=== PATIENT | female | born 1930 | race Caucasian/White ===

== ENCOUNTER 2016-12-11 07:00 | Day surgery (SDC) | payer OTHER, BC ==
[~2016-12-11 07:00] MED LIST: SODIUM CHLORIDE 1,000 ML IV SCH
[2016-12-11] MEDS ORDERED: ACETAMINOPHEN 325 MG TABLET (FP) PO ONE (08:00)
[2016-12-11] MEDS ORDERED: DIPHENHYDRAMINE 25 MG in SODIUM CHLORIDE 50 ML IVPB ONE (08:00)
[2016-12-11] MEDS ORDERED: SODIUM CHLORIDE IVPB ONE (08:30)
[2016-12-11] MEDS ORDERED: RITUXIMAB IVPB ONE (08:30)
[2016-12-11 08:44] LABS: MCH 31.2 pg (25.7-33.7); MCHC 33.8 g/dl (32.0-36.0); MEAN CELL VOLUME 92.3 fl (80-96); MEAN PLT VOLUME 8.6 fl (7.5-11.1); PLATELET COUNT 244 K/MM3 (134-434); RDW 14.5 % (11.6-15.6); WHITE BLOOD COUNT 7.3 K/mm3 (4.0-10.0)
[2016-12-11 11:42] LABS: PLATELET ESTIMATE ADEQUATE (NORMAL)
[2016-12-11 11:57] VITALS: PULSE 78
[2016-12-11 11:58] VITALS: BP 125/74; TEMP 97.7
== END 2016-12-11 14:38 | disposition home or self-care (01) ==
LOC: JONCCHEMO 07:00 → J7W 09:28 → JONCCHEMO 14:38
PROVIDERS: ATTEND Internal Medicine Hematology & Oncology
PROC: 3E03305 Introduction of Other Antineoplastic into Peripheral Vein, Percutaneous Approach (ICD-10-PCS; principal; 2016-12-11)
PROC: 3E033GC Introduction of Other Therapeutic Substance into Peripheral Vein, Percutaneous Approach (ICD-10-PCS; 2016-12-11)
DX: Z51.11 Encounter for antineoplastic chemotherapy (principal); C85.99 Non-Hodgkin lymphoma, unspecified, extranodal and solid organ sites
CPT/HCPCS: 36415; 85025; 96375; 96413; 96415; J9310

== ENCOUNTER 2017-02-09 07:13 | Day surgery (SDC) | payer OTHER, BC ==
[2017-02-09] MEDS ORDERED: DIPHENHYDRAMINE 25 MG in SODIUM CHLORIDE 50 ML IVPB ONE (08:00)
[2017-02-09] MEDS ORDERED: ACETAMINOPHEN 325 MG TABLET (FP) PO ONE (08:00)
[2017-02-09] MEDS ORDERED: SODIUM CHLORIDE IVPB ONE (08:30)
[2017-02-09] MEDS ORDERED: RITUXIMAB IVPB ONE (08:30)
[2017-02-09 08:58] VITALS: TEMP 98
[2017-02-09 09:28] LABS: BASOPHIL 0.8 % (0-2.0); EOSINOPHIL 3.1 % (0-4.5); MCH 30.9 pg (25.7-33.7); MEAN PLT VOLUME 7.7 fl (7.5-11.1); NEUTROPHILS 73.1 % (42.8-82.8); PLATELET COUNT 232 K/MM3 (134-434); RDW 13.5 % (11.6-15.6); WHITE BLOOD COUNT 7.6 K/mm3 (4.0-10.0)
[2017-02-09] MEDS ORDERED: SODIUM CHLORIDE 250 ML IV SCH (10:45)
[2017-02-09 14:37] VITALS: PULSE 62
[2017-02-09 14:43] VITALS: BP 135/78
== END 2017-02-09 15:25 | disposition home or self-care (01) ==
LOC: JONCCHEMO 07:13 → J7W 10:17 → JONCCHEMO 15:25
PROVIDERS: ATTEND Internal Medicine Hematology & Oncology
DX: Z51.11 Encounter for antineoplastic chemotherapy (principal); C85.90 Non-Hodgkin lymphoma, unspecified, unspecified site; C50.919 Malignant neoplasm of unspecified site of unspecified female breast
CPT/HCPCS: 36415; 85025; 96360; 96361; 96367; 96413; 96415; J9310

== ENCOUNTER 2018-06-18 05:30 | Day surgery (SDC) | payer OTHER, BC ==
[2018-06-17 08:58] VITALS: BMI 26.1
[2018-06-18] MEDS ORDERED: LACTATED RINGERS SOLUTION 1,000 ML IV SCH (10:45)
[2018-06-18] MEDS ORDERED: LIDOCAINE HCL 1% PRESERVATIVE FREE - 30ML VIAL IJ ONE (11:00)
[2018-06-18 12:54] VITALS: TEMP 97.8
[2018-06-18 14:44] VITALS: BP 147/77; PULSE 88
--- NOTE | 2018-06-19 08:36 | OP ---
DATE OF OPERATION: 06/18/2018 SURGICAL ATTENDING: Zackery Moralez MD PREOPERATIVE DIAGNOSIS: Right neck lymphadenopathy. POSTOPERATIVE DIAGNOSIS: Right neck lymphadenopathy. ANESTHESIA: Local with sedation. PROCEDURE: Deep right cervical lymph node biopsy. DESCRIPTION OF PROCEDURE: The patient was taken into the operating room, placed in a supine position, given IV sedation and IV antibiotics, prepped and draped in usual sterile fashion. Local anesthesia was administered over the right lower neck. A 2-cm horizontal incision was made in the prior neck incision, carried down through subcutaneous tissues and platysma. Enlarged and pathologic-appearing lymph nodes were identified, dissected free from surrounding tissues, and removed. The hemostasis was achieved with electrocautery and Vicryl suture. The wound was then closed in 2 layers. Sterile dressings were placed. The patient was then awakened and taken to Recovery in stable condition. Dr. Moralez, the attending surgeon, was present throughout the entire procedure. ZACKERY MORALEZ M.D. [id number]
--- NOTE | 2018-06-24 11:21 | PATH ---
Surgical Pathology Report Patient Name: CATHERINE KOVACS [facility]. Rec. #: [id number] /Age/Gender: 1930 (Age: 87) / F Account: [id number] Location: [facility] SURGICAL Taken: 06/18/2018 Received: 06/18/2018 Reported: 06/24/2018 Physicians: Delano Cameron M.D. Talha Ramos M.D. Specimen(s) Received A: RIGHT CERVICAL LYMPH NODE BX (ALSO RECEIVED TISSUE IN RPMI) B: CERVICAL SCAR TISSUE Clinical History Right neck mass Final Diagnosis A. LYMPH NODE, CERVICAL, RIGHT, BIOPSY: SMALL LYMPHOCYTIC LYMPHOMA/CHRONIC LYMPHOCYTIC LEUKEMIA. SEE COMMENT. B. SKIN, CERVICAL, EXCISION: SKIN WITH DERMAL FIBROSIS CONSISTENT WITH SCAR. Comment: Part A, histologic sections show an enlarged lymph node. There is effacement of the normal architecture by a diffuse process. There are sheets of atypical lymphoid cells that are mostly small and monotonous-appearing. Occasional proliferation centers are present with intermediate-sized prolymphocytes. Immunohistochemical stains are performed with appropriate controls. The majority of the atypical lymphocytes are positive for dim CD20 and PAX5. They are additionally positive for CD5 and LEF-1. A subset shows dim CD23 staining. Lymphocytes are negative for Cyclin D1. A stain for CD3 highlights scattered small T-cells. A stain for Ki67 is variable, overall highlighting approximately 10-20% of lymphocytes, with higher numbers in proliferation centers. Concurrent lymphoproliferative flow panel performed and interpreted at [place], [place] ([id number]) is consistent with Small lymphocytic lymphoma/Chronic lymphocytic leukemia. This case was sent to Dr. Danny Barcenas from [place], [place] ([id number]) the diagnosis above reflects his opinion. Findings discussed with Dr. Cameron and Dr. Ramos. See [facility] reports for additional details ([id number] and [id number]). Electronically Signed Shantell Curry M.D. Gross Description A. Received fresh labeled "right cervical lymph node biopsy," are 2 melton lymph nodes averaging 1.0 cm in greatest dimension. A appliance service representative portion of each lymph node is placed in RPMI solution and sent for flow cytometry. The remainder of the specimen is entirely submitted in one cassette. B. Received in formalin labeled "cervical scar," is a 3.0 x 0.5 cm melton, elliptical, unoriented portion of skin excised to a depth of 0.2 cm. The epidermal surface displays a central, linear, well-healed scar. Clay Puddler sections are submitted in one cassette. 06/18/201806/18/2018
== END 2018-06-18 13:30 | disposition home or self-care (01) ==
LOC: JASU-SURG 05:30
PROVIDERS: ATTEND Surgery
PROC: 07B10ZX Excision of Right Neck Lymphatic, Open Approach, Diagnostic (ICD-10-PCS; principal; 2018-06-18 10:00)
DX: C91.Z0 Other lymphoid leukemia not having achieved remission (principal)
CPT/HCPCS: 88304-TC; 88305-TC; 94760

== ENCOUNTER 2018-07-06 07:31 | Day surgery (SDC) | payer OTHER, BC ==
[2018-07-06 09:59] LABS: BASO % 0.2 % (0-2.0); EOS % 5.1 % (0-4.5); HEMOGLOBIN 11.6 GM/dL (10.7-15.3); LYMPH % 10.8 % (8-40); MCH 29.7 pg (25.7-33.7); MCHC 34.1 g/dl (32.0-36.0); MEAN CELL VOLUME 87.1 fl (80-96); MEAN PLT VOLUME 6.7 fl (7.5-11.1); MONO % 11.6 % (3.8-10.2); NEUT % 72.3 % (42.8-82.8); PLATELET COUNT 246 K/MM3 (134-434); RDW 14.9 % (11.6-15.6); WHITE BLOOD COUNT 6.1 K/mm3 (4.0-10.0)
[2018-07-06] MEDS ORDERED: ACETAMINOPHEN 325 MG TABLET (FP) PO ONE (10:00)
[2018-07-06] MEDS ORDERED: DEXAMETHASONE INJECTION 10 MG, DIPHENHYDRAMINE 25 MG in SODIUM CHLORIDE 100 ML IVPB ONE (10:00)
[2018-07-06 10:14] LABS: ALBUMIN 3.6 g/dl (3.4-5.0); ALK PHOS 67 U/L (45-117); ANION GAP 12 MMOL/L (8-16); BILIRUBIN,TOTAL 0.9 mg/dL (0.2-1); BLOOD UREA NITROGEN 17 mg/dL (7-18); CHLORIDE 93 mmol/L (98-107); CO2 26 mmol/L (21-32); CREATININE 0.9 mg/dL (0.55-1.3); GLUCOSE,RANDOM 92 mg/dL (74-106); POTASSIUM 3.9 mmol/L (3.5-5.1); SGOT/AST 29 U/L (15-37); SGPT/ALT 28 U/L (13-61); SODIUM 131 mmol/L (136-145); TOT PROT 7.6 g/dl (6.4-8.2)
[2018-07-06 10:17] LABS: ALBUMIN 3.6 g/dl (3.4-5.0); BILIRUBIN,DIRECT 0.2 mg/dL (0.0-0.2); MAGNESIUM 1.7 mg/dL (1.8-2.4); TOT PROT 7.8 g/dl (6.4-8.2)
[2018-07-06] MEDS ORDERED: RITUXIMAB 500 MG, RITUXIMAB 85 MG in SODIUM CHLORIDE 526.5 ML IVPB ONE (10:30)
[2018-07-06] MEDS ORDERED: MAGNESIUM SULF 50% (8.12 MEQ/2 ML-1 GM VIAL) IVPB ONE (10:37)
[2018-07-06] MEDS ORDERED: ALPRAZolam 0.25 MG TABLET PO ONE (11:00)
[2018-07-06 11:16] LABS: LDH 268 U/L (84-246); URIC ACID 4.5 mg/dL (2.6-7.2)
[2018-07-06 15:40] VITALS: TEMP 97.9
[2018-07-06 15:48] VITALS: BP 147/87; PULSE 102
== END 2018-07-06 16:14 | disposition home or self-care (01) ==
LOC: JONCCHEMO 07:31 → J7W 10:20 → JONCCHEMO 16:14
PROVIDERS: ATTEND Internal Medicine Hematology & Oncology
DX: Z51.11 Encounter for antineoplastic chemotherapy (principal); C91.10 Chronic lymphocytic leukemia of B-cell type not having achieved remission; Z85.3 Personal history of malignant neoplasm of breast
CPT/HCPCS: 36415; 80053; 80076; 83615; 83735; 84550; 85025; 96366; 96367; 96375; 96413; 96415; 96417; J1100; J7030; J9310

== ENCOUNTER 2018-07-13 07:47 | Day surgery (SDC) | payer OTHER, BC ==
[2018-07-13] MEDS ORDERED: ACETAMINOPHEN 325 MG TABLET (FP) PO ONE (10:00)
[2018-07-13] MEDS ORDERED: DEXAMETHASONE INJECTION 10 MG, DIPHENHYDRAMINE 25 MG in SODIUM CHLORIDE 100 ML IVPB ONE (10:00)
[2018-07-13 10:03] LABS: BASO % 0.4 % (0-2.0); EOS % 6.4 % (0-4.5); HEMATOCRIT 38.6 % (32.4-45.2); HEMOGLOBIN 12.8 GM/dL (10.7-15.3); LYMPH % 9.5 % (8-40); MCHC 33.2 g/dl (32.0-36.0); MEAN CELL VOLUME 87.5 fl (80-96); MEAN PLT VOLUME 6.9 fl (7.5-11.1); MONO % 6.6 % (3.8-10.2); NEUT % 77.1 % (42.8-82.8); PLATELET COUNT 303 K/MM3 (134-434); RBC 4.41 M/mm3 (3.60-5.2); RDW 15.3 % (11.6-15.6); WHITE BLOOD COUNT 11.9 K/mm3 (4.0-10.0)
[2018-07-13 10:22] LABS: ALBUMIN 3.6 g/dl (3.4-5.0); BILIRUBIN,DIRECT 0.2 mg/dL (0.0-0.2); BILIRUBIN,TOTAL 0.6 mg/dL (0.2-1); MAGNESIUM 1.7 mg/dL (1.8-2.4); TOT PROT 7.9 g/dl (6.4-8.2)
[2018-07-13 10:24] LABS: ALBUMIN 3.6 g/dl (3.4-5.0); ALK PHOS 66 U/L (45-117); ANION GAP 11 MMOL/L (8-16); BILIRUBIN,TOTAL 0.6 mg/dL (0.2-1); BLOOD UREA NITROGEN 23 mg/dL (7-18); CALCIUM 10.4 mg/dL (8.5-10.1); CHLORIDE 92 mmol/L (98-107); CO2 28 mmol/L (21-32); GLUCOSE,RANDOM 90 mg/dL (74-106); POTASSIUM 3.6 mmol/L (3.5-5.1); SGOT/AST 22 U/L (15-37); SGPT/ALT 33 U/L (13-61); SODIUM 131 mmol/L (136-145); TOT PROT 7.9 g/dl (6.4-8.2)
[2018-07-13] MEDS ORDERED: RITUXIMAB 500 MG, RITUXIMAB 85 MG in SODIUM CHLORIDE 526.5 ML IVPB ONE (10:30)
[2018-07-13] MEDS ORDERED: MAGNESIUM SULF 50% (8.12 MEQ/2 ML-1 GM VIAL) IVPB ONE ×2 (10:50→11:45)
[2018-07-13 18:03] VITALS: TEMP 97.7
[2018-07-13 18:04] VITALS: BP 123/72; PULSE 82
== END 2018-07-13 14:45 | disposition home or self-care (01) ==
LOC: JONCCHEMO 07:47 → J7W 10:39 → JONCCHEMO 14:45
PROVIDERS: ATTEND Internal Medicine Hematology & Oncology
DX: Z51.11 Encounter for antineoplastic chemotherapy (principal); C91.10 Chronic lymphocytic leukemia of B-cell type not having achieved remission; Z85.3 Personal history of malignant neoplasm of breast
CPT/HCPCS: 36415; 80053; 80076; 82306; 83735; 83970; 84100; 85025; 96366; 96367; 96375; 96413; 96415; 96417; J1100; J7030; J9310

== ENCOUNTER 2018-07-20 07:47 | Day surgery (SDC) | payer OTHER, BC ==
[2018-07-20] MEDS ORDERED: DEXAMETHASONE INJECTION 10 MG, DIPHENHYDRAMINE 25 MG in SODIUM CHLORIDE 100 ML IVPB ONE (08:00)
[2018-07-20] MEDS ORDERED: ACETAMINOPHEN 325 MG TABLET (FP) PO ONE (08:00)
[2018-07-20] MEDS ORDERED: RITUXIMAB 500 MG, RITUXIMAB 85 MG in SODIUM CHLORIDE 526.5 ML IVPB ONE (08:30)
[2018-07-20 09:30] LABS: BASO % 0.4 % (0-2.0); EOS % 2.9 % (0-4.5); HEMATOCRIT 36.7 % (32.4-45.2); HEMOGLOBIN 12.6 GM/dL (10.7-15.3); LYMPH % 4.2 % (8-40); MCH 30.1 pg (25.7-33.7); MCHC 34.2 g/dl (32.0-36.0); MEAN CELL VOLUME 88.2 fl (80-96); MEAN PLT VOLUME 6.9 fl (7.5-11.1); MONO % 5.8 % (3.8-10.2); NEUT % 86.7 % (42.8-82.8); PLATELET COUNT 315 K/MM3 (134-434); RBC 4.16 M/mm3 (3.60-5.2); RDW 15.5 % (11.6-15.6); WHITE BLOOD COUNT 15.9 K/mm3 (4.0-10.0)
[2018-07-20 09:53] LABS: ALBUMIN 3.4 g/dl (3.4-5.0); BILIRUBIN,DIRECT 0.2 mg/dL (0.0-0.2); BILIRUBIN,TOTAL 0.7 mg/dL (0.2-1); MAGNESIUM 1.6 mg/dL (1.8-2.4); TOT PROT 7.4 g/dl (6.4-8.2)
[2018-07-20 09:55] LABS: ALBUMIN 3.5 g/dl (3.4-5.0); ALK PHOS 67 U/L (45-117); ANION GAP 8 MMOL/L (8-16); BILIRUBIN,TOTAL 0.8 mg/dL (0.2-1); BLOOD UREA NITROGEN 22 mg/dL (7-18); CALCIUM 10.1 mg/dL (8.5-10.1); CHLORIDE 96 mmol/L (98-107); CO2 30 mmol/L (21-32); CREATININE 0.9 mg/dL (0.55-1.3); GLUCOSE,RANDOM 70 mg/dL (74-106); POTASSIUM 4.3 mmol/L (3.5-5.1); SGOT/AST 22 U/L (15-37); SGPT/ALT 38 U/L (13-61); SODIUM 134 mmol/L (136-145); TOT PROT 7.6 g/dl (6.4-8.2)
[2018-07-20] MEDS ORDERED: amLODIPine BESYLATE 5 MG TABLET (FP) PO ONE (10:45)
[2018-07-20] MEDS ORDERED: MAGNESIUM SULF 50% (8.12 MEQ/2 ML-1 GM VIAL) ONE (11:05)
[2018-07-20] MEDS ORDERED: MAGNESIUM SULF 50% (8.12 MEQ/2 ML-1 GM VIAL) IVPB ONE (11:30)
[2018-07-20] MEDS ORDERED: amLODIPine BESYLATE 2.5 MG TABLET (FP) PO ONE (12:45)
[2018-07-20 17:28] VITALS: PULSE 89
[2018-07-20 17:31] VITALS: BP 132/84; TEMP 97.9
== END 2018-07-20 15:50 | disposition home or self-care (01) ==
LOC: JONCCHEMO 07:47 → J7W 09:55 → JONCCHEMO 15:50
PROVIDERS: ATTEND Internal Medicine Hematology & Oncology
DX: Z51.11 Encounter for antineoplastic chemotherapy (principal); C91.10 Chronic lymphocytic leukemia of B-cell type not having achieved remission; Z85.3 Personal history of malignant neoplasm of breast
CPT/HCPCS: 36415; 80053; 80076; 83735; 84550; 85025; 96367; 96375; 96413; 96415; 96417; J1100; J9310

== ENCOUNTER 2018-07-27 07:23 | Day surgery (SDC) | payer OTHER, BC ==
[2018-07-27 09:47] LABS: BASO % 0.7 % (0-2.0); HEMATOCRIT 40.6 % (32.4-45.2); HEMOGLOBIN 13.8 GM/dL (10.7-15.3); LYMPH % 6.7 % (8-40); MCH 29.8 pg (25.7-33.7); MEAN CELL VOLUME 87.7 fl (80-96); MEAN PLT VOLUME 6.8 fl (7.5-11.1); MONO % 10.5 % (3.8-10.2); NEUT % 75.1 % (42.8-82.8); PLATELET COUNT 284 K/MM3 (134-434); RBC 4.63 M/mm3 (3.60-5.2); RDW 15.2 % (11.6-15.6); WHITE BLOOD COUNT 9.4 K/mm3 (4.0-10.0)
[2018-07-27] MEDS ORDERED: DEXAMETHASONE INJECTION 10 MG, DIPHENHYDRAMINE 25 MG in SODIUM CHLORIDE 100 ML IVPB ONE (10:00)
[2018-07-27] MEDS ORDERED: ACETAMINOPHEN 325 MG TABLET (FP) PO ONE (10:00)
[2018-07-27] MEDS ORDERED: RITUXIMAB 500 MG, RITUXIMAB 85 MG in SODIUM CHLORIDE 526.5 ML IVPB ONE (10:30)
[2018-07-27 10:41] LABS: ALBUMIN 3.7 g/dl (3.4-5.0); BILIRUBIN,DIRECT 0.3 mg/dL (0.0-0.2); BILIRUBIN,TOTAL 1.1 mg/dL (0.2-1); MAGNESIUM 1.7 mg/dL (1.8-2.4); TOT PROT 7.7 g/dl (6.4-8.2)
[2018-07-27 10:42] LABS: ALBUMIN 3.5 g/dl (3.4-5.0); ALK PHOS 74 U/L (45-117); ANION GAP 8 MMOL/L (8-16); BILIRUBIN,TOTAL 1.1 mg/dL (0.2-1); BLOOD UREA NITROGEN 17 mg/dL (7-18); CALCIUM 9.2 mg/dL (8.5-10.1); CHLORIDE 88 mmol/L (98-107); CO2 32 mmol/L (21-32); CREATININE 0.9 mg/dL (0.55-1.3); GLUCOSE,RANDOM 95 mg/dL (74-106); POTASSIUM 3.9 mmol/L (3.5-5.1); SGOT/AST 22 U/L (15-37); SGPT/ALT 29 U/L (13-61); SODIUM 128 mmol/L (136-145); TOT PROT 7.5 g/dl (6.4-8.2)
[2018-07-27] MEDS ORDERED: MAGNESIUM OXIDE 400 MG TABLET (FP) PO ONE (10:50)
[2018-07-27 15:24] VITALS: TEMP 97.7
[2018-07-27 15:26] VITALS: BP 128/70; PULSE 89
== END 2018-07-27 14:45 | disposition home or self-care (01) ==
LOC: JONCCHEMO 07:23 → J7W 10:31 → JONCCHEMO 14:45
PROVIDERS: ATTEND Internal Medicine Hematology & Oncology
DX: Z51.11 Encounter for antineoplastic chemotherapy (principal); C91.10 Chronic lymphocytic leukemia of B-cell type not having achieved remission; Z85.3 Personal history of malignant neoplasm of breast
CPT/HCPCS: 36415; 80053; 80076; 83735; 85025; 96367; 96375; 96413; 96415; J1100; J9310

== ENCOUNTER 2018-10-06 15:27 | Emergency (ER) | payer OTHER, BC ==
[2018-10-06 15:48] VITALS: BP 169/95; PULSE 95; TEMP 97.8; BMI 23.8
--- NOTE | 2018-10-06 15:50 | PDOC ---
Rapid Medical Evaluation Chief Complaint: Shortness of Breath Time Seen by Provider: 10/06/18 15:49 Medical Evaluation: Allergies Allergy/AdvReac Type Severity Reaction Status Date / Time Penicillins Allergy Mild Rash Verified 10/06/18 15:48 azithromycin AdvReac Intermediate diarrhea Verified 10/06/18 15:48 [From Zithromax Z-Aung] metronidazole [From Flagyl] AdvReac Intermediate Rash Verified 10/06/18 15:48 Metronidazole HCl AdvReac Intermediate Verified 10/06/18 15:48 [From Flagyl] Vital Signs Temp Pulse Resp BP Pulse Ox 97.8 F 95 H 22 H 169/95 100 10/06/18 15:45 10/06/18 15:45 10/06/18 15:45 10/06/18 15:45 10/06/18 15:45 10/06/18 15:49 I have performed a brief in-person evaluation of this patient. The patient presents with a chief complaint of: SOB x3 days Pertinent physical exam findings: Lungs CTAB. Abd diffusely tender. I have ordered the following: labs The patient will proceed to the ED for further evaluation. Discharge Disposition - Diagnosis SOB (shortness of breath) - Referrals Referrals: Shivam Colorado MD [Primary Care Provider] - - Patient Instructions - Post Discharge Activity
--- NOTE | 2018-10-06 16:17 | PDOC ---
History of Present Illness - General Chief Complaint: Shortness of Breath Stated Complaint: Shortness of Breath/ABD PAIN Time Seen by Provider: 10/06/18 15:49 - History of Present Illness Initial Comments: 10/06/18 17:14 The patient is an 87 year old female with a history of HTN, HLD, Breast CA, Lymphoma, Colonic Resection who presents for evaluation of abdominal pain. The patient is accompanied by family who assist in providing the history. They note that the patient's Oncologist Dr. Ramos recently started on a new chemotherapy agent 3 weeks ago and since that time has been having worsening epigastric abdominal cramping. She notes that the pain has been intermittent, but getting progressively more persistent and more severe prompting her presentation to the ED for further evaluation. She notes that she has only been able to tolerate PO liquids and reports some nausea today. She notes associated diarrhea and shortness of breath when the pain occurs. She otherwise denies fevers, chills, chest pain, vomiting, or changes with urination. Past History - Past Medical History Allergies/Adverse Reactions: Allergies Allergy/AdvReac Type Severity Reaction Status Date / Time Penicillins Allergy Mild Rash Verified 10/06/18 15:48 azithromycin AdvReac Intermediate diarrhea Verified 10/06/18 15:48 [From Zithromax Z-Aung] metronidazole [From Flagyl] AdvReac Intermediate Rash Verified 10/06/18 15:48 Metronidazole HCl AdvReac Intermediate Verified 10/06/18 15:48 [From Flagyl] Home Medications: Ambulatory Orders Alprazolam [Xanax] 0.25 mg PO PRN 10/06/18 Ibrutinib [Imbruvica] 420 mg PO HS 10/06/18 Levothyroxine [Synthroid -] 25 mcg PO DAILY 10/06/18 Anemia: Yes Asthma: No Cancer: Yes (BREAST CA 11/2006, LYMPHOMA 1980 AND 1988) Cardiac Disorders: No CVA: No COPD: No CHF: No Dementia: No Diabetes: No GI Disorders: No Disorders: No HTN: Yes Hypercholesterolemia: Yes Liver Disease: No Seizures: No Thyroid Disease: Yes - Surgical History Abdominal Surgery: Yes (PERFORATED COLON S/P COLONOSCOPY) Appendectomy: No Cardiac Surgery: No Cholecystectomy: No GI Surgery: Yes (colonoscopy) Lung Surgery: No Neurologic Surgery: No Orthopedic Surgery: No - Immunization History Immunization Up to Date: No - Suicide/Smoking/Psychosocial Hx Smoking Status: No Smoking History: Never smoked Have you smoked in the past 12 months: No Number of Cigarettes Smoked Daily: 0 Information on smoking cessation initiated: No Hx Alcohol Use: No Drug/Substance Use Hx: No Substance Use Type: None Hx Substance Use Treatment: No Review of Systems - Review of Systems Comments:: 10/06/18 17:20 Constitutional: No fevers, chills, fatigue, malaise HEENT: No Rhinorrhea, nasal congestion, visual changes Cardiovascular: No chest pain, syncope, palpitations, lightheadedness Respiratory:SOB. No Cough, Hemoptysis, Gastrointestinal: Abdominal pain, nausea, diarrhea. No Vomiting, Constipation, Melena Genitourinary: No Dysuria, Frequency, Urgency, Hesitancy, Hematuria, Flank pain Musculoskeletal: No Myalgia, arthralgia Skin: No rashes, itching, bruising, pallor Neurologic: No Headache, Dizziness, Numbness, Weakness, or Tingling Psychiatric: No Hallucinations. No SI or HI *Physical Exam - Vital Signs Last Vital Signs Temp Pulse Resp BP Pulse Ox 97.8 F 95 H 22 H 169/95 100 10/06/18 15:45 10/06/18 15:45 10/06/18 15:45 10/06/18 15:45 10/06/18 15:45 - Physical Exam Comments: 10/06/18 17:21 General Appearance: Nourished. No Apparent Distress HEENT: No Pharyngeal Erythema, Tonsillar Exudate, Tonsillar Erythema Neck: No Cervical Lymphadenopathy Respiratory/Chest: Lungs Clear, Normal Breath Sounds. No Crackles, Rales, Rhonchi, Wheezing Cardiovascular: Regular Rhythm, Regular Rate. No Murmur, Gallops, Rubs Gastrointestinal/Abdominal: Hyperactive bowel sounds, Soft. Mild epigastric discomfort with palpation. No Guarding, Rebound, Musculoskeletal: No CVA Tenderness Extremity: Normal Capillary Refill Integumentary: Normal Color, Dry, Warm Neurologic: Fully Oriented, Alert, Normal Mood/Affect, Normal Response, Moderate Sedation - Procedure Monitoring Vital Signs: Procedure Monitoring Vital Signs Temperature 97.8 F 10/06/18 15:45 Pulse Rate 95 H 10/06/18 15:45 Respiratory Rate 22 H 10/06/18 15:45 Blood Pressure 169/95 10/06/18 15:45 O2 Sat by Pulse Oximetry (%) 100 01/02/19 15:45 ED Treatment Course - LABORATORY CBC & Chemistry Diagram: 10/06/18 16:09 10/06/18 16:09 Medical Decision Making - Medical Decision Making 10/06/18 17:22 The patient is an 87 year old female with a history of HTN, HLD, Breast CA, Lymphoma, Colonic Resection who presents for evaluation of abdominal pain. Differential includes but is not limited to: Obstruction, ACS, Gastritis, Medication Side-effects, Infectious, Metabolic Derangement. Given the patient' s history and physical exam, we will obtain a cbc, cmp, bnp, troponin, lipase, lactate, ua, chest plain film, ekg, CT abdomen/pelvis to evaluate further. We will treat with iv fluids and continue to monitor and reassess while here in the ED. 10/06/18 19:58 CBC, cmp, bnp, troponin, lipase are unremarkable. Chest plain film is unremarkable. The patient was signed out to the night team pending CT abdomen/ pelvis. *DC/Admit/Observation/Transfer Diagnosis at time of Disposition: SOB (shortness of breath) - Discharge Dispostion Disposition: AGAINST MEDICAL ADVICE Condition at time of disposition: Stable - Referrals Referrals: Shivam Colorado MD [Primary Care Provider] - - Patient Instructions Printed Discharge Instructions: DI for Abdominal Pain-Adult Additional Instructions: Please return to the emergency department with any new or worsening symptoms or concerns. Please follow up with your primary care physician within 72 hours. - Post Discharge Activity
[2018-10-06 16:20] LABS: BASO % 1.5 % (0-2.0); EOS % 0.9 % (0-4.5); HEMATOCRIT 33.6 % (32.4-45.2); HEMOGLOBIN 11.8 GM/dL (10.7-15.3); LYMPH % 16.2 % (8-40); MCH 31.7 pg (25.7-33.7); MCHC 35.1 g/dl (32.0-36.0); MEAN CELL VOLUME 90.3 fl (80-96); MEAN PLT VOLUME 9.4 fl (7.5-11.1); MONO % 12.7 % (3.8-10.2); NEUT % 68.7 % (42.8-82.8); PLATELET COUNT 212 K/MM3 (134-434); RBC 3.72 M/mm3 (3.60-5.2); RDW 14.2 % (11.6-15.6); WHITE BLOOD COUNT 6.8 K/mm3 (4.0-10.0)
--- NOTE | 2018-10-06 16:36 | PDOC ---
Attending Attestation - HPI HPI: 10/06/18 16:41 The patient is a 87 year old female, with a significant past medical history of anemia, htn, hld, breast CA, and lymphoma (Dr. Ramos), who presents to the emergency department with abdominal pain after starting new chemo drug about 2- 3 weeks ago. She reports epigastric cramping which has been progressively increasing in severity since onset. She denies radiation of pain. She reports associated nausea and diarrhea, but denies vomiting. The patient denies chest pain, shortness of breath, headache and dizziness. The patient denies fever, chills, vomit,and constipation. The patient denies dysuria , frequency, urgency and hematuria. Allergies: penicillins, azithromycin, metronidazole, PCP - Dr. Colorado Hem/Onc: Dr. Ramos - Physicial Exam PE: 10/06/18 17:31 GENERAL: The patient is in no acute distress. HEAD: Normal with no signs of trauma. EYES: PERRLA, EOMI, sclera anicteric, conjunctiva clear. ENT: Ears normal, nares patent, oropharynx clear without exudates. Moist mucous membranes. NECK: Normal range of motion, supple without lymphadenopathy, JVD, or masses. LUNGS: Breath sounds equal, clear to auscultation bilaterally. No wheezes, and no crackles. HEART:Regular rate and rhythm, normal S1 and S2 without murmur, rub or gallop. ABDOMEN: (+) right lower discomfort on palpation. Soft, normoactive bowel sounds. No guarding, no rebound. No masses palpable. EXTREMITIES: (+) bilateral pitting edema of ankles. Normal range of motion. No clubbing or cyanosis. No erythema, or tenderness. NEUROLOGICAL: Cranial nerves II through XII grossly intact. Normal speech. No focal neurological deficits. MUSCULOSKELETAL: Back non-tender to palpation, no CVA tenderness SKIN: Warm, Dry, normal turgor, no rashes or lesions noted. - Medical Decision Making 10/06/18 16:41 Documentation prepared by Moon Jackson, acting as emergency medical technician/driver for Arabella Blanc MD <Moon Jackson - Last Filed: 10/06/18 17:30> - Resident Resident Name: Santiago Anton - ED Attending Attestation I have performed the following: I have examined & evaluated the patient, The case was reviewed & discussed with the resident, I agree w/resident's findings & plan, Exceptions are as noted - Medical Decision Making Pt presents with abdominal pain and decreased po intake pt recently started on biologic Risks - colitis, sbo, intra abdominal infection 10/06/18 17:56 Laboratory Tests 10/06/18 10/06/18 10/06/18 16:09 16:09 16:09 WBC 6.8 Hgb 11.8 Hct 33.6 Plt Count 212 D INR 0.98 Sodium 132 L Potassium 3.9 Chloride 98 Carbon Dioxide 28 BUN 14 Creatinine 1.0 Random Glucose 84 Lactic Acid AST 66 H ALT 117 H Creatine Kinase 126 Troponin I 0.03 Lipase 10/06/18 10/06/18 16:54 16:54 WBC Hgb Hct Plt Count INR Sodium Potassium Chloride Carbon Dioxide BUN Creatinine Random Glucose Lactic Acid 0.9 AST ALT Creatine Kinase Troponin I Lipase 140 Pt signed out to Dr. martell pending CT results <Arabella Blanc - Last Filed: 10/08/18 07:59>
[2018-10-06] MEDS ORDERED: SODIUM CHLORIDE 1,000 ML IV STA (16:40)
[2018-10-06 16:48] LABS: INR 0.98 (0.83-1.09); PROTHROMBIN TIME (PATIENT) 11.6 SEC (9.7-13.0)
[2018-10-06 16:58] LABS: URINE APPEARANCE CLEAR; URINE BILIRUBIN NEGATIVE (<2.0 mg/dL); URINE COLOR LTYELLOW; URINE GLUCOSE (UA) NEGATIVE (NEGATIVE); URINE KETONE NEGATIVE (NEGATIVE); URINE LEUK ESTERASE 3+ (NEGATIVE); URINE NITRITE NEGATIVE (NEGATIVE); URINE PROTEIN 2+ (NEGATIVE); URINE UROBILINOGEN NEGATIVE mg/dL (0.2-1.0)
[2018-10-06 17:02] LABS: ALBUMIN 3.3 g/dl (3.4-5.0); ALK PHOS 67 U/L (45-117); ANION GAP 6 MMOL/L (8-16); BILIRUBIN,TOTAL 0.8 mg/dL (0.2-1); BLOOD UREA NITROGEN 14 mg/dL (7-18); CHLORIDE 98 mmol/L (98-107); CO2 28 mmol/L (21-32); GLUCOSE,RANDOM 84 mg/dL (74-106); POTASSIUM 3.9 mmol/L (3.5-5.1); SGOT/AST 66 U/L (15-37); SGPT/ALT 117 U/L (13-61); SODIUM 132 mmol/L (136-145); TOT PROT 6.7 g/dl (6.4-8.2)
[2018-10-06 17:11] LABS: EPI CELLS RARE /HPF (FEW)
--- NOTE | 2018-10-06 19:29 | PDOC ---
*Physical Exam - Vital Signs Last Vital Signs Temp Pulse Resp BP Pulse Ox 97.8 F 95 H 22 H 169/95 98 10/06/18 15:45 10/06/18 15:45 10/06/18 15:45 10/06/18 15:45 10/06/18 16:20 - Physical Exam Comments: 10/06/18 19:25 GENERAL: Awake, alert, and fully oriented, in no acute distress HEAD: No signs of trauma, normocephalic, atraumatic EYES: PERRLA, EOMI, sclera anicteric, conjunctiva clear ENT: Hearing grossly normal, nares patent, oropharynx clear without exudates. Moist mucosa NECK: Normal ROM, supple, no lymphadenopathy, JVD, or masses LUNGS: No distress, speaks full sentences, clear to auscultation bilaterally HEART: Regular rate and rhythm, normal S1 and S2, no murmurs, rubs or gallops, peripheral pulses normal and equal bilaterally. ABDOMEN: + Epigastric ttp. Soft, NDS, normoactive bowel sounds. No guarding, no rebound. No masses EXTREMITIES : Normal inspection, Normal range of motion, no edema. No clubbing or cyanosis. SKIN: Warm, Dry, normal turgor, no rashes or lesions noted ED Treatment Course - LABORATORY CBC & Chemistry Diagram: 10/06/18 16:09 10/06/18 16:09 - ADDITIONAL ORDERS Additional order review: Laboratory Results 10/06/18 10/06/18 10/06/18 16:54 16:54 16:40 PT with INR INR Sodium Potassium Chloride Carbon Dioxide Anion Gap BUN Creatinine Creat Clearance w eGFR Random Glucose Lactic Acid 0.9 Calcium Magnesium Total Bilirubin AST ALT Alkaline Phosphatase Creatine Kinase Troponin I Total Protein Albumin Lipase 140 Urine Color Ltyellow Urine Appearance Clear Urine pH 6.0 Ur Specific Erie 1.008 L Urine Protein 2+ H Urine Glucose (UA) Negative Urine Ketones Negative Urine Blood 1+ H Urine Nitrite Negative Urine Bilirubin Negative Urine Urobilinogen Negative Ur Leukocyte Esterase 3+ H Urine WBC (Auto) 17 Urine RBC (Auto) 1 Ur Epithelial Cells Rare 10/06/18 10/06/18 16:09 16:09 PT with INR 11.60 INR 0.98 Sodium 132 L Potassium 3.9 Chloride 98 Carbon Dioxide 28 Anion Gap 6 L BUN 14 Creatinine 1.0 Creat Clearance w eGFR 52.45 Random Glucose 84 Lactic Acid Calcium 9.0 Magnesium 2.0 Total Bilirubin 0.8 AST 66 H ALT 117 H Alkaline Phosphatase 67 Creatine Kinase 126 Troponin I 0.03 Total Protein 6.7 Albumin 3.3 L Lipase Urine Color Urine Appearance Urine pH Ur Specific Erie Urine Protein Urine Glucose (UA) Urine Ketones Urine Blood Urine Nitrite Urine Bilirubin Urine Urobilinogen Ur Leukocyte Esterase Urine WBC (Auto) Urine RBC (Auto) Ur Epithelial Cells 10/06/18 16:09 RBC 3.72 MCV 90.3 MCHC 35.1 RDW 14.2 D MPV 9.4 D Neutrophils % 68.7 Lymphocytes % 16.2 Monocytes % 12.7 H Eosinophils % 0.9 D Basophils % 1.5 - Medications Given in the ED: ED Medications Discontinued Medications Generic Name Dose Route Start Last Admin Trade Name Freq PRN Reason Stop Dose Admin Sodium Chloride 1,000 mls @ 1,000 mls/hr 10/06/18 16:40 10/06/18 16:49 Normal Saline - IV 10/06/18 17:39 1,000 mls/hr ASDIR STA Administration Medical Decision Making - Medical Decision Making 10/06/18 19:25 87 yo F with h/o HTN, HLD, Breast Ca. Lymphoma, Colonic Resection, who p/w abdominal pain. VSS, AF. Received signout from Dr. Anton. Patient pending CT AP. CBC,CMP Unremarkable. Has received NS. Abdominal pain resolved. Pending CT AP. ED Course: Abdominal pain improved. Patient refuses to eat or drink in ED for PO challenge. Daughter at bedside states she is health care proxy and states that she is taking patient home. 10/06/18 19:28 Patient refuses to stay in ED for official CT/AP radiologist read. Patient signs out of ED AMA , after discussing and understanding risks of sudden , missed diagnosis, or need for additional testing, intervention, or admission to hospital. Daughter Kasandra Newberry provided phone number [phone]. Patient seen ambulating hallways. IV was removed. Does not endorses pain, or symptoms at this time. *DC/Admit/Observation/Transfer Diagnosis at time of Disposition: SOB (shortness of breath) - Discharge Dispostion Disposition: AGAINST MEDICAL ADVICE Condition at time of disposition: Stable - Referrals Referrals: Shivam Colorado MD [Primary Care Provider] - - Patient Instructions Printed Discharge Instructions: DI for Abdominal Pain-Adult Additional Instructions: Please return to the emergency department with any new or worsening symptoms or concerns. Please follow up with your primary care physician within 72 hours. - Post Discharge Activity - Attestations Physician Attestion: 10/06/18 19:28 I attest to the information provided in this note.
--- NOTE | 2018-10-07 16:19 | EKG ---
Test Reason : Blood Pressure : / mmHG Vent. Rate : 093 BPM Atrial Rate : 093 BPM P-R Int : 138 ms QRS Dur : 118 ms QT Int : 376 ms P-R-T Axes : 056 -56 054 degrees QTc Int : 467 ms NORMAL SINUS RHYTHM POSSIBLE LEFT ATRIAL ENLARGEMENT LEFT ANTERIOR FASCICULAR BLOCK LEFT VENTRICULAR HYPERTROPHY WITH QRS WIDENING NONSPECIFIC T WAVE ABNORMALITY ABNORMAL ECG WHEN COMPARED WITH ECG OF 06-AUG-2017 11:13, NONSPECIFIC T WAVE ABNORMALITY HAS REPLACED INVERTED T WAVES IN INFERIOR LEADS Confirmed by RAMÓN LAMBERT MD ([id number]) on 10/07/2018 4:19:37 PM Referred By: Confirmed By:RAMÓN LAMBERT MD
== END 2018-10-06 20:31 | disposition left against medical advice (07) ==
LOC: JER 15:27
PROC: 3E0337Z Introduction of Electrolytic and Water Balance Substance into Peripheral Vein, Percutaneous Approach (ICD-10-PCS; principal; 2018-10-06)
DX: R06.02 Shortness of breath (principal); I10 Essential (primary) hypertension; E78.5 Hyperlipidemia, unspecified; Z85.3 Personal history of malignant neoplasm of breast; C85.90 Non-Hodgkin lymphoma, unspecified, unspecified site
CPT/HCPCS: 36415; 74177-TC; 80053; 81003; 81015; 82550; 83605; 83690; 83735; 84484; 85025; 85610; 93005; 93010; 99284-25; J7030

== ENCOUNTER 2018-10-28 17:48 | Emergency (ER) | payer OTHER, BC ==
--- NOTE | 2018-10-28 18:11 | PDOC ---
Rapid Medical Evaluation Time Seen by Provider: 10/28/18 18:09 Medical Evaluation: Allergies Allergy/AdvReac Type Severity Reaction Status Date / Time Penicillins Allergy Mild Rash Verified 10/06/18 15:48 azithromycin AdvReac Intermediate diarrhea Verified 10/06/18 15:48 [From Zithromax Z-Aung] metronidazole [From Flagyl] AdvReac Intermediate Rash Verified 10/06/18 15:48 Metronidazole HCl AdvReac Intermediate Verified 10/06/18 15:48 [From Flagyl] 10/28/18 18:09 I performed a brief in-person evaluation of this patient. Chief complaint: Multiple anxiety attacks while on mirtazapine and alprazolam, sent by Dr. Colorado Pertinent physical exam findings: Alert, no distress. RRR, S1/S2. Lungs clear. I have ordered the following: EKG The patient will proceed to ED for further evaluation. Discharge Disposition - Diagnosis Anxiety - Referrals - Patient Instructions - Post Discharge Activity
[2018-10-28 18:14] VITALS: BP 118/67; PULSE 77; TEMP 97.8; BMI 22.4
--- NOTE | 2018-10-28 20:46 | PDOC ---
Attending Attestation - HPI HPI: The patient is an 87 year old female, with a significant PMH of HTN, HLD, hypercholesterolemia, thyroid disease, breast cancer, lymphoma anemia, who presents to the emergency department today s/p anxiety attack earlier today. As per patients daughter, the patient has had abnormal behavior and outbursts lately, which have been getting progressively more frequent. Patients daughter notes that earlier today she began pulling her hair, throwing all of her clothes out from the drawers, and screaming. Patient describes her anxiety symptoms as the heebie jeebies, nervous all over, stomach palpitations, and increased pacing. Patient reports that she recently started on mirtazapine, which has helped her symptoms at night. She does report associated diarrhea, which happens once a day and is half watery and half loose in nature. Patient also notes an increase in her sleeping schedule, where she feels the need to go to bed earlier at night (around 9pm). Patient reports having right shoulder pain (without a fall) and a non-productive cough (which is present at baseline) . Patients daughter does note there has been a change in her PO cancer medications recently, but her anxiety attacks have been unaffected with or without medications. She denies having a PET scan recently, and has never seen a psychiatrist. The patient denies chest pain, shortness of breath, headache and dizziness. Denies fever, chills, nausea, vomit, and constipation. Denies dysuria, frequency, urgency and hematuria. Allergies: Penicillins, azithromycin, metronidazole Past surgical history: Perforated colon s/p colonoscopy Social history: No reported PCP: Dr. Colorado Oncologist: Dr. Ramos Psychologist: Dr. Walter 10/28/18 22:42 - Physicial Exam PE: GENERAL: +Anxious appearing. Awake, alert, and fully oriented. HEAD: No signs of trauma EYES: PERRLA, EOMI, sclera anicteric, conjunctiva clear ENT: Auricles normal inspection, hearing grossly normal, nares patent, oropharynx clear without exudates. Moist mucosa NECK: Normal ROM, supple, no lymphadenopathy, JVD, or masses LUNGS: +Conversational dyspnea. Breath sounds equal, clear to auscultation bilaterally. No wheezes, and no crackles HEART: Regular rate and rhythm, normal S1 and S2, no murmurs, rubs or gallops ABDOMEN: Soft, nontender, normoactive bowel sounds. No guarding, no rebound. No masses EXTREMITIES: Normal range of motion, no edema. No clubbing or cyanosis. No cords, erythema, or tenderness NEUROLOGICAL: Cranial nerves II through XII grossly intact. Normal speech, normal gait SKIN: Warm, Dry, normal turgor, no rashes or lesions noted. 10/28/18 21:34 - Medical Decision Making Documentation prepared by GUY Fernando, acting as medical examiner for Payton Abbott DO. 10/28/18 21:35 <Rosaura Flor - Last Filed: 10/28/18 22:42> - Resident Resident Name: Mary Lamb - ED Attending Attestation I have performed the following: I have examined & evaluated the patient, The case was reviewed & discussed with the resident, I agree w/resident's findings & plan, Exceptions are as noted - Medical Decision Making 10/28/18 20:46 I, Dr. Payton Abbott DO, attest that this document has been prepared under my direction and personally reviewed by me in its entirety. I further attest, that it accurately reflects all work, treatment, procedures and medical decision -making performed by me. 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 Bose for outpt psych referral will give contact info stable for dc to home <Payton Abbott - Last Filed: 10/28/18 23:39> Heart Score/ECG Review - ECG Intrepretation Comment:: 10/28/18 23:39 sinus at 72, incomplete RBBB, q waves septally, lvh, abnl ekg <Payton Abbott - Last Filed: 10/28/18 23:39>
--- NOTE | 2018-10-28 21:32 | PDOC ---
History of Present Illness - General Chief Complaint: Psychiatric Stated Complaint: ANXIETY ATTACK Time Seen by Provider: 10/28/18 18:09 - History of Present Illness Initial Comments: Henny Arguello is an 87yo woman with a PMH of lymphoma, HTN, HLD, L breast CA , s/p colon resection who was brought to the ED by her daughter because of uncharacteristic "anxiety attacks" that have been occuring 4-5 times daily for the past month. Per her daughter, Ms Arguello never had any anxiety or panic until one month ago. She had been worked up for new onset abdominal pain and temporarily taken off of her chemotherapy without improvement. She also had "every test you can imagine" to check her for abnormalities. She states that after the workup was all negative it was determined that Ms Arguello had anxiety. She was then started on mirtazepine for anxiety/depression. She had previously been on xanax 0.25mg TID PRN but was told to stop taking it when starting the mirtazepine; her daugther reports that she still takes it occasionally. The daughter reports that Ms Arguello becomes very upset, with yelling/screaming and pulling at her hair, whenever anyone tries to leave the house. She additionally reports that her mother cannot sit still and continues pacing around, even at dinner. Ms Arguello states that she has low abdominal pain, worst during her "attacks." She feels very anxious and restless; she states that she has the "heebie jeebies." Otherwise she feels normal. She denies any fevers, chest pain, shortness of breath, nausea/vomiting, or other symptoms. Past History - Past Medical History Allergies/Adverse Reactions: Allergies Allergy/AdvReac Type Severity Reaction Status Date / Time Penicillins Allergy Mild Rash Verified 10/28/18 18:09 azithromycin AdvReac Intermediate diarrhea Verified 10/28/18 18:09 [From Zithromax Z-Aung] metronidazole [From Flagyl] AdvReac Intermediate Rash Verified 10/28/18 18:09 Metronidazole HCl AdvReac Intermediate Verified 10/28/18 18:09 [From Flagyl] Home Medications: Ambulatory Orders Alprazolam [Xanax] 0.25 mg PO PRN 10/06/18 Ibrutinib [Imbruvica] 420 mg PO HS 10/06/18 Levothyroxine [Synthroid -] 25 mcg PO DAILY 10/06/18 Anemia: Yes Asthma: No Cancer: Yes (BREAST CA 11/2006, LYMPHOMA 1980 AND 1988) Cardiac Disorders: No CVA: No COPD: No CHF: No Dementia: No Diabetes: No GI Disorders: No Disorders: No HTN: Yes Hypercholesterolemia: Yes Liver Disease: No Psychiatric Problems: Yes (anxiety) Seizures: No Thyroid Disease: Yes - Surgical History Abdominal Surgery: Yes (PERFORATED COLON S/P COLONOSCOPY) Appendectomy: No Cardiac Surgery: No Cholecystectomy: No GI Surgery: Yes (colonoscopy) Lung Surgery: No Neurologic Surgery: No Orthopedic Surgery: No - Immunization History Immunization Up to Date: No - Suicide/Smoking/Psychosocial Hx Smoking Status: No Smoking History: Unknown if ever smoked Have you smoked in the past 12 months: No Number of Cigarettes Smoked Daily: 0 Hx Alcohol Use: No Drug/Substance Use Hx: No Substance Use Type: None Hx Substance Use Treatment: No Review of Systems - Review of Systems Comments:: General: No fevers, no chills, no weight or appetite change, no malaise HEENT: No changes in vision, no changes in hearing, no congestion, no sore throat CV: No chest pain, no palpitations, no LE edema Pulm: No SOB, no cough, no wheezing GI: No nausea or vomiting, no change in bowel habits, no melena : No frequency, no urgency, no dysuria Musc: No back pain, no joint swelling, no recent injury Skin: No rash, no lesions, no erythema Endo: No excessive thirst, no heat/cold intolerance Heme: No unusual bruising or bleeding, no swollen glands Neuro: No syncope, no numbness/tingling, no focal weakness Vasc: No claudication Psych: See HPI *Physical Exam - Vital Signs Last Vital Signs Temp Pulse Resp BP Pulse Ox 97.8 F 77 26 H 118/67 97 10/28/18 18:10 10/28/18 18:10 10/28/18 18:10 10/28/18 18:10 10/28/18 18:10 - Physical Exam Comments: General: No acute distress HEENT: PERRL, EOMI, MMM, voice normal, normal neck ROM, no LAD Cards: RRR, no murmur appreciated Pulm: Comfortable on room air, clear to auscultation bilaterally Abd: Soft, nontender, nondistended Ext: Atraumatic. Trace LE edema. ROM intact. Strength 5/5 and equal bilaterally Vasc: Extremities WWP Skin: Normal color, no rashes or lesions Neuro: A&Ox3, CN grossly intact, normal speech, motor/sensory grossly intact and symmetric Psych: Anxious, nervous Moderate Sedation - Procedure Monitoring Vital Signs: Procedure Monitoring Vital Signs Temperature 97.8 F 10/28/18 18:10 Pulse Rate 77 10/28/18 18:10 Respiratory Rate 26 H 10/28/18 18:10 Blood Pressure 118/67 10/28/18 18:10 O2 Sat by Pulse Oximetry (%) 97 10/28/18 18:10 ED Treatment Course - LABORATORY CBC & Chemistry Diagram: 10/28/18 21:23 10/28/18 21:23 Medical Decision Making - Medical Decision Making 10/28/18 21:45 Henny Arguello is an 87yo woman with a PMH of lymphoma, HTN, HLD, L breast CA , s/p colon resection who was brought to the ED by her daughter because of uncharacteristic "anxiety attacks" that have been occuring 4-5 times daily for the past month. - Per daughter, has not had any new medications recently. Was taken off her chemo temporarily to make sure it was not causing her abdominal pain, but this was restarted after 2 weeks. - Given acute onset of attacks, need to rule out medical causes of AMS including infection, electrolyte abnormalities, acute kidney or liver failure, thyroid abnormalities, UTI. - CBC, CMP, mag, phos, tsh, UA, UCx ordered - Non-contrast CT head to rule out new mass lesion. Most recently CT in August w/o abnormalities 10/28/18 22:29 - CBC and chemistry reviewed, no concerning abnormalities. Mild hyponatremia at baseline. Slight increase in BUN from baseline to 21 from 14 but per pt started lasix recently. - CT head completed, reviewed. No abnormalities noted. Radiology read pending. - Call placed, message left, with Dr Bose. 10/28/18 23:14 - TSH elevated to 5.84. Added free T4 to evaluate. Per lab, free T4 is a send out test. - UA sent, cell counts pending but 3+ leuk esterase. 10/28/18 23:34 - Borderline UA with 3 WBC and rare bacteria. Urine culture was sent. Given lower abdominal pain, will treat. - Discussed follow up with Ms Arguello and her daughter. Both understand and agree with the plan. Discussed with Dr Abbott. Mary Lamb PGY1 *DC/Admit/Observation/Transfer Diagnosis at time of Disposition: Stress reaction - Discharge Dispostion Condition at time of disposition: Stable Decision to Admit order: No - Referrals Referrals: Shivam Colorado MD [Primary Care Provider] - Arianna Bose MD [Staff Physician] - - Patient Instructions Printed Discharge Instructions: DI for Anxiety -- Adult Additional Instructions: Discharge Instructions: - You were seen in the emergency department for stress or anxiety at home recently that has been causing a change in your mood and behavior. - You had blood tests completed to check your blood counts, electrlytes, kidney function, liver function, and thyroid. Your thyroid hormone level was noted to be high, so a second thyroid test was sent. This will not be back for a day or two, but you will be called if it is abnormal. - You had a urine test showing that you probably have a urinary tract infection. This could be causing some of your lower abdominal pain. Yout have been prescribed an antibiotic to take at home. - Continue to take all of your medicine as previously prescribed. - Make an appointment to follow up with your regular doctor within the next 2-3 days (early next week if possible) - You have been referred to a psychiatrist, Dr Bose. Make an appointment for within the next 1-2 weeks if you have continued anxiety or mood changes. - Seek immediate medical care if you have any medical emergency including worsening anxiety, sudden changes of behavior, or symptoms such as chest pain, shortness of breath, or neurological changes (one-sided weakness, speech changes ). - Post Discharge Activity
[2018-10-28 21:46] LABS: BASO % 0.5 % (0-2.0); EOS % 1.9 % (0-4.5); HEMATOCRIT 36.3 % (32.4-45.2); HEMOGLOBIN 12.7 GM/dL (10.7-15.3); LYMPH % 31.3 % (8-40); MCH 31.3 pg (25.7-33.7); MEAN CELL VOLUME 89.3 fl (80-96); MEAN PLT VOLUME 9.5 fl (7.5-11.1); MONO % 15.8 % (3.8-10.2); NEUT % 50.5 % (42.8-82.8); PLATELET COUNT 124 K/MM3 (134-434); RBC 4.07 M/mm3 (3.60-5.2); WHITE BLOOD COUNT 4.8 K/mm3 (4.0-10.0)
[2018-10-28 22:08] LABS: ALBUMIN 3.4 g/dl (3.4-5.0); ALK PHOS 70 U/L (45-117); ANION GAP 8 MMOL/L (8-16); BILIRUBIN,TOTAL 0.5 mg/dL (0.2-1); BLOOD UREA NITROGEN 21 mg/dL (7-18); CALCIUM 8.5 mg/dL (8.5-10.1); CHLORIDE 96 mmol/L (98-107); CO2 28 mmol/L (21-32); CREATININE 0.9 mg/dL (0.55-1.3); GLUCOSE,RANDOM 78 mg/dL (74-106); POTASSIUM 3.7 mmol/L (3.5-5.1); SGOT/AST 23 U/L (15-37); SGPT/ALT 27 U/L (13-61); SODIUM 133 mmol/L (136-145)
[2018-10-28] MEDS ORDERED: SODIUM CHLORIDE 0.9% 1000 ML INFUS.BAG IV ONE (22:18)
[2018-10-28 22:26] LABS: MAGNESIUM 1.7 mg/dL (1.8-2.4)
[2018-10-28 23:02] LABS: URINE APPEARANCE CLEAR; URINE BILIRUBIN NEGATIVE (<2.0 mg/dL); URINE COLOR LTYELLOW; URINE GLUCOSE (UA) NEGATIVE (NEGATIVE); URINE KETONE NEGATIVE (NEGATIVE); URINE LEUK ESTERASE 3+ (NEGATIVE); URINE NITRITE NEGATIVE (NEGATIVE); URINE PROTEIN NEGATIVE (NEGATIVE); URINE UROBILINOGEN NEGATIVE mg/dL (0.2-1.0)
[2018-10-28 23:16] LABS: EPI CELLS RARE /HPF (FEW); URINE BACTERIA RARE /hpf (NONE SEEN); URINE HYALINE CAST 3 /lpf; URINE MUCUS RARE
[2018-10-28] MEDS ORDERED: NITROFURANTOIN MACROCRYSTAL 50 MG CAPSULE (FP) PO SCH (23:30)
[2018-10-28] MEDS ORDERED: NITROFURANTOIN MACROCRYSTAL 50 MG CAPSULE (FP) ONE (23:51)
--- NOTE | 2018-10-29 11:56 | EKG ---
Test Reason : Blood Pressure : / mmHG Vent. Rate : 072 BPM Atrial Rate : 072 BPM P-R Int : 142 ms QRS Dur : 114 ms QT Int : 416 ms P-R-T Axes : 063 -63 030 degrees QTc Int : 455 ms NORMAL SINUS RHYTHM INCOMPLETE RIGHT BUNDLE BRANCH BLOCK LEFT ANTERIOR FASCICULAR BLOCK VOLTAGE CRITERIA FOR LEFT VENTRICULAR HYPERTROPHY CANNOT RULE OUT SEPTAL INFARCT , AGE UNDETERMINED ABNORMAL ECG WHEN COMPARED WITH ECG OF 06-OCT-2018 15:59, NO SIGNIFICANT CHANGE WAS FOUND Confirmed by THIERRY SAMANIEGO, KAUSHIK ([id number]) on 10/29/2018 11:55:46 AM Referred By: Confirmed By:KAUSHIK GUADARRAMA MD
== END 2018-10-28 23:59 | disposition home or self-care (01) ==
LOC: JER 17:48
DX: N39.0 Urinary tract infection, site not specified (principal); F43.8 Other reactions to severe stress; F41.9 Anxiety disorder, unspecified; I10 Essential (primary) hypertension; E78.5 Hyperlipidemia, unspecified; E78.00 Pure hypercholesterolemia, unspecified; D64.9 Anemia, unspecified; Z85.72 Personal history of non-Hodgkin lymphomas; Z85.3 Personal history of malignant neoplasm of breast
CPT/HCPCS: 36415; 70450-TC; 80053; 81003; 81015; 82550; 83735; 84436; 84443; 84484; 85025; 93005; 93010; 99282-25; J7030

== ENCOUNTER 2019-09-27 07:00 | Inpatient (IN) | payer OTHER, BC ==
[2019-09-27] MEDS ORDERED: SODIUM CHLORIDE 0.9%/KCL 20 MEQ/1,000 ML INFUS.BAG IV SCH (09:30)
[2019-09-27] MEDS ORDERED: SODIUM CHLORIDE 0.9% 500 ML IV SCH (09:30)
[2019-09-27] MEDS ORDERED: DEXAMETHASONE SOD PHOSPHATE 4 MG/1 ML VIAL IVPB ONE (09:30)
[2019-09-27 10:26] LABS: BASO % 1.1 % (0-2.0); EOS % 14.5 % (0-4.5); HEMATOCRIT 33.4 % (32.4-45.2); HEMOGLOBIN 10.8 GM/dL (10.7-15.3); LYMPH % 14.5 % (8-40); MCHC 32.5 g/dl (32.0-36.0); MEAN CELL VOLUME 89.1 fl (80-96); MEAN PLT VOLUME 10.2 fl (7.5-11.1); MONO % 19.1 % (3.8-10.2); NEUT % 50.8 % (42.8-82.8); PLATELET COUNT 184 K/MM3 (134-434); RBC 3.74 M/mm3 (3.60-5.2); RDW 14.7 % (11.6-15.6); WHITE BLOOD COUNT 14.9 K/mm3 (4.0-10.0)
[2019-09-27 11:02] LABS: BILIRUBIN,TOTAL 0.6 mg/dL (0.2-1); BLOOD UREA NITROGEN 36.4 mg/dL (7-18); CALCIUM 13.8 mg/dL (8.5-10.1); CREATININE 1.7 mg/dL (0.55-1.3); POTASSIUM 4.1 mmol/L (3.5-5.1); TOT PROT 7.3 g/dl (6.4-8.2)
[2019-09-27] MEDS: ALLOPURINOL 300 MG TABLET (FP) PO SCH (11:35)
[2019-09-27 12:28] LABS: ANISOCYTOSIS 0; MACROCYTOSIS 0; PLATELET ESTIMATE NORMAL
--- NOTE | 2019-09-27 14:40 | HP ---
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) Heme/Onc: Yes: Cancer (breast cancer and Non-Hodgkins lymphyoma) Endocrine: Yes: Other (thyroid nodule) - Past Surgical History Past Surgical History: Yes: Colonoscopy, Colostomy, Mastectomy, Upper Endoscopy - Smoking History Smoking history: Unknown if ever smoked Have you smoked in the past 12 months: No Aproximately how many cigarettes per day: 0 - Alcohol/Substance Use Hx Alcohol Use: No History of Substance Use: reports: None - Social History ADL: Independent History of Recent Travel: No Home Medications - Allergies Allergies/Adverse Reactions: Allergies Allergy/AdvReac Type Severity Reaction Status Date / Time Penicillins Allergy Mild Rash Verified 10/28/18 18:09 azithromycin AdvReac Intermediate diarrhea Verified 10/28/18 18:09 [From Zithromax Z-Aung] metronidazole [From Flagyl] AdvReac Intermediate Rash Verified 10/28/18 18:09 Metronidazole HCl AdvReac Intermediate Verified 10/28/18 18:09 [From Flagyl] - Home Medications Home Medications: Ambulatory Orders Alprazolam [Xanax] 0.25 mg PO PRN 10/06/18 Ibrutinib [Imbruvica] 420 mg PO HS 10/06/18 Levothyroxine [Synthroid -] 25 mcg PO DAILY 10/06/18 Nitrofurantoin Monohyd/M-Cryst [Macrobid -] 100 mg PO BID #20 capsule 10/28/18 Physical Examination Labs: CBC, BMP 09/27/19 09:34 09/27/19 09:34 Assessment/Plan Patient seen and examined Patient to be admitted for hypercalcemia. 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 Breast ca - s/- lumpectomy/RT and hormonal therapy S/p colon resection for tear post polypectomy ROS myalgias, arthralgias, decreased hearing, cough, non productive, confusion, diarrhea Allergies - Penicillin, zithromax, flagyl BP-96/57 P--114 RR-20 T-97.7 HEENT: STEPHEN, EOM Intact Oropharynx: No thrush, No mucositis Neck: Supple Nodes: extensive left cervical lymphadenopathy Breasts: Without masses, S/P left lumpectomy with RT Cor: RSR, No murmurs, No gallops Lungs: scattered rales bases Abd: Soft, Normal bowel sounds, No organomegaly Ext:No significant edema Skin: No rashes, Integument intact CBC, BMP 09/27/19 09:34 09/27/19 09:34 Current Medications Generic Name Dose Route Start Last Admin Trade Name Freq PRN Reason Stop Dose Admin Allopurinol 300 mg 09/27/19 10:00 09/27/19 11:35 Zyloprim - PO 300 mg DAILY ELIZABETH Administration Calcitonin 400 unit 09/27/19 22:00 Miacalcin Injection - IM BID ELIZABETH Folic Acid 1 mg 09/27/19 14:45 Folic Acid - PO DAILY ELIZABETH Potassium Chloride/Sodium Chloride 20 meq in 1,000 mls @ 350 mls/hr 09/27/19 09:30 09/27/19 10:44 Ns+20 Meq Kcl - IV 350 mls/hr ASDIR ELIZABETH Administration Levothyroxine Sodium 25 mcg 09/28/19 07:00 Synthroid - PO DAILY@0700 [facility] Metoprolol Tartrate 25 mg 09/28/19 10:00 Lopressor - PO DAILY [facility] Mirtazapine 15 mg 09/27/19 22:00 Remeron - PO HS ELIZABETH Pantoprazole Sodium 40 mg 09/27/19 14:45 Protonix - PO DAILY [facility] Prednisone 60 mg 09/28/19 10:00 Deltasone - PO DAILY [facility] Impression Follicular lymphoma- may need repeat biopsy in view of development of hypercalcemia on ibrutinib Breast ca - elevated Ca-27.29 Plan: Bone scan Hydrate Iv's Prednisone Calcitonin x 48 hours Should resume ibrutinib
--- NOTE | 2019-09-27 17:47 | EKG ---
Test Reason : Blood Pressure : / mmHG Vent. Rate : 088 BPM Atrial Rate : 088 BPM P-R Int : 122 ms QRS Dur : 120 ms QT Int : 362 ms P-R-T Axes : 039 -56 013 degrees QTc Int : 438 ms NORMAL SINUS RHYTHM RIGHT BUNDLE BRANCH BLOCK LEFT ANTERIOR FASCICULAR BLOCK BIFASCICULAR BLOCK ABNORMAL ECG WHEN COMPARED WITH ECG OF 28-OCT-2018 18:18, MINIMAL CRITERIA FOR SEPTAL INFARCT ARE NO LONGER PRESENT Confirmed by MD Ryan, Santiago ([id number]) on 09/27/2019 5:47:00 PM Referred By: Samuel ALARCON Confirmed By:Santiago Davis MD
[2019-09-27] MEDS: FOLIC ACID 1 MG TABLET (FP) PO SCH (18:34)
[2019-09-27] MEDS: PANTOPRAZOLE 40 MG TABLET (FP) PO SCH (18:35)
[2019-09-27] MEDS: SODIUM CHLORIDE 0.45%/POT 20 MEQ/1,000 ML INFUS.BAG IV SCH (18:35)
[2019-09-27] MEDS ORDERED: FUROSEMIDE 40 MG/4 ML INJECTABLE VIAL IVPUSH ONE (20:00)
[2019-09-27] MEDS: MIRTAZAPINE 15 MG TABLET (FP) PO SCH (21:08)
[2019-09-27] MEDS: CALCITONIN - SALMON SYNTHETIC 400 UNIT/2 ML VIAL IM SCH (21:08)
[2019-09-28] MEDS: LEVOTHYROXINE NA 25 MCG TABLET (FP) PO SCH (06:17)
[2019-09-28] MEDS: SODIUM CHLORIDE 0.45%/POT 20 MEQ/1,000 ML INFUS.BAG IV SCH (06:18)
[2019-09-28 07:02] LABS: BASO % 1.2 % (0-2.0); EOS % 15.7 % (0-4.5); HEMATOCRIT 29.5 % (32.4-45.2); HEMOGLOBIN 9.7 GM/dL (10.7-15.3); LYMPH % 11.2 % (8-40); MCH 29.1 pg (25.7-33.7); MEAN PLT VOLUME 9.4 fl (7.5-11.1); MONO % 14.8 % (3.8-10.2); NEUT % 57.1 % (42.8-82.8); PLATELET COUNT 167 K/MM3 (134-434); RBC 3.35 M/mm3 (3.60-5.2); WHITE BLOOD COUNT 13.8 K/mm3 (4.0-10.0)
[2019-09-28 07:43] LABS: ALBUMIN 2.5 g/dl (3.4-5.0); BILIRUBIN,TOTAL 0.5 mg/dL (0.2-1); BLOOD UREA NITROGEN 34.6 mg/dL (7-18); CALCIUM 11.5 mg/dL (8.5-10.1); CREATININE 1.6 mg/dL (0.55-1.3); MAGNESIUM 1.6 mg/dL (1.8-2.4); TOT PROT 6.2 g/dl (6.4-8.2)
[2019-09-28] MEDS ORDERED: SODIUM CHLORIDE 1,000 ML IV SCH (09:15)
[2019-09-28] MEDS: METOPROLOL TARTRATE 25 MG TABLET (FP) PO SCH (09:26)
[2019-09-28] MEDS: FOLIC ACID 1 MG TABLET (FP) PO SCH (09:26)
[2019-09-28] MEDS: PANTOPRAZOLE 40 MG TABLET (FP) PO SCH (09:26)
[2019-09-28] MEDS: ALLOPURINOL 300 MG TABLET (FP) PO SCH (09:26)
[2019-09-28] MEDS: predniSONE 20 MG TABLET (UD) PO SCH (09:26)
[2019-09-28] MEDS ORDERED: IMBRUVICA 140 MG PO SCH (10:00)
[2019-09-28 10:20] LABS: ANISOCYTOSIS 0; MACROCYTOSIS 0; PLATELET ESTIMATE NORMAL
[2019-09-28] MEDS: CALCITONIN - SALMON SYNTHETIC 400 UNIT/2 ML VIAL IM SCH ×2 (14:06→22:16)
--- NOTE | 2019-09-28 14:14 | PN ---
Progress Note (short form) - Note Progress Note: Patient seen and examined No specific complaints Last Vital Signs Temp Pulse Resp BP Pulse Ox 98.7 F 77 18 132/69 09/28/19 14:09 09/28/19 14:09 09/28/19 14:09 09/28/19 14:09 Cor: RSR, No murmurs, No gallops Lungs: Clear to P&A Abd: Soft, Normal bowel sounds, No organomegaly Ext:No significant edema Labs/Meds reviewed A/P Follicular lymphoma- may need repeat biopsy in view of development of hypercalcemia on ibrutinib Breast ca - mildly elevated Ca-27.29 Plan: Bone scan Hydrate Iv's Prednisone Calcitonin x 48 hours Should resume ibrutinib
[2019-09-28] MEDS: SODIUM CHLORIDE 1,000 ML IV SCH (16:00)
[2019-09-28] MEDS: MIRTAZAPINE 15 MG TABLET (FP) PO SCH (22:15)
[2019-09-29] MEDS: SODIUM CHLORIDE 1,000 ML IV SCH ×3 (05:34→21:48)
[2019-09-29] MEDS: LEVOTHYROXINE NA 25 MCG TABLET (FP) PO SCH (05:59)
[2019-09-29] MEDS: METOPROLOL TARTRATE 25 MG TABLET (FP) PO SCH (10:29)
[2019-09-29] MEDS: NON-FORMULARY MED PO SCH (10:29)
[2019-09-29] MEDS: ALLOPURINOL 300 MG TABLET (FP) PO SCH (10:29)
[2019-09-29] MEDS: predniSONE 20 MG TABLET (UD) PO SCH (10:29)
[2019-09-29] MEDS: FOLIC ACID 1 MG TABLET (FP) PO SCH (10:29)
[2019-09-29] MEDS: PANTOPRAZOLE 40 MG TABLET (FP) PO SCH (10:29)
[2019-09-29 11:32] VITALS: BMI 23.8
[2019-09-29 17:10] LABS: BASO % 1.2 % (0-2.0); EOS % 1.4 % (0-4.5); HEMATOCRIT 31.9 % (32.4-45.2); HEMOGLOBIN 10.3 GM/dL (10.7-15.3); LYMPH % 22.5 % (8-40); MCH 28.5 pg (25.7-33.7); MCHC 32.2 g/dl (32.0-36.0); MEAN CELL VOLUME 88.5 fl (80-96); MEAN PLT VOLUME 9.3 fl (7.5-11.1); MONO % 2.4 % (3.8-10.2); NEUT % 72.5 % (42.8-82.8); PLATELET COUNT 229 K/MM3 (134-434); RDW 15.1 % (11.6-15.6); WHITE BLOOD COUNT 15.6 K/mm3 (4.0-10.0)
[2019-09-29 17:39] LABS: ALBUMIN 2.6 g/dl (3.4-5.0); BILIRUBIN,TOTAL 0.5 mg/dL (0.2-1); BLOOD UREA NITROGEN 28.6 mg/dL (7-18); CALCIUM 10.4 mg/dL (8.5-10.1); CREATININE 1.3 mg/dL (0.55-1.3); POTASSIUM 4.1 mmol/L (3.5-5.1); TOT PROT 6.4 g/dl (6.4-8.2)
[2019-09-29] MEDS: CALCITONIN - SALMON SYNTHETIC 400 UNIT/2 ML VIAL IM SCH (18:08)
[2019-09-29 18:52] LABS: ANISOCYTOSIS 0; MACROCYTOSIS 0; PLATELET ESTIMATE NORMAL
--- NOTE | 2019-09-29 20:53 | PN ---
Progress Note (short form) - Note Progress Note: Patient seen and examined No specific complaints Left foot erythema Last Vital Signs Temp Pulse Resp BP Pulse Ox 97.7 F 82 18 145/85 99 09/29/19 10:00 09/29/19 10:00 09/29/19 10:00 09/29/19 10:00 09/29/19 09:00 Cor: RSR, No murmurs, No gallops Lungs: Clear to P&A Abd: Soft, Normal bowel sounds, No organomegaly Ext: Left foot erythema Labs/Meds reviewed A/P Follicular lymphoma- may need repeat biopsy in view of development of hypercalcemia on ibrutinib Breast ca - mildly elevated Ca-27.29 Suspect transformationof follicular lymphoma given hypercalcemia Check LDH//uric acid Dose zometa 3mg today for hypercalcemia Will need outpatient PET-CT and biopsy based on PET-CT Will decide on chemotherapy regimen based on biopsy results check skull CT given bone scan findings Left foot erythema--? microvascular changes. nontender Will request ID/? vascular cosnult discussed with patient/family
[2019-09-29] MEDS ORDERED: ZOLEDRONIC ACID 3 MG in SODIUM CHLORIDE 100 ML IVPB ONE (21:30)
[2019-09-29] MEDS ORDERED: PT OWN MED DRAWER 7, Y5N ONE (21:46)
[2019-09-29] MEDS: MIRTAZAPINE 15 MG TABLET (FP) PO SCH (21:48)
[2019-09-30] MEDS: SODIUM CHLORIDE 1,000 ML IV SCH ×2 (05:57→21:20)
[2019-09-30] MEDS: LEVOTHYROXINE NA 25 MCG TABLET (FP) PO SCH (06:00)
[2019-09-30 08:06] LABS: BASO % 2.2 % (0-2.0); EOS % 0.9 % (0-4.5); HEMATOCRIT 28.7 % (32.4-45.2); HEMOGLOBIN 9.4 GM/dL (10.7-15.3); LYMPH % 14.7 % (8-40); MCH 28.8 pg (25.7-33.7); MCHC 32.6 g/dl (32.0-36.0); MEAN CELL VOLUME 88.2 fl (80-96); MEAN PLT VOLUME 9.2 fl (7.5-11.1); MONO % 15.5 % (3.8-10.2); NEUT % 66.7 % (42.8-82.8); PLATELET COUNT 205 K/MM3 (134-434); RBC 3.25 M/mm3 (3.60-5.2); RDW 14.6 % (11.6-15.6); WHITE BLOOD COUNT 13.6 K/mm3 (4.0-10.0)
[2019-09-30 08:37] LABS: ALBUMIN 2.2 g/dl (3.4-5.0); BILIRUBIN,TOTAL 0.4 mg/dL (0.2-1); BLOOD UREA NITROGEN 29.9 mg/dL (7-18); CALCIUM 10.5 mg/dL (8.5-10.1); CREATININE 1.2 mg/dL (0.55-1.3); POTASSIUM 4.1 mmol/L (3.5-5.1); TOT PROT 5.7 g/dl (6.4-8.2)
[2019-09-30 10:27] LABS: ANISOCYTOSIS 0; MACROCYTOSIS 0; PLATELET ESTIMATE NORMAL
[2019-09-30] MEDS: METOPROLOL TARTRATE 25 MG TABLET (FP) PO SCH (10:58)
[2019-09-30] MEDS: predniSONE 20 MG TABLET (UD) PO SCH (10:58)
[2019-09-30] MEDS: FOLIC ACID 1 MG TABLET (FP) PO SCH (10:58)
[2019-09-30] MEDS: ALLOPURINOL 300 MG TABLET (FP) PO SCH (10:58)
[2019-09-30] MEDS: PANTOPRAZOLE 40 MG TABLET (FP) PO SCH (10:58)
[2019-09-30] MEDS: NON-FORMULARY MED PO SCH (11:16)
--- NOTE | 2019-09-30 12:58 | PN ---
Progress Note (short form) - Note Progress Note: ID CONSULT DICTATED ? BILATERAL FOOT CELLULITIS HYPERCALCEMIA LYMPHOMA PCN ALLERGY EMPIRIC TRIAL CEFAZOLIN DISCUSSED WITH ONCOLOGY
[2019-09-30] MEDS ORDERED: DEXTROSE 5%-WATER - 50 ML IVPB ONE (15:37)
[2019-09-30] MEDS ORDERED: ceFAZolin SODIUM 1 GM VIAL ONE (15:37)
[2019-09-30] MEDS: CEFAZOLIN 1 GM in DEXTROSE 5%-WATER - 50 ML IVPB SCH ×2 (15:40→17:22)
--- NOTE | 2019-09-30 18:56 | CONS ---
INFECTIOUS DISEASE CONSULTATION DATE OF CONSULTATION: DATE OF DICTATION: 09/30/2019 HISTORY: The patient is an 88-year-old female with a history of lymphoma on therapy who was evaluated for possible bilateral foot cellulitis. She was admitted to the hospital on September 27, 2019, after she was noted by her family members to be confused. On blood work, she was found to have hypercalcemia and azotemia. She was admitted to the hospital and treated with IV fluid hydration. Her course has now been complicated by development of bilateral foot erythema. She had developed hyperemia of the toes of both feet. She denies any foot pain. No reports of traumatic injury. No associated fever or chills. She does not have a history of soft tissue infection in the past. No history of MRSA. PAST MEDICAL HISTORY: Positive for lymphoma on immunotherapy, hypertension, hyperlipidemia, diverticulosis, IBS, breast cancer status post lumpectomy and radiation therapy. ALLERGIES: PENICILLIN, ZITHROMAX, and FLAGYL. Patient reports developing a rash many years ago to PENICILLIN. MEDICATIONS: Include Xanax, Imbruvica, Synthroid, nitrofurantoin. SOCIAL HISTORY: She lives at home with her family members. No recent hospitalizations; however, she has been receiving chemotherapy. No tobacco use. SYSTEMS REVIEW: Neurologic: No loss of consciousness, seizure activity, focal weakness. Cardiac: Negative chest pain or palpitations. Respiratory: Negative cough or sputum production. Gastrointestinal: Negative vomiting or diarrhea. Genitourinary: Negative for urinary tract infection. LABORATORY DATA: White count 13.6, hematocrit 28.7, platelet count 205, creatinine 1.2, total bilirubin 0.4, alkaline phosphatase 359, AST 46. PHYSICAL EXAMINATION: General: On examination, she is out of bed to chair. She appears well. She is not acutely toxic appearing. Vital Signs: Temperature 98.2, blood pressure 150/81, pulse 87 regular, respirations 18 per minute. HEENT: Sclerae anicteric. Heart: Sounds S1, S2. Lungs: Clear. Abdomen: Soft. No tenderness elicited. Extremities: Examination of lower extremities, there is hyperemia present of the toes for the feet bilaterally that extends to the base of the toes. There is no appreciable warmth. She has palpable pulses. No tenderness elicited. IMPRESSION: 1. Possible cellulitis of the feet bilaterally. 2. Status post hypercalcemia. 3. Lymphoma. 4. PENICILLIN allergy. PLAN: Case discussed with Oncology. We will give an empiric trial of cefazolin 1 g IV piggyback every 8 hours. Elevation. We will assess clinical response. Thank you for the kind referral. NANCY MATHEW M.D. ELYSIA/[id number]
[2019-09-30] MEDS: MIRTAZAPINE 15 MG TABLET (FP) PO SCH (21:20)
[2019-10-01] MEDS ORDERED: DEXTROSE 5%-WATER - 50 ML IVPB ONE ×3 (00:32→16:57)
[2019-10-01] MEDS ORDERED: ceFAZolin SODIUM 1 GM VIAL ONE ×3 (00:32→16:57)
[2019-10-01] MEDS: CEFAZOLIN 1 GM in DEXTROSE 5%-WATER - 50 ML IVPB SCH ×3 (01:08→17:05)
[2019-10-01] MEDS: LEVOTHYROXINE NA 25 MCG TABLET (FP) PO SCH (06:26)
[2019-10-01] MEDS ORDERED: PT OWN MED DRAWER 7, Y5N ONE (08:36)
[2019-10-01] MEDS: predniSONE 20 MG TABLET (UD) PO SCH (09:21)
[2019-10-01] MEDS: ALLOPURINOL 300 MG TABLET (FP) PO SCH (09:21)
[2019-10-01] MEDS: PANTOPRAZOLE 40 MG TABLET (FP) PO SCH (09:21)
[2019-10-01] MEDS: FOLIC ACID 1 MG TABLET (FP) PO SCH (09:21)
[2019-10-01] MEDS: METOPROLOL TARTRATE 25 MG TABLET (FP) PO SCH (09:22)
[2019-10-01] MEDS: NON-FORMULARY MED PO SCH (09:22)
--- NOTE | 2019-10-01 10:14 | PN ---
Progress Note (short form) - Note Progress Note: Patient seen and examined No specific complaints Left foot erythema---more in sitting position/reduced on elevationof her leg AFVSS Cor: RSR, No murmurs, No gallops Lungs: Clear to P&A Abd: Soft, Normal bowel sounds, No organomegaly Ext: Left foot erythema Labs/Meds reviewed A/P Follicular lymphoma- may need repeat biopsy in view of development of hypercalcemia on ibrutinib Breast ca - mildly elevated Ca-27.29 Suspect transformationof follicular lymphoma given hypercalcemia Check LDH//uric acid Dosed zometa 3mg 09/29 hypercalcemia Will need outpatient PET-CT and biopsy based on PET-CT Will decide on chemotherapy regimen based on biopsy results skull CT negative Left foot erythema--? microvascular changes. nontender more a dependent finding, resolves on leg elevation trial of keflex discussed with patient/family d/c planning for 10/03/19
--- NOTE | 2019-10-01 11:51 | PN ---
Progress Note (short form) - Note Progress Note: Seen in follow up. No events overnight. Out of bed, eating lunch. No complaints Inpatient meds reviewed: Current Medications Generic Name Dose Route Start Last Admin Trade Name Heber PRN Reason Stop Dose Admin Allopurinol 300 mg 09/27/19 10:00 10/01/19 09:21 Zyloprim - PO 300 mg DAILY ELIZABETH Administration Folic Acid 1 mg 09/27/19 14:45 10/01/19 09:21 Folic Acid - PO 1 mg DAILY ELIZABETH Administration Sodium Chloride 1,000 mls @ 42 mls/hr 09/29/19 20:47 09/30/19 21:20 Normal Saline - IV 42 mls/hr ASDIR ELIZABETH Administration Cefazolin Sodium 1 gm/ 50 mls @ 100 mls/hr 09/30/19 13:00 10/01/19 09:22 Dextrose IVPB 100 mls/hr Q8H-IV ELIZABETH Administration Levothyroxine Sodium 25 mcg 09/28/19 07:00 10/01/19 06:26 Synthroid - PO 25 mcg DAILY@0700 ELIZABETH Administration Metoprolol Tartrate 25 mg 09/28/19 10:00 10/01/19 09:22 Lopressor - PO 25 mg DAILY ELIZABETH Administration Mirtazapine 15 mg 09/27/19 22:00 09/30/19 21:20 Remeron - PO 15 mg HS ELIZABETH Administration Non-Formulary Medication 2 each 09/28/19 15:54 10/01/19 09:22 Non-Formulary Med PO 2 each DAILY ELIZABETH Administration Pantoprazole Sodium 40 mg 09/27/19 14:45 10/01/19 09:21 Protonix - PO 40 mg DAILY ELIZABETH Administration Prednisone 40 mg 09/30/19 10:00 10/01/19 09:21 Deltasone - PO 40 mg DAILY ELIZABETH Administration On Examination: Last Vital Signs Temp Pulse Resp BP Pulse Ox 97.8 F 84 20 157/96 97 10/01/19 10:00 10/01/19 10:00 10/01/19 10:00 10/01/19 10:00 10/01/19 09:00 General: In no acute distress, sitting at bedside. Extremities: No pallor or icterus. No pedal edema. Chest: breathing comfortably Abdomen: non-distended Neuro: Alert, oriented, non-focal. Labs: CBC, BMP 12/27/19 07:05 09/30/19 07:05 Assessment. Follicular lymphoma, clinically stable on ibrutinib, admitted for management of refractory hypercalcemia. Improved following steroids, calcitonin, and bisphosphonate. Check chemistry today. Suspicion of transformation accounting for hypercalcemia. Noted to have had elevated PTH in the past - repeat. Lower extremity erythema - empiric Abics - but with low index of suspicion for cellulitis. CT/PET pending - as outpatient.
[2019-10-01 13:58] LABS: BLOOD UREA NITROGEN 32.5 mg/dL (7-18); CALCIUM 10.2 mg/dL (8.5-10.1); CREATININE 1.3 mg/dL (0.55-1.3); POTASSIUM 4.2 mmol/L (3.5-5.1)
[2019-10-01] MEDS: SODIUM CHLORIDE 1,000 ML IV SCH ×2 (14:23→21:04)
[2019-10-01 19:06] LABS: HEP B CORE AB, TOT Negative (Negative)
[2019-10-01] MEDS: MIRTAZAPINE 15 MG TABLET (FP) PO SCH (21:04)
[2019-10-02] MEDS ORDERED: ceFAZolin SODIUM 1 GM VIAL ONE ×3 (01:01→16:10)
[2019-10-02] MEDS ORDERED: DEXTROSE 5%-WATER - 50 ML IVPB ONE ×3 (01:01→16:11)
[2019-10-02] MEDS: CEFAZOLIN 1 GM in DEXTROSE 5%-WATER - 50 ML IVPB SCH ×3 (01:19→17:15)
[2019-10-02] MEDS: LEVOTHYROXINE NA 25 MCG TABLET (FP) PO SCH (06:49)
[2019-10-02 07:14] LABS: ALBUMIN 2.2 g/dl (3.4-5.0); BILIRUBIN,TOTAL 0.3 mg/dL (0.2-1); CALCIUM 9.9 mg/dL (8.5-10.1); CREATININE 1.3 mg/dL (0.55-1.3); MAGNESIUM 1.6 mg/dL (1.8-2.4); POTASSIUM 4.4 mmol/L (3.5-5.1); TOT PROT 5.5 g/dl (6.4-8.2)
[2019-10-02] MEDS ORDERED: PT OWN MED DRAWER 7, Y5N ONE (08:45)
[2019-10-02] MEDS: NON-FORMULARY MED PO SCH (09:19)
[2019-10-02] MEDS: PANTOPRAZOLE 40 MG TABLET (FP) PO SCH (09:19)
[2019-10-02] MEDS: METOPROLOL TARTRATE 25 MG TABLET (FP) PO SCH (09:19)
[2019-10-02] MEDS: FOLIC ACID 1 MG TABLET (FP) PO SCH (09:19)
[2019-10-02] MEDS: predniSONE 20 MG TABLET (UD) PO SCH (09:19)
[2019-10-02] MEDS: ALLOPURINOL 300 MG TABLET (FP) PO SCH (09:19)
[2019-10-02 09:28] LABS: BASO % 0.7 % (0-2.0); EOS % 1.4 % (0-4.5); HEMATOCRIT 30.7 % (32.4-45.2); HEMOGLOBIN 9.8 GM/dL (10.7-15.3); LYMPH % 21.6 % (8-40); MCH 28.4 pg (25.7-33.7); MEAN CELL VOLUME 88.8 fl (80-96); MEAN PLT VOLUME 9.2 fl (7.5-11.1); MONO % 11.9 % (3.8-10.2); NEUT % 64.4 % (42.8-82.8); PLATELET COUNT 240 K/MM3 (134-434); RBC 3.45 M/mm3 (3.60-5.2); RDW 14.9 % (11.6-15.6); WHITE BLOOD COUNT 16.6 K/mm3 (4.0-10.0)
[2019-10-02 10:11] LABS: SMUDGE CELLS FEW
[2019-10-02 10:12] LABS: PLATELET ESTIMATE ADEQUATE
[2019-10-02] MEDS: MAGNESIUM OXIDE 400 MG TABLET (FP) PO SCH (14:03)
--- NOTE | 2019-10-02 16:20 | PN ---
Progress Note (short form) - Note Progress Note: Seen in follow up. No events overnight. Out of bed, eating lunch. No complaints Inpatient meds reviewed: Current Medications Generic Name Dose Route Start Last Admin Trade Name Heber PRN Reason Stop Dose Admin Allopurinol 300 mg 09/27/19 10:00 10/02/19 09:19 Zyloprim - PO 300 mg DAILY ELIZABETH Administration Folic Acid 1 mg 09/27/19 14:45 10/02/19 09:19 Folic Acid - PO 1 mg DAILY ELIZABETH Administration Sodium Chloride 1,000 mls @ 42 mls/hr 09/29/19 20:47 10/01/19 21:04 Normal Saline - IV Not Given ASDIR ELIZABETH Cefazolin Sodium 1 gm/ 50 mls @ 100 mls/hr 09/30/19 13:00 10/02/19 09:20 Dextrose IVPB 100 mls/hr Q8H-IV ELIZABETH Administration Levothyroxine Sodium 25 mcg 09/28/19 07:00 10/02/19 06:49 Synthroid - PO 25 mcg DAILY@0700 ELIZABETH Administration Magnesium Oxide 400 mg 10/02/19 13:30 10/02/19 14:03 Mag-Ox - PO 400 mg DAILY ELIZABETH Administration Metoprolol Tartrate 25 mg 09/28/19 10:00 10/02/19 09:19 Lopressor - PO 25 mg DAILY ELIZABETH Administration Mirtazapine 15 mg 09/27/19 22:00 10/01/19 21:04 Remeron - PO 15 mg HS ELIZABETH Administration Non-Formulary Medication 2 each 09/28/19 15:54 10/02/19 09:19 Non-Formulary Med PO 2 each DAILY ELIZABETH Administration Pantoprazole Sodium 40 mg 09/27/19 14:45 10/02/19 09:19 Protonix - PO 40 mg DAILY ELIZABETH Administration Prednisone 40 mg 09/30/19 10:00 10/02/19 09:19 Deltasone - PO 40 mg DAILY ELIZABETH Administration On Examination: Last Vital Signs Temp Pulse Resp BP Pulse Ox 98.2 F 72 20 132/69 97 10/02/19 14:14 10/02/19 14:14 10/02/19 14:14 10/02/19 14:14 10/02/19 09:00 General: In no acute distress, sitting at bedside. Extremities: No pallor or icterus. No pedal edema. Chest: breathing comfortably Abdomen: non-distended Neuro: Alert, oriented, non-focal. Labs: CBC, BMP 10/02/19 06:25 10/02/19 06:25 Assessment. Follicular lymphoma, clinically stable on ibrutinib, admitted for management of refractory hypercalcemia. Improved following steroids, calcitonin, and bisphosphonate. Calcium normal this morning. Suspicion of transformation accounting for hypercalcemia. Noted to have had elevated PTH in the past - repeat PTH pending. Lower extremity erythema - empiric Abics - but with low index of suspicion for cellulitis. CT/PET pending - as outpatient.
[2019-10-02] MEDS: MIRTAZAPINE 15 MG TABLET (FP) PO SCH (21:10)
[2019-10-02] MEDS: SODIUM CHLORIDE 1,000 ML IV SCH (21:14)
[2019-10-03] MEDS ORDERED: DEXTROSE 5%-WATER - 50 ML IVPB ONE ×2 (01:03→09:01)
[2019-10-03] MEDS ORDERED: ceFAZolin SODIUM 1 GM VIAL ONE ×2 (01:03→09:01)
[2019-10-03] MEDS: CEFAZOLIN 1 GM in DEXTROSE 5%-WATER - 50 ML IVPB SCH ×3 (01:22→17:21)
[2019-10-03] MEDS: LEVOTHYROXINE NA 25 MCG TABLET (FP) PO SCH (06:08)
[2019-10-03] MEDS: ALLOPURINOL 300 MG TABLET (FP) PO SCH (09:40)
[2019-10-03] MEDS: PANTOPRAZOLE 40 MG TABLET (FP) PO SCH (09:40)
[2019-10-03] MEDS: MAGNESIUM OXIDE 400 MG TABLET (FP) PO SCH (09:40)
[2019-10-03] MEDS: METOPROLOL TARTRATE 25 MG TABLET (FP) PO SCH (09:40)
[2019-10-03] MEDS: FOLIC ACID 1 MG TABLET (FP) PO SCH (09:40)
[2019-10-03] MEDS: predniSONE 20 MG TABLET (UD) PO SCH (09:40)
[2019-10-03] MEDS: NON-FORMULARY MED PO SCH (09:41)
[2019-10-03 10:47] VITALS: TEMP 98.7
[2019-10-03 14:39] VITALS: BP 136/69; PULSE 73
[2019-10-03] MEDS ORDERED: predniSONE 10 MG TABLET (UD) PO SCH (15:32)
[2019-10-03 16:43] LABS: BASO % 0.3 % (0-2.0); EOS % 0.8 % (0-4.5); HEMATOCRIT 35.2 % (32.4-45.2); HEMOGLOBIN 11.1 GM/dL (10.7-15.3); LYMPH % 23.7 % (8-40); MCH 28.3 pg (25.7-33.7); MCHC 31.5 g/dl (32.0-36.0); MEAN CELL VOLUME 89.8 fl (80-96); MEAN PLT VOLUME 9.1 fl (7.5-11.1); MONO % 2.6 % (3.8-10.2); NEUT % 72.6 % (42.8-82.8); PLATELET COUNT 315 K/MM3 (134-434); RBC 3.92 M/mm3 (3.60-5.2); RDW 14.8 % (11.6-15.6); WHITE BLOOD COUNT 20.9 K/mm3 (4.0-10.0)
[2019-10-03 16:57] LABS: INR 0.92 (0.83-1.09); PROTHROMBIN TIME (PATIENT) 10.9 SEC (9.7-13.0)
[2019-10-03 17:00] LABS: ACTIVATED PTT 26.6 SECONDS (25.2-36.5)
[2019-10-03 17:37] LABS: ALBUMIN 2.6 g/dl (3.4-5.0); BILIRUBIN,TOTAL 0.3 mg/dL (0.2-1); BLOOD UREA NITROGEN 33.9 mg/dL (7-18); CALCIUM 9.9 mg/dL (8.5-10.1); CREATININE 1.4 mg/dL (0.55-1.3); POTASSIUM 4.2 mmol/L (3.5-5.1); TOT PROT 6.3 g/dl (6.4-8.2)
--- NOTE | 2019-10-03 18:02 | PN ---
Progress Note (short form) - Note Progress Note: Patient seen and examined No specific complaints Left foot erythema---more in sitting position/reduced on elevationof her leg Last Vital Signs Temp Pulse Resp BP Pulse Ox 98.7 F 73 18 136/69 98 10/03/19 14:38 10/03/19 14:38 10/03/19 14:38 10/03/19 14:38 10/03/19 09:00 Cor: RSR, No murmurs, No gallops Lungs: Clear to P&A Abd: Soft, Normal bowel sounds, No organomegaly Ext: Left foot erythema Labs/Meds reviewed A/P Follicular lymphoma- may need repeat biopsy in view of development of hypercalcemia on ibrutinib Breast ca - mildly elevated Ca-27.29 Suspect transformationof follicular lymphoma given hypercalcemia PTH elevated aswell , mildly Dosed zometa 3mg 09/29 hypercalcemia Will need outpatient PET-CT and biopsy based on PET-CT Will decide on chemotherapy regimen based on biopsy results skull CT negative Left foot erythema--? microvascular changes. nontender more a dependent finding, resolves on leg elevation trial of keflex prednisone taper--30mg/d x 3days, 20mg/d x 3days, 10mg/d allopurinol RTC on 10/07 for repeat CMP discussed plan with daughter
[2019-10-03 18:45] LABS: PLATELET ESTIMATE ADEQUATE
--- NOTE | 2019-10-03 23:56 | PN ---
Progress Note, Physician History of Present Illness: OOB IN CHAIR NO C/O FOOT PAIN NO F/C TOLERATED CEPHALOSPORIN - Objective Vital Signs: Vital Signs Temperature 98.7 F 10/03/19 14:38 Pulse Rate 73 10/03/19 14:38 Respiratory Rate 18 10/03/19 14:38 Blood Pressure 136/69 10/03/19 14:38 O2 Sat by Pulse Oximetry (%) 98 10/03/19 09:00 Constitutional: Yes: No Distress Cardiovascular: Yes: Regular Rate and Rhythm, S1, S2 Respiratory: Yes: Regular, CTA Bilaterally Gastrointestinal: Yes: Normal Bowel Sounds, Soft Extremities: Yes: Other (MINIMAL RESIDUAL ERYTHEMA, TOES BILATERALLY) Labs: CBC, BMP 10/03/19 16:05 10/03/19 16:05 INR, PTT INR 0.92 (0.83-1.09) 10/03/19 16:05 Assessment/Plan ? CELLULITIS, FEET BILATERALLY HYPERCALCEMIA LYMPHOMA PCN ALLERGY SUBSTITUTE PO KEFLEX OUTPATIENT FOLLOW UP
== END 2019-10-03 18:23 | disposition home or self-care (01) | DRG 841 ==
LOC: JONCNONCHE 07:00 → J7W 07:01
PROVIDERS: ADMIT Internal Medicine Hematology & Oncology; ATTEND Internal Medicine Hematology & Oncology
DX: C82.90 Follicular lymphoma, unspecified, unspecified site (principal); L03.116 Cellulitis of left lower limb; L03.115 Cellulitis of right lower limb; N17.9 Acute kidney failure, unspecified; E83.52 Hypercalcemia; Z88.0 Allergy status to penicillin; Z85.3 Personal history of malignant neoplasm of breast
CPT/HCPCS: 36415; 70450-TC; 71046-TC-FY; 76705-TC; 78306-TC; 80048; 80053; 82306; 82310; 83735; 83970; 84100; 85025; 85610; 85730; 86704; 86706; 86707; 86708; 86709; 87340; 93005; 93010; 97116-GP; 97161-GP; A9503; J1100; J3480; J3489; J7030

== ENCOUNTER 2019-10-13 08:04 | Day surgery (SDC) | payer OTHER, BC ==
[2019-10-12 11:19] VITALS: BMI 24.6
[2019-10-13 12:01] VITALS: TEMP 98.6
[2019-10-13 12:48] VITALS: BP 113/62; PULSE 86
--- NOTE | 2019-10-21 16:35 | PATH ---
Surgical Pathology Report Patient Name: CATHERINE KOVACS [facility]. Rec. #: [id number] /Age/Gender: 1930 (Age: 88) / F Account: [id number] Location: RADIOLOGY INTER Taken: 10/13/2019 Received: 10/13/2019 Reported: 10/21/2019 Physicians: Kathy Mars M.D. 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 SEE COMMENT. Comment: H&E stained needle core biopsy section shows large areas of necrosis and diffuse infiltration by large lymphoid cells with irregular nuclear contours, vesicular nuclear chromatin and multiple prominent nucleoli. Immunoperoxidase studies show the large cells to express CD45, CD20, PAX-5, CD5, BCL-2, MUM-1 and MYC. Ki-67 immunostain shows a high proliferation index of ~90%. The neoplastic cells are negative for expression of MCK, CD10, BCL-1, BCL-6, CD43 and JEFFERY. T-cells are few, and are morphologically unremarkable. Flow cytometry shows monoclonal kappa CD5 positive B-cell population.Findings represent involvement by a High grade B-cell lymphoma expressing BCL-2, and MYC. Pending FISH study on the biopsy specimen for BCL1, BCL-2, BCL-6, and MYC will be helpful for further characterization (diffuse large B-cell lymphoma vs. a high grade B-cell lymphoma with MYC and BCL-2 and/or BCL6 rearrangements) and exclusion of mantle cell lymphoma; a summary report will follow. Correlation with relevant clinical and laboratory findings is recommended. This case was sent to Dr. Amalia Faulkner from [facility], [place], [place] the diagnosis above reflects her opinion. Findings discussed with Dr. Mars, 10/21/19. Immunohistochemical stains CD20 Neoplastic Cells Positive PAX-5 Neoplastic Cells CD3 T-cells CD5(4C7) Neoplastic Cells CD10 Neoplastic Cells Negative CYCLIN D1 Neoplastic Cells BCL-2 IHC Neoplastic Cells Positive BCL-6 Neoplastic Cells Negative Ki67 90% Cell Proliferation Marker (MIB-1) MUM1 Neoplastic Cells Positive CD43 T-cells Positive JEFFERY JERED Negative Nelda- Barbour Virus Early RNA (by JERED) FLOW CYTOMETRY ANALYSIS performed and reported by [facility] [place], [place], [place] ([id number]) shows the following: INTERPRETATION: LYMPH NODE: - CD5(+) B-CELL LYMPHOMA. Phenotype: 1. A monoclonal kappa cd5(+) B-cell population is present. CD20 is dimly expressed. CD23 is negative 2. T-cells (19% of total) show no ghotra T-cell antigenic deletion. CD4:CD8 T-cell ratio is 4.8:1 See [facility] reports for additional details. Electronically Signed Shantell Curry M.D. Addendum Reported: 10/31/2019 Addendum Diagnosis FISH ANALYSIS performed and interpreted at [place], [place] ([id number]) shows the following: INTERPRETATION: 1. Positive for a rearrangement involving MYC (77.0% of cells). MYC rearrangements are characteristic of Burkitt lymphoma, however, they can also be seen infrequently in other B-cell lymphomas. Correlation with clinicopathological findings and other laboratory tests is indicated. The following hybridization pattern was observed: 1x5'MYC, 1x3'MYC, and 0xMYC fusion signals versus the expected abnormal pattern 1x5'MYC, 1x3'MYC, and 1xMYC fusion signal. 2. Negative for a t(11;14)/CCND1-IGH rearrangement. Three copies of IGH were observed in 45.0% of cells. The extra copy of the IGH signal might represent trisomy 14 or a split IGH signal due to a rearrangement with another gene other than the CCND1 gene. 3. Negative for a rearrangement involving BCL6. 4. Negative for a rearrangement involving BCL2. 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 Shantell Curry M.D. Gross Description Received in formalin labeled "lymph node tissue," are 5 melton, cylindrical portions of soft tissue ranging from 0.8-1.4 cm in length and averaging 0.1 cm in diameter. The specimens are submitted in toto in one cassette. There is additional tissue received in RPMI solution which is sent for flow cytometry. 10/13/2019 saudi10/13/2019
== END 2019-10-13 11:45 | disposition home or self-care (01) ==
LOC: JRADIR 08:04
PROVIDERS: ATTEND Internal Medicine Hematology & Oncology
PROC: BH4CZZZ Ultrasonography of Head and Neck (ICD-10-PCS; principal; 2019-10-13)
PROC: 07D23ZX Extraction of Left Neck Lymphatic, Percutaneous Approach, Diagnostic (ICD-10-PCS; 2019-10-13)
DX: C83.31 Diffuse large B-cell lymphoma, lymph nodes of head, face, and neck (principal)
CPT/HCPCS: 38505; 76942-TC; 88305-TC; 88341-TC; 88342-TC

== ENCOUNTER 2019-11-01 10:28 | Inpatient (IN) | payer OTHER, BC ==
[2019-11-01] MEDS ORDERED: SODIUM CHLORIDE 0.9% 500 ML INFUS.BAG IV ONE (11:39)
[2019-11-01 12:09] LABS: HEMATOCRIT 29.2 % (32.4-45.2); HEMOGLOBIN 9.4 GM/dL (10.7-15.3); MCH 29.7 pg (25.7-33.7); MCHC 32.3 g/dl (32.0-36.0); MEAN PLT VOLUME 8.1 fl (7.5-11.1); PLATELET COUNT 227 K/MM3 (134-434); RBC 3.17 M/mm3 (3.60-5.2); RDW 20.4 % (11.6-15.6); WHITE BLOOD COUNT 15.9 K/mm3 (4.0-10.0)
--- NOTE | 2019-11-01 12:11 | PDOC ---
History of Present Illness - General Chief Complaint: Weakness Stated Complaint: SENT BY PCP/WEAKNESSS Time Seen by Provider: 11/01/19 11:14 History Source: Patient, Family, Old Records Exam Limitations: No Limitations - History of Present Illness Initial Comments: 11/01/19 12:10 Henny Arguello is an 88F with PMH diffuse large B cell lymphoma, HTN, HLD, L breast CA sent by Dr. Ramos her oncologist for admission for port placement and IV chemo. Per patient and family at bedside, patient has been on PO chemotherapy that recently ended a few weeks ago for her lymphoma. Had a biopsy on 10/13/19 confirming type. In that time, tumor size as worsened significantly in the neck and abdomen and she has failed outpatient treatment. Patient reports that Dr. Ramos sent her for admission for access and initiation of IV chemotherapy. Patient reports she has no fevers, chills, nausea, vomiting, diarrhea, abdominal pain. At baseline, denies chest pain, difficulty breathing, poor PO intake, SALGADO. However, says she gets anxious whenever she thinks about her cancer and begins to hyperventilate. Past History - Past Medical History Allergies/Adverse Reactions: Allergies Allergy/AdvReac Type Severity Reaction Status Date / Time Penicillins Allergy Mild Rash Verified 11/01/19 11:03 azithromycin AdvReac Intermediate diarrhea Verified 11/01/19 11:03 [From Zithromax Z-Aung] metronidazole [From Flagyl] AdvReac Intermediate Rash Verified 11/01/19 11:03 Metronidazole HCl AdvReac Intermediate Verified 11/01/19 11:03 [From Flagyl] Home Medications: Ambulatory Orders Alprazolam [Xanax] 0.25 mg PO PRN 10/06/18 Levothyroxine [Synthroid -] 25 mcg PO DAILY 10/06/18 Mirtazapine 15 mg PO HS 09/28/19 Candesartan Cilexetil [Atacand (Nf) -] 8 mg PO DAILY 10/13/19 Furosemide [Lasix] 20 mg PO DAILY 10/13/19 Metoprolol Succinate [Toprol Xl -] 25 mg PO DAILY 10/13/19 Allopurinol 300 mg PO DAILY 11/01/19 Pantoprazole Sodium [Protonix] 40 mg PO DAILY 11/01/19 Prednisone 10 mg PO DAILY 11/01/19 Anemia: Yes Asthma: No Cancer: Yes (BREAST CA 11/2006, LYMPHOMA 1980 AND 1988) Cardiac Disorders: No CVA: No COPD: No CHF: No Dementia: No Diabetes: No GI Disorders: No Disorders: No HTN: Yes Hypercholesterolemia: Yes Liver Disease: No Psychiatric Problems: Yes (anxiety) Seizures: No Thyroid Disease: Yes (THYROIDECTOMY) - Surgical History Abdominal Surgery: Yes (PERFORATED COLON S/P COLONOSCOPY) Appendectomy: No Cardiac Surgery: No Cholecystectomy: No GI Surgery: Yes (colonoscopy) Lung Surgery: No Neurologic Surgery: No Orthopedic Surgery: No - Immunization History Immunization Up to Date: No - Psycho Social/Smoking Cessation Hx Smoking Status: No Smoking History: Never smoked Have you smoked in the past 12 months: No Number of Cigarettes Smoked Daily: 0 Information on smoking cessation initiated: No Hx Alcohol Use: No Drug/Substance Use Hx: No Substance Use Type: None Hx Substance Use Treatment: No Review of Systems - Review of Systems Able to Perform ROS?: Yes Constitutional: No: Chills, Fever HEENTM: No: Symptoms Reported Respiratory: No: Cough, Shortness of Breath Cardiac (ROS): No: Chest Pain, Irregular Heart Rate, Lightheadedness, Palpitations, Syncope ABD/GI: No: Constipated, Diarrhea, Nausea, Poor Appetite, Poor Fluid Intake, Vomiting : No: Symptoms Reported Musculoskeletal: No: Symptoms Reported Integumentary: Yes: Lumps Neurological: No: Symptoms reported Psychiatric: Yes: Anxiety Endocrine: No: Symptoms Reported Hematologic/Lymphatic: Yes: Lymph Node Abnormalities All Other Systems: Reviewed and Negative *Physical Exam - Vital Signs Last Vital Signs Temp Pulse Resp BP Pulse Ox 98.4 F 122 H 16 102/63 100 11/01/19 10:40 11/01/19 10:40 11/01/19 10:40 11/01/19 10:40 11/01/19 10:40 - Physical Exam General Appearance: Yes: Nourished, Appropriately Dressed. No: Apparent Distress HEENT: positive: EOMI, HILARIO, Normal Voice, Symmetrical, Pharynx Normal. negative: Scleral Icterus (R), Scleral Icterus (L), Pharyngeal Erythema, Tonsillar Exudate, Tonsillar Erythema Neck: positive: Trachea midline, Supple, Lymphadenopathy (R), Lymphadenopathy (L) (multiple 3 in diameter lymph nodes in L anterior and posterior neck, non- tender, no overlying erythema). negative: Tender Respiratory/Chest: positive: Lungs Clear, Normal Breath Sounds. negative: Chest Tender, Respiratory Distress, Accessory Muscle Use, Crackles, Rales, Rhonchi, Stridor, Wheezing Cardiovascular: positive: Regular Rhythm, Regular Rate. negative: Edema, Murmur Gastrointestinal/Abdominal: positive: Normal Bowel Sounds, Soft, Other (suprapubic lymphadenopathy). negative: Tender, Organomegaly, Guarding, Rebound, Hepatomegaly, Spleenomegaly Musculoskeletal: positive: Normal Inspection. negative: CVA Tenderness, Vertebral Tenderness Extremity: positive: Normal Capillary Refill, Normal Inspection, Normal Range of Motion, Pelvis Stable. negative: Tender, Pedal Edema, Swelling Integumentary: positive: Normal Color, Dry, Warm Neurologic: positive: Fully Oriented, Alert, Normal Mood/Affect, Normal Response, Motor Strength 5/5. negative: Sensory Deficit, Confused ED Treatment Course - LABORATORY CBC & Chemistry Diagram: 11/02/19 08:56 11/02/19 08:56 - RADIOLOGY Radiology Studies Ordered: Category Date Time Status CHEST X-RAY PORTABLE* [RAD] Stat Radiology 11/01/19 11:39 Taken Medical Decision Making - Medical Decision Making 11/01/19 12:[address] Ramos for admission for port placement and IV chemotherapy for DLBC lymphoma that has acutely failed outpatient management. Patient is asymptomatic at this time, but does say she gets anxious when thinking about her disease. HR noted to be in 120s, drops to 90s when distracted and holding patient's hand, same is true with tachypnea to 30s when calmer, VS abnormalities consistent with stress or anxiety as driving force. - CMP/CBC for lytes/infection, has history of hypercalcemia - Coags/TS for pre-op eval - ECG/CXR/CP for heart eval - 1L NS for rehydration - UA/UC for UTI eval Plan to admit once labs return. ECG shows sinus tachycardia with LAFB and incomplete RBBB, HR 120, QRS 1-8, QTc 440. CXR shows elevated R hemidiaphragm, large heart, unfolded aorta, tracheal deviation to the right, R base atelectasis. 11/01/19 13:00 Labs notable for: - WBC 15.9 - Hbg 9.4 - Cr 1.8 - Ca 11.4, 12.4 corrected - Alb 2.4 - Phos 2.4, malnutrition - Mag 1.6, malnutrition - AP 464 - UA 2+ LE, concerning for UTI although no bacteria, ordered one dose Macrobid given immunosuppression 11/03/19 07:12 Case discussed with admitting team priscila Talley for admission to [facility] under Dr. Sun. Discharge - Discharge Information Problems reviewed: Yes Clinical Impression/Diagnosis: DLBCL (diffuse large B cell lymphoma) Qualifiers: Lymphoma site: neck Qualified Code(s): C83.31 - Diffuse large B-cell lymphoma, lymph nodes of head, face, and neck - Follow up/Referral - Patient Discharge Instructions - Post Discharge Activity
[2019-11-01 12:23] LABS: INR 0.94 (0.83-1.09); PROTHROMBIN TIME (PATIENT) 11.1 SEC (9.7-13.0)
[2019-11-01 12:25] LABS: ACTIVATED PTT 25.6 SECONDS (25.2-36.5)
--- NOTE | 2019-11-01 12:26 | PDOC ---
Attending Attestation - Resident Resident Name: Thor Seaman - ED Attending Attestation I have performed the following: I have examined & evaluated the patient, The case was reviewed & discussed with the resident, I agree w/resident's findings & plan - HPI HPI: 11/01/19 12:13 88-year-old female with longstanding history of diffuse large B-cell lymphoma maintained on oral chemotherapy now with increasing neck and supraclavicular lymphadenopathy status post biopsy on 10/13 sent for admission for initiation of IV chemotherapy and necessary access. Patient reports increasing fatigue, ongoing night sweats, but denies any fevers or focal complaints. No stridor or difficulty swallowing with the increasing lymphadenopathy. - Physicial Exam PE: 11/01/19 12:15 Afebrile, triage tachycardia noted, patient does become intermittently very anxious while discussing her diagnosis, heart rate ranges from 90-1 15 while at the bedside. Well-appearing seated comfortably in stretcher, pleasant elderly woman smiling and speaking full sentences with clear voice Obvious left cervical/supraclavicular lymphadenopathy Heart is regular slight tachycardia, lungs are clear Abdomen is soft/nondistended, incisional scar No edema - Medical Decision Making 11/01/19 12:16 88-year-old female with progressive lymphoma, here for initiation of IV chemotherapy. No airway compromise at this time, trachea midline. No evidence of vascular compression/extremity edema to suggest obstructive DVT (and therefore suspicion for PE given the intermittent tachycardia). If persistent tachycardia, consider DVT/PE, otherwise appears more related to anxiety at the moment as is not associated with any cp/palp/sob. Labs Chest x-ray, EKG Admission for oncology management Heart Score/ECG Review #1 ECG reviewed & interpreted by me at: 10:59 General ECG Interpretation: Sinus Rhythm (tachycardia at 120, bifascicular block (RBBB + LAFB)), No acute ischemic changes Compared to previous ECG there are: No significant change (c/w 09/27/19, tachycardia is new but block is unchanged)
[2019-11-01 12:36] LABS: ALBUMIN 2.6 g/dl (3.4-5.0); BILIRUBIN,TOTAL 1.3 mg/dL (0.2-1); BLOOD UREA NITROGEN 42.8 mg/dL (7-18); CALCIUM 11.3 mg/dL (8.5-10.1); CREATININE 1.8 mg/dL (0.55-1.3); MAGNESIUM 1.6 mg/dL (1.8-2.4); PHOSPHOROUS 2.3 mg/dL (2.5-4.9); POTASSIUM 4.2 mmol/L (3.5-5.1); TOT PROT 6.5 g/dl (6.4-8.2)
[2019-11-01 12:37] LABS: EPI CELLS 4.9 /HPF (0-5/HPF); HYALINE CASTS 16 /lpf (0-8); URINE APPEARANCE CLEAR; URINE BACTERIA 12.5 /hpf (NEGATIVE); URINE BILIRUBIN NEGATIVE (NEGATIVE); URINE COLOR YELLOW; URINE GLUCOSE (UA) NEGATIVE (NEGATIVE); URINE KETONE NEGATIVE (NEGATIVE); URINE LEUK ESTERASE 2+ (NEGATIVE); URINE NITRITE NEGATIVE (NEGATIVE); URINE PROTEIN TRACE (NEGATIVE); URINE RBC 3 /hpf (0-4); URINE UROBILINOGEN 0.2 mg/dL (0.2-1.0); URINE WBC 12 /hpf (0-5)
--- NOTE | 2019-11-01 13:56 | CONSULT ---
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 Ramos's office for port placement and initiation of IV chemotherapy. Pt was previously received biopsy on 10/13/2019 which recently showed her transformation from follicular lymphoma to diffuse large B-cell. Pt was previously on Ibrutinib treatment for follicular lymphoma with her last dose 1 month prior. Pt had worsening cervical mass size and ongoing B-type symptoms despite treatment and was noted to have hypercalcemia suggesting her transformation which prompted biopsy. Pt today is slightly anxious, however she reports ongoing night sweats, weakness and other B-type symptoms. Pt reports she gets slightly nervous when anticipating her Ca prognosis and treatment. Pt has maintain roughly 120lbs throughout and remains with good appetite Denies fever/chills, cough, SOB, CP/discomfort, n/v/d/c, abdominal pain, numbness/tingling. PMHx: as above PSHx: Colonoscopy Colon resection with reanastomosis L Lumpectomy SoHx: Tobacco - None Alcohol - None Drugs - None Independent in ADLs REVIEW OF SYSTEMS: As per HPI PHYSICAL EXAMINATION Vital Signs - 24 hr 11/01/19 10:40 Temperature 98.4 F Pulse Rate 122 H Respiratory 16 Rate Blood Pressure 102/63 O2 Sat by Pulse 100 Oximetry (%) GENERAL: NAD, Awake, alert, and fully oriented, laying in bed HEENT: NC/AT, GWEN, EOMI, sclera anicteric, no conjunctival pallor, slightly dry MM NECK: Soft, 2 enlarged nontender firm L cervical chain (approximately 2-3 cm and approx 6cm in length), no other LNs appreciated on cervical chain. BREAST: Previous lumpectomy scar noted L side, no palpable nodules appreciated CHEST: No axillary LN's appreciated LUNGS: CTA bilaterally. No wheezes, and no crackles. No accessory muscle use. HEART: RRR, normal S1 and S2 without murmur ABDOMEN: Soft, surgical scar noted, distended with normoactive distant BS, dullness with percussion noted laterally, nontender, could not appreciate spleen due to distention. EXTREMITIES: 2+ DP pulses, warm, well-perfused. No calf tenderness. trace peripheral edema at the ankles NEUROLOGICAL: Cranial nerves II-XII intact. Normal speech. Normal gait. PSYCHIATRIC: Cooperative. Good eye contact. Appropriate mood and affect. SKIN: Warm, dry, no rashes noted. Laboratory Results - last 24 hr 11/01/19 11/01/19 11/01/19 11:21 11:21 11:21 WBC 15.9 H RBC 3.17 L Hgb 9.4 L Hct 29.2 L D MCV 92.0 MCH 29.7 MCHC 32.3 RDW 20.4 H Plt Count 227 D MPV 8.1 Absolute Neuts (auto) 8.5 H Neutrophils % 53.4 D Lymphocytes % 5.0 L D Monocytes % 34.6 H D Eosinophils % 5.8 H Basophils % 1.2 Nucleated RBC % 0 PT with INR INR PTT (Actin FS) Sodium 139 Potassium 4.2 Chloride 107 Carbon Dioxide 25 Anion Gap 7 L BUN 42.8 H Creatinine 1.8 H Est GFR (CKD-EPI)AfAm 28.62 Est GFR (CKD-EPI)NonAf 24.69 Random Glucose 106 Calcium 11.3 H Phosphorus 2.3 L Magnesium 1.6 L Total Bilirubin 1.3 H AST 47 H ALT 67 H Alkaline Phosphatase 464 H Creatine Kinase 63 Troponin I 0.02 Total Protein 6.5 Albumin 2.6 L Urine Color Urine Appearance Urine pH Ur Specific Britton Urine Protein Urine Glucose (UA) Urine Ketones Urine Blood Urine Nitrite Urine Bilirubin Urine Urobilinogen Ur Leukocyte Esterase Urine WBC (Auto) Urine RBC (Auto) Urine Casts (Auto) U Epithel Cells (Auto) Urine Bacteria (Auto) Blood Type Antibody Screen 11/01/19 11/01/19 11/01/19 11:21 11:21 11:54 WBC RBC Hgb Hct MCV MCH MCHC RDW Plt Count MPV Absolute Neuts (auto) Neutrophils % Lymphocytes % Monocytes % Eosinophils % Basophils % Nucleated RBC % PT with INR 11.10 INR 0.94 PTT (Actin FS) 25.6 Sodium Potassium Chloride Carbon Dioxide Anion Gap BUN Creatinine Est GFR (CKD-EPI)AfAm Est GFR (CKD-EPI)NonAf Random Glucose Calcium Phosphorus Magnesium Total Bilirubin AST ALT Alkaline Phosphatase Creatine Kinase Troponin I Total Protein Albumin Urine Color Yellow Urine Appearance Clear Urine pH 5.0 Ur Specific Britton 1.012 Urine Protein Trace Urine Glucose (UA) Negative Urine Ketones Negative Urine Blood Negative Urine Nitrite Negative Urine Bilirubin Negative Urine Urobilinogen 0.2 Ur Leukocyte Esterase 2+ H Urine WBC (Auto) 12 Urine RBC (Auto) 3 Urine Casts (Auto) 16 U Epithel Cells (Auto) 4.9 Urine Bacteria (Auto) 12.5 Blood Type O POSITIVE Antibody Screen Negative Active Medications Generic Name Dose Route Start Last Admin Trade Name Freq PRN Reason Stop Dose Admin Nitrofurantoin Macrocrystals 100 mg 11/01/19 13:30 Macrodantin - PO ONCE ELIZABETH ASSESSMENT/PLAN: Diffuse large B-cell lymphoma HyperCalcemia Normocytic anemia History of Breast Ca Acute kidney insufficiency --Will need chemo-port placement this admission to initialize IV chemotherapy --Discussed with IR and likely will have port placed tomorrow (NPO at midnight; hold DVT PPX) -- benefit from R-CHOP therapy (will need to discuss with Dr. Ramos) --FISH/Flow reviewed from previous visit --? staging imaging for abdominal involvement and ? LDH for prognostic guidance --Continue allopurinol to prevent lysis syndrome (renally dose) --Given malignancy will need to initiate DVT PPX; SCDs for now and can put on chemical after IR procedure --Treat HyperCa with fluids; hold Zometa for now --Replete lytes per primary team Case to be discussed with Dr. Richard Melissa, DO - PGY-3 Visit type - Emergency Visit Emergency Visit: Yes ED Registration Date: 11/01/19 Care time: The patient presented to the Emergency Department on the above date and was hospitalized for further evaluation of their emergent condition. - New Patient This patient is new to me today: No - Critical Care Critical Care patient: No ATTENDING PHYSICIAN STATEMENT I saw and evaluated the patient. I reviewed the resident's note and discussed the case with the resident. I agree with the resident's findings and plan as documented. SUBJECTIVE: OBJECTIVE: ASSESSMENT AND PLAN:
[2019-11-01] MEDS ORDERED: NITROFURANTOIN MACROCRYSTAL 50 MG CAPSULE (FP) ONE (14:28)
[2019-11-01] MEDS: NITROFURANTOIN MACROCRYSTAL 50 MG CAPSULE (FP) PO SCH (14:32)
[2019-11-01] MEDS ORDERED: SODIUM CHLORIDE 500 ML IV STA (15:44)
[2019-11-01] MEDS ORDERED: NAPH,MB-DB/K PH,MBDB POWDER PACKET PO ONE (15:50)
[2019-11-01] MEDS ORDERED: MAGNESIUM OXIDE 400 MG TABLET (FP) PO ONE (15:51)
--- NOTE | 2019-11-01 15:55 | PN ---
Teaching Attending Note Name of Resident: Oleg Melissa ATTENDING PHYSICIAN STATEMENT I saw and evaluated the patient. I reviewed the resident's note and discussed the case with the resident. I agree with the resident's findings and plan as documented. SUBJECTIVE: Patient seen and examined Admitted with hypercalcemia. Recent lethargy , sleeping most of day with night sweats- drenching and progressive lymphadenopathy. Greater than 25 year history of low grade follicular lymphoma with treatment including RT to local sites and Rituxin in past. ( Loading dose xweekly x4 and then q2 months x 4. Broke thru with progressive lymphadenopathy and on ibrutinib . ( Could not tolerate full dosing of 420 mg/d-- was on 120 mg/day) Developed painful cervical and SC lymphadenopthy with PET and CT showing RPN lympadenopathy and underwent needle biopsy - positive for high grade diffuse large B cell lymphoma. Outpatient treatment planned, but presented with hypercalcemia, lethargy and advised ER. PMH - breast ca treated with lumpectomy and RT followed by hormonal therapy colon resection -post colonoscopy and perforation hypothyroidism HBP Allergies Penicillin Zithromax Metronidazole Outpatient meds Allopurinol-300 mg/d Alprazolam [Xanax] 0.25 mg PO PRN 10/06/18 Ibrutinib [Imbruvica] 420 mg PO HS 10/06/18 Levothyroxine [Synthroid -] 25 mcg PO DAILY 10/06/18 Mirtazapine 15 mg PO HS 09/28/19 Candesartan Cilexetil [Atacand (Nf) -] 8 mg PO DAILY 10/13/19 Furosemide [Lasix] 20 mg PO DAILY 10/13/19 Metoprolol Succinate [Toprol Xl -] 25 mg PO DAILY 10/13/19 ROS- lethargy, anorexia, drenching night sweats Last Vital Signs Temp Pulse Resp BP Pulse Ox 98.4 F 96 H 20 129/72 98 11/01/19 10:40 11/01/19 14:59 11/01/19 14:59 11/01/19 14:59 11/01/19 14:59 HEENT: STEPHEN, EOM Intact Oropharynx: No thrush, No mucositis Neck: Supple Nodes: adenopathy- anterior and posterior cervical nodes; SCnodes -all on left Breasts: Without masses, s/p left lumpectomy and RT with surgical scar Cor: RSR, No murmurs, No gallops Lungs: Clear to P&A Abd: Soft, Normal bowel sounds, No organomegaly, distended Ext:No significant edema Skin: No rashes, Integument intact CBC, BMP 11/01/19 11:21 11/01/19 11:21 Current Medications Generic Name Dose Route Start Last Admin Trade Name Freq PRN Reason Stop Dose Admin Allopurinol 300 mg 11/02/19 10:00 Zyloprim - PO DAILY ELIZABETH Alprazolam 0.25 mg 11/01/19 16:00 Xanax - PO PRN ELIZABETH Furosemide 20 mg 11/02/19 10:00 Lasix - PO DAILY ELIZABETH Sodium Chloride 500 mls @ 500 mls/hr 11/01/19 15:44 Normal Saline - IV 11/01/19 16:43 ASDIR STA Levothyroxine Sodium 25 mcg 11/02/19 10:00 Synthroid - PO DAILY ELIZABETH Metoprolol Succinate 25 mg 11/02/19 10:00 Toprol Xl - PO DAILY ELIZABETH Mirtazapine 15 mg 11/01/19 22:00 Remeron - PO HS ELIZABETH Nitrofurantoin Macrocrystals 100 mg 11/01/19 13:30 11/01/19 14:32 Macrodantin - PO 100 mg ONCE ELIZABETH Administration Non-Formulary Medication 8 mg 11/02/19 10:00 Candesartan Cilexetil PO DAILY ELIZABETH Pantoprazole Sodium 40 mg 11/02/19 10:00 Protonix - PO DAILY ELIZABETH Prednisone 10 mg 11/02/19 10:00 Deltasone - PO DAILY [facility] ASSESSMENT AND PLAN: Impression: Transformed lymphoma at least III B Hypercalcemia HBP Hypothyroidism H/O breast ca s/p Lumpectomy, RT/hormones H/O colonic perforation with repair Plan Continue hydration-- monitor Ca++ ECHO with ejection fx prior to possible adriamycin Cardiology consult Port cath --I.R. Chemotherapy--mini R-CHOP -Daily Lytes, Ca++ , LDH,uric acid Discontinue Prednisone
[2019-11-01] MEDS ORDERED: ALPRAZolam 0.25 MG TABLET PO SCH (16:00)
[2019-11-01 16:06] LABS: URIC ACID 4.1 mg/dL (2.6-7.2)
--- NOTE | 2019-11-01 16:10 | HP ---
CHIEF COMPLAINT: "Tiredness" PCP: Dr. [place] HISTORY OF PRESENT ILLNESS: Pt. is an 88 y.o. F w/ PMHx. of HTN, HLD, Low-grade Diffuse Large B-Cell Lymphoma(Tx. with Rituxin and local radiation therapy for over 25+ years, now advanced to high-grade Large B-Cell Lymphoma on biopsy earlier this month), Breast CA(s/p L. lumpectomy, radiation and hormonal therapy ), and Hx. of IBD presents from Dr. Ramos's office for increasing fatigue and hypercalcemia. Pt. states that this has been worsening over the last few weeks with worsening night sweats and anxiety. Pt. states she has a good appetite, has had weight gain and endorses adequate sleep. Pt. denies any fevers, diarrhea , hematuria, melena, hematochezia, difficulty breathing or swallowing. Pt.s states that the nodules on her neck have recently enlarged in the last few weeks to months. Pt. endorses anxiety about her overall diagnosis and states that she would like to see some more of her grandchildren get . Pt. states she gets short of breath only when she gets anxious. On review of medications daughter states that Pt. stopped taking calcium, B12 and Vit D supplements months ago, had her Lasix decreased to 20mg Daily, stopped taking potassium supplements all recomended by her PCP and tailercpa Dr. Lundberg. Pt. was recently admitted for hypercalcemia and was worked up for High-grade transformation of Large B-Cell Lymphoma, which was confirmed by pathology report. Pt. had PET/Ct Scan done outpatient which showed retroperitoneal lymphadenopathy in addition to cervical and supraclavicular lympadenopathy. Pt. was started on Allopurinol 1 month ago. ER course was notable for: (1) CBC, CMP, Trop, EKG, UA (2) 1L NS, Macrobid (3) Recent Travel: No PAST MEDICAL HISTORY: As above PAST SURGICAL HISTORY: L. lumpectomy, Colostomy (s/p tear during polypectomy), colostomy revision Social History: Smoking: Denies Alcohol: Denies Drugs: Denies Living: Pt. lives with family and is independent, ambulates without assistance Allergies Penicillins Allergy (Mild, Verified 11/01/19 11:03) Rash azithromycin [From Zithromax Z-Aung] Adverse Reaction (Intermediate, Verified 11:03) diarrhea RASH ALSO metronidazole [From Flagyl] Adverse Reaction (Intermediate, Verified 11/01/19 11 :03) Rash diarrhea Metronidazole HCl [From Flagyl] Adverse Reaction (Intermediate, Verified 11:03) diarrhea HOME MEDICATIONS: Home Medications Medication Instructions Recorded Alprazolam [Xanax] 0.25 mg PO PRN 10/06/18 Levothyroxine [Synthroid -] 25 mcg PO DAILY 10/06/18 Mirtazapine 15 mg PO HS 09/28/19 Candesartan Cilexetil [Atacand 8 mg PO DAILY 10/13/19 (Nf) -] Furosemide [Lasix] 20 mg PO DAILY 10/13/19 Metoprolol Succinate [Toprol Xl -] 25 mg PO DAILY 10/13/19 Allopurinol 300 mg PO DAILY 11/01/19 Pantoprazole Sodium [Protonix] 40 mg PO DAILY 11/01/19 Prednisone 10 mg PO DAILY 11/01/19 REVIEW OF SYSTEMS As above PHYSICAL EXAMINATION Vital Signs - 24 hr 11/01/19 11/01/19 11/01/19 10:40 10:59 14:59 Temperature 98.4 F Pulse Rate 122 H Pulse Rate [ 96 H Left Radial] Respiratory 16 20 Rate Blood Pressure 102/63 Blood Pressure 129/72 [Left Arm] O2 Sat by Pulse 100 98 98 Oximetry (%) GENERAL: Awake, alert, and fully oriented, in no acute distress. HEAD: Normal with no signs of trauma. EYES: Pupils equal, round and reactive to light, extraocular movements intact, sclera anicteric, conjunctiva clear. EARS, NOSE, THROAT: Ears normal, nares patent, oropharynx clear with white lingual exudates. Moist mucous membranes. NECK: Normal range of motion, supple with many enlarged cervical and supraclavicular lymph nodes: left>R. No stridor. LUNGS: Breath sounds equal, Bibasilar crackles. No accessory muscle use. HEART: Tachycardic, regular rate and rhythm, normal S1 and S2 without murmur ABDOMEN: Soft, nontender, distended, normoactive bowel sounds, no guarding, no rebound, dull to percussion UPPER EXTREMITIES: 2+ radial pulses, warm, well-perfused. No cyanosis. No clubbing. LOWER EXTREMITIES: 2+ dorsal pedal pulses, warm, well-perfused. No calf tenderness. 1+ edema. NEUROLOGICAL: Moves all extremities, Gait not assessed PSYCHIATRIC: Cooperative. Good eye contact. Appropriate mood and affect. Anxious SKIN: Warm, diaphoretic Laboratory Results - last 24 hr 11/01/19 11/01/19 11/01/19 11:21 11:21 11:21 WBC 15.9 H RBC 3.17 L Hgb 9.4 L Hct 29.2 L D MCV 92.0 MCH 29.7 MCHC 32.3 RDW 20.4 H Plt Count 227 D MPV 8.1 Absolute Neuts (auto) 8.5 H Neutrophils % 53.4 D Lymphocytes % 5.0 L D Monocytes % 34.6 H D Eosinophils % 5.8 H Basophils % 1.2 Nucleated RBC % 0 Differential Comment Other Cell Type PT with INR INR PTT (Actin FS) Sodium 139 Potassium 4.2 Chloride 107 Carbon Dioxide 25 Anion Gap 7 L BUN 42.8 H Creatinine 1.8 H Est GFR (CKD-EPI)AfAm 28.62 Est GFR (CKD-EPI)NonAf 24.69 Random Glucose 106 Calcium 11.3 H Phosphorus 2.3 L Magnesium 1.6 L Total Bilirubin 1.3 H AST 47 H ALT 67 H Alkaline Phosphatase 464 H Creatine Kinase 63 Troponin I 0.02 Total Protein 6.5 Albumin 2.6 L Urine Color Urine Appearance Urine pH Ur Specific [place] Urine Protein Urine Glucose (UA) Urine Ketones Urine Blood Urine Nitrite Urine Bilirubin Urine Urobilinogen Ur Leukocyte Esterase Urine WBC (Auto) Urine RBC (Auto) Urine Casts (Auto) U Epithel Cells (Auto) Urine Bacteria (Auto) Blood Type Antibody Screen 11/01/19 11/01/19 11/01/19 11:21 11:21 11:54 WBC RBC Hgb Hct MCV MCH MCHC RDW Plt Count MPV Absolute Neuts (auto) Neutrophils % Lymphocytes % Monocytes % Eosinophils % Basophils % Nucleated RBC % Differential Comment Other Cell Type PT with INR 11.10 INR 0.94 PTT (Actin FS) 25.6 Sodium Potassium Chloride Carbon Dioxide Anion Gap BUN Creatinine Est GFR (CKD-EPI)AfAm Est GFR (CKD-EPI)NonAf Random Glucose Calcium Phosphorus Magnesium Total Bilirubin AST ALT Alkaline Phosphatase Creatine Kinase Troponin I Total Protein Albumin Urine Color Yellow Urine Appearance Clear Urine pH 5.0 Ur Specific [place] 1.012 Urine Protein Trace Urine Glucose (UA) Negative Urine Ketones Negative Urine Blood Negative Urine Nitrite Negative Urine Bilirubin Negative Urine Urobilinogen 0.2 Ur Leukocyte Esterase 2+ H Urine WBC (Auto) 12 Urine RBC (Auto) 3 Urine Casts (Auto) 16 U Epithel Cells (Auto) 4.9 Urine Bacteria (Auto) 12.5 Blood Type O POSITIVE Antibody Screen Negative ASSESSMENT/PLAN: Pt. is an 88 y.o. F w/ PMHx. of HTN, HLD, Low-grade Diffuse Large B-Cell Lymphoma(Tx. with Rituxin and local radiation therapy for over 25+ years, now advanced to high-grade Large B-Cell Lymphoma on biopsy earlier this month), Breast CA(s/p L. mastectomy, radiation and hormonal therapy), and Hx. of IBD presents from Dr. Ramos's office for increasing fatigue and hypercalcemia. #High Grade Diffuse Large B-Cell Lymphoma w/ hypercalcemia Hypercalcemia likely a result of transformation of lymphoma c/w Allopurinol and Lasix Cautious hydration Pt. for port placement w/ Dr. Muller in AM f/u Echo to evaluate cardiac function prior to starting R-miniCHOP regimen ( Rituximab, doxorubicin, cyclophosphamide, vincristine and prednisone) as Pt. was not able to tolerate full dose regimen of Ibrutinib Consult to Dr. Ramos appreciated Consult to Dr. Lundberg appreciated for Cardiac clearance prior to initiating regimen c/w Protonix for GI protection c/w xanax PRN for anxiety c/w Mirtazipine for sleep and increasing appetite ECO Karnofsky Score: 80 points f/u PET/CT scan report fax. #[place] on CKD(Stage 4) Cr. 1.8, will trend, unclear if this is the Pt.'s new baseline c/w Lasix f/u renal US #Normocytic Anemia possible 2/2 to chronic disease vs. bone marrow hypoplasia Pt. 1 months ago had HgB of 11 on discharge, but was 9.4 during that admission. Will send Iron studies and reticulocyte count to evaluate and exclude TINY Low suspicion for blood loss through rectum, will defer FOBT at this time. Potentially a component is from decreased renal function as Pt has Stage 4 CKD. If workup is negative or reticulocyte count is low, may need to check EPO level. #HTN c/w Candersartan and Metoprolol #Hypothyroidism c/w Synthroid #FEN 500cc Bolus, then encourage PO intake until midnight monitor electrolytes, replete magnesium and phosphorus, hypophatemia NPO after midnight #DVT Ppx. SCDs as Pt. going for procedure in AM Visit type - Emergency Visit Emergency Visit: Yes ED Registration Date: 11/01/19 Care time: The patient presented to the Emergency Department on the above date and was hospitalized for further evaluation of their emergent condition. - New Patient This patient is new to me today: Yes Date on this admission: 11/01/19 - Critical Care Critical Care patient: No ATTENDING PHYSICIAN STATEMENT I saw and evaluated the patient. I reviewed the resident's note and discussed the case with the resident. I agree with the resident's findings and plan as documented. SUBJECTIVE: OBJECTIVE: ASSESSMENT AND PLAN:
[2019-11-01] MEDS ORDERED: MAGNESIUM OXIDE 400 MG TABLET (FP) ONE (16:11)
[2019-11-01 16:40] LABS: PLATELET ESTIMATE NORMAL
--- NOTE | 2019-11-01 17:34 | PN ---
Teaching Attending Note Name of Resident: Aniceto Lowe ATTENDING PHYSICIAN STATEMENT I saw and evaluated the patient. I reviewed the resident's note and discussed the case with the resident. I agree with the resident's findings and plan as documented. 88 F h/o HTN, HLD, Low-grade Diffuse Large B-Cell Lymphoma (Tx. with Rituxin and local radiation therapy for over 25+ years, now advanced to high-grade Large B-Cell Lymphoma on biopsy earlier this month), Breast CA(s/p L. lumpectomy , radiation and hormonal therapy), and Hx. of IBD presents from Dr. Ramos's office for increasing fatigue and hypercalcemia. Patient followed up with Dr. Ramos for complaints of L supraclavicular/painful swelling, was found to have high grade B cell lymphoma on repeat biopsy, due to worsening lethargy and mild hypercalcemia pt. sent to ED for admission to initiate chemo therapy. Currently patient denies SOB/CP, denies current N/V/D/abdominal pain. Family at bedside, noticed worsening in L supraclavicular swelling accompanied by nightsweats, and anxiety. Denies weight or appetite changes. Denies bleeding from any source. Was previously taking calcium supplements but stopped weeks ago. PE GA comfortable, AAox3, speaks in full sentences, NAD HEENT bulky lymphadenopathy L supraclavicular region, no stridor, neck supple, dry MM, NC/AT Chest bibasilar crackles, severe kyphosis of spine CVS S1, S2+, RRR, JASON+ Abd soft, NT, BS+, no guarding Ext 1+ LE edema b/l, no calf tenderness, moves all 4 ext. Vital Signs - 24 hr 11/01/19 11/01/19 11/01/19 10:40 10:59 14:59 Temperature 98.4 F Pulse Rate 122 H Pulse Rate [ 96 H Left Radial] Respiratory 16 20 Rate Blood Pressure 102/63 Blood Pressure 129/72 [Left Arm] O2 Sat by Pulse 100 98 98 Oximetry (%) Laboratory Results - last 24 hr 11/01/19 11/01/19 11/01/19 11:21 11:21 11:21 WBC 15.9 H RBC 3.17 L Hgb 9.4 L Hct 29.2 L D MCV 92.0 MCH 29.7 MCHC 32.3 RDW 20.4 H Plt Count 227 D MPV 8.1 Absolute Neuts (auto) 8.5 H Total Counted Neutrophils % Property [employer] Equipment Clerk Neutrophils % (Manual) 66.0 Band Neutrophils % 4.0 Lymphocytes % Property [employer] Equipment Clerk Lymphocytes % (Manual) Monocytes % Property [employer] Equipment Clerk Monocytes % (Manual) 3 L Eosinophils % Property [employer] Clerk Eosinophils % (Manual) 3.0 Basophils % Property And Equipment Clerk Basophils % (Manual) 1.0 D Myelocytes % (Man) Promyelocytes % (Man) Blast Cells % (Manual) 18 H D Nucleated RBC % 0 Metamyelocytes Differential Comment Hypersegmented Neuts Plasma Cells Smudge Cells Other Cell Type Hypochromia Toxic Granulation Dohle Bodies Amy Rods Platelet Estimate Normal Platelet Comment Polychromasia Poikilocytosis Basophilic Stippling Anisocytosis Microcytosis Macrocytosis Spherocytes Siderocytes Sickle Cells Target Cells Tear Drop Cells Ovalocytes Stomatocytes Helmet Cells [place] Bodies [place] Rings [place] Cells Acanthocytes (Spur) Rouleaux Fragmented RBCs Schistocytes PT with INR INR PTT (Actin FS) Sodium 139 Potassium 4.2 Chloride 107 Carbon Dioxide 25 Anion Gap 7 L BUN 42.8 H Creatinine 1.8 H Est GFR (CKD-EPI)AfAm 28.62 Est GFR (CKD-EPI)NonAf 24.69 Random Glucose 106 Uric Acid 4.1 Calcium 11.3 H Phosphorus 2.3 L Magnesium 1.6 L Total Bilirubin 1.3 H AST 47 H ALT 67 H Alkaline Phosphatase 464 H Creatine Kinase 63 Troponin I 0.02 Total Protein 6.5 Albumin 2.6 L Urine Color Urine Appearance Urine pH Ur Specific [place] Urine Protein Urine Glucose (UA) Urine Ketones Urine Blood Urine Nitrite Urine Bilirubin Urine Urobilinogen Ur Leukocyte Esterase Urine WBC (Auto) Urine RBC (Auto) Urine Casts (Auto) U Epithel Cells (Auto) Urine Bacteria (Auto) Blood Type Antibody Screen 11/01/19 11/01/19 11/01/19 11:21 11:21 11:21 WBC RBC Hgb Hct MCV MCH MCHC RDW Plt Count MPV Absolute Neuts (auto) Total Counted Cancelled Neutrophils % Neutrophils % (Manual) Cancelled Band Neutrophils % Cancelled Lymphocytes % Lymphocytes % (Manual) Cancelled Monocytes % Monocytes % (Manual) Cancelled Eosinophils % Eosinophils % (Manual) Cancelled Basophils % Basophils % (Manual) Cancelled Myelocytes % (Man) Cancelled Promyelocytes % (Man) Cancelled Blast Cells % (Manual) Cancelled Nucleated RBC % Cancelled Metamyelocytes Cancelled Differential Comment Cancelled Hypersegmented Neuts Cancelled Plasma Cells Cancelled Smudge Cells Cancelled Other Cell Type Cancelled Hypochromia Cancelled Toxic Granulation Cancelled Dohle Bodies Cancelled Amy Rods Cancelled Platelet Estimate Cancelled Platelet Comment Cancelled Polychromasia Cancelled Poikilocytosis Cancelled Basophilic Stippling Cancelled Anisocytosis Cancelled Microcytosis Cancelled Macrocytosis Cancelled Spherocytes Cancelled Siderocytes Cancelled Sickle Cells Cancelled Target Cells Cancelled Tear Drop Cells Cancelled Ovalocytes Cancelled Stomatocytes Cancelled Helmet Cells Cancelled [place] Bodies Cancelled [place] Rings Cancelled [place] Cells Cancelled Acanthocytes (Spur) Cancelled Rouleaux Cancelled Fragmented RBCs Cancelled Schistocytes Cancelled PT with INR 11.10 INR 0.94 PTT (Actin FS) 25.6 Sodium Potassium Chloride Carbon Dioxide Anion Gap BUN Creatinine Est GFR (CKD-EPI)AfAm Est GFR (CKD-EPI)NonAf Random Glucose Uric Acid Calcium Phosphorus Magnesium Total Bilirubin AST ALT Alkaline Phosphatase Creatine Kinase Troponin I Total Protein Albumin Urine Color Urine Appearance Urine pH Ur Specific [place] Urine Protein Urine Glucose (UA) Urine Ketones Urine Blood Urine Nitrite Urine Bilirubin Urine Urobilinogen Ur Leukocyte Esterase Urine WBC (Auto) Urine RBC (Auto) Urine Casts (Auto) U Epithel Cells (Auto) Urine Bacteria (Auto) Blood Type O POSITIVE Antibody Screen Negative 11/01/19 11:54 WBC RBC Hgb Hct MCV MCH MCHC RDW Plt Count MPV Absolute Neuts (auto) Total Counted Neutrophils % Neutrophils % (Manual) Band Neutrophils % Lymphocytes % Lymphocytes % (Manual) Monocytes % Monocytes % (Manual) Eosinophils % Eosinophils % (Manual) Basophils % Basophils % (Manual) Myelocytes % (Man) Promyelocytes % (Man) Blast Cells % (Manual) Nucleated RBC % Metamyelocytes Differential Comment Hypersegmented Neuts Plasma Cells Smudge Cells Other Cell Type Hypochromia Toxic Granulation Dohle Bodies Amy Rods Platelet Estimate Platelet Comment Polychromasia Poikilocytosis Basophilic Stippling Anisocytosis Microcytosis Macrocytosis Spherocytes Siderocytes Sickle Cells Target Cells Tear Drop Cells Ovalocytes Stomatocytes Helmet Cells [place] Bodies [place] Rings [place] Cells Acanthocytes (Spur) Rouleaux Fragmented RBCs Schistocytes PT with INR INR PTT (Actin FS) Sodium Potassium Chloride Carbon Dioxide Anion Gap BUN Creatinine Est GFR (CKD-EPI)AfAm Est GFR (CKD-EPI)NonAf Random Glucose Uric Acid Calcium Phosphorus Magnesium Total Bilirubin AST ALT Alkaline Phosphatase Creatine Kinase Troponin I Total Protein Albumin Urine Color Yellow Urine Appearance Clear Urine pH 5.0 Ur Specific [place] 1.012 Urine Protein Trace Urine Glucose (UA) Negative Urine Ketones Negative Urine Blood Negative Urine Nitrite Negative Urine Bilirubin Negative Urine Urobilinogen 0.2 Ur Leukocyte Esterase 2+ H Urine WBC (Auto) 12 Urine RBC (Auto) 3 Urine Casts (Auto) 16 U Epithel Cells (Auto) 4.9 Urine Bacteria (Auto) 12.5 Blood Type Antibody Screen Home Medications Medication Instructions Recorded Alprazolam [Xanax] 0.25 mg PO PRN 10/06/18 Levothyroxine [Synthroid -] 25 mcg PO DAILY 10/06/18 Mirtazapine 15 mg PO HS 09/28/19 Candesartan Cilexetil [Atacand 8 mg PO DAILY 10/13/19 (Nf) -] Furosemide [Lasix] 20 mg PO DAILY 10/13/19 Metoprolol Succinate [Toprol Xl -] 25 mg PO DAILY 10/13/19 Allopurinol 300 mg PO DAILY 11/01/19 Pantoprazole Sodium [Protonix] 40 mg PO DAILY 11/01/19 Prednisone 10 mg PO DAILY 11/01/19 Current Medications Generic Name Dose Route Start Last Admin Trade Name Freq PRN Reason Stop Dose Admin Allopurinol 300 mg 11/02/19 10:00 Zyloprim - PO DAILY [facility] Alprazolam 0.25 mg 11/01/19 16:00 Xanax - PO PRN ELIZABETH Furosemide 20 mg 11/02/19 10:00 Lasix - PO DAILY [facility] Levothyroxine Sodium 25 mcg 11/02/19 07:00 Synthroid - PO DAILY@0700 ELIZABETH Metoprolol Succinate 25 mg 11/02/19 10:00 Toprol Xl - PO DAILY ELIZABETH Mirtazapine 15 mg 11/01/19 22:00 Remeron - PO HS [facility] Nitrofurantoin Macrocrystals 100 mg 11/01/19 13:30 11/01/19 14:32 Macrodantin - PO 100 mg ONCE ELIZABETH Administration Pantoprazole Sodium 40 mg 11/02/19 10:00 Protonix - PO DAILY ELIZABETH Valsartan 80 mg 11/02/19 10:00 Diovan - PO DAILY ELIZABETH A/p: 88 F 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 High grade diffuse large B cell lymphoma will plan for chemo-port and chemotherapy, obtain chem/coags/Echo for preparation to receive adriamycin Consult Cardiology for clearance No signs of acute decompensation, currently tolerating PO, no compromise of breathing from her lymphadenopathy Restart Allopurinol Heme-Onc consult: Dr Ramos Hypercalcemia corrected Ca level 12.4, obtain PTH levels (phosphate ?suppressed), repeat phosphate in AM IV hydration w/ NS, resume Lasix in AM as this will also have calciuric effect If calcium levels continue to rise or if patient develops MS changes, give Calcitonin IM or SQ and bisphosphonates as needed Enforce calcium restricted diet (<400mg/day), give bowel regimen Obtain EKG HTN restart home BP meds as tolerated HLD restart Statin Anxiety disorder slightly anxious, provide reassurance try to avoid benzos as this may increase delirium/AMS risk Restart Remeron 15mg QHS Hypothyroidism obtain TSH according to levels restart Synthroid PRN hyperactive thyroid (from over treatment) will increase osteoclastic activity GERD cont. PPI DVT ppx: Heparin SC FEN: IVF/chem daily/Na restricted diet Admit to med-surg
[2019-11-01] MEDS: MIRTAZAPINE 15 MG TABLET (FP) PO SCH (21:21)
[2019-11-01] MEDS ORDERED: BISMUTH SUBSALICYLATE 524 MG/30 ML UD PO ONE ×2 (21:33→22:00)
[2019-11-02] MEDS: LEVOTHYROXINE NA 25 MCG TABLET (FP) PO SCH (06:03)
[2019-11-02] MEDS ORDERED: MAGNESIUM SULF 50% (8.12 MEQ/2 ML-1 GM VIAL) IVPB ONE (08:20)
[2019-11-02] MEDS ORDERED: POTASSIUM PHOSPHATE 15 MM in SODIUM CHLORIDE 250 ML IVPB ONE (09:00)
[2019-11-02] MEDS: metoPROLOL SUCCINATE 25 MG TAB.SR.24H (FP) PO SCH (09:41)
[2019-11-02] MEDS: PANTOPRAZOLE 40 MG TABLET PO SCH (09:41)
[2019-11-02] MEDS: FERROUS SO4 325 MG TABLET (FP) PO SCH (09:41)
[2019-11-02] MEDS: ALLOPURINOL 300 MG TABLET (FP) PO SCH (09:41)
[2019-11-02] MEDS: VALSARTAN 80 MG TABLET (UD) PO SCH (09:41)
[2019-11-02] MEDS: POLYETHYLENE GLYCOL 3350 119 GM BTL PO SCH (09:42)
[2019-11-02] MEDS: ASCORBIC ACID 250 MG TABLET (FP) PO SCH (09:42)
[2019-11-02] MEDS ORDERED: FUROSEMIDE 20 MG TABLET (FP) PO SCH (10:00)
[2019-11-02] MEDS ORDERED: VALSARTAN 80 MG TABLET (UD) PO SCH (10:00)
[2019-11-02] MEDS ORDERED: metoPROLOL SUCCINATE 25 MG TAB.SR.24H (FP) PO SCH (10:00)
[2019-11-02] MEDS ORDERED: predniSONE 10 MG TABLET (UD) PO SCH (10:00)
[2019-11-02 10:02] LABS: BASO % 0.7 % (0-2.0); EOS % 7.6 % (0-4.5); HEMATOCRIT 29.1 % (32.4-45.2); HEMOGLOBIN 9.4 GM/dL (10.7-15.3); LYMPH % 3.7 % (8-40); MCH 29.9 pg (25.7-33.7); MCHC 32.2 g/dl (32.0-36.0); MEAN CELL VOLUME 92.8 fl (80-96); MEAN PLT VOLUME 8.1 fl (7.5-11.1); MONO % 37.5 % (3.8-10.2); NEUT % 50.5 % (42.8-82.8); PLATELET COUNT 213 K/MM3 (134-434); RBC 3.13 M/mm3 (3.60-5.2); RDW 20.1 % (11.6-15.6); WHITE BLOOD COUNT 15.3 K/mm3 (4.0-10.0)
[2019-11-02 10:41] LABS: N-TERMINAL BNP 1695.8 pg/ml (5-450)
[2019-11-02 10:52] LABS: ALBUMIN 2.6 g/dl (3.4-5.0); BILIRUBIN,TOTAL 1.3 mg/dL (0.2-1); BLOOD UREA NITROGEN 35.7 mg/dL (7-18); CALCIUM 10.4 mg/dL (8.5-10.1); CREATININE 1.5 mg/dL (0.55-1.3); MAGNESIUM 1.9 mg/dL (1.8-2.4); PHOSPHOROUS 2.2 mg/dL (2.5-4.9); POTASSIUM 3.9 mmol/L (3.5-5.1); TOT PROT 6.2 g/dl (6.4-8.2)
--- NOTE | 2019-11-02 11:00 | EKG ---
Test Reason : Blood Pressure : / mmHG Vent. Rate : 116 BPM Atrial Rate : 116 BPM P-R Int : 128 ms QRS Dur : 116 ms QT Int : 342 ms P-R-T Axes : 038 -55 021 degrees QTc Int : 475 ms SINUS TACHYCARDIA WITH OCCASIONAL PREMATURE VENTRICULAR COMPLEXES INCOMPLETE RIGHT BUNDLE BRANCH BLOCK LEFT ANTERIOR FASCICULAR BLOCK ABNORMAL ECG WHEN COMPARED WITH ECG OF 01-NOV-2019 10:55, PREMATURE VENTRICULAR COMPLEXES ARE NOW PRESENT MINIMAL CRITERIA FOR SEPTAL INFARCT ARE NO LONGER PRESENT Confirmed by Yeyo Millan MD ([id number]) on 11/02/2019 11:00:05 AM Referred By: SHEIK ALEJO DR Confirmed By:Yeyo Millan MD
[2019-11-02] MEDS: SODIUM CHLORIDE 1,000 ML IV SCH (11:02)
--- NOTE | 2019-11-02 11:23 | EKG ---
Test Reason : Blood Pressure : / mmHG Vent. Rate : 120 BPM Atrial Rate : 120 BPM P-R Int : 134 ms QRS Dur : 108 ms QT Int : 312 ms P-R-T Axes : 042 -57 020 degrees QTc Int : 440 ms POOR DATA QUALITY, INTERPRETATION MAY BE ADVERSELY AFFECTED SINUS TACHYCARDIA POSSIBLE LEFT ATRIAL ENLARGEMENT INCOMPLETE RIGHT BUNDLE BRANCH BLOCK LEFT ANTERIOR FASCICULAR BLOCK LEFT VENTRICULAR HYPERTROPHY CANNOT RULE OUT SEPTAL INFARCT , AGE UNDETERMINED ABNORMAL ECG WHEN COMPARED WITH ECG OF 27-SEP-2019 15:39, MINIMAL CRITERIA FOR SEPTAL INFARCT ARE NOW PRESENT Confirmed by Yeyo Millan MD ([id number]) on 11/02/2019 11:22:38 AM Referred By: Confirmed By:Yeyo Millan MD
[2019-11-02] MEDS ORDERED: FUROSEMIDE 40 MG/4 ML INJECTABLE VIAL IVPUSH ONE (11:46)
[2019-11-02 11:51] LABS: ANISOCYTOSIS 1+; MACROCYTOSIS 0; OVALOCYTE 1+; PLATELET ESTIMATE NORMAL
[2019-11-02 11:55] LABS: INR 0.89 (0.83-1.09); PROTHROMBIN TIME (PATIENT) 10.5 SEC (9.7-13.0)
--- NOTE | 2019-11-02 12:04 | PN ---
Progress Note (short form) - Note Progress Note: HPI: No events overnight. Pt slightly frustrated about delay in port placement. Family members at bedside. No new complaints today Vital Signs Temperature 97.3 F L 11/02/19 14:50 Pulse Rate 96 H 11/02/19 14:50 Respiratory Rate 11/02/19 14:50 Blood Pressure 126/71 11/02/19 14:50 O2 Sat by Pulse Oximetry (%) 93 L 11/02/19 09:00 PE: GENERAL: NAD, Awake, alert, and fully oriented, laying in bed HEENT: NC/AT, GWEN, sclera anicteric, no conjunctival pallor, slightly dry MM NECK: Soft, 2 enlarged nontender firm L cervical chain (approximately 2-3 cm and approx 6cm in length) LUNGS: CTA bilaterally. No wheezes, and no crackles. No accessory muscle use. HEART: RRR, normal S1 and S2 without murmur ABDOMEN: Soft, surgical scar noted, distended with normoactive distant BS, dullness with percussion noted laterally, nontender EXTREMITIES: 2+ DP pulses, warm, well-perfused. No calf tenderness. trace peripheral edema at the ankles PSYCHIATRIC: Cooperative. Good eye contact. Appropriate mood and affect. SKIN: Warm, dry, no rashes noted. CBC, BMP 11/02/19 08:56 11/02/19 08:56 Active Medications Allopurinol (Zyloprim -) 300 mg PO DAILY [facility] Last Admin: 11/02/19 09:41 Dose: 300 mg Alprazolam (Xanax -) 0.25 mg PO PRN ELIZABETH Alprazolam (Xanax -) 0.25 mg PO BID PRN PRN Reason: ANXIETY Last Admin: 11/02/19 14:48 Dose: 0.25 mg Ascorbic Acid (Vitamin C -) 250 mg PO DAILY [facility] Last Admin: 11/02/19 09:42 Dose: 250 mg Ferrous Sulfate (Feosol -) 325 mg PO DAILY [facility] Last Admin: 11/02/19 09:41 Dose: 325 mg IV Flush (Alexx-Cath Flush) 10 ml IVPUSH PRN PRN PRN Reason: Protocol Sodium Chloride (Normal Saline -) 1,000 mls @ 42 mls/hr IV ASDIR [facility] Last Admin: 11/02/19 11:02 Dose: 42 mls/hr Levothyroxine Sodium (Synthroid -) 25 mcg PO DAILY@0700 [facility] Last Admin: 11/02/19 06:03 Dose: 25 mcg Metoprolol Succinate (Toprol Xl -) 25 mg PO DAILY [facility] Last Admin: 11/02/19 09:41 Dose: 25 mg Mirtazapine (Remeron -) 15 mg PO HS [facility] Last Admin: 11/01/19 21:21 Dose: 15 mg Nitrofurantoin Macrocrystals (Macrodantin -) 100 mg PO ONCE [facility] Last Admin: 11/01/19 14:32 Dose: 100 mg Pantoprazole Sodium (Protonix -) 40 mg PO DAILY [facility] Last Admin: 11/02/19 09:41 Dose: 40 mg Polyethylene Glycol (Miralax (For Daily Use) -) 17 gm PO DAILY [facility] Last Admin: 11/02/19 09:42 Dose: Not Given Valsartan (Diovan -) 80 mg PO DAILY [facility] Last Admin: 11/02/19 09:41 Dose: 80 mg Echocardiogram: 11x8 cm fluid colectiot ?cyst behind the atria. Consider CT Chest to further evaluate. Clinical correlation is recommended. The left atrium is moderately dilated. The right atrium is moderately dilated. There is moderate concentric left ventricular hypertrophy. The left ventricular ejection fraction is normal. The left ventricular wall motion is normal. Moderate aortic regurgitation. Right ventricular systolic pressure is normal. There is mild tricuspid regurgitation. The aortic valve is trileaflet. There is mild aortic valve thickening. There is mild aortic sclerosis.; The study was technically difficult with many images being suboptimal in quality. There is trace to mild mitral regurgitation. Ejection Fraction = 55%. 11x8 cm fluid colectiot ?cyst behind the atria. Consider CT Chest to further evaluate. Clinical correlation is recommended Assessment/Plan: Diffuse large B-cell lymphoma HyperCalcemia Normocytic anemia History of Breast Ca Acute kidney insufficiency --Chemoport to be placed tomorrow with IR due to emergent cases occurring --Feed patient now and NPO after midnight once more --Will likely initiate R-CHOP with reduced dosing after (Rituxin after port placement with CHOP therapy thereafter) --Monitor Uric acid, K+, and labs during due to high tumour burden --Hydrate via IV prior to treatment --Echocardiogram reviewed: ? collection near atria, LVEF 55% as baseline --Will need to follow with Adriamycin as potential for worsening cardiomyopathy --Potential CT for evaluatin of collection --FISH/Flow reviewed from previous visit --? staging imaging for abdominal involvement and ? LDH for prognostic guidance --Continue allopurinol to prevent lysis syndrome (renally dose) --Given malignancy will need to initiate DVT PPX; SCDs for now and can put on chemical after IR procedure --Treat HyperCa with fluids; hold Zometa for now --Replete lytes per primary team Case discussed with Dr. Richard Melissa, DO - PGY-3
--- NOTE | 2019-11-02 12:52 | PN ---
Physical Exam: SUBJECTIVE: Patient seen and examined at bedside. Tachycardic overnight and 3 soft BM's no fever, chills. Pt admits to worsening night sweats in previous weeks. OBJECTIVE: Vital Signs Period Temp Pulse Resp BP Sys/Castelan Pulse Ox Last 24 Hr 97.6 F-98.7 F 96-116 18-22 112-147/72-87 98-98 GENERAL: The patient is awake, alert, and fully oriented, in no acute distress. ENT: Ears normal, nares patent, oropharynx clear without exudates, moist mucous membranes. Lt neck and supraclcavicular mass, nonerythematous, nontender. NECK: mass invading left part of neck LUNGS: Breath sounds minimal crackles at bases HEART: tachycardic in regular rhythm, S1, S2 without murmur, rub or gallop. ABDOMEN: Soft, nontender, nondistended, minimal tympani to percussion EXTREMITIES: 2+ pulses, warm, well-perfused, trace edema. NEUROLOGICAL: Cranial nerves II through XII grossly intact. Normal speech, gait not observed. Laboratory Results - last 24 hr 11/01/19 11/01/19 11/01/19 11:21 11:21 11:21 WBC RBC Hgb Hct MCV MCH MCHC RDW Plt Count MPV Absolute Neuts (auto) Total Counted Neutrophils % [employer] Neutrophils % (Manual) 66.0 Band Neutrophils % 4.0 Lymphocytes % [employer] Lymphocytes % (Manual) Monocytes % [employer] Monocytes % (Manual) 3 L Eosinophils % [employer] Eosinophils % (Manual) 3.0 Basophils % [employer] Basophils % (Manual) 1.0 D Myelocytes % (Man) Promyelocytes % (Man) Blast Cells % (Manual) 18 H D Nucleated RBC % Metamyelocytes Differential Comment Hypersegmented Neuts Plasma Cells Smudge Cells Other Cell Type Hypochromia Toxic Granulation Dohle Bodies Amy Rods Platelet Estimate Normal Platelet Comment Polychromasia Poikilocytosis Basophilic Stippling Anisocytosis Microcytosis Macrocytosis Spherocytes Siderocytes Sickle Cells Target Cells Tear Drop Cells Ovalocytes Stomatocytes Helmet Cells [place] Bodies [place] Rings Riri Cells Acanthocytes (Spur) Rouleaux Fragmented RBCs Schistocytes Retic Count PT with INR INR Sodium Potassium Chloride Carbon Dioxide Anion Gap BUN Creatinine Est GFR (CKD-EPI)AfAm Est GFR (CKD-EPI)NonAf Random Glucose Uric Acid 4.1 Calcium Phosphorus Magnesium Iron TIBC Iron Saturation Unsaturated IBC Ferritin Total Bilirubin AST ALT Alkaline Phosphatase LD Total Creatine Kinase 63 Troponin I 0.02 B-Natriuretic Peptide Total Protein Albumin Vitamin D Level TSH Ur Random Creatinine Ur Random Sodium Blood Type O POSITIVE Antibody Screen Negative 11/01/19 11/01/19 11/01/19 11:21 17:30 17:30 WBC RBC Hgb Hct MCV MCH MCHC RDW Plt Count MPV Absolute Neuts (auto) Total Counted Cancelled Neutrophils % Neutrophils % (Manual) Cancelled Band Neutrophils % Cancelled Lymphocytes % Lymphocytes % (Manual) Cancelled Monocytes % Monocytes % (Manual) Cancelled Eosinophils % Eosinophils % (Manual) Cancelled Basophils % Basophils % (Manual) Cancelled Myelocytes % (Man) Cancelled Promyelocytes % (Man) Cancelled Blast Cells % (Manual) Cancelled Nucleated RBC % Cancelled Metamyelocytes Cancelled Differential Comment Cancelled Hypersegmented Neuts Cancelled Plasma Cells Cancelled Smudge Cells Cancelled Other Cell Type Cancelled Hypochromia Cancelled Toxic Granulation Cancelled Dohle Bodies Cancelled Amy Rods Cancelled Platelet Estimate Cancelled Platelet Comment Cancelled Polychromasia Cancelled Poikilocytosis Cancelled Basophilic Stippling Cancelled Anisocytosis Cancelled Microcytosis Cancelled Macrocytosis Cancelled Spherocytes Cancelled Siderocytes Cancelled Sickle Cells Cancelled Target Cells Cancelled Tear Drop Cells Cancelled Ovalocytes Cancelled Stomatocytes Cancelled Helmet Cells Cancelled [place] Bodies Cancelled [place] Rings Cancelled Riri Cells Cancelled Acanthocytes (Spur) Cancelled Rouleaux Cancelled Fragmented RBCs Cancelled Schistocytes Cancelled Retic Count 2.36 H PT with INR INR Sodium Potassium Chloride Carbon Dioxide Anion Gap BUN Creatinine Est GFR (CKD-EPI)AfAm Est GFR (CKD-EPI)NonAf Random Glucose Uric Acid Calcium Phosphorus Magnesium Iron 14 L TIBC 119 L Iron Saturation 11 L Unsaturated IBC 105 L Ferritin 72.7 Total Bilirubin AST ALT Alkaline Phosphatase LD Total 238 Creatine Kinase Troponin I 0.04 B-Natriuretic Peptide Total Protein Albumin Vitamin D Level TSH Ur Random Creatinine Ur Random Sodium Blood Type Antibody Screen 11/02/19 11/02/19 11/02/19 08:45 08:45 08:56 WBC 15.3 H RBC 3.13 L Hgb 9.4 L Hct 29.1 L MCV 92.8 MCH 29.9 MCHC 32.2 RDW 20.1 H Plt Count 213 MPV 8.1 Absolute Neuts (auto) 7.7 Total Counted Neutrophils % 50.5 D Neutrophils % (Manual) 53.6 Band Neutrophils % 8.2 Lymphocytes % 3.7 L D Lymphocytes % (Manual) 6.2 L D Monocytes % 37.5 H D Monocytes % (Manual) 3 L Eosinophils % 7.6 H D Eosinophils % (Manual) 11.3 H D Basophils % 0.7 Basophils % (Manual) 0.0 Myelocytes % (Man) 2 Promyelocytes % (Man) 0 Blast Cells % (Manual) 16 H Nucleated RBC % 0 Metamyelocytes 0 Differential Comment Hypersegmented Neuts Plasma Cells Smudge Cells Other Cell Type Hypochromia 0 Toxic Granulation Dohle Bodies Amy Rods Platelet Estimate Normal Platelet Comment Present Polychromasia 0 Poikilocytosis 1+ Basophilic Stippling Anisocytosis 1+ Microcytosis 1+ Macrocytosis 0 Spherocytes 1+ Siderocytes Sickle Cells Target Cells Tear Drop Cells Ovalocytes 1+ Stomatocytes Helmet Cells [place] Bodies [place] Rings [place] Cells Acanthocytes (Spur) 1+ Rouleaux Fragmented RBCs Schistocytes Retic Count PT with INR INR Sodium Potassium Chloride Carbon Dioxide Anion Gap BUN Creatinine Est GFR (CKD-EPI)AfAm Est GFR (CKD-EPI)NonAf Random Glucose Uric Acid Calcium Phosphorus Magnesium Iron TIBC Iron Saturation Unsaturated IBC Ferritin Total Bilirubin AST ALT Alkaline Phosphatase LD Total Creatine Kinase Troponin I B-Natriuretic Peptide Total Protein Albumin Vitamin D Level TSH Ur Random Creatinine 108.0 Ur Random Sodium 50 Blood Type Antibody Screen 11/02/19 11/02/19 11/02/19 08:56 08:56 08:56 WBC RBC Hgb Hct MCV MCH MCHC RDW Plt Count MPV Absolute Neuts (auto) Total Counted Neutrophils % Neutrophils % (Manual) Band Neutrophils % Lymphocytes % Lymphocytes % (Manual) Monocytes % Monocytes % (Manual) Eosinophils % Eosinophils % (Manual) Basophils % Basophils % (Manual) Myelocytes % (Man) Promyelocytes % (Man) Blast Cells % (Manual) Nucleated RBC % Metamyelocytes Differential Comment Hypersegmented Neuts Plasma Cells Smudge Cells Other Cell Type Hypochromia Toxic Granulation Dohle Bodies Amy Rods Platelet Estimate Platelet Comment Polychromasia Poikilocytosis Basophilic Stippling Anisocytosis Microcytosis Macrocytosis Spherocytes Siderocytes Sickle Cells Target Cells Tear Drop Cells Ovalocytes Stomatocytes Helmet Cells [place] Bodies [place] Rings [place] Cells Acanthocytes (Spur) Rouleaux Fragmented RBCs Schistocytes Retic Count PT with INR 10.50 INR 0.89 Sodium 141 Potassium 3.9 Chloride 110 H Carbon Dioxide 25 Anion Gap 5 L BUN 35.7 H Creatinine 1.5 H Est GFR (CKD-EPI)AfAm 35.68 Est GFR (CKD-EPI)NonAf 30.78 Random Glucose 68 L Uric Acid Calcium 10.4 H Phosphorus 2.2 L Magnesium 1.9 Iron TIBC Iron Saturation Unsaturated IBC Ferritin Total Bilirubin 1.3 H AST 47 H ALT 58 Alkaline Phosphatase 446 H LD Total Creatine Kinase Troponin I B-Natriuretic Peptide 1695.8 H Total Protein 6.2 L Albumin 2.6 L Vitamin D Level TSH 5.69 H Ur Random Creatinine Ur Random Sodium Blood Type Antibody Screen 11/02/19 08:56 WBC RBC Hgb Hct MCV MCH MCHC RDW Plt Count MPV Absolute Neuts (auto) Total Counted Neutrophils % Neutrophils % (Manual) Band Neutrophils % Lymphocytes % Lymphocytes % (Manual) Monocytes % Monocytes % (Manual) Eosinophils % Eosinophils % (Manual) Basophils % Basophils % (Manual) Myelocytes % (Man) Promyelocytes % (Man) Blast Cells % (Manual) Nucleated RBC % Metamyelocytes Differential Comment Hypersegmented Neuts Plasma Cells Smudge Cells Other Cell Type Hypochromia Toxic Granulation Dohle Bodies Amy Rods Platelet Estimate Platelet Comment Polychromasia Poikilocytosis Basophilic Stippling Anisocytosis Microcytosis Macrocytosis Spherocytes Siderocytes Sickle Cells Target Cells Tear Drop Cells Ovalocytes Stomatocytes Helmet Cells [place] Bodies [place] Rings [place] Cells Acanthocytes (Spur) Rouleaux Fragmented RBCs Schistocytes Retic Count PT with INR INR Sodium Potassium Chloride Carbon Dioxide Anion Gap BUN Creatinine Est GFR (CKD-EPI)AfAm Est GFR (CKD-EPI)NonAf Random Glucose Uric Acid Calcium Phosphorus Magnesium Iron TIBC Iron Saturation Unsaturated IBC Ferritin Total Bilirubin AST ALT Alkaline Phosphatase LD Total Creatine Kinase Troponin I B-Natriuretic Peptide Total Protein Albumin Vitamin D Level 21.3 L TSH Ur Random Creatinine Ur Random Sodium Blood Type Antibody Screen Active Medications Generic Name Dose Route Start Last Admin Trade Name Freq PRN Reason Stop Dose Admin Allopurinol 300 mg 11/02/19 10:00 11/02/19 09:41 Zyloprim - PO 300 mg DAILY ELIZABETH Administration Alprazolam 0.25 mg 11/01/19 16:00 Xanax - PO PRN ELIZABETH Ascorbic Acid 250 mg 11/02/19 10:00 11/02/19 09:42 Vitamin C - PO 250 mg DAILY ELIZABETH Administration Ferrous Sulfate 325 mg 11/02/19 10:00 11/02/19 09:41 Feosol - PO 325 mg DAILY ELIZABETH Administration Potassium Phosphate 15 mm/ 255 mls @ 62.5 mls/hr 11/02/19 09:00 11/02/19 11: 01 Sodium Chloride IVPB 11/02/19 13:04 62.5 mls/hr ONCE ONE Administration Sodium Chloride 1,000 mls @ 42 mls/hr 11/02/19 10:00 11/02/19 11:02 Normal Saline - IV 42 mls/hr ASDIR ELIAZBETH Administration Levothyroxine Sodium 25 mcg 11/02/19 07:00 11/02/19 06:03 Synthroid - PO 25 mcg DAILY@0700 ELIZABETH Administration Metoprolol Succinate 25 mg 11/02/19 10:00 11/02/19 09:41 Toprol Xl - PO 25 mg DAILY ELIZABETH Administration Mirtazapine 15 mg 11/01/19 22:00 11/01/19 21:21 Remeron - PO 15 mg HS ELIZABETH Administration Nitrofurantoin Macrocrystals 100 mg 11/01/19 13:30 11/01/19 14:32 Macrodantin - PO 100 mg ONCE ELIZABETH Administration Pantoprazole Sodium 40 mg 11/02/19 10:00 11/02/19 09:41 Protonix - PO 40 mg DAILY ELIZABETH Administration Polyethylene Glycol 17 gm 11/02/19 10:00 11/02/19 09:42 Miralax (For Daily Use) - PO Not Given DAILY [facility] Valsartan 80 mg 11/02/19 10:00 11/02/19 09:41 Diovan - PO 80 mg DAILY ELIZABETH Administration ASSESSMENT/PLAN: This is an 88 F 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 #High grade diffuse large B cell lymphoma IR placed chemo-port and first regimen of chemotherapy to be done tomorrow. -obtained chem/coags/Echo for preparation to receive adriamycin Restart Allopurinol for prevention of TLS, will confirm if needs to be renally dosed given her Cr. Heme-Onc consult: Dr Ramos will appreciate final recs on length of chemo regiemn while she is in hospital. #Elevated BNP - Dr. [facility]iology states pt has global CHF in previous echo will rpt echo for clearance. Per cardio, elevated JVD, tachypnea, and tachycardia while on NS 42 cc so recommended 20 IVP lasix. - currently tolerating PO, no compromise of breathing from her lymphadenopathy - BNP- 1695 in presence of impaired clearance from [place] on CKD vs fluid overload. - will continue to monitor daily weights, I &O's while maintainenance fluids going for the renal issues and daily eval for need for Lasix to prevent flash edema #[place] on ? CKD - pt likely pre-renal 2/2 poor po intake, pt endorses she hasnt had much of an appetite lately. - on NS 42cc/hr gentle hydration - Cr improved to 1.5 from 1.8. - per chart review this is around her baseline but it fluctuates. - FeNa <1% - Renal consulted in setting of hypercalcemia as well as renal dosing of allopurinol potentially. #Hypercalcemia - corrected Ca level 11.52 improved from yesterday after NS 42 cc/hr initiated - obtain PTH levels (phosphate 2.2 repleted today with 15mm KPO4, repeat phosphate in AM - resume Lasix prn as this will also have calciuric effect as well as preventing her fluid overload. - If calcium levels continue to rise or if patient develops MS changes, give Calcitonin IM or SQ and bisphosphonates as needed - Enforce calcium restricted diet (<400mg/day), will hold bowel regimen if continues to have soft stools. #HTN restart home BP meds as tolerated #HLD restart Statin #Anxiety disorder slightly anxious, provide reassurance try to avoid benzos as this may increase delirium/AMS risk Restart Remeron 15mg QHS #Hypothyroidism obtain TSH according to levels restart Synthroid PRN hyperactive thyroid (from over treatment) will increase osteoclastic activity #GERD cont. PPI DVT ppx: Heparin SC continued after port FEN: IVF/chem daily/Na restricted diet Visit type - Emergency Visit Emergency Visit: Yes ED Registration Date: 11/01/19 Care time: The patient presented to the Emergency Department on the above date and was hospitalized for further evaluation of their emergent condition. - New Patient This patient is new to me today: Yes Date on this admission: 11/02/19 - Critical Care Critical Care patient: No - Discharge Referral Referred to [facility] No ATTENDING PHYSICIAN STATEMENT I saw and evaluated the patient. I reviewed the resident's note and discussed the case with the resident. I agree with the resident's findings and plan as documented. SUBJECTIVE: OBJECTIVE: ASSESSMENT AND PLAN:
[2019-11-02] MEDS: NITROFURANTOIN MACROCRYSTAL 50 MG CAPSULE (FP) PO SCH ×2 (14:04→18:46)
--- NOTE | 2019-11-02 14:09 | PN ---
Teaching Attending Note Name of Resident: Helio Luciano ATTENDING PHYSICIAN STATEMENT I saw and evaluated the patient. I reviewed the resident's note and discussed the case with the resident. I agree with the resident's findings and plan as documented. SUBJECTIVE: Anxious, wants to know what the plan is. Denies any ongoing abdominal pain. No nausea/vomiting. Reports 3 loose stool overnight. No fever/ chills. OBJECTIVE: Afebrile, Hemodynamically Stable. Last Vital Signs Temp Pulse Resp BP Pulse Ox 98.0 F 116 H 18 143/87 98 11/02/19 10:00 11/02/19 10:00 11/02/19 10:00 11/02/19 10:11/01/19 21:00 HEENT - Atraumatic. L supraclavicular/neck mass. No stridor. Heart - S1, S2, SM Lungs - clear to auscultation Abdomen - Soft, non-tender. Bowel Sounds normal. Extremities - no edema, no calf tenderness. Laboratory Results - last 24 hr 11/01/19 11/01/19 11/01/19 11:21 11:21 11:21 WBC RBC Hgb Hct MCV MCH MCHC RDW Plt Count MPV Absolute Neuts (auto) Total Counted Cancelled Neutrophils % Packaging Coordinator Neutrophils % (Manual) 66.0 Cancelled Band Neutrophils % 4.0 Cancelled Lymphocytes % Packaging Coordinator Lymphocytes % (Manual) Cancelled Monocytes % Packaging Coordinator Monocytes % (Manual) 3 L Cancelled Eosinophils % Packaging Coordinator Eosinophils % (Manual) 3.0 Cancelled Basophils % Packaging Coordinator Basophils % (Manual) 1.0 D Cancelled Myelocytes % (Man) Cancelled Promyelocytes % (Man) Cancelled Blast Cells % (Manual) 18 H D Cancelled Nucleated RBC % Cancelled Metamyelocytes Cancelled Differential Comment Cancelled Hypersegmented Neuts Cancelled Plasma Cells Cancelled Smudge Cells Cancelled Other Cell Type Cancelled Hypochromia Cancelled Toxic Granulation Cancelled Dohle Bodies Cancelled Amy Rods Cancelled Platelet Estimate Normal Cancelled Platelet Comment Cancelled Polychromasia Cancelled Poikilocytosis Cancelled Basophilic Stippling Cancelled Anisocytosis Cancelled Microcytosis Cancelled Macrocytosis Cancelled Spherocytes Cancelled Siderocytes Cancelled Sickle Cells Cancelled Target Cells Cancelled Tear Drop Cells Cancelled Ovalocytes Cancelled Stomatocytes Cancelled Helmet Cells Cancelled Stout-Olton Bodies Cancelled [place] Rings Cancelled [place] Cells Cancelled Acanthocytes (Spur) Cancelled Rouleaux Cancelled Fragmented RBCs Cancelled Schistocytes Cancelled Retic Count PT with INR INR Sodium Potassium Chloride Carbon Dioxide Anion Gap BUN Creatinine Est GFR (CKD-EPI)AfAm Est GFR (CKD-EPI)NonAf Random Glucose Uric Acid 4.1 Calcium Phosphorus Magnesium Iron TIBC Iron Saturation Unsaturated IBC Ferritin Total Bilirubin AST ALT Alkaline Phosphatase LD Total Creatine Kinase 63 Troponin I 0.02 B-Natriuretic Peptide Total Protein Albumin Vitamin D Level TSH Ur Random Creatinine Ur Random Sodium 11/01/19 11/01/19 11/02/19 17:30 17:30 08:45 WBC RBC Hgb Hct MCV MCH MCHC RDW Plt Count MPV Absolute Neuts (auto) Total Counted Neutrophils % Neutrophils % (Manual) Band Neutrophils % Lymphocytes % Lymphocytes % (Manual) Monocytes % Monocytes % (Manual) Eosinophils % Eosinophils % (Manual) Basophils % Basophils % (Manual) Myelocytes % (Man) Promyelocytes % (Man) Blast Cells % (Manual) Nucleated RBC % Metamyelocytes Differential Comment Hypersegmented Neuts Plasma Cells Smudge Cells Other Cell Type Hypochromia Toxic Granulation Dohle Bodies Amy Rods Platelet Estimate Platelet Comment Polychromasia Poikilocytosis Basophilic Stippling Anisocytosis Microcytosis Macrocytosis Spherocytes Siderocytes Sickle Cells Target Cells Tear Drop Cells Ovalocytes Stomatocytes Helmet Cells Stout-Olton Bodies [place] Rings Riri Cells Acanthocytes (Spur) Rouleaux Fragmented RBCs Schistocytes Retic Count 2.36 H PT with INR INR Sodium Potassium Chloride Carbon Dioxide Anion Gap BUN Creatinine Est GFR (CKD-EPI)AfAm Est GFR (CKD-EPI)NonAf Random Glucose Uric Acid Calcium Phosphorus Magnesium Iron 14 L TIBC 119 L Iron Saturation 11 L Unsaturated IBC 105 L Ferritin 72.7 Total Bilirubin AST ALT Alkaline Phosphatase LD Total 238 Creatine Kinase Troponin I 0.04 B-Natriuretic Peptide Total Protein Albumin Vitamin D Level TSH Ur Random Creatinine Ur Random Sodium 50 11/02/19 11/02/19 11/02/19 08:45 08:56 08:56 WBC 15.3 H RBC 3.13 L Hgb 9.4 L Hct 29.1 L MCV 92.8 MCH 29.9 MCHC 32.2 RDW 20.1 H Plt Count 213 MPV 8.1 Absolute Neuts (auto) 7.7 Total Counted Neutrophils % 50.5 D Neutrophils % (Manual) 53.6 Band Neutrophils % 8.2 Lymphocytes % 3.7 L D Lymphocytes % (Manual) 6.2 L D Monocytes % 37.5 H D Monocytes % (Manual) 3 L Eosinophils % 7.6 H D Eosinophils % (Manual) 11.3 H D Basophils % 0.7 Basophils % (Manual) 0.0 Myelocytes % (Man) 2 Promyelocytes % (Man) 0 Blast Cells % (Manual) 16 H Nucleated RBC % 0 Metamyelocytes 0 Differential Comment Hypersegmented Neuts Plasma Cells Smudge Cells Other Cell Type Hypochromia 0 Toxic Granulation Dohle Bodies Amy Rods Platelet Estimate Normal Platelet Comment Present Polychromasia 0 Poikilocytosis 1+ Basophilic Stippling Anisocytosis 1+ Microcytosis 1+ Macrocytosis 0 Spherocytes 1+ Siderocytes Sickle Cells Target Cells Tear Drop Cells Ovalocytes 1+ Stomatocytes Helmet Cells Stout-Olton Bodies [place] Rings Riri Cells Acanthocytes (Spur) 1+ Rouleaux Fragmented RBCs Schistocytes Retic Count PT with INR 10.50 INR 0.89 Sodium Potassium Chloride Carbon Dioxide Anion Gap BUN Creatinine Est GFR (CKD-EPI)AfAm Est GFR (CKD-EPI)NonAf Random Glucose Uric Acid Calcium Phosphorus Magnesium Iron TIBC Iron Saturation Unsaturated IBC Ferritin Total Bilirubin AST ALT Alkaline Phosphatase LD Total Creatine Kinase Troponin I B-Natriuretic Peptide Total Protein Albumin Vitamin D Level TSH Ur Random Creatinine 108.0 Ur Random Sodium 11/02/19 11/02/19 11/02/19 08:56 08:56 08:56 WBC RBC Hgb Hct MCV MCH MCHC RDW Plt Count MPV Absolute Neuts (auto) Total Counted Neutrophils % Neutrophils % (Manual) Band Neutrophils % Lymphocytes % Lymphocytes % (Manual) Monocytes % Monocytes % (Manual) Eosinophils % Eosinophils % (Manual) Basophils % Basophils % (Manual) Myelocytes % (Man) Promyelocytes % (Man) Blast Cells % (Manual) Nucleated RBC % Metamyelocytes Differential Comment Hypersegmented Neuts Plasma Cells Smudge Cells Other Cell Type Hypochromia Toxic Granulation Dohle Bodies Amy Rods Platelet Estimate Platelet Comment Polychromasia Poikilocytosis Basophilic Stippling Anisocytosis Microcytosis Macrocytosis Spherocytes Siderocytes Sickle Cells Target Cells Tear Drop Cells Ovalocytes Stomatocytes Helmet Cells Stout-Olton Bodies [place] Rings Riri Cells Acanthocytes (Spur) Rouleaux Fragmented RBCs Schistocytes Retic Count PT with INR INR Sodium 141 Potassium 3.9 Chloride 110 H Carbon Dioxide 25 Anion Gap 5 L BUN 35.7 H Creatinine 1.5 H Est GFR (CKD-EPI)AfAm 35.68 Est GFR (CKD-EPI)NonAf 30.78 Random Glucose 68 L Uric Acid Calcium 10.4 H Phosphorus 2.2 L Magnesium 1.9 Iron TIBC Iron Saturation Unsaturated IBC Ferritin Total Bilirubin 1.3 H AST 47 H ALT 58 Alkaline Phosphatase 446 H LD Total Creatine Kinase Troponin I B-Natriuretic Peptide 1695.8 H Total Protein 6.2 L Albumin 2.6 L Vitamin D Level 21.3 L TSH 5.69 H Ur Random Creatinine Ur Random Sodium Current Medications Generic Name Dose Route Start Last Admin Trade Name Freq PRN Reason Stop Dose Admin Allopurinol 300 mg 11/02/19 10:00 11/02/19 09:41 Zyloprim - PO 300 mg DAILY ELIZABETH Administration Alprazolam 0.25 mg 11/01/19 16:00 Xanax - PO PRN ELIZABETH Ascorbic Acid 250 mg 11/02/19 10:00 11/02/19 09:42 Vitamin C - PO 250 mg DAILY ELIZABETH Administration Ferrous Sulfate 325 mg 11/02/19 10:00 11/02/19 09:41 Feosol - PO 325 mg DAILY ELIZABETH Administration Sodium Chloride 1,000 mls @ 42 mls/hr 11/02/19 10:00 11/02/19 11:02 Normal Saline - IV 42 mls/hr ASDIR ELIZABETH Administration Levothyroxine Sodium 25 mcg 11/02/19 07:00 11/02/19 06:03 Synthroid - PO 25 mcg DAILY@0700 ELIZABETH Administration Metoprolol Succinate 25 mg 11/02/19 10:00 11/02/19 09:41 Toprol Xl - PO 25 mg DAILY ELIZABETH Administration Mirtazapine 15 mg 11/01/19 22:00 11/01/19 21:21 Remeron - PO 15 mg HS ELIZABETH Administration Nitrofurantoin Macrocrystals 100 mg 11/01/19 13:30 11/01/19 14:32 Macrodantin - PO 100 mg ONCE ELIZABETH Administration Pantoprazole Sodium 40 mg 11/02/19 10:00 11/02/19 09:41 Protonix - PO 40 mg DAILY ELIZABETH Administration Polyethylene Glycol 17 gm 11/02/19 10:00 11/02/19 09:42 Miralax (For Daily Use) - PO Not Given DAILY ELIZABETH Valsartan 80 mg 11/02/19 10:00 11/02/19 09:41 Diovan - PO 80 mg DAILY ELIZABETH Administration Home Medications Medication Instructions Recorded Alprazolam [Xanax] 0.25 mg PO PRN 10/06/18 Levothyroxine [Synthroid -] 25 mcg PO DAILY 10/06/18 Mirtazapine 15 mg PO HS 09/28/19 Candesartan Cilexetil [Atacand 8 mg PO DAILY 10/13/19 (Nf) -] Furosemide [Lasix] 20 mg PO DAILY 10/13/19 Metoprolol Succinate [Toprol Xl -] 25 mg PO DAILY 10/13/19 Allopurinol 300 mg PO DAILY 11/01/19 Pantoprazole Sodium [Protonix] 40 mg PO DAILY 11/01/19 Prednisone 10 mg PO DAILY 11/01/19 ASSESSMENT AND PLAN: 88 year old female with history of HTN, HLD, 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 1. 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 Echo and Cardio clearance requested by Oncology for initiation of mini R-CHOP Given propensity for tumor load to cause elevated uric acid, resume don Allopurinol. discontinue Prednisone, further management as per Hem/Onc 2. Hypercalcemia Resumed IV hydration. Lasix also given with IV fluids on request of Cardiology ? for Calcium excretion effect. If any worsening, will consider bisphosphonates. Nephrology eval for persistent Hypercalcemia. 3. HTN - continue Metoprolol, Valsartan (substituted for Candesartan) 4. HLD - on Statin 5. Anxiety - Continue Mirtazapine and Xanax PRN. 6. Hypothyroidism - TSH 5.69. Continue Levothyroxine. 7. GERD - continue PPI. 8. Hypophosphatemia/Hypomagnesemia - repleted. DVT Px - PPI
[2019-11-02] MEDS ORDERED: PORTA CATH FLUSH 10 ML IVPUSH PRN (14:29)
[2019-11-02] MEDS ORDERED: ACETAMINOPHEN 1000 MG/100 ML VIAL (NON FORMULARY) IVPB ONE (14:37)
[2019-11-02] MEDS: ALPRAZolam 0.25 MG TABLET PO PRN ×2 (14:48→21:26)
--- NOTE | 2019-11-02 16:17 | ECHO ---
Name: CATHERINE KOVACS Exam:Adult Echocardiogram Study Date: 11/02/2019 03:18 PM Age: 88 yrs Reason For Study: eval cardiac fxn prpior to chemo Height: 58 in Weight: 120 lb BSA: 1.5 m2 MMode/2D Measurements & Calculations IVSd: 1.8 cm Ao root diam: 3.1 cm LVIDd: 3.6 cm LA dimension: 4.7 cm LVIDs: 2.5 cm ACS: 1.9 cm LVPWd: 1.6 cm EDV(Teich): 53.7 ml LVOT diam: 1.8 cm ESV(Teich): 23.4 ml LVLd ap4: 6.8 cm SV(MOD-sp4): 47.9 ml EDV(MOD-sp4): 76.1 ml LVLs ap4: 5.9 cm ESV(MOD-sp4): 28.2 ml LAV (MOD-bp): 38.0 ml TAPSE: 3.5 cm RV S Freddie: 26.4 cm/sec Doppler Measurements & Calculations MV E max freddei: 52.4 cm/sec Ao V2 max: 115.4 cm/sec MV A max freddie: 120.3 cm/sec Ao max P.3 mmHg MV E/A: 0.44 Ao V2 mean: 73.5 cm/sec MV dec time: 0.20 sec Ao mean P.6 mmHg Ao V2 VTI: 15.8 cm ISABELLE(I,D): 2.0 cm2 ISABELLE(V,D): 1.9 cm2 LV V1 max P.7 mmHg SV(LVOT): 30.8 ml LV V1 mean P.4 mmHg LV V1 max: 82.5 cm/sec LV V1 mean: 53.6 cm/sec LV V1 VTI: 11.5 cm TR max freddie: 229.4 cm/sec PA V2 max: 82.8 cm/sec TR max P.1 mmHg PA max P.7 mmHg PA acc time: 0.10 sec PI end-d freddie: 119.4 cm/sec Med Peak E' Freddie: 5.0 cm/sec Med E/e': 10.5 Lat Peak E' Freddie: 4.5 cm/sec Lat E/e': 11.7 PA pr(Accel): 33.1 mmHg Procedure A two-dimensional transthoracic echocardiogram with color flow and Doppler was performed. The study w as technically difficult with many images being suboptimal in quality. Left Ventricle There is moderate concentric left ventricular hypertrophy. The left ventricular ejection fraction is normal. Ejection Fraction = 55%. The left ventricular wall motion is normal. Right Ventricle The right ventricle is not well visualized. Atria The left atrium is moderately dilated. The right atrium is moderately dilated. Mitral Valve There is mild mitral valve thickening. There is no mitral valve stenosis. There is trace to mild mitr al regurgitation. Tricuspid Valve There is mild tricuspid valve thickening. There is no tricuspid stenosis. There is mild tricuspid regurgitation. Right ventricular systolic pressure is normal. Aortic Valve The aortic valve is trileaflet. There is mild aortic valve thickening. There is mild aortic sclerosis .;. No hemodynamically significant valvular aortic stenosis. Moderate aortic regurgitation. Pulmonic Valve The pulmonic valve is not well visualized. There is no pulmonic valvular stenosis. Mild pulmonic valv ular regurgitation. Great Vessels The aortic root is normal size. Pericardium/Pleura There is no pericardial effusion. Interpretation Summary 11x8 cm fluid colectiot ?cyst behind the atria. Consider CT Chest to further evaluate. Clinical correlation is recommended. The left atrium is modera tely dilated. The right atrium is moderately dilated. There is moderate concentric left ventricular hypertrophy. The left ventricular ejection fraction is normal. The left ventricular wall motion is normal. Moderate aortic regurgitation. Right ventricular systolic pressure is normal. There is mild tricuspid regurgitation. The aortic valve is trileaflet. There is mild aortic valve thickening. There is mild aortic sclerosis.; The study was technically difficult with many images being suboptimal in quality. There is trace to mild mitral regurgitation. Ejection Fraction = 55%. 11x8 cm fluid colectiot ?cyst behind the atria. Consider CT Chest to further evaluate. Clinical correlation is recommended. MD Mitchell Segovia 11/02/2019 04:17 PM
--- NOTE | 2019-11-02 16:18 | CONS ---
CARDIOLOGY CONSULTATION DATE OF CONSULTATION: DATE OF DICTATION: 11/02/2019 Consultation requested by hospitalist. CHIEF COMPLAINT: 1. Lethargy. 2. Increased somnolence. 3. Hypercalcemia. HISTORY OF PRESENT ILLNESS: Patient is an 88-year-old female with history of hypertension, hypertensive cardiovascular disease, left ventricular systolic and diastolic dysfunction, history of congestive heart failure, aortic valvular disease with severe aortic regurgitation, history of both mitral and tricuspid regurgitation. She also has history of severe anxiety disorder and depression. Patient has been admitted for correction of hypercalcemia and is now being considered for parenteral chemotherapy. There is no history of chest pain or discomfort either at rest or with exertion. History of mild exertional dyspnea. No history of paroxysmal nocturnal dyspnea or orthopnea. She denies having any recent pedal edema. She periodically has palpitations, which she attributes to her episodes of anxiety. There is no history of lightheadedness, dizziness, presyncope or syncope. No history of cough or expectoration. PAST HISTORY: As mentioned in the history of present illness. History of DVT. 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 History of AV malformations colon. Congestive heart failure. SURGICAL HISTORY: Status post thyroidectomy in 195. Status post lymph node biopsies. Status post left breast lumpectomy. Status post partial colectomy. SOCIAL HISTORY: . She is retired. Has 4 daughters who apparently are healthy. She never smoked. Has a social glass of wine and drinks decaffeinated coffee. FAMILY HISTORY: Father at the age of 61 of a myocardial infarction. Mother at age 92; apparently, was known to have heart disease. She had 2 brothers and 1 sister. One brother at the age of 81 related to cancer site uncertain. Sister at age 83 of cancer, which involved the liver and bones. The other brother apparently is healthy. ALLERGIES: 1. PENICILLIN. 2. Also, documented to be allergic to ERYTHROMYCIN, METRONIDAZOLE. CURRENT MEDICATIONS: 1. Valsartan 80 mg p.o. daily. 2. Mirtazapine 15 mg p.o. daily. 3. Allopurinol 300 mg p.o. daily. 4. Xanax 0.25 mg p.o. p.r.n. 5. Metoprolol succinate 25 mg p.o. daily. 6. MiraLAX 17 g p.o. daily. 7. Sodium chloride IV. 8. Ferrous sulfate 325 mg p.o. daily. 9. Protonix 40 mg p.o. daily. 10. Potassium phosphate in sodium chloride IV. 11. Levothyroxine 25 mcg p.o. daily. 12. Nitrofurantoin 100 mg p.o. daily. 13. Ascorbic acid 250 mg p.o. daily. 14. On admission, she had received prednisone 10 mg and MagOx 800 mg. REVIEW OF SYSTEMS: HEENT: History of night sweats. No history of headaches, diplopia or blurred vision. No history of epistaxis, hoarseness. No history of tinnitus. History of bilateral deafness requiring hearing aids. History of intermittent dryness of the throat. Respiratory System: No history of cough, expectoration or hemoptysis. Cardiovascular System: See history of present illness. Gastrointestinal System: Denies having any nausea, vomiting, melena or hematemesis. No history of early satiety. Appetite apparently is fair. No history of abdominal pain or discomfort. No history of change in bowel habits. Genitourinary System: Denies having dysuria. History of occasional frequency. No history of hematuria. Musculoskeletal System: Denies having myalgias or arthralgias. Endocrine: See history of present illness. No history of intolerance to cold or warm weather. Neurological System: No history of lightheadedness, dizziness, presyncope or syncope. No history of seizures or focal weakness. Hematological/Lymphatics: See history of present illness. EXAMINATION: General: An 88-year-old, female who was feeling nervous. There was slight pallor. No cyanosis, clubbing or jaundice. Vital Signs: Blood pressure 147/78 mmHg. Pulse was 128 beats per minute and regular. Temperature was 97.6 degrees Fahrenheit. Respirations were 22 per minute. Weight was 56.926 kg. Oxygen saturation on room air was 98%. Neck: Supple. Jugular venous distention of 2 cm at 30 degrees with a positive hepatojugular reflux. Carotids were 2+, upstrokes were normal. No bruits were heard. There was large, submandibular left lymphadenopathy, but nontender and nonmobile. There was a well-healed anterior surgical scar. No thyromegaly was appreciated. Trachea was midline. Heart: PMI was in the 5th intercostal space. No heaves or thrills. S1 was normal. S2 was split. Grade 2/6 systolic murmur was heard at the 2nd right and left intercostal space with [id number] peaking. There was a grade 1/6 decrescendo apical systolic murmur. There is a ? faint diastolic murmur heard in held expiration along the left sternal border. No gallops were heard. Lungs: Fine, scattered crepitations at the right base. Chest: Normal A/P diameter. Expansion was symmetrical. Abdomen: Soft, protuberant, and nontender. No hepatosplenomegaly was appreciated. There were no palpable masses felt. Bowel sounds are present. No bruits were heard. Extremities: No calf tenderness. There was 1+ pretibial edema. Pulses were equal, except dorsalis pedis pulses were weak and posterior tibial pulses could not be palpated. ECG, November 02, 2019: Sinus tachycardia at 116 beats per minute with intra-atrial conduction abnormality, occasional unifocal and single ventricular premature beats, LVH by voltage criteria (aVL), left anterior hemiblock, and complete right bundle branch block, nonspecific S-T abnormalities. LABORATORY DATA: November 02, 2019, CBC: WBC count 15,300. Hemoglobin 9.4 g/dL. Hematocrit 29.1%. Normal cell indices. Platelet count was 213,000. Differential: Neutrophils 15.5%. Lymphocytes 3.7%. Monocytes 37.5% (elevated). Eosinophils 7.6% (elevated). Basophils 0.7%. BMP, November 02, 2019: Sodium 141, potassium 3.9, chloride 110, CO2 of 25 mmol/L. BUN 35.7, creatinine 1.5 mg/dL. Estimated GFR 30.78. Uric acid on November 01, 2019, was 4.1. Calcium 10.4 mg/dL (elevated), phosphorus was 2.2. mg/dL, magnesium was 1.9 mg/dL. Serum iron was low at 14, TIBC low at 119, iron saturation was low at 11, unsaturated IBC low at 105, ferritin was 72.7. Total bilirubin was 1.3, AST was elevated at 47, ALT was 58, alkaline phosphatase was 446 (elevated) units per liter. BNP was elevated at 1695.8. TSH was elevated at 5.69. Total protein 6.2, albumin 6.2 (low). X-ray chest, on November 01, 2019, impression: A/P view of the chest is being submitted. Since the prior study of September 27, there is weak inspiration with elevated right hemidiaphragm, large heart, and unfolded aorta. There is tracheal deviation to the right from prominent knob. Atelectasis of the left base has cleared. There is some new atelectasis at the right base. Bone and soft tissues are intact. Correlation recommended. Renal ultrasound impression: No hydronephrosis is seen. There is no definite sonographic abnormality on the current examination. A possible 0.8, solid, right renal intra-cortical nodule, described on sonogram performed on February 03, 2018, cannot be definitely appreciated on the current exam. Correlation with 6-month followup sonogram or CT suggested to exclude subtle development pathology. IMPRESSION: 1. Hypertension, hypertensive cardiovascular disease; currently normotensive. 2. Congestive heart failure by clinical examination and elevated brain natriuretic peptide. 3. Aortic valvular disease with history of severe aortic regurgitation. 4. Mitral regurgitation. 5. History of tricuspid regurgitation. 6. Lymphoma. 7. Anemia. 8. Iron deficiency. 9. Sinus tachycardia is multifactorial. 10. 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 11. Chronic kidney disease. 12. Hypothyroidism. 13. History of depression and anxiety disorder. 14. Hypercalcemia. RECOMMENDATIONS: 1. Consider resumption of Lasix, in view of clinical presentation. 2. Close followup of renal function. 3. If sinus tachycardia persists, dose of metoprolol may need to be increased. 4. Echocardiogram. 5. Patient according to the family is a DNR and appropriate documentation needs consideration. 6. Further suggestions as necessary. PROGNOSIS: Critical. Thank you for your referral. TIME SPENT: One hour and 20 minutes discussing patient's condition with her 2 daughters, evaluating her medical records, and making appropriate recommendations. MELO DERAS M.D. [id number]
--- NOTE | 2019-11-02 19:21 | PN ---
Teaching Attending Note Name of Resident: Oleg Melissa ATTENDING PHYSICIAN STATEMENT I saw and evaluated the patient. I reviewed the resident's note and discussed the case with the resident. I agree with the resident's findings and plan as documented. SUBJECTIVE: Patient seen and examined Port delay - for AM Rituxin for 11/04 Chemotherapy 11/05 Cardiac evaluation to review ECHO Last Vital Signs Temp Pulse Resp BP Pulse Ox 97.8 F 105 H 18 106/52 L 93 L 11/02/19 18:26 11/02/19 18:26 11/02/19 18:26 11/02/19 18:26 11/02/19 09:00 HEENT: STEPHEN, EOM Intact Oropharynx: No thrush, No mucositis Nodes: adenopathy cervical SC, nodes Breasts: Without masses, surgical scar Cor: RSR, No murmurs, No gallops Lungs: Clear to P&A Abd: Soft, Normal bowel sounds, No organomegaly Ext:No significant edema Skin: No rashes, Integument intact CBC, BMP 11/02/19 08:56 11/02/19 08:56 Current Medications Generic Name Dose Route Start Last Admin Trade Name Freq PRN Reason Stop Dose Admin Allopurinol 300 mg 11/02/19 10:00 11/02/19 09:41 Zyloprim - PO 300 mg DAILY [facility] Administration Alprazolam 0.25 mg 11/01/19 16:00 Xanax - PO PRN [facility] Alprazolam 0.25 mg 11/02/19 14:36 11/02/19 14:48 Xanax - PO 0.25 mg BID PRN Administration ANXIETY Ascorbic Acid 250 mg 11/02/19 10:00 11/02/19 09:42 Vitamin C - PO 250 mg DAILY [facility] Administration Ferrous Sulfate 325 mg 11/02/19 10:00 11/02/19 09:41 Feosol - PO 325 mg DAILY [facility] Administration Fluconazole 100 mg 11/03/19 10:00 Diflucan - PO DAILY [facility] IV Flush 10 ml 11/02/19 14:29 Alexx-Cath Flush IVPUSH PRN PRN Protocol Sodium Chloride 1,000 mls @ 42 mls/hr 11/02/19 10:00 11/02/19 11:02 Normal Saline - IV 42 mls/hr ASDIR [facility] Administration Levothyroxine Sodium 25 mcg 11/02/19 07:00 11/02/19 06:03 Synthroid - PO 25 mcg DAILY@0700 [facility] Administration Metoprolol Succinate 25 mg 11/02/19 10:00 11/02/19 09:41 Toprol Xl - PO 25 mg DAILY [facility] Administration Mirtazapine 15 mg 11/01/19 22:00 11/01/19 21:21 Remeron - PO 15 mg HS [facility] Administration Nitrofurantoin Macrocrystals 100 mg 11/01/19 13:30 11/02/19 18:46 Macrodantin - PO 100 mg ONCE [facility] Administration Pantoprazole Sodium 40 mg 11/02/19 10:00 11/02/19 09:41 Protonix - PO 40 mg DAILY [facility] Administration Polyethylene Glycol 17 gm 11/02/19 10:00 11/02/19 09:42 Miralax (For Daily Use) - PO Not Given DAILY [facility] Valacyclovir HCl 500 mg 11/03/19 10:00 Valtrex - PO DAILY [facility] Valsartan 80 mg 11/02/19 10:00 11/02/19 09:41 Diovan - PO 80 mg DAILY [facility] Administration Impression: Transformed lymphoma For port For Chemotherapy Ca++ improving MG== improved Phos- to replete Will need CT of chest Will need cardiac f/u. OBJECTIVE: ASSESSMENT AND PLAN:
[2019-11-02] MEDS ORDERED: NAPH,MB-DB/K PH,MBDB POWDER PACKET PO ONE (19:22)
[2019-11-02] MEDS: MIRTAZAPINE 15 MG TABLET (FP) PO SCH (21:14)
[2019-11-03] MEDS ORDERED: ACETAMINOPHEN 325 MG TABLET (FP) PO ONE ×2 (01:05→14:00)
[2019-11-03] MEDS: LEVOTHYROXINE NA 25 MCG TABLET (FP) PO SCH (06:06)
[2019-11-03 07:44] LABS: HEMATOCRIT 26.4 % (32.4-45.2); HEMOGLOBIN 8.5 GM/dL (10.7-15.3); MCH 29.6 pg (25.7-33.7); MCHC 32.2 g/dl (32.0-36.0); MEAN CELL VOLUME 91.9 fl (80-96); PLATELET COUNT 192 K/MM3 (134-434); RBC 2.87 M/mm3 (3.60-5.2); RDW 20.1 % (11.6-15.6); WHITE BLOOD COUNT 13.6 K/mm3 (4.0-10.0)
[2019-11-03 08:07] LABS: ALBUMIN 2.4 g/dl (3.4-5.0); BILIRUBIN,TOTAL 1.9 mg/dL (0.2-1); BLOOD UREA NITROGEN 37.2 mg/dL (7-18); CALCIUM 9.1 mg/dL (8.5-10.1); CREATININE 1.7 mg/dL (0.55-1.3); MAGNESIUM 2.3 mg/dL (1.8-2.4); PHOSPHOROUS 3.4 mg/dL (2.5-4.9); TOT PROT 5.6 g/dl (6.4-8.2); URIC ACID 3.7 mg/dL (2.6-7.2)
--- NOTE | 2019-11-03 08:48 | PN ---
Progress Note (short form) - Note Progress Note: 88 year-old female known case of lymphoma since the age of 57 yearswas admitted with lethargy weakness and was found to have hypercalcemia which is being corrected. he is also being considered for parenteral chemotherapy. Known case of hypertension, hypertensive cardiovascular disease, history of left ventricular systolic and diastolic dysfunction, history of congestive heart failure. Aortic valvular disease with aortic regurgitation probably severe. History of iatrogenic hypothyroidism.History of anemia and severe anxiety disorder and possibly depression. No history of dyspnea, no history of palpitations, lightheadedness, dizziness. No paroxysmal nocturnal dyspnea or orthopnea reported no history of chest pain or discomfort. Active Medications Allopurinol (Zyloprim -) 300 mg PO DAILY [facility] Last Admin: 11/02/19 09:41 Dose: 300 mg Alprazolam (Xanax -) 0.25 mg PO PRN [facility] Alprazolam (Xanax -) 0.25 mg PO BID PRN PRN Reason: ANXIETY Last Admin: 11/02/19 21:26 Dose: 0.25 mg Ascorbic Acid (Vitamin C -) 250 mg PO DAILY [facility] Last Admin: 11/02/19 09:42 Dose: 250 mg Ferrous Sulfate (Feosol -) 325 mg PO DAILY [facility] Last Admin: 11/02/19 09:41 Dose: 325 mg Fluconazole (Diflucan -) 100 mg PO DAILY [facility] IV Flush (Alexx-Cath Flush) 10 ml IVPUSH PRN PRN PRN Reason: Protocol Sodium Chloride (Normal Saline -) 1,000 mls @ 42 mls/hr IV ASDIR [facility] Last Admin: 11/02/19 11:02 Dose: 42 mls/hr Levothyroxine Sodium (Synthroid -) 25 mcg PO DAILY@0700 [facility] Last Admin: 11/03/19 06:06 Dose: 25 mcg Metoprolol Succinate (Toprol Xl -) 25 mg PO DAILY [facility] Last Admin: 11/02/19 09:41 Dose: 25 mg Mirtazapine (Remeron -) 15 mg PO HS [facility] Last Admin: 11/02/19 21:14 Dose: 15 mg Nitrofurantoin Macrocrystals (Macrodantin -) 100 mg PO ONCE [facility] Last Admin: 11/02/19 18:46 Dose: 100 mg Pantoprazole Sodium (Protonix -) 40 mg PO DAILY [facility] Last Admin: 11/02/19 09:41 Dose: 40 mg Polyethylene Glycol (Miralax (For Daily Use) -) 17 gm PO DAILY [facility] Last Admin: 11/02/19 09:42 Dose: Not Given Valacyclovir HCl (Valtrex -) 500 mg PO DAILY [facility] Valsartan (Diovan -) 80 mg PO DAILY [facility] Last Admin: 11/02/19 09:41 Dose: 80 mg Last Vital Signs Temp Pulse Resp BP Pulse Ox 98.1 F 107 H 22 H 139/81 94 L 11/03/19 08:27 11/03/19 08:27 11/03/19 08:27 11/03/19 08:27 11/02/19 21:00 Neck: Supple, no JVD, carotids were 2+, upstrokes were normal, no bruits were appreciated. Large left submandibular lymphadenopathy. Well-healed anterior surgical scar. Heart: PMI was in the fifth intercostal space, no heaves or thrills, S1 and S2 were normal. Grade 2/6 ejection systolic murmur was heard at the second right intercostal space, a grade 1/6 apical systolic murmur.? Early diastolic murmur along the lower left sternal border in held expiration. No gallops were heard. Lungs: Clear on auscultation. Abdomen: Soft, protuberant and nontender. No hepatosplenomegaly was appreciated no palpable masses were felt. Extremities: No calf tenderness or dependent edema. CBC, BMP 11/03/19 06:54 11/03/19 06:00 Impression: 1. Aortic valvular disease with aortic regurgitation. 2. History of left ventricular systolic and diastolic dysfunction. 3. Hypertension, hypertensive cardiovascular disease. 4. Lymphoma. 5. Hypercalcemia. 6. Chronic kidney disease. 7. Anemia. 8. Sinus tachycardia appears to be multifocal in etiology. 9. History of anxiety disorder/depression. Recommendations: 1. Continue current therapy. 2. May need to increase the dose of metoprolol in view of persistent sinus tachycardia. 3. From a cardiological point review there appears to be no absolute contraindication regarding initiation of chemotherapy. 4. There was a mention in the echo report of 11x8 cm fluid collection ? Cyst behind the atria which will require further evaluation. Chun Lundberg MD
[2019-11-03] MEDS ORDERED: PT OWN MED DRAWER 7, Y5N ONE ×2 (09:29→19:38)
[2019-11-03] MEDS ORDERED: valACYclovir HCL 500 MG TABLET (FP) PO SCH (10:00)
[2019-11-03] MEDS ORDERED: FLUCONAZOLE 100 MG TABLET (UD) PO SCH (10:00)
[2019-11-03] MEDS ORDERED: MIDAZOLAM HCL 2 MG/2 ML SINGLE DOSE VIAL ONE (11:39)
--- NOTE | 2019-11-03 13:05 | PN ---
<Helio Luciano - Last Filed: 11/03/19 13:13> Physical Exam: SUBJECTIVE: Patient seen and examined at bedside. Eager to have the port placed and begin chemo. Otherwise afebrile overnight and anxiety has been controlled. Will undergo port placement this AM. OBJECTIVE: Vital Signs Period Temp Pulse Resp BP Sys/Castelan Pulse Ox Last 24 Hr 97.3 F-98.6 F 89-107 17-25 93-148/52-85 94-100 GENERAL: The patient is awake, alert, and fully oriented, in no acute distress. NECK: Mass on left neck/supraclavicular same size as yesterday. No dysphagia from it. LUNGS: Breath sounds equal, clear to auscultation bilaterally, no wheezes, no crackles, no accessory muscle use. HEART: Regular rate and rhythm, S1, S2 without murmur, rub or gallop. ABDOMEN: Soft, nontender, nondistended, normoactive bowel sounds. EXTREMITIES: 2+ pulses, warm, well-perfused, trace edema. NEUROLOGICAL: Cranial nerves II through XII grossly intact. Normal speech, gait not observed. PSYCH: depressed mood Laboratory Results - last 24 hr 11/03/19 11/03/19 06:00 06:54 WBC 13.6 H RBC 2.87 L Hgb 8.5 L Hct 26.4 L MCV 91.9 MCH 29.6 MCHC 32.2 RDW 20.1 H Plt Count 192 MPV 8.0 Sodium 143 Potassium 4.0 Chloride 114 H Carbon Dioxide 21 Anion Gap 7 L BUN 37.2 H Creatinine 1.7 H Est GFR (CKD-EPI)AfAm 30.67 Est GFR (CKD-EPI)NonAf 26.46 Random Glucose 64 L Uric Acid 3.7 Calcium 9.1 Phosphorus 3.4 Magnesium 2.3 Total Bilirubin 1.9 H AST 42 H ALT 49 Alkaline Phosphatase 404 H Total Protein 5.6 L Albumin 2.4 L Active Medications Generic Name Dose Route Start Last Admin Trade Name Freq PRN Reason Stop Dose Admin Allopurinol 300 mg 11/02/19 10:00 11/02/19 09:41 Zyloprim - PO 300 mg DAILY [facility] Administration Alprazolam 0.25 mg 11/01/19 16:00 Xanax - PO PRN [facility]ETH Alprazolam 0.25 mg 11/02/19 14:36 11/02/19 21:26 Xanax - PO 0.25 mg BID PRN Administration ANXIETY Ascorbic Acid 250 mg 11/02/19 10:00 11/02/19 09:42 Vitamin C - PO 250 mg DAILY [facility] Administration Ferrous Sulfate 325 mg 11/02/19 10:00 11/02/19 09:41 Feosol - PO 325 mg DAILY [facility] Administration Fluconazole 100 mg 11/03/19 10:00 Diflucan - PO DAILY [facility] IV Flush 10 ml 11/02/19 14:29 Alexx-Cath Flush IVPUSH PRN PRN Protocol Sodium Chloride 1,000 mls @ 42 mls/hr 11/02/19 10:00 11/02/19 11:02 Normal Saline - IV 42 mls/hr ASDIR [facility] Administration Levothyroxine Sodium 25 mcg 11/02/19 07:00 11/03/19 06:06 Synthroid - PO 25 mcg DAILY@0700 [facility] Administration Metoprolol Succinate 25 mg 11/02/19 10:00 11/02/19 09:41 Toprol Xl - PO 25 mg DAILY [facility] Administration Mirtazapine 15 mg 11/01/19 22:00 11/02/19 21:14 Remeron - PO 15 mg HS [facility] Administration Nitrofurantoin Macrocrystals 100 mg 11/01/19 13:30 11/02/19 18:46 Macrodantin - PO 100 mg ONCE [facility] Administration Pantoprazole Sodium 40 mg 11/02/19 10:00 11/02/19 09:41 Protonix - PO 40 mg DAILY [facility] Administration Polyethylene Glycol 17 gm 11/02/19 10:00 11/02/19 09:42 Miralax (For Daily Use) - PO Not Given DAILY [facility] Valacyclovir HCl 500 mg 11/03/19 10:00 Valtrex - PO DAILY [facility] Valsartan 80 mg 11/02/19 10:00 11/02/19 09:41 Diovan - PO 80 mg DAILY [facility] Administration ASSESSMENT/PLAN: This is an 88 F 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 #High grade diffuse large B cell lymphoma IR placed chemo-port and first regimen of chemotherapy done this AM. -obtained chem/coags/Echo for preparation to receive adriamycin Restart Allopurinol for prevention of TLS, will confirm if needs to be renally dosed given her Cr. Heme-Onc consult: will undergo R-CHOP once port is placed - chest CT w/o contrast ordered for cyst vs fluid collection behind atrium on echo. - echo showing EF 55%, 11X8cm fluid vs cyst collection behind atria and LA mod dilation, concentric LVH, mild AV thickening. - appreciate cardio recs prior to chemo initiation #Elevated BNP - Dr. [facility] states pt has global CHF in previous echo will rpt echo for clearance. Per cardio, elevated JVD, tachypnea, and tachycardia on NS 42cc/ hr - currently tolerating PO, no compromise of breathing from her lymphadenopathy - BNP- 1695 in presence of impaired clearance from [place] on CKD vs fluid overload. - will continue to monitor daily weights, I &O's while maintainenance fluids going for the renal issues and daily eval for need for Lasix to prevent flash edema #[place] on ? CKD - pt likely pre-renal 2/2 poor po intake, pt endorses she hasnt had much of an appetite lately. - on NS 42cc/hr gentle hydration - Cr improved to 1.5 from 1.8. - per chart review this is around her baseline but it fluctuates. - FeNa <1% - Renal consulted in setting of hypercalcemia as well as renal dosing of allopurinol potentially. #Hypercalcemia - corrected today to normal, MG, PO4 normalized as well. - Enforce calcium restricted diet (<400mg/day), will hold bowel regimen if continues to have soft stools. #HTN restart home BP meds as tolerated #HLD restart Statin #Anxiety disorder slightly anxious, provide reassurance restarted 0.25 xanax prn Restart Remeron 15mg QHS #Hypothyroidism restarted Synthroid TSH >5 #GERD cont. PPI DVT ppx: Heparin SC continued after port FEN: IVF/chem daily/Na restricted diet Visit type - Emergency Visit Emergency Visit: Yes ED Registration Date: 11/01/19 Care time: The patient presented to the Emergency Department on the above date and was hospitalized for further evaluation of their emergent condition. - New Patient This patient is new to me today: No - Critical Care Critical Care patient: No - Discharge Referral Referred to [facility] No ATTENDING PHYSICIAN STATEMENT I saw and evaluated the patient. I reviewed the resident's note and discussed the case with the resident. I agree with the resident's findings and plan as documented. SUBJECTIVE: OBJECTIVE: ASSESSMENT AND PLAN: <Tigre Ronquillo - Last Filed: 11/03/19 16:27> Physical Exam: SUBJECTIVE: Patient seen and examined OBJECTIVE: Vital Signs Period Temp Pulse Resp BP Sys/Castelan Pulse Ox Last 24 Hr 97.3 F-98.6 F 89-107 17-25 93-148/52-85 94-100 GENERAL: The patient is awake, alert, and fully oriented, in no acute distress. HEAD: Normal with no signs of trauma. EYES: PERRL, extraocular movements intact, sclera anicteric, conjunctiva clear. No ptosis. ENT: Ears normal, nares patent, oropharynx clear without exudates, moist mucous membranes. NECK: Trachea midline, full range of motion, supple. LUNGS: Breath sounds equal, clear to auscultation bilaterally, no wheezes, no crackles, no accessory muscle use. HEART: Regular rate and rhythm, S1, S2 without murmur, rub or gallop. ABDOMEN: Soft, nontender, nondistended, normoactive bowel sounds, no guarding, no rebound, no hepatosplenomegaly, no masses. EXTREMITIES: 2+ pulses, warm, well-perfused, no edema. NEUROLOGICAL: Cranial nerves II through XII grossly intact. Normal speech, gait not observed. PSYCH: Normal mood, normal affect. SKIN: Warm, dry, normal turgor, no rashes or lesions noted Laboratory Results - last 24 hr 11/03/19 11/03/19 06:00 06:54 WBC 13.6 H RBC 2.87 L Hgb 8.5 L Hct 26.4 L MCV 91.9 MCH 29.6 MCHC 32.2 RDW 20.1 H Plt Count 192 MPV 8.0 Sodium 143 Potassium 4.0 Chloride 114 H Carbon Dioxide 21 Anion Gap 7 L BUN 37.2 H Creatinine 1.7 H Est GFR (CKD-EPI)AfAm 30.67 Est GFR (CKD-EPI)NonAf 26.46 Random Glucose 64 L Uric Acid 3.7 Calcium 9.1 Phosphorus 3.4 Magnesium 2.3 Total Bilirubin 1.9 H AST 42 H ALT 49 Alkaline Phosphatase 404 H Total Protein 5.6 L Albumin 2.4 L Active Medications Generic Name Dose Route Start Last Admin Trade Name Freq PRN Reason Stop Dose Admin Allopurinol 300 mg 11/02/19 10:00 11/03/19 13:42 Zyloprim - PO 300 mg DAILY [facility] Administration Alprazolam 0.25 mg 11/01/19 16:00 Xanax - PO PRN [facility] Alprazolam 0.25 mg 11/02/19 14:36 11/02/19 21:26 Xanax - PO 0.25 mg BID PRN Administration ANXIETY Ascorbic Acid 250 mg 11/02/19 10:00 11/03/19 13:44 Vitamin C - PO 250 mg DAILY [facility] Administration Ferrous Sulfate 325 mg 11/02/19 10:00 11/03/19 13:43 Feosol - PO 325 mg DAILY [facility] Administration Fluconazole 100 mg 11/03/19 10:00 11/03/19 13:43 Diflucan - PO 100 mg DAILY [facility] Administration Furosemide 20 mg 11/03/19 16:30 Lasix - PO DAILY [facility] IV Flush 10 ml 11/02/19 14:29 Alexx-Cath Flush IVPUSH PRN PRN Protocol Potassium Chloride/Sodium Chloride 20 meq in 1,000 mls @ 150 mls/hr 11/03/19 13:45 11/03/19 13:50 1/2ns+20meq Kcl IV 11/03/19 20:24 150 mls/hr ONCE ONE Administration Rituximab 560 mg/ Sodium 560 mls @ 60 mls/hr 11/03/19 14:30 11/03/19 15:01 Chloride IVPB 11/03/19 23:49 60 mls/hr ONCE ONE Administration Levothyroxine Sodium 25 mcg 11/02/19 07:00 11/03/19 06:06 Synthroid - PO 25 mcg DAILY@0700 [facility] Administration Metoprolol Succinate 25 mg 11/02/19 10:00 11/03/19 13:42 Toprol Xl - PO 25 mg DAILY [facility] Administration Mirtazapine 15 mg 11/01/19 22:00 11/02/19 21:14 Remeron - PO 15 mg HS [facility] Administration Nitrofurantoin Macrocrystals 100 mg 11/01/19 13:30 11/03/19 13:44 Macrodantin - PO 100 mg ONCE [facility] Administration Pantoprazole Sodium 40 mg 11/02/19 10:00 11/03/19 13:43 Protonix - PO 40 mg DAILY [facility] Administration Polyethylene Glycol 17 gm 11/02/19 10:11/03/19 14:14 Miralax (For Daily Use) - PO Not Given DAILY [facility] Valacyclovir HCl 500 mg 11/03/19 10:00 11/03/19 13:42 Valtrex - PO 500 mg DAILY [facility] Administration Valsartan 80 mg 11/02/19 10:00 11/03/19 13:43 Diovan - PO 80 mg DAILY [facility] Administration ASSESSMENT/PLAN: ATTENDING PHYSICIAN STATEMENT I saw and evaluated the patient. I reviewed the resident's note and discussed the case with the resident. I agree with the resident's findings and plan as documented. SUBJECTIVE: OBJECTIVE: ASSESSMENT AND PLAN:
[2019-11-03] MEDS: metoPROLOL SUCCINATE 25 MG TAB.SR.24H (FP) PO SCH (13:42)
[2019-11-03] MEDS: ALLOPURINOL 300 MG TABLET (FP) PO SCH (13:42)
[2019-11-03] MEDS: PANTOPRAZOLE 40 MG TABLET PO SCH (13:43)
[2019-11-03] MEDS: FERROUS SO4 325 MG TABLET (FP) PO SCH (13:43)
[2019-11-03] MEDS: VALSARTAN 80 MG TABLET (UD) PO SCH (13:43)
[2019-11-03] MEDS: NITROFURANTOIN MACROCRYSTAL 50 MG CAPSULE (FP) PO SCH (13:44)
[2019-11-03] MEDS: ASCORBIC ACID 250 MG TABLET (FP) PO SCH (13:44)
[2019-11-03] MEDS ORDERED: SODIUM CHLORIDE 0.45%/POT 20 MEQ/1,000 ML INFUS.BAG IV ONE ×2 (13:45→19:14)
[2019-11-03] MEDS: SODIUM CHLORIDE 1,000 ML IV SCH (13:50)
[2019-11-03] MEDS ORDERED: SODIUM CHLORIDE 100 ML IVPB ONE (13:58)
[2019-11-03] MEDS ORDERED: ONDANSETRON 4 MG/2 ML VIAL ONE (13:58)
[2019-11-03] MEDS ORDERED: DEXAMETHASONE SOD PHOSPHATE 10 MG/1 ML VIAL ONE (13:58)
[2019-11-03] MEDS ORDERED: diphenhydrAMINE HCL 25 MG CAPSULE (FP) PO ONE (14:00)
[2019-11-03] MEDS ORDERED: DEXAMETHASONE INJECTION 10 MG, ONDANSETRON INJECTION 12 MG in SODIUM CHLORIDE 100 ML IVPB ONE (14:00)
[2019-11-03] MEDS: POLYETHYLENE GLYCOL 3350 119 GM BTL PO SCH (14:14)
[2019-11-03] MEDS ORDERED: RITUXIMAB IVPB ONE (14:30)
[2019-11-03] MEDS ORDERED: SODIUM CHLORIDE IVPB ONE (14:30)
--- NOTE | 2019-11-03 16:02 | PN ---
Teaching Attending Note Name of Resident: Helio Luciano ATTENDING PHYSICIAN STATEMENT I saw and evaluated the patient. I reviewed the resident's note and discussed the case with the resident. I agree with the resident's findings and plan as documented. SUBJECTIVE: Slightly Anxious, going down for portacath placement. Denies any ongoing abdominal pain. No nausea/vomiting. No further loose stool. No fever/ chills. OBJECTIVE: Afebrile, Hemodynamically Stable. Last Vital Signs Temp Pulse Resp BP Pulse Ox 98 F 103 H 20 143/78 99 11/03/19 13:33 11/03/19 13:33 11/03/19 13:33 11/03/19 13:11/03/19 12:35 HEENT - Atraumatic. Large L supraclavicular/neck mass. No stridor. Heart - S1, S2, SM Lungs - clear to auscultation Abdomen - Soft, non-tender. Bowel Sounds normal. Extremities - no edema, no calf tenderness. Laboratory Results - last 24 hr 11/03/19 11/03/19 06:00 06:54 WBC 13.6 H RBC 2.87 L Hgb 8.5 L Hct 26.4 L MCV 91.9 MCH 29.6 MCHC 32.2 RDW 20.1 H Plt Count 192 MPV 8.0 Sodium 143 Potassium 4.0 Chloride 114 H Carbon Dioxide 21 Anion Gap 7 L BUN 37.2 H Creatinine 1.7 H Est GFR (CKD-EPI)AfAm 30.67 Est GFR (CKD-EPI)NonAf 26.46 Random Glucose 64 L Uric Acid 3.7 Calcium 9.1 Phosphorus 3.4 Magnesium 2.3 Total Bilirubin 1.9 H AST 42 H ALT 49 Alkaline Phosphatase 404 H Total Protein 5.6 L Albumin 2.4 L Current Medications Generic Name Dose Route Start Last Admin Trade Name Freq PRN Reason Stop Dose Admin Allopurinol 300 mg 11/02/19 10:00 11/03/19 13:42 Zyloprim - PO 300 mg DAILY [facility] Administration Alprazolam 0.25 mg 11/01/19 16:00 Xanax - PO PRN [facility] Alprazolam 0.25 mg 11/02/19 14:36 11/02/19 21:26 Xanax - PO 0.25 mg BID PRN Administration ANXIETY Ascorbic Acid 250 mg 11/02/19 10:00 11/03/19 13:44 Vitamin C - PO 250 mg DAILY [facility] Administration Ferrous Sulfate 325 mg 11/02/19 10:00 11/03/19 13:43 Feosol - PO 325 mg DAILY [facility] Administration Fluconazole 100 mg 11/03/19 10:00 11/03/19 13:43 Diflucan - PO 100 mg DAILY [facility] Administration IV Flush 10 ml 11/02/19 14:29 Alexx-Cath Flush IVPUSH PRN PRN Protocol Sodium Chloride 1,000 mls @ 42 mls/hr 11/02/19 10:00 11/03/19 13:50 Normal Saline - IV Not Given ASDIR [facility] Potassium Chloride/Sodium Chloride 20 meq in 1,000 mls @ 150 mls/hr 11/03/19 13:45 11/03/19 13:50 1/2ns+20meq Kcl IV 11/03/19 20:24 150 mls/hr ONCE ONE Administration Rituximab 560 mg/ Sodium 560 mls @ 60 mls/hr 11/03/19 14:30 11/03/19 15:01 Chloride IVPB 11/03/19 23:49 60 mls/hr ONCE ONE Administration Levothyroxine Sodium 25 mcg 11/02/19 07:00 11/03/19 06:06 Synthroid - PO 25 mcg DAILY@0700 [facility] Administration Metoprolol Succinate 25 mg 11/02/19 10:00 11/03/19 13:42 Toprol Xl - PO 25 mg DAILY [facility] Administration Mirtazapine 15 mg 11/01/19 22:00 11/02/19 21:14 Remeron - PO 15 mg HS [facility] Administration Nitrofurantoin Macrocrystals 100 mg 11/01/19 13:30 11/03/19 13:44 Macrodantin - PO 100 mg ONCE [facility] Administration Pantoprazole Sodium 40 mg 11/02/19 10:00 11/03/19 13:43 Protonix - PO 40 mg DAILY [facility] Administration Polyethylene Glycol 17 gm 11/02/19 10:00 11/03/19 14:14 Miralax (For Daily Use) - PO Not Given DAILY [facility] Valacyclovir HCl 500 mg 11/03/19 10:00 11/03/19 13:42 Valtrex - PO 500 mg DAILY [facility] Administration Valsartan 80 mg 11/02/19 10:00 11/03/19 13:43 Diovan - PO 80 mg DAILY [facility] Administration Home Medications Medication Instructions Recorded Alprazolam [Xanax] 0.25 mg PO PRN 10/06/18 Levothyroxine [Synthroid -] 25 mcg PO DAILY 10/06/18 Mirtazapine 15 mg PO HS 09/28/19 Candesartan Cilexetil [Atacand 8 mg PO DAILY 10/13/19 (Nf) -] Furosemide [Lasix] 20 mg PO DAILY 10/13/19 Metoprolol Succinate [Toprol Xl -] 25 mg PO DAILY 10/13/19 Allopurinol 300 mg PO DAILY 11/01/19 Pantoprazole Sodium [Protonix] 40 mg PO DAILY 11/01/19 Prednisone 10 mg PO DAILY 11/01/19 ASSESSMENT AND PLAN: 88 year old female with history of HTN, HLD, 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 1. High grade diffuse large B cell lymphoma IR for Portacath placement 11/03 to initiate Rituximab as per Oncology. Echo - normal EF, LVH, mod AR, 11 x 8cm fluid collection behind atria. Cardio clearance requested by Oncology for initiation of mini R-CHOP Given propensity for tumor load to cause elevated uric acid, resumed on Allopurinol. Discontinued prednisone, further management as per Hem/Onc Need for port as per Oncology. 2. Hypercalcemia - resolved with IV hydration. If any worsening of Ca level, will consider bisphosphonates. Nephrology eval for persistent Hypercalcemia. Will resume Lasix as patient has bilateral effusions on CT Chest. 3. HTN - continue Metoprolol, Valsartan (substituted for Candesartan) 4. HLD - on Statin 5. Anxiety - Continue Mirtazapine and Xanax PRN. 6. Hypothyroidism - TSH 5.69. Continue Levothyroxine. 7. GERD - continue PPI. 8. Hypophosphatemia/Hypomagnesemia - resolved s/p repletion. 9. Normocytic Anemia - likely multifactorial - sec to chronic disease/malignancy /Iron deficiency. Slow decline in H/H, possibly sec to hydration. Iron supplementation ongoing. B12/Folate levels requested. Further management as per Hematology. 10. CKD 3 - Sable. 11. 11 x 8 cm fluid filled collection posterior to atria on Echo - found to be Mediastinal mass consistent with lymphadenopathy on CT Chest. Further management as per Oncology. 12. Bibasal effusions sec to IV fluid administration for hypercalcemia - no respiratory distress/copromise. Will resume home Lasix 20mg daily and monitor fluid status closely, especially given initiation of Rituximab today. DVT Px - PPI Code Status - DNR/DNI
[2019-11-03] MEDS ORDERED: FUROSEMIDE 20 MG TABLET (FP) PO SCH (16:30)
[2019-11-03] MEDS ORDERED: ALBUTEROL SO4 0.083% IH SOL 2.5 MG/3 ML VIAL.NEB. NEB PRN ×2 (16:40→21:07)
[2019-11-03] MEDS ORDERED: FUROSEMIDE 40 MG/4 ML INJECTABLE VIAL IVPUSH ONE (16:59)
[2019-11-03] MEDS ORDERED: FAMOTIDINE 20 MG/50 ML IVPB 20 MG/50 ML MG IVPB ONE (17:14)
--- NOTE | 2019-11-03 17:19 | PN ---
Progress Note (short form) - Note Progress Note: During Rituxin infusion pt had reaction with chills, wheezing, hypoxia to high 80's low 90's. Rituxin was stopped given Decadron total 20, Albuterol nebulizations, Benadryl 25 once. Stat CXR was ordered and reconciled with increased interstitial markings and prominent pulmonary vessels. Lasix 20mg IVP x1 was given. Pt was placed on Ventimask 40% with SpO2 measuring 98%. Brief PE: Gen: Mild-mod distress, awake, alert, dyspneic Neck: Trachea midline, no stridor Lung: Diffuse wheezing throughout, VM 40% 98% SpO2 Card: Tachycardic and regular @ 120bpm, unable to appreciate murmurs ABD: Soft, Nt/Nd, Ext: Warm no edema Upon reassessment pt's chills improving with wheezing improving. Pt's BP and HR resolving to normal and saturation maintaining at 98%. Famotidine order also placed at this time. Informed primary team of ongoing events and trying to coordinate transfer to higher monitoring inhouse.
[2019-11-03] MEDS: methylPREDNISolone NA SUCC 40 MG/1 ML VIAL IVPUSH SCH ×2 (17:29→21:28)
[2019-11-03] MEDS ORDERED: FERROUS SO4 325 MG TABLET (FP) PO SCH (17:30)
--- NOTE | 2019-11-03 19:10 | CONSULT ---
Consult Consult Specialty:: Nephrology Reason for Consultation:: CKD - History of Present Illness Chief Complaint: fatigue History of Present Illness: Pt is an 88 year old female with pmhx of htn, hld, diffuse b cell lymphoma, and breast cancer who was sent in for fatigue. She was found to have elevated parole agent and I was called to evaluate her. She does have history of CKD. She denies nsaid use. She just had allergic reaction to the infusion. She is in the ICU. Her family are at bedside and assisted with history. She denies dysuria or hematuria. She was also found to be hypernatremic. 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) Endocrine: Yes: Other (thyroid nodule) - Past Surgical History Past Surgical History: Yes: Colonoscopy, Colostomy, Mastectomy, Upper Endoscopy - Alcohol/Substance Use Hx Alcohol Use: No History of Substance Use: reports: None - Smoking History Smoking history: Never smoked Have you smoked in the past 12 months: No Aproximately how many cigarettes per day: 0 - Social History ADL: Independent History of Recent Travel: No Home Medications - Allergies Allergies/Adverse Reactions: Allergies Allergy/AdvReac Type Severity Reaction Status Date / Time Penicillins Allergy Mild Rash Verified 11/01/19 11:03 azithromycin AdvReac Intermediate diarrhea Verified 11/01/19 11:03 [From Zithromax Z-Aung] metronidazole [From Flagyl] AdvReac Intermediate Rash Verified 11/01/19 11:03 Metronidazole HCl AdvReac Intermediate Verified 11/01/19 11:03 [From Flagyl] - Home Medications Home Medications: Ambulatory Orders Alprazolam [Xanax] 0.25 mg PO PRN 10/06/18 Levothyroxine [Synthroid -] 25 mcg PO DAILY 10/06/18 Mirtazapine 15 mg PO HS 09/28/19 Candesartan Cilexetil [Atacand (Nf) -] 8 mg PO DAILY 10/13/19 Furosemide [Lasix] 20 mg PO DAILY 10/13/19 Metoprolol Succinate [Toprol Xl -] 25 mg PO DAILY 10/13/19 Allopurinol 300 mg PO DAILY 11/01/19 Pantoprazole Sodium [Protonix] 40 mg PO DAILY 11/01/19 Prednisone 10 mg PO DAILY 11/01/19 Family Medical History Family History: Denies Review of Systems - Review of Systems Constitutional: reports: Malaise Eyes: reports: Floaters Cardiovascular: reports: No Symptoms Respiratory: reports: Cough, SOB Gastrointestinal: reports: No Symptoms Genitourinary: reports: No Symptoms Musculoskeletal: reports: No Symptoms Neurological: reports: No Symptoms Physical Exam Vital Signs: Vital Signs Temperature 96.7 F L 11/03/19 18:19 Pulse Rate 120 H 11/03/19 18:50 Respiratory Rate 22 H 11/03/19 18:50 Blood Pressure 137/73 11/03/19 18:50 O2 Sat by Pulse Oximetry (%) 100 11/03/19 18:21 Constitutional: Yes: Calm Eyes: Yes: Conjunctiva Clear HENT: Yes: Atraumatic Cardiovascular: Yes: S1, S2 Respiratory: Yes: On Nasal O2, Wheezes Gastrointestinal: Yes: Soft Renal/: Yes: WNL Musculoskeletal: Yes: WNL Edema: No Neurological: Yes: Oriented Psychiatric: Yes: Oriented Labs: CBC, BMP 11/03/19 06:54 11/03/19 06:00 Laboratory Tests 10/02/19 10/03/19 10/07/19 06:25 16:05 12:56 WBC Hgb Creatinine 1.3 1.4 H 1.4 H Urine Protein Urine Blood 11/01/19 11/01/19 11/01/19 11:21 11:21 11:54 WBC Hgb 9.4 L Creatinine 1.8 H Urine Protein Trace Urine Blood Negative 11/02/19 11/02/19 11/03/19 08:56 08:56 06:00 WBC Hgb 9.4 L Creatinine 1.5 H 1.7 H Urine Protein Urine Blood 11/03/19 06:54 WBC 13.6 H Hgb 8.5 L Creatinine Urine Protein Urine Blood Imaging - Results Cat Scan: Report Reviewed Problem List - Problems (1) CKD (chronic kidney disease) Code(s): N18.9 - CHRONIC KIDNEY DISEASE, UNSPECIFIED (2) DLBCL (diffuse large B cell lymphoma) Code(s): C83.30 - DIFFUSE LARGE B-CELL LYMPHOMA, UNSPECIFIED SITE Qualifiers: Lymphoma site: neck Qualified Code(s): C83.31 - Diffuse large B-cell lymphoma, lymph nodes of head, face, and neck Assessment/Plan Current Medications Generic Name Dose Route Start Last Admin Trade Name Freq PRN Reason Stop Dose Admin Albuterol Sulfate 1 amp 11/03/19 16:40 11/03/19 17:13 Ventolin 0.083% Nebulizer Soln - NEB 1 amp Q4H PRN Administration SHORT OF BREATH/WHEEZING Allopurinol 300 mg 11/02/19 10:00 11/03/19 13:42 Zyloprim - PO 300 mg DAILY [facility] Administration Alprazolam 0.25 mg 11/01/19 16:00 Xanax - PO PRN [facility] Ascorbic Acid 250 mg 11/02/19 10:00 11/03/19 13:44 Vitamin C - PO 250 mg DAILY [facility] Administration Chlorhexidine Gluconate 1 applic 11/03/19 22:00 Hibiclens For Decolonization - TP HS [facility] Ferrous Sulfate 325 mg 11/03/19 17:30 Feosol - PO BIDWM [facility] Fluconazole 100 mg 11/03/19 10:00 11/03/19 13:43 Diflucan - PO 100 mg DAILY [facility] Administration Furosemide 20 mg 11/03/19 16:30 11/03/19 17:14 Lasix - PO Not Given DAILY [facility] IV Flush 10 ml 11/02/19 14:29 Alexx-Cath Flush IVPUSH PRN PRN Protocol Potassium Chloride/Sodium Chloride 20 meq in 1,000 mls @ 150 mls/hr 11/03/19 13:45 11/03/19 13:50 1/2ns+20meq Kcl IV 11/03/19 20:24 150 mls/hr ONCE ONE Administration Rituximab 560 mg/ Sodium 560 mls @ 60 mls/hr 11/03/19 14:30 11/03/19 15:01 Chloride IVPB 11/03/19 23:49 60 mls/hr ONCE ONE Administration Levothyroxine Sodium 25 mcg 11/02/19 07:00 11/03/19 06:06 Synthroid - PO 25 mcg DAILY@0700 [facility] Administration Methylprednisolone Sodium Succinate 40 mg 11/03/19 17:30 11/03/19 17:29 Solu-Medrol - IVPUSH 40 mg Q6H-IV [facility] Administration Metoprolol Succinate 25 mg 11/02/19 10:00 11/03/19 13:42 Toprol Xl - PO 25 mg DAILY [facility] Administration Mirtazapine 15 mg 11/01/19 22:00 11/02/19 21:14 Remeron - PO 15 mg HS [facility] Administration Mupirocin 1 applic 11/03/19 22:00 Bactroban Ointment (For Decolonization) - NS 11/08/19 21:59 BID [facility] Nitrofurantoin Macrocrystals 100 mg 11/01/19 13:30 11/03/19 13:44 Macrodantin - PO 100 mg ONCE [facility] Administration Pantoprazole Sodium 40 mg 11/02/19 10:00 11/03/19 13:43 Protonix - PO 40 mg DAILY [facility] Administration Polyethylene Glycol 17 gm 11/02/19 10:00 11/03/19 14:14 Miralax (For Daily Use) - PO Not Given DAILY [facility] Valacyclovir HCl 500 mg 11/03/19 10:00 11/03/19 13:42 Valtrex - PO 500 mg DAILY [facility] Administration Valsartan 80 mg 11/02/19 10:00 11/03/19 13:43 Diovan - PO 80 mg DAILY [facility] Administration Laboratory Tests 11/02/19 11/03/19 08:56 06:00 Calcium 10.4 H 9.1 Impression 1. CKD 2. [place] 3. hypercalcemia 4. allergic reaction 5. b cell lymphoma 6. htn 7. hld 8. pleural effusions Plan - repeat bmp in am - decrease rate of fluids, avoid overload - pt being treated for allergic reaction - check renal ultrasound once stable - discussed with family - avoid nsaids - check ua and lytes Dr Broussard
--- NOTE | 2019-11-03 20:44 | CONSULT ---
Consultation: REQUESTING PROVIDER: CONSULT REQUEST: We have been asked to medically evaluate this patient for an acute chemotherapy reaction. HISTORY OF PRESENT ILLNESS: 88 y.o. F PMH HTN, HLD, Low-grade Diffuse Large B-Cell Lymphoma (Tx. with Rituxin and local radiation therapy for over 25+ years, now advanced to high- grade Large B-Cell Lymphoma on biopsy earlier this month), Breast CA (s/p L. lumpectomy, radiation and hormonal therapy), IBD presented 11/[address] Ramos' s office for increasing fatigue and hypercalcemia, now consulted for ICU due to acute chemotherapy reaction. The patient had R chemoport placed by IR to initiate mini-RCHOP chemotherapy today. While receiving 1st dose rituximab, patient began to desaturate to the 80s w/ wheezing. CXR showed incr interstitial markings-- given lasix & decadron, placed on ventimask w/ mild improvement of SaO2. REVIEW OF SYSTEMS: CONSTITUTIONAL: diaphoresis Absent: fever, chills, generalized weakness, malaise, loss of appetite, weight change HEENT: Absent: rhinorrhea, nasal congestion, throat pain, throat swelling, difficulty swallowing, mouth swelling, ear pain, eye pain, visual changes CARDIOVASCULAR: Absent: chest pain, syncope, palpitations, irregular heart rate, lightheadedness , peripheral edema RESPIRATORY: wheezing Absent: cough, shortness of breath, dyspnea with exertion, orthopnea, stridor, hemoptysis GASTROINTESTINAL: Absent: abdominal pain, abdominal distension, nausea, vomiting, diarrhea, constipation, melena, hematochezia GENITOURINARY: Absent: dysuria, frequency, urgency, hesitancy, hematuria, flank pain, genital pain MUSCULOSKELETAL: Absent: myalgia, arthralgia, joint swelling, back pain, neck pain SKIN: Absent: rash, itching, pallor HEMATOLOGIC/IMMUNOLOGIC: Absent: easy bleeding, easy bruising, lymphadenopathy, frequent infections ENDOCRINE: Absent: unexplained weight gain, unexplained weight loss, heat intolerance, cold intolerance NEUROLOGIC: Absent: headache, focal weakness or paresthesias, dizziness, unsteady gait, seizure, mental status changes, bladder or bowel incontinence PSYCHIATRIC: Absent: anxiety, depression, suicidal or homicidal ideation, hallucinations. PHYSICAL EXAMINATION Last Vital Signs Temp Pulse Resp BP Pulse Ox 96.7 F L 105 H 22 H 122/62 100 11/03/19 18:19 11/03/19 21:13 11/03/19 21:13 11/03/19 21:13 11/03/19 21:00 GENERAL: Awake, AOx2 oriented to self and location not time HEENT: R chemoport in place C/D/I no signs of infection. NCAT MMM no oral lesions, sclera clear. LUNGS: Mild inspiratory crackles no further wheezing. No incr work of breathing HEART: Regular rate and rhythm, normal S1 and S2 without murmur, rub or gallop. ABDOMEN: Soft, nontender, not distended, normoactive bowel sounds EXTREMITIES: 2+ pulses, warm, well-perfused. No calf tenderness. No peripheral edema. SKIN: no rashes or lesions noted Laboratory Results - last 24 hr 11/03/19 11/03/19 06:00 06:54 WBC 13.6 H RBC 2.87 L Hgb 8.5 L Hct 26.4 L MCV 91.9 MCH 29.6 MCHC 32.2 RDW 20.1 H Plt Count 192 MPV 8.0 Sodium 143 Potassium 4.0 Chloride 114 H Carbon Dioxide 21 Anion Gap 7 L BUN 37.2 H Creatinine 1.7 H Est GFR (CKD-EPI)AfAm 30.67 Est GFR (CKD-EPI)NonAf 26.46 Random Glucose 64 L Uric Acid 3.7 Calcium 9.1 Phosphorus 3.4 Magnesium 2.3 Total Bilirubin 1.9 H AST 42 H ALT 49 Alkaline Phosphatase 404 H Total Protein 5.6 L Albumin 2.4 L Active Medications Generic Name Dose Route Start Last Admin Trade Name Freq PRN Reason Stop Dose Admin Albuterol Sulfate 1 amp 11/03/19 16:40 11/03/19 17:13 Ventolin 0.083% Nebulizer Soln - NEB 1 amp Q4H PRN Administration SHORT OF BREATH/WHEEZING Allopurinol 300 mg 11/02/19 10:00 11/03/19 13:42 Zyloprim - PO 300 mg DAILY [facility] Administration Alprazolam 0.25 mg 11/01/19 16:00 Xanax - PO PRN [facility] Ascorbic Acid 250 mg 11/02/19 10:00 11/03/19 13:44 Vitamin C - PO 250 mg DAILY [facility] Administration Chlorhexidine Gluconate 1 applic 11/03/19 22:00 Hibiclens For Decolonization - TP HS [facility] Ferrous Sulfate 325 mg 11/03/19 17:30 Feosol - PO BIDWM [facility] Fluconazole 100 mg 11/03/19 10:00 11/03/19 13:43 Diflucan - PO 100 mg DAILY [facility] Administration Furosemide 20 mg 11/03/19 16:30 11/03/19 17:14 Lasix - PO Not Given DAILY [facility] IV Flush 10 ml 11/02/19 14:29 Alexx-Cath Flush IVPUSH PRN PRN Protocol Rituximab 560 mg/ Sodium 560 mls @ 60 mls/hr 11/03/19 14:30 11/03/19 15:01 Chloride IVPB 11/03/19 23:49 60 mls/hr ONCE ONE Administration Potassium Chloride/Sodium Chloride 20 meq in 1,000 mls @ 50 mls/hr 11/03/19 19 :14 1/2ns+20meq Kcl IV 11/04/19 15:13 ASDIR ONE Levothyroxine Sodium 25 mcg 11/02/19 07:00 11/03/19 06:06 Synthroid - PO 25 mcg DAILY@0700 [facility] Administration Methylprednisolone Sodium Succinate 40 mg 11/03/19 17:30 11/03/19 17:29 Solu-Medrol - IVPUSH 40 mg Q6H-IV [facility] Administration Metoprolol Succinate 25 mg 11/02/19 10:00 11/03/19 13:42 Toprol Xl - PO 25 mg DAILY [facility] Administration Mirtazapine 15 mg 11/01/19 22:00 11/02/19 21:14 Remeron - PO 15 mg HS [facility] Administration Mupirocin 1 applic 11/03/19 22:00 Bactroban Ointment (For Decolonization) - NS 11/08/19 21:59 BID [facility] Nitrofurantoin Macrocrystals 100 mg 11/01/19 13:30 11/03/19 13:44 Macrodantin - PO 100 mg ONCE [facility] Administration Pantoprazole Sodium 40 mg 11/02/19 10:00 11/03/19 13:43 Protonix - PO 40 mg DAILY [facility] Administration Polyethylene Glycol 17 gm 11/02/19 10:00 11/03/19 14:14 Miralax (For Daily Use) - PO Not Given DAILY [facility] Valacyclovir HCl 500 mg 11/03/19 10:00 11/03/19 13:42 Valtrex - PO 500 mg DAILY [facility] Administration Valsartan 80 mg 11/02/19 10:00 11/03/19 13:43 Diovan - PO 80 mg DAILY [facility] Administration ASSESSMENT/PLAN: 88 y.o. F PMH HTN, HLD, Low-grade Diffuse Large B-Cell Lymphoma--->Large B-Cell Lymphoma, Breast CA (s/p L. lumpectomy, radiation and hormonal therapy), IBD presenting to ICU for acute chemotherapy reaction. 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 EF 55%. Mention of 1x8cm fluid collection near L atrium?-- will require further eval w/ CT -continue to monitor heart fxn on chemotherapy regimen -Dr. Lundberg follows patient, no absolute contraindication regarding initiation of chemotherapy. #Pulm -CT Chest: moderate R pl effusion, lower lobe atelectasis. small L pl effusion & basilar atelectasis. Mediastinal mass post to R atrum likely lymphadenopathy. additional upper abdominal adenopathy & hepatosplenomegaly-- consistent w/ lymphoma. -CXR: R base atelectasis -Saturating well, on venti mask. continue to monitor -continue steroids, duonebs -maintain Sa O2 >90% #Heme/ onc -R chemoport placed by IR -for mini- RCHOP chemotherapy -started rituximib today w/ acute reaction -- desats to 80s, wheezing--given 30 decadron, 20 lasix, placed on ventimask & brought to ICU for further monitoring -heme/onc on board will f/u for remainder of chemo treatment Dispo: We will continue to follow the patient. Thank you for this consultative opportunity. Visit type - Emergency Visit Emergency Visit: No - New Patient This patient is new to me today: Yes Date on this admission: 11/03/19 - Critical Care Critical Care patient: Yes Total Critical Care Time (in minutes): 45 Critical Care Statement: The care of this patient involved high complexity decision making to prevent further life threatening deterioration of the patient 's condition and/or to evaluate & treat vital organ system(s) failure or risk of failure. ATTENDING PHYSICIAN STATEMENT I saw and evaluated the patient. I reviewed the resident's note and discussed the case with the resident. I agree with the resident's findings and plan as documented. SUBJECTIVE: OBJECTIVE: ASSESSMENT AND PLAN:
[2019-11-03] MEDS ORDERED: NITROFURANTOIN MACROCRYSTAL 50 MG CAPSULE (FP) PO SCH (21:07)
[2019-11-03] MEDS ORDERED: PORTA CATH FLUSH 10 ML IVPUSH PRN (21:07)
[2019-11-03] MEDS: MUPIROCIN 2% TOPICAL OINTMENT FOR DECOLONIZATION NS SCH (21:37)
[2019-11-03] MEDS ORDERED: CHLORHEXIDINE GLUCONATE 4% CLEANSER FOR DECOLONIZATION TP SCH (22:00)
[2019-11-04] MEDS: methylPREDNISolone NA SUCC 40 MG/1 ML VIAL IVPUSH SCH ×4 (02:27→21:57)
[2019-11-04 07:00] LABS: HEMATOCRIT 27.9 % (32.4-45.2); MCHC 32.2 g/dl (32.0-36.0); MEAN CELL VOLUME 93.1 fl (80-96); MEAN PLT VOLUME 7.9 fl (7.5-11.1); PLATELET COUNT 181 K/MM3 (134-434); WHITE BLOOD COUNT 12.9 K/mm3 (4.0-10.0)
[2019-11-04] MEDS ORDERED: LEVOTHYROXINE NA 25 MCG TABLET (FP) PO SCH (07:00)
--- NOTE | 2019-11-04 07:08 | PN ---
Progress Note (short form) - Note Progress Note: Patient seen and examined HAd sweats, chills, rigors, shortness of breath during rituxan infusion Received 25mg benadryl, 20mg dexamethasone BP 180s/110s, HR-138, O2 sat 89% on r/a-- improved to 94% on 3l fidel Heart- S1, S2, taachycrdic Chest--b/l wheezes P/a --soft ext. 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 fluid overload Received dexamethasone 20mg/ benadryl 25 mg, nebulizer treatment 20mg lasix willl transfer to icu for monitoring will give round the clock nebs/ steroids
[2019-11-04 07:38] LABS: ALBUMIN 2.3 g/dl (3.4-5.0); BILIRUBIN,TOTAL 1.1 mg/dL (0.2-1); BLOOD UREA NITROGEN 37.8 mg/dL (7-18); CALCIUM 9.2 mg/dL (8.5-10.1); CREATININE 1.9 mg/dL (0.55-1.3); MAGNESIUM 2.3 mg/dL (1.8-2.4); PHOSPHOROUS 5.1 mg/dL (2.5-4.9); POTASSIUM 4.7 mmol/L (3.5-5.1); TOT PROT 5.9 g/dl (6.4-8.2); URIC ACID 3.8 mg/dL (2.6-7.2)
[2019-11-04] MEDS ORDERED: FERROUS SO4 325 MG TABLET (FP) PO SCH (08:00)
[2019-11-04] MEDS ORDERED: PT OWN MED DRAWER 7, Y5N ONE (08:48)
--- NOTE | 2019-11-04 09:51 | PN ---
Progress Note (short form) - Note Progress Note: Patient seen and examined Awake , alert, on nasal oxygen S/P Rituxin reaction with chills, rigors, desaturation, hypertension, tachycardia-now improved Last Vital Signs Temp Pulse Resp BP Pulse Ox 97.2 F L 75 27 H 144/76 100 11/04/19 02:03 11/04/19 08:00 11/04/19 09:00 11/04/19 08:00 11/04/19 09:00 HEENT: STEPHEN, EOM Intact Oropharynx: No thrush, No mucositis,coated Nodes: adenopathy, left neck and SC area Breasts: Without masses,s/p surgery Cor: RSR, No murmurs, No gallops Lungs: decreased breath sounds R>L Abd: Soft, Normal bowel sounds, No organomegaly, distended Ext:No significant edema Skin: No rashes, Integument intact CBC, BMP 11/04/19 05:15 11/04/19 05:15 Current Medications Generic Name Dose Route Start Last Admin Trade Name Freq PRN Reason Stop Dose Admin Albuterol Sulfate 1 amp 11/03/19 21:07 Ventolin 0.083% Nebulizer Soln - NEB Q4H PRN SHORT OF BREATH/WHEEZING Allopurinol 300 mg 11/04/19 10:00 Zyloprim - PO DAILY [facility] Ascorbic Acid 250 mg 11/04/19 10:00 Vitamin C - PO DAILY [facility] Chlorhexidine Gluconate 1 applic 11/03/19 22:00 11/03/19 21:38 Hibiclens For Decolonization - TP 1 applic HS [facility] Administration Ferrous Sulfate 325 mg 11/04/19 08:00 Feosol - PO BIDWM [facility] Fluconazole 100 mg 11/04/19 10:00 Diflucan - PO DAILY [facility] Furosemide 20 mg 11/04/19 10:00 Lasix - PO DAILY [facility] IV Flush 10 ml 11/03/19 21:07 Alexx-Cath Flush IVPUSH PRN PRN Protocol Potassium Chloride/Sodium Chloride 20 meq in 1,000 mls @ 50 mls/hr 11/03/19 19 :14 11/04/19 02:28 1/2ns+20meq Kcl IV 11/04/19 15:13 50 mls/hr ASDIR ONE Administration Levothyroxine Sodium 25 mcg 11/04/19 07:00 11/04/19 07:18 Synthroid - PO 25 mcg DAILY@0700 [facility] Administration Methylprednisolone Sodium Succinate 40 mg 11/04/19 03:00 11/04/19 02:27 Solu-Medrol - IVPUSH 40 mg Q6H-IV [facility] Administration Metoprolol Succinate 25 mg 11/04/19 10:00 Toprol Xl - PO DAILY [facility] Mupirocin 1 applic 11/03/19 22:00 11/03/19 21:37 Bactroban Ointment (For Decolonization) - NS 11/08/19 21:59 1 applic BID [facility] Administration Nitrofurantoin Macrocrystals 100 mg 11/03/19 21:07 Macrodantin - PO ONCE [facility] Pantoprazole Sodium 40 mg 11/04/19 10:00 Protonix - PO DAILY [facility] Polyethylene Glycol 17 gm 11/04/19 10:00 Miralax (For Daily Use) - PO DAILY [facility] Valacyclovir HCl 500 mg 11/04/19 10:00 Valtrex - PO DAILY [facility] Valsartan 80 mg 11/04/19 10:00 Diovan - PO DAILY [facility] Impression Transformed lymphoma Rituxin reaction ??Tumor lysis- elevation of creatinine, phosphorus Hypercalcemia- improved Anemia Pleural effusion R>L Plan: Monitor chemistries watch for TLS -creatinine, uric acid, LDH, phophorus Hold chemotherapy today ? resume 11/05 pending clinical status.
[2019-11-04] MEDS ORDERED: ALLOPURINOL 300 MG TABLET (FP) PO SCH (10:00)
[2019-11-04] MEDS ORDERED: FLUCONAZOLE 100 MG TABLET (UD) PO SCH (10:00)
[2019-11-04] MEDS ORDERED: PANTOPRAZOLE 40 MG TABLET PO SCH (10:00)
[2019-11-04] MEDS ORDERED: ASCORBIC ACID 250 MG TABLET (FP) PO SCH (10:00)
[2019-11-04] MEDS ORDERED: POLYETHYLENE GLYCOL 3350 119 GM BTL PO SCH (10:00)
[2019-11-04] MEDS ORDERED: metoPROLOL SUCCINATE 25 MG TAB.SR.24H (FP) PO SCH (10:00)
[2019-11-04] MEDS ORDERED: FUROSEMIDE 20 MG TABLET (FP) PO SCH (10:00)
[2019-11-04] MEDS ORDERED: valACYclovir HCL 500 MG TABLET (FP) PO SCH (10:00)
[2019-11-04] MEDS ORDERED: VALSARTAN 80 MG TABLET (UD) PO SCH (10:00)
[2019-11-04] MEDS: MUPIROCIN 2% TOPICAL OINTMENT FOR DECOLONIZATION NS SCH (10:42)
--- NOTE | 2019-11-04 10:42 | PN ---
Teaching Attending Note Name of Resident: Narayan Pitt ATTENDING PHYSICIAN STATEMENT I saw and evaluated the patient. I reviewed the resident's note and discussed the case with the resident. I agree with the resident's findings and plan as documented. SUBJECTIVE: Patient seen and examined in the ICU. Awake and alert. Denies CP or SOB. Non-specific itching, although no rash. Intake & Output 11/01/19 11/02/19 11/03/19 11/04/19 23:59 23:59 23:59 23:59 Intake Total 472 253 0830 350 Balance 397 568 6311 350 Weight 126 lb 9.6 oz 125 lb 8 oz 122 lb 12.8 oz Last Vital Signs Temp Pulse Resp BP Pulse Ox 97.2 F L 75 27 H 144/76 100 11/04/19 02:03 11/04/19 08:00 11/04/19 09:00 11/04/19 08:00 11/04/19 09:00 Active Medications Albuterol Sulfate (Ventolin 0.083% Nebulizer Soln -) 1 amp NEB Q4H PRN PRN Reason: SHORT OF BREATH/WHEEZING Allopurinol (Zyloprim -) 300 mg PO DAILY [facility] Last Admin: 11/04/19 10:30 Dose: 300 mg Ascorbic Acid (Vitamin C -) 250 mg PO DAILY [facility] Chlorhexidine Gluconate (Hibiclens For Decolonization -) 1 applic TP HS [facility] Last Admin: 11/03/19 21:38 Dose: 1 applic Ferrous Sulfate (Feosol -) 325 mg PO BIDWM [facility] Fluconazole (Diflucan -) 100 mg PO DAILY [facility] Last Admin: 11/04/19 10:30 Dose: 100 mg Furosemide (Lasix -) 20 mg PO DAILY [facility] IV Flush (Alexx-Cath Flush) 10 ml IVPUSH PRN PRN PRN Reason: Protocol Potassium Chloride/Sodium Chloride (1/2ns+20meq Kcl) 20 meq in 1,000 mls @ 50 mls/hr IV ASDIR ONE Stop: 11/04/19 15:13 Last Admin: 11/04/19 02:28 Dose: 50 mls/hr Levothyroxine Sodium (Synthroid -) 25 mcg PO DAILY@0700 [facility] Last Admin: 11/04/19 07:18 Dose: 25 mcg Methylprednisolone Sodium Succinate (Solu-Medrol -) 40 mg IVPUSH Q6H-IV [facility] Last Admin: 11/04/19 09:20 Dose: 40 mg Metoprolol Succinate (Toprol Xl -) 25 mg PO DAILY [facility] Last Admin: 11/04/19 10:30 Dose: 25 mg Mupirocin (Bactroban Ointment (For Decolonization) -) 1 applic NS BID [facility] Stop: 11/08/19 21:59 Last Admin: 11/03/19 21:37 Dose: 1 applic Nitrofurantoin Macrocrystals (Macrodantin -) 100 mg PO ONCE [facility] Pantoprazole Sodium (Protonix -) 40 mg PO DAILY [facility] Last Admin: 11/04/19 10:30 Dose: 40 mg Polyethylene Glycol (Miralax (For Daily Use) -) 17 gm PO DAILY [facility] Valacyclovir HCl (Valtrex -) 500 mg PO DAILY [facility] Last Admin: 11/04/19 10:30 Dose: 500 mg Valsartan (Diovan -) 80 mg PO DAILY [facility] Last Admin: 11/04/19 10:30 Dose: 80 mg GENERAL: Awake, AOx2, NAD on NC O2 HEENT: R chemoport in place C/D/I no signs of infection. Sclera clear. LUNGS: Few scattered rhonchi HEART: Regular rate and rhythm, normal S1 and S2 without murmur, rub or gallop. ABDOMEN: Soft, nontender, not distended, normoactive bowel sounds EXTREMITIES: 2+ pulses, warm, well-perfused. No calf tenderness. No peripheral edema. SKIN: no rashes or lesions noted Laboratory Results - last 24 hr 11/03/19 11/04/19 11/04/19 06:00 05:15 05:15 WBC 12.9 H RBC 3.00 L Hgb 9.0 L Hct 27.9 L MCV 93.1 MCH 30.0 MCHC 32.2 RDW 21.0 H Plt Count 181 MPV 7.9 Sodium 143 144 Potassium 4.0 4.7 Chloride 114 H 115 H Carbon Dioxide 21 23 Anion Gap 7 L 6 L BUN 37.2 H 37.8 H Creatinine 1.7 H 1.9 H Est GFR (CKD-EPI)AfAm 30.67 26.81 Est GFR (CKD-EPI)NonAf 26.46 23.13 Random Glucose 64 L 158 H Uric Acid 3.7 3.8 Calcium 9.1 9.2 Phosphorus 3.4 5.1 H Magnesium 2.3 2.3 Total Bilirubin 1.9 H 1.1 H AST 42 H 58 H ALT 49 44 Alkaline Phosphatase 404 H 403 H B-Natriuretic Peptide Total Protein 5.6 L 5.9 L Albumin 2.4 L 2.3 L Vitamin B12 1611 H Serum Folate 19 H 11/04/19 05:15 WBC RBC Hgb Hct MCV MCH MCHC RDW Plt Count MPV Sodium Potassium Chloride Carbon Dioxide Anion Gap BUN Creatinine Est GFR (CKD-EPI)AfAm Est GFR (CKD-EPI)NonAf Random Glucose Uric Acid Calcium Phosphorus Magnesium Total Bilirubin AST ALT Alkaline Phosphatase B-Natriuretic Peptide 7436.0 H Total Protein Albumin Vitamin B12 Serum Folate ASSESSMENT/PLAN: S/P Rituxan reaction R/O Tumor Lysis HTN HLD Diffuse Large B-Cell Lymphoma Breast CA (s/p L. lumpectomy, radiation and hormonal therapy) IBD Medrol Supplemental O2 as needed VTE prophylaxis Follow labs to R/O tumor lysis DC IVF PO as tolerated Oncology floor Dr Jacome
--- NOTE | 2019-11-04 11:40 | PN ---
Physical Exam: SUBJECTIVE: Patient seen and examined in the morning. No acute events overnight after patient was transferred to the ICU. Patient had transfusion reaction to infusion of rituximab, transfusion was stopped. Today patient denies chest pain , shortness of breath, abdominal pain, nausea, vomiting, diarrhea. Patient has no chills or subjective fever. OBJECTIVE: Vital Signs Period Temp Pulse Resp BP Sys/Castelan Pulse Ox Last 24 Hr 96.7 F-98 F 75-148 19-135 118-205/59-155 98-100 GENERAL: The patient is awake, alert, and fully oriented, in no acute distress. Waxing and waning mental status through repeat interactions. HEAD: Normal with no signs of trauma. EYES: PERRL, extraocular movements intact, sclera anicteric, conjunctiva clear. No ptosis. ENT: Ears normal, nares patent, oropharynx clear without exudates, moist mucous membranes. Nasal cannula in place 3LPM. NECK: Mobile mass on the left side of neck. LUNGS: Breath sounds equal, clear to auscultation bilaterally, no wheezes, no crackles, no accessory muscle use. HEART: Regular rate and rhythm, S1, S2 without murmur, rub or gallop. ABDOMEN: Soft, nontender, nondistended, normoactive bowel sounds EXTREMITIES: 2+ pulses, warm, well-perfused, no edema. NEUROLOGICAL: Cranial nerves II through XII grossly intact. Normal speech. PSYCH: Normal mood, normal affect. SKIN: Warm, dry, normal turgor, no rashes or lesions noted. No hives, erythema present. Laboratory Results - last 24 hr 11/03/19 11/04/19 11/04/19 06:00 05:15 05:15 WBC 12.9 H RBC 3.00 L Hgb 9.0 L Hct 27.9 L MCV 93.1 MCH 30.0 MCHC 32.2 RDW 21.0 H Plt Count 181 MPV 7.9 Sodium 143 144 Potassium 4.0 4.7 Chloride 114 H 115 H Carbon Dioxide 21 23 Anion Gap 7 L 6 L BUN 37.2 H 37.8 H Creatinine 1.7 H 1.9 H Est GFR (CKD-EPI)AfAm 30.67 26.81 Est GFR (CKD-EPI)NonAf 26.46 23.13 Random Glucose 64 L 158 H Uric Acid 3.7 3.8 Calcium 9.1 9.2 Phosphorus 3.4 5.1 H Magnesium 2.3 2.3 Total Bilirubin 1.9 H 1.1 H AST 42 H 58 H ALT 49 44 Alkaline Phosphatase 404 H 403 H B-Natriuretic Peptide Total Protein 5.6 L 5.9 L Albumin 2.4 L 2.3 L Vitamin B12 1611 H Serum Folate 19 H 11/04/19 05:15 WBC RBC Hgb Hct MCV MCH MCHC RDW Plt Count MPV Sodium Potassium Chloride Carbon Dioxide Anion Gap BUN Creatinine Est GFR (CKD-EPI)AfAm Est GFR (CKD-EPI)NonAf Random Glucose Uric Acid Calcium Phosphorus Magnesium Total Bilirubin AST ALT Alkaline Phosphatase B-Natriuretic Peptide 7436.0 H Total Protein Albumin Vitamin B12 Serum Folate Active Medications Generic Name Dose Route Start Last Admin Trade Name Freq PRN Reason Stop Dose Admin Albuterol Sulfate 1 amp 11/03/19 21:07 Ventolin 0.083% Nebulizer Soln - NEB Q4H PRN SHORT OF BREATH/WHEEZING Allopurinol 300 mg 11/04/19 10:00 11/04/19 10:30 Zyloprim - PO 300 mg DAILY [facility] Administration Ascorbic Acid 250 mg 11/04/19 10:00 11/04/19 10:42 Vitamin C - PO 250 mg DAILY [facility] Administration Chlorhexidine Gluconate 1 applic 11/03/19 22:00 11/03/19 21:38 Hibiclens For Decolonization - TP 1 applic HS [facility] Administration Ferrous Sulfate 325 mg 11/04/19 08:00 11/04/19 11:29 Feosol - PO 325 mg BIDWM [facility] Administration Fluconazole 100 mg 11/04/19 10:00 11/04/19 10:30 Diflucan - PO 100 mg DAILY [facility] Administration Furosemide 20 mg 11/04/19 10:00 11/04/19 11:28 Lasix - PO 20 mg DAILY [facility] Administration IV Flush 10 ml 11/03/19 21:07 Alexx-Cath Flush IVPUSH PRN PRN Protocol Potassium Chloride/Sodium Chloride 20 meq in 1,000 mls @ 50 mls/hr 11/03/19 19 :14 11/04/19 02:28 1/2ns+20meq Kcl IV 11/04/19 15:13 50 mls/hr ASDIR ONE Administration Levothyroxine Sodium 25 mcg 11/04/19 07:00 11/04/19 07:18 Synthroid - PO 25 mcg DAILY@0700 [facility] Administration Methylprednisolone Sodium Succinate 40 mg 11/04/19 03:00 11/04/19 09:20 Solu-Medrol - IVPUSH 40 mg Q6H-IV [facility] Administration Metoprolol Succinate 25 mg 11/04/19 10:00 11/04/19 10:30 Toprol Xl - PO 25 mg DAILY [facility] Administration Mupirocin 1 applic 11/03/19 22:00 11/04/19 10:42 Bactroban Ointment (For Decolonization) - NS 11/08/19 21:59 1 applic BID [facility] Administration Nitrofurantoin Macrocrystals 100 mg 11/03/19 21:07 Macrodantin - PO ONCE [facility] Pantoprazole Sodium 40 mg 11/04/19 10:00 11/04/19 10:30 Protonix - PO 40 mg DAILY [facility] Administration Polyethylene Glycol 17 gm 11/04/19 10:00 11/04/19 10:41 Miralax (For Daily Use) - PO 17 grams DAILY [facility] Administration Valacyclovir HCl 500 mg 11/04/19 10:00 11/04/19 10:30 Valtrex - PO 500 mg DAILY [facility] Administration Valsartan 80 mg 11/04/19 10:00 11/04/19 10:30 Diovan - PO 80 mg DAILY [facility] Administration ASSESSMENT/PLAN: 88 F PMH HTN, HLD, large B-cell lymphoma, breast cancer (s/p l. lumpectomy, radiation and hormonal therapy), IBD presented to the ICU for acute reaction to rituximab. Neuro -Baseline dementia -Patient has waxing and waning mental status. -AAOx3 when I spoke with patient, was AAOx2 when rounding with team -Will continue to reorient Cardiovascular -Hx of HTN, HLD -Echo: Moderate LVH, EF= 55%. -Cardiac monitoring shows no significant events. -Continue home HTN medications -Cardiology consulted, appreciate recs Pulmonary -Chest CT: moderate Right pleural effusion, lower lobe atelectasis, small left pleural effusion, basilar atelectasis, mediastinal mass posterior to right atrium -Saturating well on 3L NC. -Continue solumedrol, duonebs, albuterol nebulizer. GI -Hx of IBD. -Normal diet -No complaints, continuing to monitor Renal -BUN/Creatinine of 37.8/1.9 -Renal U/S showed no acute pathology earlier in admission -Nephrology consulted, appreciate recs Heme/Onc -Hx of breast cancer s/p lumpectomy, radiation, and hormonal therapy -Large B cell Lymphoma -Right chemoport placed by IR -Reaction to rituximab yesterday. -Heme/Onc consulted- can return back to floors ID -no current signs of infection, will continue to monitor -Continue valcyclovir F:Oral hydration E:Monitor CMP N:Fat/Sodium controlled diet with thickened liquids Dispo: Transfer to . Visit type - Emergency Visit Emergency Visit: Yes ED Registration Date: 11/01/19 Care time: The patient presented to the Emergency Department on the above date and was hospitalized for further evaluation of their emergent condition. - New Patient This patient is new to me today: Yes Date on this admission: 11/05/19 - Critical Care Critical Care patient: Yes Total Critical Care Time (in minutes): 45 Critical Care Statement: The care of this patient involved high complexity decision making to prevent further life threatening deterioration of the patient 's condition and/or to evaluate & treat vital organ system(s) failure or risk of failure. ATTENDING PHYSICIAN STATEMENT I saw and evaluated the patient. I reviewed the resident's note and discussed the case with the resident. I agree with the resident's findings and plan as documented. SUBJECTIVE: OBJECTIVE: ASSESSMENT AND PLAN:
--- NOTE | 2019-11-04 12:33 | CONSULT ---
Admitting History and Physical - Admission History of Present Illness: 88 y.o. F PMH HTN, HLD, Low-grade Diffuse Large B-Cell Lymphoma--->Large B-Cell Lymphoma, Breast CA (s/p L. lumpectomy, radiation and hormonal therapy), IBD presenting to ICU for acute chemotherapy reaction. -CT Chest: moderate R pl effusion, lower lobe atelectasis. small L pl effusion & basilar atelectasis. Mediastinal mass post to R atrum likely lymphadenopathy. additional upper abdominal adenopathy & hepatosplenomegaly-- consistent w/ lymphoma. -CXR: R base atelectasis Reg diet/thin liquids ordered today and noted to be coughing on water. Selected Entries 11/03/19 11/03/19 11/03/19 06:00 08:27 11:06 Breakfast NPO Temperature 97.3 F L 98.1 F 11/03/19 11/03/19 11/03/19 13:33 14:00 18:19 Breakfast Temperature 98 F 98 F 96.7 F L 11/04/19 02:03 Breakfast Temperature 97.2 F L Laboratory Tests 11/01/19 11/02/19 11/03/19 11:21 08:56 06:54 WBC 15.9 H 15.3 H 13.6 H 11/04/19 05:15 WBC 12.9 H This is my first consult with this pt. History Source: Family Member, Medical Record Limitations to Obtaining History: Clinical Condition - Past Medical History Cardiovascular: Yes: HTN, Hyperlipdemia Gastrointestinal: Yes: Diverticulosis, Irritable Bowel Disease, Other ( nonbleeding asc colon and cecal avms on prior colon) Heme/Onc: Yes: Cancer (breast cancer and Non-Hodgkins lymphyoma) Endocrine: Yes: Other (thyroid nodule) - Past Surgical History Past Surgical History: Yes: Colonoscopy, Colostomy, Mastectomy, Upper Endoscopy - Smoking History Smoking history: Never smoked Have you smoked in the past 12 months: No Aproximately how many cigarettes per day: 0 - Alcohol/Substance Use Hx Alcohol Use: No History of Substance Use: reports: None - Social History ADL: Independent History of Recent Travel: No History - Admission Reason For Visit: LOWER UTI,LYMPHOMA,HYPERCALCEMIA - Diagnostics X-ray: Report Reviewed CT Scan: Report Reviewed - General Mental Status: Awake and Alert, Able to Follow Commands, Forgetful, Vague, Intermittently Confused Attention: Intact Ability to Follow Directions: Good Head/Neck Control: Fair - Hearing Hearing: Impaired Hearing Aide: Yes With Patient: No Speech Evaluation - Communication Primary Language: ALGERIAN Communication: Yes: Simple Responses Oral Expression Ability: Yes: Mild Impairment - Speech Production Able to Make Needs Known: Yes: Mildly Impaired Intelligibility: Yes: Mildly Impaired - Speech Characteristics Voice Loudness: Normal Voice Pitch: Yes: Normal Voice Phonatory-based Quality: Yes: Normal Speech Clarity: < 100% Articulation: Yes: Imprecise - Language/Auditory Comprehension Follows: Yes: 1 Stage Simple Commands Observation: Able to respond to yes/no queries: Yes, Yes/No Confusion: No, Comprehends Conversational Speech: Yes - Language/Verbal Expression Functional Communication Status: Yes: Mildly Impaired - Swallow Evaluation/Bedside Assessment Current Nutritional Intake: Regular, Thin Liquids Oral Secretions: Yes: WFL, Dryness, Tongue Coated (blue/black coating. Nursing feels it is from Valtrax) Dentition: Yes: Adequate Facial Symmetry at Rest: Symmetrical Facial Symmetry on Retraction: Symmetrical Jaw Position: Closed at Rest Pucker Lips: Normal Smile: Normal Lingual Movement: Symmetric, Reduced Protrusion Lingual Speed of Movement: Reduced Lingual Movement Strgth Against Opposition: Reduced Laryngeal Movement: Able to Palpate Rate of Intake: WFL Labial Seal: WFL Oral Prep Time: WFL A-P Transit: WFL Timing of Swallow: Delayed Coughing/Throat Clear: Yes (thin liquid) Recommendations - Speech Evaluation, Impression/Plan Impression: Cough response noted by staff and during swallowing assessment, c/w aspiration. - Dysphagia Impressions/Plan Swallowing Skills: Impaired Dysphagia Impressions: Mild Impairment, Ongoing Evaluation *Silent aspiration: cannot be R/O at bedside Dysphagia Treatment Plan: Small Bites, Chin Tuck/Down, Clear Pocket Food, Trial Feedings, Safe Rate, 1/2 tsp. at a time, Elevate HOB during feed Recommendations: Modified Barium Swallow (if congested, or if cough persists,) - Recommendations Diet Consistency: Regular (soft, easy to chew) Liquids: [place] Thick Supplement: Other (Pt reports that she gets diarrhea from Nepro. Trial 2 juvenal [facility] ? Request RD input)
[2019-11-04] MEDS ORDERED: NITROFURANTOIN MACROCRYSTAL 50 MG CAPSULE (FP) PO SCH (14:22)
[2019-11-04] MEDS ORDERED: ONDANSETRON 4 MG/2 ML VIAL IVPB ONE (15:41)
[2019-11-04] MEDS: FERROUS SO4 325 MG TABLET (FP) PO SCH (16:39)
--- NOTE | 2019-11-04 17:14 | PN ---
Progress Note, Physician History of Present Illness: Pt seen and examined at bedside. She is now in the medical hale. She feels that her breathing is improved. - Current Medication List Current Medications: Active Medications Albuterol Sulfate (Ventolin 0.083% Nebulizer Soln -) 1 amp NEB Q4H PRN PRN Reason: SHORT OF BREATH/WHEEZING Allopurinol (Zyloprim -) 300 mg PO DAILY [facility] Ascorbic Acid (Vitamin C -) 250 mg PO DAILY [facility] Dexamethasone Sodium Phosphate (Decadron Injection -) 20 mg IVPB ONCE ONE Stop: 11/05/19 10:01 Diphenhydramine HCl (Benadryl Injection -) 25 mg IVPB ONCE ONE Stop: 11/05/19 10:01 Ferrous Sulfate (Feosol -) 325 mg PO BIDWM [facility] Last Admin: 11/04/19 16:39 Dose: Not Given Fluconazole (Diflucan -) 100 mg PO DAILY [facility] Furosemide (Lasix -) 20 mg PO DAILY [facility] IV Flush (Alexx-Cath Flush) 10 ml IVPUSH PRN PRN PRN Reason: Protocol Cyclophosphamide 600 mg/ (Sodium Chloride) 530 mls @ 265 mls/hr IVPB ONCE ONE Stop: 11/05/19 11:59 Doxorubicin HCl 20 mg/ Sodium (Chloride) 110 mls @ 220 mls/hr IVPB ONCE ONE Stop: 11/05/19 10:29 Vincristine Sulfate 1 mg/ (Sodium Chloride) 26 mls @ 156 mls/hr IVPB ONCE ONE Stop: 11/05/19 10:09 Potassium Chloride/Dextrose/Sod Cl (D5-1/2ns+20 Meq Kcl -) 20 meq in 1,000 mls @ 125 mls/hr IV ONCE ONE Stop: 11/05/19 17:59 Levothyroxine Sodium (Synthroid -) 25 mcg PO DAILY@0700 [facility] Methylprednisolone Sodium Succinate (Solu-Medrol -) 40 mg IVPUSH Q6H-IV [facility] Last Admin: 11/04/19 14:50 Dose: 40 mg Metoprolol Succinate (Toprol Xl -) 25 mg PO DAILY [facility] Nitrofurantoin Macrocrystals (Macrodantin -) 100 mg PO ONCE [facility] Ondansetron HCl (Zofran Injection) 8 mg IVPB ONCE ONE Stop: 11/05/19 10:01 Pantoprazole Sodium (Protonix -) 40 mg PO DAILY [facility] Polyethylene Glycol (Miralax (For Daily Use) -) 17 gm PO DAILY [facility] Valacyclovir HCl (Valtrex -) 500 mg PO DAILY [facility] Valsartan (Diovan -) 80 mg PO DAILY [facility] - Objective Vital Signs: Vital Signs Temperature 97.6 F 11/04/19 14:00 Pulse Rate 92 H 11/04/19 14:00 Respiratory Rate 11/04/19 14:00 Blood Pressure 121/77 11/04/19 14:00 O2 Sat by Pulse Oximetry (%) 100 11/04/19 13:00 Constitutional: Yes: Calm Eyes: Yes: Conjunctiva Clear HENT: Yes: Atraumatic Cardiovascular: Yes: S1, S2 Respiratory: Yes: CTA Bilaterally, On Nasal O2 Gastrointestinal: Yes: Soft Genitourinary: Yes: WNL Musculoskeletal: Yes: WNL Edema: No Integumentary: Yes: WNL Neurological: Yes: Confusion Labs: CBC, BMP 11/04/19 05:15 11/04/19 05:15 INR, PTT INR 0.89 (0.83-1.09) 11/02/19 08:56 Problem List - Problems (1) CKD (chronic kidney disease) Code(s): N18.9 - CHRONIC KIDNEY DISEASE, UNSPECIFIED (2) DLBCL (diffuse large B cell lymphoma) Code(s): C83.30 - DIFFUSE LARGE B-CELL LYMPHOMA, UNSPECIFIED SITE Qualifiers: Lymphoma site: neck Qualified Code(s): C83.31 - Diffuse large B-cell lymphoma, lymph nodes of head, face, and neck Assessment/Plan Current Medications Generic Name Dose Route Start Last Admin Trade Name Freq PRN Reason Stop Dose Admin Albuterol Sulfate 1 amp 11/04/19 14:22 Ventolin 0.083% Nebulizer Soln - NEB Q4H PRN SHORT OF BREATH/WHEEZING Allopurinol 300 mg 11/05/19 10:00 Zyloprim - PO DAILY [facility] Ascorbic Acid 250 mg 11/05/19 10:00 Vitamin C - PO DAILY [facility] Dexamethasone Sodium Phosphate 20 mg 11/05/19 10:00 Decadron Injection - IVPB 11/05/19 10:01 ONCE ONE Diphenhydramine HCl 25 mg 11/05/19 10:00 Benadryl Injection - IVPB 11/05/19 10:01 ONCE ONE Ferrous Sulfate 325 mg 11/04/19 17:30 11/04/19 16:39 Feosol - PO Not Given BIDWM [facility] Fluconazole 100 mg 11/05/19 10:00 Diflucan - PO DAILY [facility] Furosemide 20 mg 11/05/19 10:00 Lasix - PO DAILY [facility] IV Flush 10 ml 11/04/19 14:22 Alexx-Cath Flush IVPUSH PRN PRN Protocol Cyclophosphamide 600 mg/ 530 mls @ 265 mls/hr 11/05/19 10:00 Sodium Chloride IVPB 11/05/19 11:59 ONCE ONE Doxorubicin HCl 20 mg/ Sodium 110 mls @ 220 mls/hr 11/05/19 10:00 Chloride IVPB 11/05/19 10:29 ONCE ONE Vincristine Sulfate 1 mg/ 26 mls @ 156 mls/hr 11/05/19 10:00 Sodium Chloride IVPB 11/05/19 10:09 ONCE ONE Potassium Chloride/Dextrose/Sod Cl 20 meq in 1,000 mls @ 125 mls/hr 11/05/19 10:00 D5-1/2ns+20 Meq Kcl - IV 11/05/19 17:59 ONCE ONE Levothyroxine Sodium 25 mcg 11/05/19 07:00 Synthroid - PO DAILY@0700 [facility] Methylprednisolone Sodium Succinate 40 mg 11/04/19 15:00 11/04/19 14:50 Solu-Medrol - IVPUSH 40 mg Q6H-IV [facility] Administration Metoprolol Succinate 25 mg 11/05/19 10:00 Toprol Xl - PO DAILY [facility] Nitrofurantoin Macrocrystals 100 mg 11/04/19 14:22 Macrodantin - PO ONCE [facility] Ondansetron HCl 8 mg 11/05/19 10:00 Zofran Injection IVPB 11/05/19 10:01 ONCE ONE Pantoprazole Sodium 40 mg 11/05/19 10:00 Protonix - PO DAILY [facility] Polyethylene Glycol 17 gm 11/05/19 10:00 Miralax (For Daily Use) - PO DAILY [facility] Valacyclovir HCl 500 mg 11/05/19 10:00 Valtrex - PO DAILY [facility] Valsartan 80 mg 11/05/19 10:00 Diovan - PO DAILY [facility] Impression 1. CKD 2. WINSTON 3. hypercalcemia 4. allergic reaction 5. b cell lymphoma 6. htn 7. hld 8. 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
--- NOTE | 2019-11-04 17:22 | PN ---
Teaching Attending Note Name of Resident: Anna More ATTENDING PHYSICIAN STATEMENT I saw and evaluated the patient. I reviewed the resident's note and discussed the case with the resident. I agree with the resident's findings and plan as documented. SUBJECTIVE: Feeling better today after infusion reaction yesterday during Rituxan administration with SOB/wheeze. Denies any ongoing SOB. No abdominal pain. No nausea/vomiting. No further loose stool. No fever/chills. OBJECTIVE: Afebrile, Hemodynamically Stable. Last Vital Signs Temp Pulse Resp BP Pulse Ox 97.6 F 92 H 20 121/77 100 11/04/19 14:00 11/04/19 14:00 11/04/19 14:00 11/04/19 14:00 11/04/19 13:00 HEENT - Atraumatic. Large L supraclavicular/neck mass. No stridor. R sided portacath. Heart - S1, S2, SM Lungs - clear to auscultation Abdomen - Soft, non-tender. Bowel Sounds normal. Extremities - no edema, no calf tenderness. Laboratory Results - last 24 hr 11/03/19 11/04/19 11/04/19 06:00 05:15 05:15 WBC 12.9 H RBC 3.00 L Hgb 9.0 L Hct 27.9 L MCV 93.1 MCH 30.0 MCHC 32.2 RDW 21.0 H Plt Count 181 MPV 7.9 Sodium 143 144 Potassium 4.0 4.7 Chloride 114 H 115 H Carbon Dioxide 21 23 Anion Gap 7 L 6 L BUN 37.2 H 37.8 H Creatinine 1.7 H 1.9 H Est GFR (CKD-EPI)AfAm 30.67 26.81 Est GFR (CKD-EPI)NonAf 26.46 23.13 Random Glucose 64 L 158 H Uric Acid 3.7 3.8 Calcium 9.1 9.2 Phosphorus 3.4 5.1 H Magnesium 2.3 2.3 Total Bilirubin 1.9 H 1.1 H AST 42 H 58 H ALT 49 44 Alkaline Phosphatase 404 H 403 H B-Natriuretic Peptide Total Protein 5.6 L 5.9 L Albumin 2.4 L 2.3 L Vitamin B12 1611 H Serum Folate 19 H 11/04/19 05:15 WBC RBC Hgb Hct MCV MCH MCHC RDW Plt Count MPV Sodium Potassium Chloride Carbon Dioxide Anion Gap BUN Creatinine Est GFR (CKD-EPI)AfAm Est GFR (CKD-EPI)NonAf Random Glucose Uric Acid Calcium Phosphorus Magnesium Total Bilirubin AST ALT Alkaline Phosphatase B-Natriuretic Peptide 7436.0 H Total Protein Albumin Vitamin B12 Serum Folate Current Medications Generic Name Dose Route Start Last Admin Trade Name Freq PRN Reason Stop Dose Admin Albuterol Sulfate 1 amp 11/04/19 14:22 Ventolin 0.083% Nebulizer Soln - NEB Q4H PRN SHORT OF BREATH/WHEEZING Allopurinol 300 mg 11/05/19 10:00 Zyloprim - PO DAILY [facility] Ascorbic Acid 250 mg 11/05/19 10:00 Vitamin C - PO DAILY [facility] Dexamethasone Sodium Phosphate 20 mg 11/05/19 10:00 Decadron Injection - IVPB 11/05/19 10:01 ONCE ONE Diphenhydramine HCl 25 mg 11/05/19 10:00 Benadryl Injection - IVPB 11/05/19 10:01 ONCE ONE Ferrous Sulfate 325 mg 11/04/19 17:30 11/04/19 16:39 Feosol - PO Not Given BIDWM [facility] Fluconazole 100 mg 11/05/19 10:00 Diflucan - PO DAILY [facility] Furosemide 20 mg 11/05/19 10:00 Lasix - PO DAILY [facility] IV Flush 10 ml 11/04/19 14:22 Alxex-Cath Flush IVPUSH PRN PRN Protocol Cyclophosphamide 600 mg/ 530 mls @ 265 mls/hr 11/05/19 10:00 Sodium Chloride IVPB 11/05/19 11:59 ONCE ONE Doxorubicin HCl 20 mg/ Sodium 110 mls @ 220 mls/hr 11/05/19 10:00 Chloride IVPB 11/05/19 10:29 ONCE ONE Vincristine Sulfate 1 mg/ 26 mls @ 156 mls/hr 11/05/19 10:00 Sodium Chloride IVPB 11/05/19 10:09 ONCE ONE Potassium Chloride/Dextrose/Sod Cl 20 meq in 1,000 mls @ 125 mls/hr 11/05/19 10:00 D5-1/2ns+20 Meq Kcl - IV 11/05/19 17:59 ONCE ONE Levothyroxine Sodium 25 mcg 11/05/19 07:00 Synthroid - PO DAILY@0700 [facility] Methylprednisolone Sodium Succinate 40 mg 11/04/19 15:00 11/04/19 14:50 Solu-Medrol - IVPUSH 40 mg Q6H-IV [facility] Administration Metoprolol Succinate 25 mg 11/05/19 10:00 Toprol Xl - PO DAILY [facility] Nitrofurantoin Macrocrystals 100 mg 11/04/19 14:22 Macrodantin - PO ONCE [facility] Ondansetron HCl 8 mg 11/05/19 10:00 Zofran Injection IVPB 11/05/19 10:01 ONCE ONE Pantoprazole Sodium 40 mg 11/05/19 10:00 Protonix - PO DAILY [facility] Polyethylene Glycol 17 gm 11/05/19 10:00 Miralax (For Daily Use) - PO DAILY [facility] Valacyclovir HCl 500 mg 11/05/19 10:00 Valtrex - PO DAILY [facility] Valsartan 80 mg 11/05/19 10:00 Diovan - PO DAILY [facility] Home Medications Medication Instructions Recorded Alprazolam [Xanax] 0.25 mg PO PRN 10/06/18 Levothyroxine [Synthroid -] 25 mcg PO DAILY 10/06/18 Mirtazapine 15 mg PO HS 09/28/19 Candesartan Cilexetil [Atacand 8 mg PO DAILY 10/13/19 (Nf) -] Furosemide [Lasix] 20 mg PO DAILY 10/13/19 Metoprolol Succinate [Toprol Xl -] 25 mg PO DAILY 10/13/19 Allopurinol 300 mg PO DAILY 11/01/19 Pantoprazole Sodium [Protonix] 40 mg PO DAILY 11/01/19 Prednisone 10 mg PO DAILY 11/01/19 ASSESSMENT AND PLAN: 88 year old female with history of HTN, HLD, 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 1. 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 Transferred to ICU for close monitoring due to Rituximab infusion reaction requiring Dexa, Benadryl, Nebs. Currently hemodynamically Stable. Echo - normal EF, LVH, mod AR, 11 x 8cm fluid collection behind atria - found to likely be lymphoma on CT. Given propensity for tumor load to cause elevated uric acid, resumed on Allopurinol. Discontinued prednisone, further management as per Hem/Onc - likely resume CTx 2 /1 Monitor for TLS - will continue to monitor electrolytes, uric acid, creatinine, phosphorus. 2. Hypercalcemia - resolved with IV hydration. If any worsening of Ca level, will consider bisphosphonates. Nephrology following. 3. HTN - continue Metoprolol, Valsartan (substitution for Candesartan) 4. HLD - on Statin 5. Anxiety - Continue Mirtazapine and Xanax PRN. 6. Hypothyroidism - TSH 5.69. Continue Levothyroxine. 7. GERD - continue PPI. 8. Hypophosphatemia/Hypomagnesemia - resolved s/p repletion. 9. Normocytic Anemia - likely multifactorial - sec to chronic disease/malignancy /Iron deficiency. Iron supplementation ongoing. B12/Folate levels wnl. Further management as per Hematology. 10. WINSTON on CKD 3 - nephrology following. Resumed on Lasix as patient has bilateral effusions on CT Chest. Will discuss with Nephrology re: concurrent administration of Lasix and IV fluids 11. 11 x 8 cm fluid filled collection posterior to atria on Echo - found to be mediastinal mass consistent with lymphadenopathy on CT Chest. Further management as per Oncology. 12. Bibasal effusions sec to IV fluid administration for hypercalcemia - no respiratory distress/compromise. Resumed on home Lasix 20mg daily and monitor fluid status closely. Will discuss fluid balance issues with Nephrology. 13. Prior R intracortical nodule not seen on current Renal US - radiology recommends [address] follow up. DVT Px - PPI Code Status - DNR/DNI
--- NOTE | 2019-11-04 17:28 | PN ---
Physical Exam: SUBJECTIVE: Patient seen and examined. Patient had reaction to chemotherapy yesterday and was admitted to ICU for closer monitoring. No distress this morning. Denies SOB, chest pain, abd pain. Speech is slightly tangential. OBJECTIVE: Vital Signs Period Temp Pulse Resp BP Sys/Castelan Pulse Ox Last 24 Hr 96.7 F-97.6 F 75-141 19-135 118-144/59-87 100-100 GENERAL: The patient is awake, alert HEAD: Normal with no signs of trauma. EYES: PERRL ENT: MMM NECK: mass on left side of neck/supraclavicular area. no stridor, carotid bruits LUNGS: Breath sounds equal, clear to auscultation bilaterally, no wheezes, no crackles, no accessory muscle use. HEART: Regular rate and rhythm, S1, S2 without murmur, rub or gallop. ABDOMEN: Soft, nontender, nondistended, normoactive bowel sounds EXTREMITIES: 2+ pulses, warm, well-perfused, no edema. NEUROLOGICAL: AAOx2, no facial droop noted, sensation intact throughout, tangential speech SKIN: Warm, dry Laboratory Results - last 24 hr 11/03/19 11/04/19 11/04/19 06:00 05:15 05:15 WBC 12.9 H RBC 3.00 L Hgb 9.0 L Hct 27.9 L MCV 93.1 MCH 30.0 MCHC 32.2 RDW 21.0 H Plt Count 181 MPV 7.9 Sodium 143 144 Potassium 4.0 4.7 Chloride 114 H 115 H Carbon Dioxide 21 23 Anion Gap 7 L 6 L BUN 37.2 H 37.8 H Creatinine 1.7 H 1.9 H Est GFR (CKD-EPI)AfAm 30.67 26.81 Est GFR (CKD-EPI)NonAf 26.46 23.13 Random Glucose 64 L 158 H Uric Acid 3.7 3.8 Calcium 9.1 9.2 Phosphorus 3.4 5.1 H Magnesium 2.3 2.3 Total Bilirubin 1.9 H 1.1 H AST 42 H 58 H ALT 49 44 Alkaline Phosphatase 404 H 403 H B-Natriuretic Peptide Total Protein 5.6 L 5.9 L Albumin 2.4 L 2.3 L Vitamin B12 1611 H Serum Folate 19 H 11/04/19 05:15 WBC RBC Hgb Hct MCV MCH MCHC RDW Plt Count MPV Sodium Potassium Chloride Carbon Dioxide Anion Gap BUN Creatinine Est GFR (CKD-EPI)AfAm Est GFR (CKD-EPI)NonAf Random Glucose Uric Acid Calcium Phosphorus Magnesium Total Bilirubin AST ALT Alkaline Phosphatase B-Natriuretic Peptide 7436.0 H Total Protein Albumin Vitamin B12 Serum Folate Active Medications Generic Name Dose Route Start Last Admin Trade Name Freq PRN Reason Stop Dose Admin Albuterol Sulfate 1 amp 11/04/19 14:22 Ventolin 0.083% Nebulizer Soln - NEB Q4H PRN SHORT OF BREATH/WHEEZING Allopurinol 300 mg 11/05/19 10:00 Zyloprim - PO DAILY [facility] Ascorbic Acid 250 mg 11/05/19 10:00 Vitamin C - PO DAILY [facility] Dexamethasone Sodium Phosphate 20 mg 11/05/19 10:00 Decadron Injection - IVPB 11/05/19 10:01 ONCE ONE Diphenhydramine HCl 25 mg 11/05/19 10:00 Benadryl Injection - IVPB 11/05/19 10:01 ONCE ONE Ferrous Sulfate 325 mg 11/04/19 17:30 11/04/19 16:39 Feosol - PO Not Given BIDWM [facility] Fluconazole 100 mg 11/05/19 10:00 Diflucan - PO DAILY [facility] Furosemide 20 mg 11/05/19 10:00 Lasix - PO DAILY [facility] IV Flush 10 ml 11/04/19 14:22 Alexx-Cath Flush IVPUSH PRN PRN Protocol Cyclophosphamide 600 mg/ 530 mls @ 265 mls/hr 11/05/19 10:00 Sodium Chloride IVPB 11/05/19 11:59 ONCE ONE Doxorubicin HCl 20 mg/ Sodium 110 mls @ 220 mls/hr 11/05/19 10:00 Chloride IVPB 11/05/19 10:29 ONCE ONE Vincristine Sulfate 1 mg/ 26 mls @ 156 mls/hr 11/05/19 10:00 Sodium Chloride IVPB 11/05/19 10:09 ONCE ONE Potassium Chloride/Dextrose/Sod Cl 20 meq in 1,000 mls @ 125 mls/hr 11/05/19 10:00 D5-1/2ns+20 Meq Kcl - IV 11/05/19 17:59 ONCE ONE Levothyroxine Sodium 25 mcg 11/05/19 07:00 Synthroid - PO DAILY@0700 [facility] Methylprednisolone Sodium Succinate 40 mg 11/04/19 15:00 11/04/19 14:50 Solu-Medrol - IVPUSH 40 mg Q6H-IV [facility] Administration Metoprolol Succinate 25 mg 11/05/19 10:00 Toprol Xl - PO DAILY [facility] Nitrofurantoin Macrocrystals 100 mg 11/04/19 14:22 Macrodantin - PO ONCE [facility] Ondansetron HCl 8 mg 11/05/19 10:00 Zofran Injection IVPB 11/05/19 10:01 ONCE ONE Pantoprazole Sodium 40 mg 11/05/19 10:00 Protonix - PO DAILY [facility] Polyethylene Glycol 17 gm 11/05/19 10:00 Miralax (For Daily Use) - PO DAILY [facility] Valacyclovir HCl 500 mg 11/05/19 10:00 Valtrex - PO DAILY [facility] Valsartan 80 mg 11/05/19 10:00 Diovan - PO DAILY [facility] ASSESSMENT/PLAN: 88 y/o/f with PMHx of 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 #High grade diffuse large B cell lymphoma - IR placed chemo-port on 11/03 - patient had reaction to R-CHOP on 11/03 with worsening O2 saturation, wheezing -> admitted to ICU for closer monitoring -> this morning without any respiratory distress - started on solu-medrol 40mg IV Q6H -> discuss with pulm regarding taper - Patient to go for alternative chemo tomorrow, will continue to monitor - Allopurinol 300mg daily - Heme/Onc consulted - Echo - EF 55%, LVH, 11 x 8cm fluid collection behind atria - found to likely be lymphoma on chest CT - CT Chest: moderate R pl effusion, lower lobe atelectasis. small L pl effusion & basilar atelectasis. Mediastinal mass post to R atrum likely lymphadenopathy. additional upper abdominal adenopathy & hepatosplenomegaly - Cardiology consulted (Dr. Lundberg), appreciate recs - Speech/Swallow eval - regular diet with nectar thick liquids recommended #Elevated BNP - Dr. Hubbard Cardiology states pt has global CHF in previous echo - ECHO on this admission - EF 55% - BNP- 1695 on admission -> now 7436 - Lasix 20mg daily - Patient also on D5 10/06 NS + 20meq KCl as per heme/onc starting on 11/05 - appreciate Nephro recs regarding fluids vs. lasix #WINSTON on ? CKD - pt likely pre-renal 2/2 poor po intake, pt endorses poor appetite - Cr worsening - FeNa <1% - Nephrology consulted (Dr. Broussard) #Hypercalcemia - Ca corrected for albumin at 10.6 - Enforce calcium restricted diet (<400mg/day), will hold bowel regimen if continues to have soft stools. #HTN - Metoprolol succinate 25mg daily - valsartan (substitute for cadesartan) - patient on Cadesartan 8mg daily at home as per pharmacy #HLD - patient not on a statin at home as per pharmacy #Hypothyroid - Synthroid 25mg daily #Anxiety disorder - slightly anxious, provide reassurance - On Xanax 0.25mg PRN at home, can give if needed #Hypothyroidism - Synthroid 25mg daily #GERD - Protonix #Prophylaxis - Heparin #FEN - fat/sodium controlled diet - monitor and replete lytes as needed - sodium restricted diet #Disposition - Patient to receive alternative chemo tomorrow, will monitor for adverse reaction Visit type - Emergency Visit Emergency Visit: Yes ED Registration Date: 11/01/19 Care time: The patient presented to the Emergency Department on the above date and was hospitalized for further evaluation of their emergent condition. - New Patient This patient is new to me today: Yes Date on this admission: 11/04/19 - Critical Care Critical Care patient: No ATTENDING PHYSICIAN STATEMENT I saw and evaluated the patient. I reviewed the resident's note and discussed the case with the resident. I agree with the resident's findings and plan as documented. SUBJECTIVE: OBJECTIVE: ASSESSMENT AND PLAN:
--- NOTE | 2019-11-04 18:32 | PN ---
Progress Note (short form) - Note Progress Note: 88 year-old female known case of lymphoma,hypercalcemia, hypertension, hypertensive cardiovascular disease, history of left ventricular systolic and diastolic dysfunction, history of congestive heart failure. Aortic valvular disease with aortic regurgitation probably severe. History of iatrogenic hypothyroidism.History of anemia and severe anxiety disorder and possibly depression. patient received parenteral Rituxinand developed severe reaction which included chills,wheezing,confusion, sinus tachycardia and shortness of breath etc. she was transferred to the CCU. She slowly recovered and is resting comfortably.There is no shortness of breath, chest pain or discomfort or wheezing reported.she appears hemodynamically stable. Active Medications Generic Name Dose Route Start Last Admin Trade Name Freq PRN Reason Stop Dose Admin Albuterol Sulfate 1 amp 11/04/19 14:22 Ventolin 0.083% Nebulizer Soln - NEB Q4H PRN SHORT OF BREATH/WHEEZING Allopurinol 300 mg 11/05/19 10:00 Zyloprim - PO DAILY [facility] Ascorbic Acid 250 mg 11/05/19 10:00 Vitamin C - PO DAILY [facility] Dexamethasone Sodium Phosphate 20 mg 11/05/19 10:00 Decadron Injection - IVPB 11/05/19 10:01 ONCE ONE Diphenhydramine HCl 25 mg 11/05/19 10:00 Benadryl Injection - IVPB 11/05/19 10:01 ONCE ONE Ferrous Sulfate 325 mg 11/04/19 17:30 11/04/19 16:39 Feosol - PO Not Given BIDWM [facility] Fluconazole 100 mg 11/05/19 10:00 Diflucan - PO DAILY [facility] Furosemide 20 mg 11/05/19 10:00 Lasix - PO DAILY [facility] Heparin Sodium (Porcine) 5,000 unit 11/05/19 10:00 Heparin - SQ TID [facility] IV Flush 10 ml 11/04/19 14:22 Aelxx-Cath Flush IVPUSH PRN PRN Protocol Cyclophosphamide 600 mg/ 530 mls @ 265 mls/hr 11/05/19 10:00 Sodium Chloride IVPB 11/05/19 11:59 ONCE ONE Doxorubicin HCl 20 mg/ Sodium 110 mls @ 220 mls/hr 11/05/19 10:00 Chloride IVPB 11/05/19 10:29 ONCE ONE Vincristine Sulfate 1 mg/ 26 mls @ 156 mls/hr 02/01/20 10:00 Sodium Chloride IVPB 11/05/19 10:09 ONCE ONE Potassium Chloride/Dextrose/Sod Cl 20 meq in 1,000 mls @ 125 mls/hr 11/05/19 10:00 D5-1/2ns+20 Meq Kcl - IV 11/05/19 17:59 ONCE ONE Levothyroxine Sodium 25 mcg 11/05/19 07:00 Synthroid - PO DAILY@0700 [facility] Methylprednisolone Sodium Succinate 40 mg 11/04/19 15:00 11/04/19 14:50 Solu-Medrol - IVPUSH 40 mg Q6H-IV [facility] Administration Metoprolol Succinate 25 mg 11/05/19 10:00 Toprol Xl - PO DAILY [facility] Nitrofurantoin Macrocrystals 100 mg 11/04/19 14:22 Macrodantin - PO ONCE [facility] Ondansetron HCl 8 mg 11/05/19 10:00 Zofran Injection IVPB 11/05/19 10:01 ONCE ONE Pantoprazole Sodium 40 mg 11/05/19 10:00 Protonix - PO DAILY [facility] Polyethylene Glycol 17 gm 11/05/19 10:00 Miralax (For Daily Use) - PO DAILY [facility] Valacyclovir HCl 500 mg 11/05/19 10:00 Valtrex - PO DAILY [facility] Valsartan 80 mg 11/05/19 10:00 Diovan - PO DAILY [facility] Last Vital Signs Temp Pulse Resp BP Pulse Ox 97.6 F 92 H 20 121/77 100 11/04/19 14:00 11/04/19 14:00 11/04/19 14:00 11/04/19 14:00 11/04/19 13:00 Neck: Supple, no JVD, slightly positive hepatojugular reflux. carotids were 2+, upstrokes were normal, no bruits were appreciated. Large left submandibular lymphadenopathy. Well-healed anterior surgical scar. Heart: PMI was in the fifth intercostal space, no heaves or thrills, S1 and S2 were normal. Grade 2/6 ejection systolic murmur was heard at the second right intercostal space, a grade 1/6 apical systolic murmur.? Early diastolic murmur along the lower left sternal border in held expiration. No gallops were heard. Lungs: fine bilateral scattered crepitation, more pronounced at the bases. Abdomen: Soft, protuberant and nontender. No hepatosplenomegaly was appreciated no palpable masses were felt. Extremities: No calf tenderness or dependent edema. Impression: 1. Adverse side effect to Rituxan 2. History of left ventricular systolic and diastolic dysfunction. 3. Hypertension, hypertensive cardiovascular disease. 4. Lymphoma. 5. Hypercalcemia. 6. Chronic kidney disease. 7. Aortic valvular disease with aortic regurgitation. 8. Sinus tachycardia appears to be multifocal in etiology. 9. History of anxiety disorder/depression. Recommendations: 1. Continue currentcardiac therapy. therapy. 2. follow-up ECG. 3. BNP. 4. Follow-up chest x-ray. Chun Lundberg MD
[2019-11-04] MEDS ORDERED: CHLORHEXIDINE GLUCONATE 4% CLEANSER FOR DECOLONIZATION TP SCH (22:00)
[2019-11-04] MEDS ORDERED: MUPIROCIN 2% TOPICAL OINTMENT FOR DECOLONIZATION NS SCH (22:00)
[2019-11-05] MEDS: methylPREDNISolone NA SUCC 40 MG/1 ML VIAL IVPUSH SCH ×2 (02:23→10:34)
[2019-11-05] MEDS: PORTA CATH FLUSH 10 ML IVPUSH PRN (06:13)
[2019-11-05] MEDS: LEVOTHYROXINE NA 25 MCG TABLET (FP) PO SCH (06:13)
[2019-11-05 07:30] LABS: BASO % 0.3 % (0-2.0); HEMATOCRIT 27.5 % (32.4-45.2); HEMOGLOBIN 8.9 GM/dL (10.7-15.3); LYMPH % 4.7 % (8-40); MCHC 32.4 g/dl (32.0-36.0); MEAN CELL VOLUME 92.5 fl (80-96); MEAN PLT VOLUME 8.2 fl (7.5-11.1); MONO % 3.6 % (3.8-10.2); NEUT % 91.4 % (42.8-82.8); PLATELET COUNT 219 K/MM3 (134-434); RBC 2.97 M/mm3 (3.60-5.2); RDW 21.4 % (11.6-15.6); WHITE BLOOD COUNT 13.5 K/mm3 (4.0-10.0)
[2019-11-05 08:32] LABS: ALBUMIN 2.3 g/dl (3.4-5.0); BILIRUBIN,TOTAL 0.7 mg/dL (0.2-1); BLOOD UREA NITROGEN 56.2 mg/dL (7-18); CALCIUM 9.1 mg/dL (8.5-10.1); CREATININE 1.9 mg/dL (0.55-1.3); MAGNESIUM 2.4 mg/dL (1.8-2.4); PHOSPHOROUS 3.9 mg/dL (2.5-4.9); POTASSIUM 4.7 mmol/L (3.5-5.1); TOT PROT 5.6 g/dl (6.4-8.2); URIC ACID 4.1 mg/dL (2.6-7.2)
--- NOTE | 2019-11-05 09:48 | PN ---
Progress Note (short form) - Note Progress Note: Renal follow up for CKD Seen and examined at the bedside awake and alert reports feeling fatigued no shortness of breath, chest pain making urine Vital Signs Temperature 97.4 F L 11/05/19 06:03 Pulse Rate 80 11/05/19 06:03 Respiratory Rate 20 11/05/19 08:33 Blood Pressure 131/74 11/05/19 06:03 O2 Sat by Pulse Oximetry (%) 97 11/05/19 08:33 Intake & Output 11/02/19 11/03/19 11/04/19 11/05/19 23:59 23:59 23:59 23:59 Intake Total 400 1274 1030 Balance 400 1274 1030 Weight 56.926 kg 55.701 kg 55.338 kg 56.88 kg NAD awake and alert neck supple RRR CTA, dec BS at lung bases soft NT/ND no LE edema CBC, BMP 11/05/19 06:45 11/05/19 06:45 Current Medications Albuterol Sulfate (Ventolin 0.083% Nebulizer Soln -) 1 amp NEB Q4H PRN PRN Reason: SHORT OF BREATH/WHEEZING Allopurinol (Zyloprim -) 300 mg PO DAILY [facility] Ascorbic Acid (Vitamin C -) 250 mg PO DAILY [facility] Dexamethasone Sodium Phosphate (Decadron Injection -) 20 mg IVPB ONCE ONE Stop: 11/05/19 10:01 Diphenhydramine HCl (Benadryl Injection -) 25 mg IVPB ONCE ONE Stop: 11/05/19 10:01 Ferrous Sulfate (Feosol -) 325 mg PO BIDWM [facility] Last Admin: 11/04/19 16:39 Dose: Not Given Fluconazole (Diflucan -) 100 mg PO DAILY [facility] Furosemide (Lasix -) 20 mg PO DAILY [facility] Heparin Sodium (Porcine) (Heparin -) 5,000 unit SQ TID [facility] IV Flush (Alexx-Cath Flush) 10 ml IVPUSH PRN PRN PRN Reason: Protocol Last Admin: 11/05/19 06:13 Dose: 10 ml Cyclophosphamide 600 mg/ (Sodium Chloride) 530 mls @ 265 mls/hr IVPB ONCE ONE Stop: 11/05/19 11:59 Doxorubicin HCl 20 mg/ Sodium (Chloride) 110 mls @ 220 mls/hr IVPB ONCE ONE Stop: 11/05/19 10:29 Vincristine Sulfate 1 mg/ (Sodium Chloride) 26 mls @ 156 mls/hr IVPB ONCE ONE Stop: 11/05/19 10:09 Potassium Chloride/Dextrose/Sod Cl (D5-1/2ns+20 Meq Kcl -) 20 meq in 1,000 mls @ 125 mls/hr IV ONCE ONE Stop: 11/05/19 17:59 Levothyroxine Sodium (Synthroid -) 25 mcg PO DAILY@0700 [facility] Last Admin: 11/05/19 06:13 Dose: 25 mcg Methylprednisolone Sodium Succinate (Solu-Medrol -) 40 mg IVPUSH Q6H-IV [facility] Last Admin: 11/05/19 02:23 Dose: 40 mg Metoprolol Succinate (Toprol Xl -) 25 mg PO DAILY [facility] Nitrofurantoin Macrocrystals (Macrodantin -) 100 mg PO ONCE [facility] Ondansetron HCl (Zofran Injection) 8 mg IVPB ONCE ONE Stop: 11/05/19 10:01 Pantoprazole Sodium (Protonix -) 40 mg PO DAILY [facility] Polyethylene Glycol (Miralax (For Daily Use) -) 17 gm PO DAILY [facility] Valacyclovir HCl (Valtrex -) 500 mg PO DAILY [facility] Impression 1. CKD 2. WINSTON 3. hypercalcemia 4. allergic reaction 5. b cell lymphoma 6. htn 7. hld 8. pleural effusions Plan Renal function stable, no improvement as of yet off standing IVF because of effusions seen on CT scan can give fluids as need per chemo infusion protocol with monitoring of respiratory status PRN Lasix as needed no overt electrolyte or acid/base disturbances noted Oncology follow up Thank you Oscar Harley DO
[2019-11-05] MEDS ORDERED: CYCLOPHOSPHAMIDE IVPB ONE ×2 (10:00→13:45)
[2019-11-05] MEDS ORDERED: D5-1/2NS+20 MEQ KCL - 20 MEQ/1,000 ML INFUS.BAG IV ONE (10:00)
[2019-11-05] MEDS ORDERED: ONDANSETRON 4 MG/2 ML VIAL IVPB ONE ×2 (10:00→14:30)
[2019-11-05] MEDS ORDERED: VALSARTAN 80 MG TABLET (UD) PO SCH (10:00)
[2019-11-05] MEDS ORDERED: DOXORUBICIN HCL IVPB ONE ×2 (10:00→13:45)
[2019-11-05] MEDS ORDERED: DEXAMETHASONE SOD PHOSPHATE 10 MG/1 ML VIAL IVPB ONE ×2 (10:00→14:30)
[2019-11-05] MEDS ORDERED: vinCRIStine SULFATE 1 MG in SODIUM CHLORIDE 25 ML IVPB ONE ×2 (10:00→13:15)
[2019-11-05] MEDS ORDERED: SODIUM CHLORIDE IVPB ONE ×4 (10:00→13:45)
[2019-11-05] MEDS ORDERED: PT OWN MED DRAWER 7, Y5N ONE (10:31)
[2019-11-05] MEDS: ALLOPURINOL 300 MG TABLET (FP) PO SCH (10:41)
[2019-11-05] MEDS: PANTOPRAZOLE 40 MG TABLET PO SCH (10:42)
[2019-11-05] MEDS: valACYclovir HCL 500 MG TABLET (FP) PO SCH (10:42)
[2019-11-05] MEDS: FERROUS SO4 325 MG TABLET (FP) PO SCH ×2 (10:45→16:34)
[2019-11-05] MEDS: FUROSEMIDE 20 MG TABLET (FP) PO SCH (10:46)
[2019-11-05] MEDS: ASCORBIC ACID 250 MG TABLET (FP) PO SCH (10:46)
[2019-11-05] MEDS: FLUCONAZOLE 100 MG TABLET (UD) PO SCH (10:46)
[2019-11-05] MEDS: HEPARIN NA (PORCINE) 5,000 UNITS/ML 1ML VIAL SQ SCH ×3 (10:46→21:52)
[2019-11-05] MEDS: metoPROLOL SUCCINATE 25 MG TAB.SR.24H (FP) PO SCH (10:46)
[2019-11-05] MEDS: POLYETHYLENE GLYCOL 3350 119 GM BTL PO SCH (10:48)
[2019-11-05 11:38] LABS: ANISOCYTOSIS 2+; MACROCYTOSIS 0; OVALOCYTE 1+; PLATELET ESTIMATE NORMAL; TEAR DROP CELLS 1+
[2019-11-05] MEDS: ALBUTEROL SO4 0.083% IH SOL 2.5 MG/3 ML VIAL.NEB. NEB PRN (11:38)
--- NOTE | 2019-11-05 12:16 | PN ---
Physical Exam: SUBJECTIVE: Patient seen and examined at bedside. No acute events, only complaining of cough (dry). Would like to know when and if she will have chemo today. OBJECTIVE: Vital Signs Period Temp Pulse Resp BP Sys/Castelan Pulse Ox Last 24 Hr 97.4 F-98.2 F 70-105 18-22 111-131/64-79 97-100 GENERAL: The patient is awake, alert, and fully oriented, in no acute distress. NECK: left side of neck mobile mass stable, port in place , supple. LUNGS: Breath sounds equal, clear to auscultation bilaterally, no wheezes, no crackles, no accessory muscle use. HEART: Regular rate and rhythm, S1, S2 without murmur, rub or gallop. ABDOMEN: Soft, nontender, mild distention, non-tympanitic. EXTREMITIES: 2+ pulses, warm, well-perfused, no edema. PSYCH: depressed mood SKIN: Warm, dry, no rashes or lesions noted Laboratory Results - last 24 hr 11/05/19 11/05/19 06:45 06:45 WBC 13.5 H RBC 2.97 L Hgb 8.9 L Hct 27.5 L MCV 92.5 MCH 30.0 MCHC 32.4 RDW 21.4 H Plt Count 219 D MPV 8.2 Absolute Neuts (auto) 12.4 H Neutrophils % 91.4 H D Neutrophils % (Manual) 92.1 H Band Neutrophils % 4.9 Lymphocytes % 4.7 L D Lymphocytes % (Manual) 2.0 L D Monocytes % 3.6 L D Monocytes % (Manual) 1 L Eosinophils % 0.0 D Eosinophils % (Manual) 0.0 D Basophils % 0.3 Basophils % (Manual) 0.0 Myelocytes % (Man) 0 D Promyelocytes % (Man) 0 Blast Cells % (Manual) 0 D Nucleated RBC % 0 Metamyelocytes 0 Hypochromia 0 Platelet Estimate Normal Polychromasia 0 Poikilocytosis 1+ Anisocytosis 2+ Microcytosis 1+ Macrocytosis 0 Tear Drop Cells 1+ Ovalocytes 1+ Riri Cells 2+ Schistocytes 1+ Sodium 143 Potassium 4.7 Chloride 115 H Carbon Dioxide 22 Anion Gap 6 L BUN 56.2 H Creatinine 1.9 H Est GFR (CKD-EPI)AfAm 26.81 Est GFR (CKD-EPI)NonAf 23.13 Random Glucose 127 H Uric Acid 4.1 Calcium 9.1 Phosphorus 3.9 Magnesium 2.4 Total Bilirubin 0.7 AST 30 ALT 34 Alkaline Phosphatase 365 H LD Total 608 H Total Protein 5.6 L Albumin 2.3 L Active Medications Generic Name Dose Route Start Last Admin Trade Name Freq PRN Reason Stop Dose Admin Albuterol Sulfate 1 amp 11/04/19 14:22 11/05/19 11:38 Ventolin 0.083% Nebulizer Soln - NEB 1 amp Q4H PRN Administration SHORT OF BREATH/WHEEZING Allopurinol 300 mg 11/05/19 10:00 11/05/19 10:41 Zyloprim - PO 300 mg DAILY [facility] Administration Alprazolam 0.25 mg 11/05/19 09:53 Xanax - PO BID PRN ANXIETY Ascorbic Acid 250 mg 11/05/19 10:00 11/05/19 10:46 Vitamin C - PO 250 mg DAILY [facility] Administration Ferrous Sulfate 325 mg 11/04/19 17:30 11/05/19 10:45 Feosol - PO 325 mg BIDWM [facility] Administration Fluconazole 100 mg 11/05/19 10:00 11/05/19 10:46 Diflucan - PO 100 mg DAILY [facility] Administration Furosemide 20 mg 11/05/19 10:00 11/05/19 10:46 Lasix - PO 20 mg DAILY [facility] Administration Guaifenesin 10 ml 11/05/19 11:43 Robitussin - PO HS PRN COUGH Heparin Sodium (Porcine) 5,000 unit 11/05/19 10:00 11/05/19 10:46 Heparin - SQ 5,000 unit TID [facility] Administration IV Flush 10 ml 11/04/19 14:22 11/05/19 06:13 Alexx-Cath Flush IVPUSH 10 ml PRN PRN Administration Protocol Potassium Chloride/Dextrose/Sod Cl 20 meq in 1,000 mls @ 125 mls/hr 11/05/19 10:00 D5-1/2ns+20 Meq Kcl - IV 11/05/19 17:59 ONCE ONE Levothyroxine Sodium 25 mcg 11/05/19 07:00 11/05/19 06:13 Synthroid - PO 25 mcg DAILY@0700 [facility] Administration Metoprolol Succinate 25 mg 11/05/19 10:00 11/05/19 10:46 Toprol Xl - PO 25 mg DAILY [facility] Administration Mirtazapine 15 mg 11/05/19 22:00 Remeron - PO HS [facility] Nitrofurantoin Macrocrystals 100 mg 11/04/19 14:22 Macrodantin - PO ONCE [facility] Pantoprazole Sodium 40 mg 11/05/19 10:00 11/05/19 10:42 Protonix - PO 40 mg DAILY [facility] Administration Polyethylene Glycol 17 gm 11/05/19 10:00 11/05/19 10:48 Miralax (For Daily Use) - PO Not Given DAILY [facility] Valacyclovir HCl 500 mg 11/05/19 10:00 11/05/19 10:42 Valtrex - PO 500 mg DAILY [facility] Administration ASSESSMENT/PLAN: 88 y/o/f with PMHx of 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 #High grade diffuse large B cell lymphoma - patient stable after reaction from chemo - discontinued solumedrol - Patient to go for alternative chemo today, if onc is okay with labs, will continue to monitor - Allopurinol 300mg daily - Heme/Onc consulted - Echo - EF 55%, LVH, 11 x 8cm fluid collection behind atria - found to likely be lymphoma on chest CT - CT Chest: moderate R pl effusion, lower lobe atelectasis. small L pl effusion & basilar atelectasis. Mediastinal mass post to R atrum likely lymphadenopathy. additional upper abdominal adenopathy & hepatosplenomegaly - Cardiology consulted (Dr. Lundberg), can give lasix prn with gentle hydration for WINSTON to allow chemo to be given. - Speech/Swallow eval - regular diet with nectar thick liquids recommended #Elevated BNP - Dr. Hubbard Cardiology states pt has global CHF in previous echo - ECHO on this admission - EF 55% - BNP- 1695 on admission -> now 7436 - Lasix 20mg daily - Patient also on D5 1/2 NS + 20meq KCl as per heme/onc starting on 11/05 - appreciate Nephro recs regarding fluids vs. lasix #WINSTON on ? CKD - pt likely pre-renal 2/2 poor po intake, pt endorses poor appetite - Cr worsening - FeNa <1% - Nephrology consulted (Dr. Broussard) #Hypercalcemia - improved, stable - Enforce calcium restricted diet (<400mg/day), will hold bowel regimen if continues to have soft stools. #HTN - Metoprolol succinate 25mg daily - d/c'd valsartan given Cr. - patient on Cadesartan 8mg daily at home as per pharmacy #HLD - patient not on a statin at home as per pharmacy #Hypothyroid - Synthroid 25mg daily #Anxiety disorder - slightly anxious, provide reassurance - On Xanax 0.25mg PRN at home, remeron restarted as well #GERD - Protonix #Prophylaxis - Heparin 5BID #FEN - fat/sodium controlled diet - monitor and replete lytes as needed - sodium restricted diet Visit type - Emergency Visit Emergency Visit: Yes ED Registration Date: 11/01/19 Care time: The patient presented to the Emergency Department on the above date and was hospitalized for further evaluation of their emergent condition. - New Patient This patient is new to me today: No - Critical Care Critical Care patient: No - Discharge Referral Referred to [facility] No ATTENDING PHYSICIAN STATEMENT I saw and evaluated the patient. I reviewed the resident's note and discussed the case with the resident. I agree with the resident's findings and plan as documented. SUBJECTIVE: OBJECTIVE: ASSESSMENT AND PLAN:
--- NOTE | 2019-11-05 12:27 | PN ---
Progress Note (short form) - Note Progress Note: Seen in follow up. No events overnight. Patient drowsy but rousable. Without complaints, but clearly anxious. Inpatient meds reviewed: Current Medications Albuterol Sulfate (Ventolin 0.083% Nebulizer Soln -) 1 amp NEB Q4H PRN PRN Reason: SHORT OF BREATH/WHEEZING Last Admin: 11/05/19 11:38 Dose: 1 amp Allopurinol (Zyloprim -) 300 mg PO DAILY [facility] Last Admin: 11/05/19 10:41 Dose: 300 mg Alprazolam (Xanax -) 0.25 mg PO BID PRN PRN Reason: ANXIETY Ascorbic Acid (Vitamin C -) 250 mg PO DAILY [facility] Last Admin: 11/05/19 10:46 Dose: 250 mg Ferrous Sulfate (Feosol -) 325 mg PO BIDWM [facility] Last Admin: 11/05/19 10:45 Dose: 325 mg Fluconazole (Diflucan -) 100 mg PO DAILY [facility] Last Admin: 11/05/19 10:46 Dose: 100 mg Furosemide (Lasix -) 20 mg PO DAILY [facility] Last Admin: 11/05/19 10:46 Dose: 20 mg Guaifenesin (Robitussin -) 10 ml PO HS PRN PRN Reason: COUGH Heparin Sodium (Porcine) (Heparin -) 5,000 unit SQ TID [facility] Last Admin: 11/05/19 10:46 Dose: 5,000 unit IV Flush (Alexx-Cath Flush) 10 ml IVPUSH PRN PRN PRN Reason: Protocol Last Admin: 11/05/19 06:13 Dose: 10 ml Potassium Chloride/Dextrose/Sod Cl (D5-1/2ns+20 Meq Kcl -) 20 meq in 1,000 mls @ 125 mls/hr IV ONCE ONE Stop: 11/05/19 17:59 Levothyroxine Sodium (Synthroid -) 25 mcg PO DAILY@0700 [facility] Last Admin: 11/05/19 06:13 Dose: 25 mcg Metoprolol Succinate (Toprol Xl -) 25 mg PO DAILY [facility] Last Admin: 11/05/19 10:46 Dose: 25 mg Mirtazapine (Remeron -) 15 mg PO HS [facility] Nitrofurantoin Macrocrystals (Macrodantin -) 100 mg PO ONCE [facility] Pantoprazole Sodium (Protonix -) 40 mg PO DAILY [facility] Last Admin: 11/05/19 10:42 Dose: 40 mg Polyethylene Glycol (Miralax (For Daily Use) -) 17 gm PO DAILY [facility] Last Admin: 11/05/19 10:48 Dose: Not Given Valacyclovir HCl (Valtrex -) 500 mg PO DAILY [facility] Last Admin: 11/05/19 10:42 Dose: 500 mg On Examination: Last Vital Signs Temp Pulse Resp BP Pulse Ox 97.7 F 105 H 18 121/79 97 11/05/19 10:00 11/05/19 10:00 11/05/19 10:00 11/05/19 10:00 11/05/19 08:33 General: In no acute distress, supine in bed. Extremities: No pallor or icterus. No pedal edema. Chest: breathing comfortably CVS: S1. S2, no gallop or murmur Abdomen: non-distended Neuro: Oriented, non-focal. Labs: CBC, BMP 11/05/19 06:45 11/05/19 06:45 Assessment. 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 Admitted for R-CHOP, but had severe reaction to Rituxan, requiring of infusion and admission to ICU. Now improved from above, and today will received modified CHOP. Consent obtained. Family's and patient's questions addressed. Calcium normal this morning. Close monitoring.
--- NOTE | 2019-11-05 13:40 | PN ---
Teaching Attending Note Name of Resident: Helio Luciano ATTENDING PHYSICIAN STATEMENT I saw and evaluated the patient. I reviewed the resident's note and discussed the case with the resident. I agree with the resident's findings and plan as documented. SUBJECTIVE: Feeling well today. Denies any ongoing SOB/wheeze. No abdominal pain. No nausea/vomiting. No further loose stool. No fever/chills. Tolerating oral intake. OBJECTIVE: Afebrile, Hemodynamically Stable. Last Vital Signs Temp Pulse Resp BP Pulse Ox 97.7 F 105 H 18 121/79 97 11/05/19 10:11/05/19 10:00 11/05/19 10:11/05/19 10:11/05/19 08:33 HEENT - Atraumatic. Large L supraclavicular/neck mass. No stridor. R sided portacath. Heart - S1, S2, SM Lungs - clear to auscultation, decreased at bases. Abdomen - Soft, non-tender. Bowel Sounds normal. Extremities - no edema, no calf tenderness. Laboratory Results - last 24 hr 11/05/19 11/05/19 06:45 06:45 WBC 13.5 H RBC 2.97 L Hgb 8.9 L Hct 27.5 L MCV 92.5 MCH 30.0 MCHC 32.4 RDW 21.4 H Plt Count 219 D MPV 8.2 Absolute Neuts (auto) 12.4 H Neutrophils % 91.4 H D Neutrophils % (Manual) 92.1 H Band Neutrophils % 4.9 Lymphocytes % 4.7 L D Lymphocytes % (Manual) 2.0 L D Monocytes % 3.6 L D Monocytes % (Manual) 1 L Eosinophils % 0.0 D Eosinophils % (Manual) 0.0 D Basophils % 0.3 Basophils % (Manual) 0.0 Myelocytes % (Man) 0 D Promyelocytes % (Man) 0 Blast Cells % (Manual) 0 D Nucleated RBC % 0 Metamyelocytes 0 Hypochromia 0 Platelet Estimate Normal Polychromasia 0 Poikilocytosis 1+ Anisocytosis 2+ Microcytosis 1+ Macrocytosis 0 Tear Drop Cells 1+ Ovalocytes 1+ Riri Cells 2+ Schistocytes 1+ Sodium 143 Potassium 4.7 Chloride 115 H Carbon Dioxide 22 Anion Gap 6 L BUN 56.2 H Creatinine 1.9 H Est GFR (CKD-EPI)AfAm 26.81 Est GFR (CKD-EPI)NonAf 23.13 Random Glucose 127 H Uric Acid 4.1 Calcium 9.1 Phosphorus 3.9 Magnesium 2.4 Total Bilirubin 0.7 AST 30 ALT 34 Alkaline Phosphatase 365 H LD Total 608 H Total Protein 5.6 L Albumin 2.3 L Current Medications Generic Name Dose Route Start Last Admin Trade Name Freq PRN Reason Stop Dose Admin Albuterol Sulfate 1 amp 11/04/19 14:22 11/05/19 11:38 Ventolin 0.083% Nebulizer Soln - NEB 1 amp Q4H PRN Administration SHORT OF BREATH/WHEEZING Allopurinol 300 mg 11/05/19 10:00 11/05/19 10:41 Zyloprim - PO 300 mg DAILY [facility] Administration Alprazolam 0.25 mg 11/05/19 09:53 Xanax - PO BID PRN ANXIETY Ascorbic Acid 250 mg 11/05/19 10:00 11/05/19 10:46 Vitamin C - PO 250 mg DAILY [facility] Administration Ferrous Sulfate 325 mg 11/04/19 17:30 11/05/19 10:45 Feosol - PO 325 mg BIDWM [facility] Administration Fluconazole 100 mg 11/05/19 10:00 11/05/19 10:46 Diflucan - PO 100 mg DAILY [facility] Administration Furosemide 20 mg 11/05/19 10:00 11/05/19 10:46 Lasix - PO 20 mg DAILY [facility] Administration Guaifenesin 10 ml 11/05/19 11:43 Robitussin - PO HS PRN COUGH Heparin Sodium (Porcine) 5,000 unit 11/05/19 10:00 11/05/19 10:46 Heparin - SQ 5,000 unit TID [facility] Administration IV Flush 10 ml 11/04/19 14:22 11/05/19 06:13 Alexx-Cath Flush IVPUSH 10 ml PRN PRN Administration Protocol Potassium Chloride/Dextrose/Sod Cl 20 meq in 1,000 mls @ 125 mls/hr 11/05/19 10:00 D5-1/2ns+20 Meq Kcl - IV 11/05/19 17:59 ONCE ONE Cyclophosphamide 600 mg/ 530 mls @ 265 mls/hr 11/05/19 13:45 Sodium Chloride IVPB 11/05/19 15:44 ONCE ONE Doxorubicin HCl 20 mg/ Sodium 110 mls @ 220 mls/hr 11/05/19 13:45 Chloride IVPB 11/05/19 14:14 ONCE ONE Levothyroxine Sodium 25 mcg 11/05/19 07:00 11/05/19 06:13 Synthroid - PO 25 mcg DAILY@0700 [facility] Administration Metoprolol Succinate 25 mg 11/05/19 10:00 11/05/19 10:46 Toprol Xl - PO 25 mg DAILY [facility] Administration Mirtazapine 15 mg 11/05/19 22:00 Remeron - PO HS [facility] Nitrofurantoin Macrocrystals 100 mg 11/04/19 14:22 Macrodantin - PO ONCE [facility] Pantoprazole Sodium 40 mg 11/05/19 10:00 11/05/19 10:42 Protonix - PO 40 mg DAILY [facility] Administration Polyethylene Glycol 17 gm 11/05/19 10:00 11/05/19 10:48 Miralax (For Daily Use) - PO Not Given DAILY [facility] Valacyclovir HCl 500 mg 11/05/19 10:00 11/05/19 10:42 Valtrex - PO 500 mg DAILY [facility] Administration Home Medications Medication Instructions Recorded Alprazolam [Xanax] 0.25 mg PO PRN 10/06/18 Levothyroxine [Synthroid -] 25 mcg PO DAILY 10/06/18 Mirtazapine 15 mg PO HS 09/28/19 Candesartan Cilexetil [Atacand 8 mg PO DAILY 10/13/19 (Nf) -] Furosemide [Lasix] 20 mg PO DAILY 10/13/19 Metoprolol Succinate [Toprol Xl -] 25 mg PO DAILY 10/13/19 Allopurinol 300 mg PO DAILY 11/01/19 Pantoprazole Sodium [Protonix] 40 mg PO DAILY 11/01/19 Prednisone 10 mg PO DAILY 11/01/19 ASSESSMENT AND PLAN: 88 year old female with history of HTN, 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 1. 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 s/p Rituximab infusion reaction requiring Dexa, Benadryl, Nebs. Currently hemodynamically Stable. Solumedrol discontinued. Echo - normal EF, LVH, mod AR, 11 x 8cm fluid collection behind atria - found to likely be lymphoma on CT. Given propensity for tumor load to cause elevated uric acid, resumed on Allopurinol. Discontinued prednisone she was taking at home, further management as per Hem/ Onc - to receive modified CHOP 11/05 Monitor for TLS - will continue to monitor electrolytes, uric acid, creatinine, phosphorus. LDH elevated at 608 Oncology following. 2. Hypercalcemia - resolved with IV hydration. If any worsening of Ca level, will consider bisphosphonates. Nephrology following. 3. HTN - continue Metoprolol, Valsartan (substitution for Candesartan) 4. Anxiety - Continue Mirtazapine and Xanax PRN. 5. Hypothyroidism - TSH 5.69. Continue Levothyroxine. 6. GERD - continue PPI. 7. Hypophosphatemia/Hypomagnesemia - resolved s/p repletion. 8. Normocytic Anemia - likely multifactorial - sec to chronic disease/malignancy /Iron deficiency. Iron supplementation ongoing. B12/Folate levels wnl. Further management as per Hematology. 9. WINSTON on CKD 3 - nephrology following. On Lasix chronically. Continued as patient has bilateral effusions on CT Chest as she will be receiving IV hydration with Chemotherapy. Further management as per Nephrology. 10. 11 x 8 cm fluid filled collection posterior to atria on Echo - found to be mediastinal mass consistent with lymphadenopathy on CT Chest. Further management as per Oncology. 11. Bibasal effusions sec to IV fluid administration for hypercalcemia - no respiratory distress/compromise. On home Lasix 20mg daily and monitor fluid status closely. 12. Prior R intracortical nodule not seen on current Renal US - radiology recommends [address] follow up. DVT Px - PPI Code Status - DNR/DNI
[2019-11-05] MEDS: ALPRAZolam 0.25 MG TABLET PO PRN (14:54)
[2019-11-05] MEDS: MIRTAZAPINE 15 MG TABLET (FP) PO SCH (21:52)
[2019-11-05] MEDS: guaiFENesin 200 MG/10 ML 10 ML UNIT-DOSE CUPS PO PRN (21:52)
[2019-11-06] MEDS: HEPARIN NA (PORCINE) 5,000 UNITS/ML 1ML VIAL SQ SCH ×3 (06:19→21:10)
[2019-11-06] MEDS: LEVOTHYROXINE NA 25 MCG TABLET (FP) PO SCH (06:19)
[2019-11-06] MEDS: PORTA CATH FLUSH 10 ML IVPUSH PRN (06:49)
[2019-11-06 06:59] LABS: HEMATOCRIT 28.2 % (32.4-45.2); MCH 29.6 pg (25.7-33.7); MEAN CELL VOLUME 92.7 fl (80-96); MEAN PLT VOLUME 7.9 fl (7.5-11.1); PLATELET COUNT 207 K/MM3 (134-434); RBC 3.04 M/mm3 (3.60-5.2); RDW 21.6 % (11.6-15.6); WHITE BLOOD COUNT 12.6 K/mm3 (4.0-10.0)
[2019-11-06 07:27] LABS: ALBUMIN 2.2 g/dl (3.4-5.0); BLOOD UREA NITROGEN 50.8 mg/dL (7-18); CALCIUM 8.2 mg/dL (8.5-10.1); CREATININE 1.8 mg/dL (0.55-1.3); MAGNESIUM 2.4 mg/dL (1.8-2.4); PHOSPHOROUS 3.2 mg/dL (2.5-4.9); POTASSIUM 4.7 mmol/L (3.5-5.1); TOT PROT 5.6 g/dl (6.4-8.2); URIC ACID 3.9 mg/dL (2.6-7.2)
[2019-11-06 08:02] LABS: BILIRUBIN,TOTAL 0.5 mg/dL (0.2-1)
[2019-11-06] MEDS: FERROUS SO4 325 MG TABLET (FP) PO SCH ×2 (10:05→18:43)
--- NOTE | 2019-11-06 10:06 | PN ---
Progress Note (short form) - Note Progress Note: Renal follow up for CKD Seen and examined at the bedside awake and alert no acute complaints s/p Chemo followed by IVF yesterday denies any sob at rest was able to sleep well yesterday Vital Signs Temperature 98 F 11/06/19 08:33 Pulse Rate 81 11/06/19 08:33 Respiratory Rate 20 11/06/19 08:33 Blood Pressure 125/87 11/06/19 08:33 O2 Sat by Pulse Oximetry (%) 97 11/06/19 07:55 Intake & Output 11/03/19 11/04/19 11/05/19 11/06/19 23:59 23:59 23:59 23:59 Intake Total 1274 1030 1025 1100 Balance 1274 1030 1025 1100 Weight 55.701 kg 55.338 kg 56.699 kg NAD awake and alert neck supple RRR Dec BS lower half of lung bardales, no wheeze or rales soft NT/ND no LE edema CBC, BMP 11/06/19 06:45 11/06/19 06:45 Current Medications Albuterol Sulfate (Ventolin 0.083% Nebulizer Soln -) 1 amp NEB Q4H PRN PRN Reason: SHORT OF BREATH/WHEEZING Last Admin: 11/05/19 11:38 Dose: 1 amp Allopurinol (Zyloprim -) 300 mg PO DAILY [facility] Last Admin: 11/05/19 10:41 Dose: 300 mg Alprazolam (Xanax -) 0.25 mg PO BID PRN PRN Reason: ANXIETY Last Admin: 11/05/19 14:54 Dose: 0.25 mg Ascorbic Acid (Vitamin C -) 250 mg PO DAILY [facility] Last Admin: 11/05/19 10:46 Dose: 250 mg Ferrous Sulfate (Feosol -) 325 mg PO BIDWM [facility] Last Admin: 11/05/19 16:34 Dose: Not Given Fluconazole (Diflucan -) 100 mg PO DAILY [facility] Last Admin: 11/05/19 10:46 Dose: 100 mg Furosemide (Lasix -) 40 mg PO DAILY [facility] Guaifenesin (Robitussin -) 10 ml PO HS PRN PRN Reason: COUGH Last Admin: 11/05/19 21:52 Dose: 10 ml Heparin Sodium (Porcine) (Heparin -) 5,000 unit SQ TID [facility] Last Admin: 11/06/19 06:19 Dose: 5,000 unit IV Flush (Alexx-Cath Flush) 10 ml IVPUSH PRN PRN PRN Reason: Protocol Last Admin: 11/06/19 06:49 Dose: 10 ml Levothyroxine Sodium (Synthroid -) 25 mcg PO DAILY@0700 [facility] Last Admin: 11/06/19 06:19 Dose: 25 mcg Metoprolol Succinate (Toprol Xl -) 25 mg PO DAILY [facility] Last Admin: 11/05/19 10:46 Dose: 25 mg Mirtazapine (Remeron -) 15 mg PO HS [facility] Last Admin: 11/05/19 21:52 Dose: 15 mg Nitrofurantoin Macrocrystals (Macrodantin -) 100 mg PO ONCE [facility] Pantoprazole Sodium (Protonix -) 40 mg PO DAILY [facility] Last Admin: 11/05/19 10:42 Dose: 40 mg Polyethylene Glycol (Miralax (For Daily Use) -) 17 gm PO DAILY [facility] Last Admin: 11/05/19 10:48 Dose: Not Given Valacyclovir HCl (Valtrex -) 500 mg PO DAILY [facility] Last Admin: 11/05/19 10:42 Dose: 500 mg Impression 1. CKD 2. WINSTON 3. hypercalcemia 4. allergic reaction 5. b cell lymphoma 6. htn 7. hld 8. pleural effusions Plan Renal function stable will increase PO lasix to 40mg daily for volume mangement. Low salt diet. PRN Lasix as needed no overt electrolyte or acid/base disturbances noted Oncology follow up Thank you Oscar Harley DO
[2019-11-06] MEDS: FLUCONAZOLE 100 MG TABLET (UD) PO SCH (10:14)
[2019-11-06] MEDS: POLYETHYLENE GLYCOL 3350 119 GM BTL PO SCH (10:14)
[2019-11-06] MEDS: ALLOPURINOL 300 MG TABLET (FP) PO SCH (10:14)
[2019-11-06] MEDS: metoPROLOL SUCCINATE 25 MG TAB.SR.24H (FP) PO SCH (10:14)
[2019-11-06] MEDS: PANTOPRAZOLE 40 MG TABLET PO SCH (10:14)
[2019-11-06] MEDS: FUROSEMIDE 40 MG TABLET (FP) PO SCH (10:14)
[2019-11-06] MEDS: valACYclovir HCL 500 MG TABLET (FP) PO SCH (10:14)
[2019-11-06] MEDS ORDERED: PT OWN MED DRAWER 7, Y5N ONE (10:15)
[2019-11-06] MEDS: ASCORBIC ACID 250 MG TABLET (FP) PO SCH (10:16)
[2019-11-06] MEDS: FUROSEMIDE 20 MG TABLET (FP) PO SCH (10:17)
--- NOTE | 2019-11-06 14:33 | PN ---
Progress Note (short form) - Note Progress Note: SUBJECTIVE: Feels well sitting up in chair. Denies any ongoing SOB/wheeze. Mild cough. No abdominal pain. No nausea/vomiting. No further loose stool. No fever/ chills. Tolerating oral intake. OBJECTIVE: Afebrile, Hemodynamically Stable. Last Vital Signs Temp Pulse Resp BP Pulse Ox 97.4 F L 103 H 20 126/80 97 11/06/19 13:49 11/06/19 13:49 11/06/19 13:49 11/06/19 13:49 11/06/19 07:55 HEENT - Atraumatic. Large L supraclavicular/neck mass. No stridor. R sided portacath. Heart - S1, S2, SM Lungs - clear to auscultation, decreased at bases. Abdomen - Soft, non-tender. Bowel Sounds normal. Extremities - no edema, no calf tenderness. Laboratory Results - last 24 hr 11/06/19 11/06/19 06:45 06:45 WBC 12.6 H RBC 3.04 L Hgb 9.0 L Hct 28.2 L MCV 92.7 MCH 29.6 MCHC 32.0 RDW 21.6 H Plt Count 207 MPV 7.9 Sodium 143 Potassium 4.7 Chloride 116 H Carbon Dioxide 21 Anion Gap 6 L BUN 50.8 H Creatinine 1.8 H Est GFR (CKD-EPI)AfAm 28.62 Est GFR (CKD-EPI)NonAf 24.69 Random Glucose 110 H Uric Acid 3.9 Calcium 8.2 L Phosphorus 3.2 Magnesium 2.4 Total Bilirubin 0.5 AST 25 ALT 35 Alkaline Phosphatase 337 H Total Protein 5.6 L Albumin 2.2 L Current Medications Generic Name Dose Route Start Last Admin Trade Name Freq PRN Reason Stop Dose Admin Albuterol Sulfate 1 amp 11/04/19 14:22 11/05/19 11:38 Ventolin 0.083% Nebulizer Soln - NEB 1 amp Q4H PRN Administration SHORT OF BREATH/WHEEZING Allopurinol 300 mg 11/05/19 10:00 11/06/19 10:14 Zyloprim - PO 300 mg DAILY [facility] Administration Alprazolam 0.25 mg 11/05/19 09:53 11/05/19 14:54 Xanax - PO 0.25 mg BID PRN Administration ANXIETY Ascorbic Acid 250 mg 11/05/19 10:00 11/06/19 10:16 Vitamin C - PO 250 mg DAILY [facility] Administration Ferrous Sulfate 325 mg 11/04/19 17:30 11/06/19 10:05 Feosol - PO Not Given BIDWM [facility] Fluconazole 100 mg 11/05/19 10:00 11/06/19 10:14 Diflucan - PO 100 mg DAILY [facility] Administration Furosemide 40 mg 11/06/19 10:04 11/06/19 10:14 Lasix - PO 40 mg DAILY [facility] Administration Guaifenesin 10 ml 11/05/19 11:43 11/05/19 21:52 Robitussin - PO 10 ml HS PRN Administration COUGH Heparin Sodium (Porcine) 5,000 unit 11/05/19 10:00 11/06/19 14:20 Heparin - SQ Not Given TID [facility] IV Flush 10 ml 11/04/19 14:22 11/06/19 06:49 Alexx-Cath Flush IVPUSH 10 ml PRN PRN Administration Protocol Levothyroxine Sodium 25 mcg 11/05/19 07:00 11/06/19 06:19 Synthroid - PO 25 mcg DAILY@0700 [facility] Administration Metoprolol Succinate 25 mg 11/05/19 10:00 11/06/19 10:14 Toprol Xl - PO 25 mg DAILY [facility] Administration Mirtazapine 15 mg 11/05/19 22:00 11/05/19 21:52 Remeron - PO 15 mg HS [facility] Administration Nitrofurantoin Macrocrystals 100 mg 11/04/19 14:22 Macrodantin - PO ONCE [facility] Pantoprazole Sodium 40 mg 11/05/19 10:00 11/06/19 10:14 Protonix - PO 40 mg DAILY [facility] Administration Polyethylene Glycol 17 gm 11/05/19 10:00 11/06/19 10:14 Miralax (For Daily Use) - PO Not Given DAILY [facility] Valacyclovir HCl 500 mg 11/05/19 10:00 11/06/19 10:14 Valtrex - PO 500 mg DAILY [facility] Administration Home Medications Medication Instructions Recorded Alprazolam [Xanax] 0.25 mg PO PRN 10/06/18 Levothyroxine [Synthroid -] 25 mcg PO DAILY 10/06/18 Mirtazapine 15 mg PO HS 09/28/19 Candesartan Cilexetil [Atacand 8 mg PO DAILY 10/13/19 (Nf) -] Furosemide [Lasix] 20 mg PO DAILY 10/13/19 Metoprolol Succinate [Toprol Xl -] 25 mg PO DAILY 10/13/19 Allopurinol 300 mg PO DAILY 11/01/19 Pantoprazole Sodium [Protonix] 40 mg PO DAILY 11/01/19 Prednisone 10 mg PO DAILY 11/01/19 ASSESSMENT AND PLAN: 88 year old female with history of HTN, 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 1. 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 s/p Rituximab infusion reaction requiring Dexa, Benadryl, Nebs. Currently hemodynamically Stable, solumedrol discontinued. s/p modified CHOP 11/05 Home Prednisone held. Echo - normal EF, LVH, mod AR, 11 x 8cm fluid collection behind atria - found to likely be lymphoma on CT. Given propensity for tumor load to cause elevated uric acid, resumed on Allopurinol. Monitor for TLS - will continue to monitor electrolytes, uric acid, creatinine, phosphorus. LDH elevated at 608 Oncology following. 2. Hypercalcemia - resolved with IV hydration. If any worsening of Ca level, will consider bisphosphonates. Nephrology following. 3. HTN - continue Metoprolol. ARB held. 4. Anxiety - Continue Mirtazapine and Xanax PRN. 5. Hypothyroidism - TSH 5.69. Continue Levothyroxine. 6. GERD - continue PPI. 7. Hypophosphatemia/Hypomagnesemia - resolved s/p repletion. 8. Normocytic Anemia - likely multifactorial - sec to chronic disease/malignancy /Iron deficiency. Iron supplementation ongoing. B12/Folate levels wnl. Further management as per Hematology. 9. WINSTON on CKD 3 - nephrology following. On Lasix chronically - dose increased to 40mg daily as patient has bilateral effusions on CT Chest and received IV hydration with Chemotherapy. Further management as per Nephrology. 10. 11 x 8 cm fluid filled collection posterior to atria on Echo - found to be mediastinal mass consistent with lymphadenopathy on CT Chest. Further management as per Oncology. 11. Bibasal effusions sec to IV fluid administration for Hypercalcemia - no respiratory distress/compromise. Lasix dose increased to 40mg daily. Monitor fluid status. 12. Prior R intracortical nodule not seen on current Renal US - radiology recommends [address] follow up. DVT Px - Heparin SQ GI Px - PPI Code Status - DNR/DNI Visit type - Emergency Visit Emergency Visit: Yes ED Registration Date: 11/01/19 Care time: The patient presented to the Emergency Department on the above date and was hospitalized for further evaluation of their emergent condition. - New Patient This patient is new to me today: No - Critical Care Critical Care patient: No - Discharge Referral Referred to [facility] Med P.C.: No
--- NOTE | 2019-11-06 16:32 | PN ---
Progress Note (short form) - Note Progress Note: Seen in follow up. No events overnight. Patient drowsy but rousable. As per family members has been somewhat confused, but without complaints. Inpatient meds reviewed: Current Medications Albuterol Sulfate (Ventolin 0.083% Nebulizer Soln -) 1 amp NEB Q4H PRN PRN Reason: SHORT OF BREATH/WHEEZING Last Admin: 11/05/19 11:38 Dose: 1 amp Allopurinol (Zyloprim -) 300 mg PO DAILY [facility] Last Admin: 11/06/19 10:14 Dose: 300 mg Alprazolam (Xanax -) 0.25 mg PO BID PRN PRN Reason: ANXIETY Last Admin: 11/05/19 14:54 Dose: 0.25 mg Ascorbic Acid (Vitamin C -) 250 mg PO DAILY [facility] Last Admin: 11/06/19 10:16 Dose: 250 mg Ferrous Sulfate (Feosol -) 325 mg PO BIDWM [facility] Last Admin: 11/06/19 10:05 Dose: Not Given Fluconazole (Diflucan -) 100 mg PO DAILY [facility] Last Admin: 11/06/19 10:14 Dose: 100 mg Furosemide (Lasix -) 40 mg PO DAILY [facility] Last Admin: 11/06/19 10:14 Dose: 40 mg Guaifenesin (Robitussin -) 10 ml PO HS PRN PRN Reason: COUGH Last Admin: 11/05/19 21:52 Dose: 10 ml Heparin Sodium (Porcine) (Heparin -) 5,000 unit SQ TID [facility] Last Admin: 11/06/19 14:20 Dose: Not Given IV Flush (Alexx-Cath Flush) 10 ml IVPUSH PRN PRN PRN Reason: Protocol Last Admin: 11/06/19 06:49 Dose: 10 ml Levothyroxine Sodium (Synthroid -) 25 mcg PO DAILY@0700 [facility] Last Admin: 11/06/19 06:19 Dose: 25 mcg Metoprolol Succinate (Toprol Xl -) 25 mg PO DAILY [facility] Last Admin: 11/06/19 10:14 Dose: 25 mg Mirtazapine (Remeron -) 15 mg PO HS [facility] Last Admin: 11/05/19 21:52 Dose: 15 mg Nitrofurantoin Macrocrystals (Macrodantin -) 100 mg PO ONCE [facility] Pantoprazole Sodium (Protonix -) 40 mg PO DAILY [facility] Last Admin: 11/06/19 10:14 Dose: 40 mg Polyethylene Glycol (Miralax (For Daily Use) -) 17 gm PO DAILY [facility] Last Admin: 11/06/19 10:14 Dose: Not Given Valacyclovir HCl (Valtrex -) 500 mg PO DAILY [facility] Last Admin: 11/06/19 10:14 Dose: 500 mg On Examination: Last Vital Signs Temp Pulse Resp BP Pulse Ox 97.7 F 105 H 18 121/79 97 11/05/19 10:00 11/05/19 10:00 11/05/19 10:00 11/05/19 10:00 11/05/19 08:33 General: In no acute distress, supine in bed. Extremities: No pallor or icterus. Chest: breathing comfortably Abdomen: non-distended Neuro: drowsy Labs: CBC, BMP 11/06/19 06:45 11/06/19 06:45 Assessment. 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 Admitted for R-CHOP, but had severe reaction to Rituxan, requiring of infusion and admission to ICU. Now improved from above, and received modified CHOP yesterday, without complication. Family's and patient's questions addressed. Not on steroids presently - significant steroids exposure last several days/ weeks. Will continue daily PDN 40 mgs days 1-5 as per CHOP regimen - conisider taper thereafter Close observation of counts coming days.
[2019-11-06] MEDS: ALPRAZolam 0.25 MG TABLET PO PRN (21:10)
[2019-11-06] MEDS: MIRTAZAPINE 15 MG TABLET (FP) PO SCH (21:10)
[2019-11-06] MEDS: guaiFENesin 200 MG/10 ML 10 ML UNIT-DOSE CUPS PO PRN (21:10)
[2019-11-07] MEDS: HEPARIN NA (PORCINE) 5,000 UNITS/ML 1ML VIAL SQ SCH ×3 (06:16→21:47)
[2019-11-07] MEDS: LEVOTHYROXINE NA 25 MCG TABLET (FP) PO SCH (06:16)
[2019-11-07 07:27] LABS: BASO % 0.9 % (0-2.0); HEMATOCRIT 28.6 % (32.4-45.2); HEMOGLOBIN 9.3 GM/dL (10.7-15.3); LYMPH % 3.4 % (8-40); MCH 30.2 pg (25.7-33.7); MCHC 32.7 g/dl (32.0-36.0); MEAN CELL VOLUME 92.4 fl (80-96); MEAN PLT VOLUME 7.9 fl (7.5-11.1); MONO % 7.5 % (3.8-10.2); NEUT % 88.2 % (42.8-82.8); PLATELET COUNT 186 K/MM3 (134-434); RBC 3.09 M/mm3 (3.60-5.2); RDW 21.6 % (11.6-15.6); WHITE BLOOD COUNT 10.6 K/mm3 (4.0-10.0)
[2019-11-07] MEDS: FERROUS SO4 325 MG TABLET (FP) PO SCH ×2 (07:54→16:56)
[2019-11-07 08:17] LABS: BLOOD UREA NITROGEN 54.8 mg/dL (7-18); CALCIUM 8.1 mg/dL (8.5-10.1); CREATININE 1.6 mg/dL (0.55-1.3); MAGNESIUM 2.1 mg/dL (1.8-2.4); PHOSPHOROUS 3.3 mg/dL (2.5-4.9); POTASSIUM 4.8 mmol/L (3.5-5.1); URIC ACID 3.9 mg/dL (2.6-7.2)
[2019-11-07] MEDS: valACYclovir HCL 500 MG TABLET (FP) PO SCH (09:14)
[2019-11-07] MEDS: FLUCONAZOLE 100 MG TABLET (UD) PO SCH (09:15)
[2019-11-07] MEDS: ASCORBIC ACID 250 MG TABLET (FP) PO SCH (09:15)
[2019-11-07] MEDS: metoPROLOL SUCCINATE 25 MG TAB.SR.24H (FP) PO SCH (09:15)
[2019-11-07] MEDS: FUROSEMIDE 40 MG TABLET (FP) PO SCH (09:15)
[2019-11-07] MEDS: PANTOPRAZOLE 40 MG TABLET PO SCH (09:15)
[2019-11-07] MEDS: ALLOPURINOL 300 MG TABLET (FP) PO SCH (09:15)
[2019-11-07] MEDS: POLYETHYLENE GLYCOL 3350 119 GM BTL PO SCH ×2 (09:16→09:36)
--- NOTE | 2019-11-07 09:24 | PN ---
Progress Note (short form) - Note Progress Note: Hospitalist to document today. Coughing with rales at the bases and 3+ pedal edema with hx CHF. Cardiology aware. Also patient had bilateral DVT several years ago during a long hospital stay with similar pedal edema. Suggest venous duplex.
[2019-11-07] MEDS ORDERED: predniSONE 20 MG TABLET (UD) PO SCH (10:00)
--- NOTE | 2019-11-07 10:16 | PN ---
Progress Note (short form) - Note Progress Note: 88 year-old female known case of lymphoma,hypercalcemia, hypertension, hypertensive cardiovascular disease, history of left ventricular systolic and diastolic dysfunction, history of congestive heart failure. Aortic valvular disease with aortic regurgitation probably severe. History of iatrogenic hypothyroidism.History of anemia and severe anxiety disorder and possibly depression. Resting comfortably, no SOB or chest reported. Has pedal edema, no PND or orthpnea. Active Medications Albuterol Sulfate (Ventolin 0.083% Nebulizer Soln -) 1 amp NEB Q4H PRN PRN Reason: SHORT OF BREATH/WHEEZING Last Admin: 11/05/19 11:38 Dose: 1 amp Allopurinol (Zyloprim -) 300 mg PO DAILY [facility] Last Admin: 11/07/19 09:15 Dose: 300 mg Alprazolam (Xanax -) 0.25 mg PO BID PRN PRN Reason: ANXIETY Last Admin: 11/06/19 21:10 Dose: 0.25 mg Ascorbic Acid (Vitamin C -) 250 mg PO DAILY [facility] Last Admin: 11/07/19 09:15 Dose: 250 mg Ferrous Sulfate (Feosol -) 325 mg PO BIDWM [facility] Last Admin: 11/07/19 07:54 Dose: 325 mg Fluconazole (Diflucan -) 100 mg PO DAILY [facility] Last Admin: 11/07/19 09:15 Dose: 100 mg Furosemide (Lasix -) 40 mg PO DAILY [facility] Last Admin: 11/07/19 09:15 Dose: 40 mg Guaifenesin (Robitussin -) 10 ml PO HS PRN PRN Reason: COUGH Last Admin: 11/06/19 21:10 Dose: 10 ml Heparin Sodium (Porcine) (Heparin -) 5,000 unit SQ TID [facility] Last Admin: 11/07/19 06:16 Dose: 5,000 unit IV Flush (Alexx-Cath Flush) 10 ml IVPUSH PRN PRN PRN Reason: Protocol Last Admin: 11/06/19 06:49 Dose: 10 ml Levothyroxine Sodium (Synthroid -) 25 mcg PO DAILY@0700 [facility] Last Admin: 11/07/19 06:16 Dose: 25 mcg Metoprolol Succinate (Toprol Xl -) 25 mg PO DAILY [facility] Last Admin: 11/07/19 09:15 Dose: 25 mg Mirtazapine (Remeron -) 15 mg PO HS [facility] Last Admin: 11/06/19 21:10 Dose: 15 mg Nitrofurantoin Macrocrystals (Macrodantin -) 100 mg PO ONCE [facility] Pantoprazole Sodium (Protonix -) 40 mg PO DAILY [facility] Last Admin: 11/07/19 09:15 Dose: 40 mg Polyethylene Glycol (Miralax (For Daily Use) -) 17 gm PO DAILY [facility] Last Admin: 11/07/19 09:36 Dose: Not Given Prednisone (Deltasone -) 40 mg PO DAILY [facility] Stop: 11/11/19 09:59 Last Admin: 11/07/19 09:14 Dose: 40 mg Valacyclovir HCl (Valtrex -) 500 mg PO DAILY [facility] Last Admin: 11/07/19 09:14 Dose: 500 mg Last Vital Signs Temp Pulse Resp BP Pulse Ox 97 F L 91 H 20 131/78 97 11/07/19 08:50 11/07/19 08:50 11/07/19 08:50 11/07/19 08:50 11/06/19 21:00 Neck: Supple, no JVD, slightly positive hepatojugular reflux. carotids were 2+, upstrokes were normal, no bruits were appreciated. Large left submandibular lymphadenopathy. Well-healed anterior surgical scar. Heart: PMI was in the fifth intercostal space, no heaves or thrills, S1 and S2 were normal. Grade 2/6 ejection systolic murmur was heard at the second right intercostal space, a grade 1/6 apical systolic murmur.? Early diastolic murmur along the lower left sternal border in held expiration. No gallops were heard. Lungs: fine bilateral scattered crepitation, more pronounced at the bases. Abdomen: Soft, protuberant and nontender. No hepatosplenomegaly was appreciated no palpable masses were felt. Extremities: No calf tenderness 2+ dependent edema. Impression: 1. Adverse side effect to Rituxan 2. History of left ventricular systolic and diastolic dysfunction. 3. Hypertension, hypertensive cardiovascular disease. 4. Lymphoma. 5. Hypercalcemia. 6. Pedal edema, multifactorial. 7. Aortic valvular disease with aortic regurgitation. 8. Sinus tachycardia appears to be multifocal in etiology. 9. History of anxiety disorder/depression. 10. Chronic kidney disease. Recommendations: 1. Continue current meds. 2. Check urine for proteinuria. 3. F/u BNP. 4. Daily weights. 5. May need extra lasix. 6. Correction of hypoproteinemia. Chun Lundberg MD
--- NOTE | 2019-11-07 14:50 | PN ---
Physical Exam: SUBJECTIVE: Patient seen and examined at bedside. Feels well. Denies any SOB/ wheezes. Mild cough. No abdominal pain. No nausea/vomiting. No further loose stool. No fever/chills. Tolerating oral intake. OBJECTIVE: Vital Signs Period Temp Pulse Resp BP Sys/Castelan Pulse Ox Last 24 Hr 97 F-97.9 F 88-91 20-20 131-145/77-82 92-97 GENERAL: The patient is awake, alert, and fully oriented, in no acute distress. NECK: left sided neck mass reduced in size. Rt chest has port in place, no issues. LUNGS: Breath sounds reduced b/l, minimal crackles at bases. HEART: Regular rate and rhythm, S1, S2 without murmur, rub or gallop. ABDOMEN: Soft, nontender, nondistended, normoactive bowel sounds EXTREMITIES: 2+ pulses, warm, well-perfused, 3+ pitting edema. NEUROLOGICAL: Cranial nerves II through XII grossly intact. Normal speech, gait not observed. PSYCH: Normal mood, normal affect. SKIN: Warm, dry, normal turgor, no rashes or lesions noted Laboratory Results - last 24 hr 11/07/19 11/07/19 11/07/19 06:30 06:30 06:30 WBC 10.6 H RBC 3.09 L Hgb 9.3 L Hct 28.6 L MCV 92.4 MCH 30.2 MCHC 32.7 RDW 21.6 H Plt Count 186 MPV 7.9 Absolute Neuts (auto) 9.3 H Neutrophils % 88.2 H Lymphocytes % 3.4 L D Monocytes % 7.5 D Eosinophils % 0.0 Basophils % 0.9 Nucleated RBC % 0 Sodium 143 Potassium 4.8 Chloride 115 H Carbon Dioxide 22 Anion Gap 6 L BUN 54.8 H Creatinine 1.6 H Est GFR (CKD-EPI)AfAm 33.00 Est GFR (CKD-EPI)NonAf 28.47 Random Glucose 89 Uric Acid 3.9 Calcium 8.1 L Phosphorus 3.3 Magnesium 2.1 LD Total 483 H Active Medications Generic Name Dose Route Start Last Admin Trade Name Freq PRN Reason Stop Dose Admin Albuterol Sulfate 1 amp 11/04/19 14:22 11/05/19 11:38 Ventolin 0.083% Nebulizer Soln - NEB 1 amp Q4H PRN Administration SHORT OF BREATH/WHEEZING Allopurinol 300 mg 11/05/19 10:00 11/07/19 09:15 Zyloprim - PO 300 mg DAILY [facility] Administration Alprazolam 0.25 mg 11/05/19 09:53 11/06/19 21:10 Xanax - PO 0.25 mg BID PRN Administration ANXIETY Ascorbic Acid 250 mg 11/05/19 10:00 11/07/19 09:15 Vitamin C - PO 250 mg DAILY [facility] Administration Ferrous Sulfate 325 mg 11/04/19 17:30 11/07/19 07:54 Feosol - PO 325 mg BIDWM [facility] Administration Fluconazole 100 mg 11/05/19 10:00 11/07/19 09:15 Diflucan - PO 100 mg DAILY [facility] Administration Furosemide 40 mg 11/06/19 10:04 11/07/19 09:15 Lasix - PO 40 mg DAILY [facility] Administration Guaifenesin 10 ml 11/05/19 11:43 11/06/19 21:10 Robitussin - PO 10 ml HS PRN Administration COUGH Heparin Sodium (Porcine) 5,000 unit 11/05/19 10:00 11/07/19 13:46 Heparin - SQ 5,000 unit TID [facility] Administration IV Flush 10 ml 11/04/19 14:22 11/06/19 06:49 Alexx-Cath Flush IVPUSH 10 ml PRN PRN Administration Protocol Levothyroxine Sodium 25 mcg 11/05/19 07:00 11/07/19 06:16 Synthroid - PO 25 mcg DAILY@0700 [facility] Administration Metoprolol Succinate 25 mg 11/05/19 10:00 11/07/19 09:15 Toprol Xl - PO 25 mg DAILY [facility] Administration Mirtazapine 15 mg 11/05/19 22:00 11/06/19 21:10 Remeron - PO 15 mg HS [facility] Administration Pantoprazole Sodium 40 mg 11/05/19 10:00 11/07/19 09:15 Protonix - PO 40 mg DAILY [facility] Administration Polyethylene Glycol 17 gm 11/05/19 10:00 11/07/19 09:36 Miralax (For Daily Use) - PO Not Given DAILY [facility] Prednisone 40 mg 11/07/19 10:00 11/07/19 09:14 Deltasone - PO 11/11/19 09:59 40 mg DAILY [facility] Administration Valacyclovir HCl 500 mg 11/05/19 10:00 11/07/19 09:14 Valtrex - PO 500 mg DAILY [facility] Administration ASSESSMENT/PLAN: Images: - Echo - EF 55%, LVH, 11 x 8cm fluid collection behind atria - found to likely be lymphoma on chest CT - CT Chest: moderate R pl effusion, lower lobe atelectasis. small L pl effusion & basilar atelectasis. Mediastinal mass post to R atrum likely lymphadenopathy. 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 #High grade diffuse large B cell lymphoma - patient stable after reaction from chemo and stable after modified CHOP given. - Next chemo planned for november 27 - 40 PO steroids today can start 10 mg tomorrow (pts home dose) and try to taper as o/p per oncology recs. - Patient to go for alternative chemo today, if onc is okay with labs, will continue to monitor - Allopurinol 300mg daily - Heme/Onc consulted - Cardiology (Dr. Lundberg), can give lasix prn with gentle hydration for WINSTON to allow chemo to be given. - Speech/Swallow eval - regular diet with nectar thick liquids recommended from possible increased lymphadenopathy in setting of lymphoma. #Elevated BNP - Dr. Hubbard Cardiology states pt has global CHF in previous echo - ECHO on this admission - EF 55% - BNP- 1695 on admission -> now 7436 - Lasix 40mg daily prn for sob/fluid overload - overloaded on exam requiring lasix today - UA showing trace proteinuria #WINSTON on ? CKD - pt likely pre-renal 2/2 poor po intake, pt endorses poor appetite - Cr worsening - FeNa <1% - Nephrology consulted (Dr. Broussard) #Hypercalcemia - resolved - Enforce calcium restricted diet (<400mg/day), will hold bowel regimen if continues to have soft stools. #HTN - Metoprolol succinate 25mg daily - d/c'd valsartan given Cr. - patient on Candesartan 8mg daily at home as per pharmacy #HLD - patient not on a statin at home as per pharmacy #Hypothyroid - Synthroid 25mg daily #Anxiety disorder - slightly anxious, provide reassurance - On Xanax 0.25mg BID PRN at home, remeron restarted as well #GERD - Protonix #Prophylaxis - Heparin 5BID #FEN - fat/sodium controlled diet - monitor and replete lytes as needed - sodium restricted diet Dispo: spoke with family and they would like SNF and social work aware and plan to set it up for tm. Visit type - Emergency Visit Emergency Visit: Yes ED Registration Date: 11/01/19 Care time: The patient presented to the Emergency Department on the above date and was hospitalized for further evaluation of their emergent condition. - New Patient This patient is new to me today: No - Critical Care Critical Care patient: No - Discharge Referral Referred to [facility] No ATTENDING PHYSICIAN STATEMENT I saw and evaluated the patient. I reviewed the resident's note and discussed the case with the resident. I agree with the resident's findings and plan as documented. SUBJECTIVE: OBJECTIVE: ASSESSMENT AND PLAN:
--- NOTE | 2019-11-07 15:15 | PN ---
Teaching Attending Note Name of Resident: Helio Luciano ATTENDING PHYSICIAN STATEMENT I saw and evaluated the patient. I reviewed the resident's note and discussed the case with the resident. I agree with the resident's findings and plan as documented. SUBJECTIVE: Feels well. Denies any ongoing SOB/wheeze. Mild cough. No abdominal pain. No nausea/vomiting. No further loose stool. No fever/chills. Tolerating oral intake. OBJECTIVE: Afebrile, Hemodynamically Stable. SpO2 92% RA Last Vital Signs Temp Pulse Resp BP Pulse Ox 97 F L 91 H 20 131/78 92 L 11/07/19 08:50 11/07/19 08:50 11/07/19 08:50 11/07/19 08:50 11/07/19 10:00 HEENT - Atraumatic. Large L supraclavicular/neck mass. No stridor. R sided portacath. Heart - S1, S2, SM Lungs - clear to auscultation, decreased at bases. Abdomen - Soft, non-tender. Bowel Sounds normal. Extremities - Edema +, no calf tenderness. Laboratory Results - last 24 hr 11/07/19 11/07/19 11/07/19 06:30 06:30 06:30 WBC 10.6 H RBC 3.09 L Hgb 9.3 L Hct 28.6 L MCV 92.4 MCH 30.2 MCHC 32.7 RDW 21.6 H Plt Count 186 MPV 7.9 Absolute Neuts (auto) 9.3 H Neutrophils % 88.2 H Lymphocytes % 3.4 L D Monocytes % 7.5 D Eosinophils % 0.0 Basophils % 0.9 Nucleated RBC % 0 Sodium 143 Potassium 4.8 Chloride 115 H Carbon Dioxide 22 Anion Gap 6 L BUN 54.8 H Creatinine 1.6 H Est GFR (CKD-EPI)AfAm 33.00 Est GFR (CKD-EPI)NonAf 28.47 Random Glucose 89 Uric Acid 3.9 Calcium 8.1 L Phosphorus 3.3 Magnesium 2.1 LD Total 483 H Current Medications Generic Name Dose Route Start Last Admin Trade Name Freq PRN Reason Stop Dose Admin Albuterol Sulfate 1 amp 11/04/19 14:22 11/05/19 11:38 Ventolin 0.083% Nebulizer Soln - NEB 1 amp Q4H PRN Administration SHORT OF BREATH/WHEEZING Allopurinol 300 mg 11/05/19 10:00 11/07/19 09:15 Zyloprim - PO 300 mg DAILY [facility] Administration Alprazolam 0.25 mg 11/05/19 09:53 11/06/19 21:10 Xanax - PO 0.25 mg BID PRN Administration ANXIETY Ascorbic Acid 250 mg 11/05/19 10:00 11/07/19 09:15 Vitamin C - PO 250 mg DAILY [facility] Administration Ferrous Sulfate 325 mg 11/04/19 17:30 11/07/19 07:54 Feosol - PO 325 mg BIDWM [facility] Administration Fluconazole 100 mg 11/05/19 10:00 11/07/19 09:15 Diflucan - PO 100 mg DAILY [facility] Administration Furosemide 40 mg 11/06/19 10:04 11/07/19 09:15 Lasix - PO 40 mg DAILY [facility] Administration Guaifenesin 10 ml 11/05/19 11:43 11/06/19 21:10 Robitussin - PO 10 ml HS PRN Administration COUGH Heparin Sodium (Porcine) 5,000 unit 11/05/19 10:00 11/07/19 13:46 Heparin - SQ 5,000 unit TID [facility] Administration IV Flush 10 ml 11/04/19 14:22 11/06/19 06:49 Alexx-Cath Flush IVPUSH 10 ml PRN PRN Administration Protocol Levothyroxine Sodium 25 mcg 11/05/19 07:00 11/07/19 06:16 Synthroid - PO 25 mcg DAILY@0700 [facility] Administration Metoprolol Succinate 25 mg 11/05/19 10:00 11/07/19 09:15 Toprol Xl - PO 25 mg DAILY [facility] Administration Mirtazapine 15 mg 11/05/19 22:00 11/06/19 21:10 Remeron - PO 15 mg HS [facility] Administration Pantoprazole Sodium 40 mg 11/05/19 10:00 11/07/19 09:15 Protonix - PO 40 mg DAILY [facility] Administration Polyethylene Glycol 17 gm 11/05/19 10:00 11/07/19 09:36 Miralax (For Daily Use) - PO Not Given DAILY [facility] Prednisone 40 mg 11/07/19 10:00 11/07/19 09:14 Deltasone - PO 11/11/19 09:59 40 mg DAILY [facility] Administration Valacyclovir HCl 500 mg 11/05/19 10:00 11/07/19 09:14 Valtrex - PO 500 mg DAILY [facility] Administration Home Medications Medication Instructions Recorded Alprazolam [Xanax] 0.25 mg PO PRN 10/06/18 Levothyroxine [Synthroid -] 25 mcg PO DAILY 10/06/18 Mirtazapine 15 mg PO HS 09/28/19 Candesartan Cilexetil [Atacand 8 mg PO DAILY 10/13/19 (Nf) -] Furosemide [Lasix] 20 mg PO DAILY 10/13/19 Metoprolol Succinate [Toprol Xl -] 25 mg PO DAILY 10/13/19 Allopurinol 300 mg PO DAILY 11/01/19 Pantoprazole Sodium [Protonix] 40 mg PO DAILY 11/01/19 Prednisone 10 mg PO DAILY 11/01/19 ASSESSMENT AND PLAN: 88 year old female with history of HTN, 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 1. 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 s/p Rituximab infusion reaction requiring Dexa, Benadryl, Nebs. Currently hemodynamically Stable, solumedrol discontinued. s/p modified CHOP 11/05. Prednisone 40mg started 11/06/19 by Oncology for 5 days followed by taper as per Onc. Echo - normal EF, LVH, mod AR, 11 x 8cm fluid collection behind atria - found to likely be lymphoma on CT. Given propensity for tumor load to cause elevated uric acid, resumed on Allopurinol. Monitor for TLS - will continue to monitor electrolytes, uric acid, creatinine, phosphorus. LDH 483 (down from 608). Oncology following - further chemo as per Onc. 2. Hypercalcemia - resolved with IV hydration. If any worsening of Ca level, will consider bisphosphonates. Nephrology following. 3. HTN - continue Metoprolol. ARB held. 4. Anxiety - Continue Mirtazapine and Xanax PRN. 5. Hypothyroidism - TSH 5.69. Continue Levothyroxine. 6. GERD - continue PPI. 7. Hypophosphatemia/Hypomagnesemia - resolved s/p repletion. 8. Normocytic Anemia - likely multifactorial - sec to chronic disease/malignancy /Iron deficiency. Iron supplementation ongoing. B12/Folate levels wnl. Further management as per Hematology. 9. WINSTON on CKD 3 - nephrology following. On Lasix chronically - dose increased to 40mg daily as patient has Le edema and bilateral effusions on CT Chest and received IV hydration with Chemotherapy. Further management as per Nephrology. 10. 11 x 8 cm fluid filled collection posterior to atria on Echo - found to be mediastinal mass consistent with lymphadenopathy on CT Chest. Further management as per Oncology. 11. Bibasal effusions sec to IV fluid administration for Hypercalcemia - no respiratory distress/compromise. Lasix dose increased to 40mg daily. Monitor fluid status. 12. Prior R intracortical nodule not seen on current Renal US - radiology recommends [address] follow up. DVT Px - Heparin SQ GI Px - PPI Code Status - DNR/DNI
--- NOTE | 2019-11-07 16:54 | PN ---
Progress Note (short form) - Note Progress Note: Patient seen and examined Feels better. Seated in a nguyen. 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 Had severe allergic reaction with rituxan with desaturation to <90% on 11/02 Received large doses of steroids/nebs Monitoring renal function/uric acid Discussed in great detail with patient/family To consider rehab placement They understand her overall prognosis Taper prednisone to 10mg daily and then taper off ? neupogen --will dose 1 dose today Will need twice weekly CBC/CMP/LDH/uric acid at the rehab facility Chemo to be held during rehab
--- NOTE | 2019-11-07 16:58 | PN ---
Progress Note, Physician History of Present Illness: Pt seen and examined at bedside. She is awake and alert. She denies chest pain. She denies dysuria or hematuria. - Current Medication List Current Medications: Active Medications Albuterol Sulfate (Ventolin 0.083% Nebulizer Soln -) 1 amp NEB Q4H PRN PRN Reason: SHORT OF BREATH/WHEEZING Last Admin: 11/05/19 11:38 Dose: 1 amp Allopurinol (Zyloprim -) 300 mg PO DAILY [facility] Last Admin: 11/07/19 09:15 Dose: 300 mg Alprazolam (Xanax -) 0.25 mg PO BID PRN PRN Reason: ANXIETY Last Admin: 11/06/19 21:10 Dose: 0.25 mg Ascorbic Acid (Vitamin C -) 250 mg PO DAILY [facility] Last Admin: 11/07/19 09:15 Dose: 250 mg Ferrous Sulfate (Feosol -) 325 mg PO BIDWM [facility] Last Admin: 11/07/19 16:56 Dose: 325 mg Fluconazole (Diflucan -) 100 mg PO DAILY [facility] Last Admin: 11/07/19 09:15 Dose: 100 mg Furosemide (Lasix -) 40 mg PO DAILY [facility] Last Admin: 11/07/19 09:15 Dose: 40 mg Guaifenesin (Robitussin -) 10 ml PO HS PRN PRN Reason: COUGH Last Admin: 11/06/19 21:10 Dose: 10 ml Heparin Sodium (Porcine) (Heparin -) 5,000 unit SQ TID [facility] Last Admin: 11/07/19 13:46 Dose: 5,000 unit IV Flush (Alexx-Cath Flush) 10 ml IVPUSH PRN PRN PRN Reason: Protocol Last Admin: 11/06/19 06:49 Dose: 10 ml Levothyroxine Sodium (Synthroid -) 25 mcg PO DAILY@0700 [facility] Last Admin: 11/07/19 06:16 Dose: 25 mcg Metoprolol Succinate (Toprol Xl -) 25 mg PO DAILY [facility] Last Admin: 11/07/19 09:15 Dose: 25 mg Mirtazapine (Remeron -) 15 mg PO HS [facility] Last Admin: 11/06/19 21:10 Dose: 15 mg Pantoprazole Sodium (Protonix -) 40 mg PO DAILY [facility] Last Admin: 11/07/19 09:15 Dose: 40 mg Polyethylene Glycol (Miralax (For Daily Use) -) 17 gm PO DAILY [facility] Last Admin: 11/07/19 09:36 Dose: Not Given Prednisone (Deltasone -) 40 mg PO DAILY [facility] Stop: 11/11/19 09:59 Last Admin: 11/07/19 09:14 Dose: 40 mg Valacyclovir HCl (Valtrex -) 500 mg PO DAILY [facility] Last Admin: 11/07/19 09:14 Dose: 500 mg - Objective Vital Signs: Vital Signs Temperature 97.4 F L 11/07/19 15:07 Pulse Rate 91 H 11/07/19 15:07 Respiratory Rate 11/07/19 15:07 Blood Pressure 152/84 11/07/19 15:07 O2 Sat by Pulse Oximetry (%) 92 L 11/07/19 10:00 Constitutional: Yes: Calm Eyes: Yes: Conjunctiva Clear HENT: Yes: Atraumatic Neck: Yes: Supple Cardiovascular: Yes: S1, S2 Respiratory: Yes: On Nasal O2 Gastrointestinal: Yes: Soft Genitourinary: Yes: WNL Edema: Yes Edema: LLE: 1+, RLE: 1+ Neurological: Yes: Oriented Psychiatric: Yes: Oriented Labs: CBC, BMP 11/07/19 06:30 11/07/19 06:30 INR, PTT INR 0.89 (0.83-1.09) 11/02/19 08:56 Problem List - Problems (1) CKD (chronic kidney disease) Code(s): N18.9 - CHRONIC KIDNEY DISEASE, UNSPECIFIED (2) DLBCL (diffuse large B cell lymphoma) Code(s): C83.30 - DIFFUSE LARGE B-CELL LYMPHOMA, UNSPECIFIED SITE Qualifiers: Lymphoma site: neck Qualified Code(s): C83.31 - Diffuse large B-cell lymphoma, lymph nodes of head, face, and neck Assessment/Plan Current Medications Generic Name Dose Route Start Last Admin Trade Name Freq PRN Reason Stop Dose Admin Albuterol Sulfate 1 amp 11/04/19 14:22 11/05/19 11:38 Ventolin 0.083% Nebulizer Soln - NEB 1 amp Q4H PRN Administration SHORT OF BREATH/WHEEZING Allopurinol 300 mg 11/05/19 10:00 11/07/19 09:15 Zyloprim - PO 300 mg DAILY [facility] Administration Alprazolam 0.25 mg 11/05/19 09:53 11/06/19 21:10 Xanax - PO 0.25 mg BID PRN Administration ANXIETY Ascorbic Acid 250 mg 11/05/19 10:00 11/07/19 09:15 Vitamin C - PO 250 mg DAILY [facility] Administration Ferrous Sulfate 325 mg 11/04/19 17:30 11/07/19 16:56 Feosol - PO 325 mg BIDWM [facility] Administration Fluconazole 100 mg 11/05/19 10:00 11/07/19 09:15 Diflucan - PO 100 mg DAILY [facility] Administration Furosemide 40 mg 11/06/19 10:04 11/07/19 09:15 Lasix - PO 40 mg DAILY [facility] Administration Guaifenesin 10 ml 11/05/19 11:43 11/06/19 21:10 Robitussin - PO 10 ml HS PRN Administration COUGH Heparin Sodium (Porcine) 5,000 unit 11/05/19 10:00 11/07/19 13:46 Heparin - SQ 5,000 unit TID [facility] Administration IV Flush 10 ml 11/04/19 14:22 11/06/19 06:49 Alexx-Cath Flush IVPUSH 10 ml PRN PRN Administration Protocol Levothyroxine Sodium 25 mcg 11/05/19 07:00 11/07/19 06:16 Synthroid - PO 25 mcg DAILY@0700 [facility] Administration Metoprolol Succinate 25 mg 11/05/19 10:00 11/07/19 09:15 Toprol Xl - PO 25 mg DAILY [facility] Administration Mirtazapine 15 mg 11/05/19 22:00 11/06/19 21:10 Remeron - PO 15 mg HS [facility] Administration Pantoprazole Sodium 40 mg 11/05/19 10:00 11/07/19 09:15 Protonix - PO 40 mg DAILY [facility] Administration Polyethylene Glycol 17 gm 11/05/19 10:00 11/07/19 09:36 Miralax (For Daily Use) - PO Not Given DAILY [facility] Prednisone 40 mg 11/07/19 10:00 11/07/19 09:14 Deltasone - PO 11/11/19 09:59 40 mg DAILY [facility] Administration Valacyclovir HCl 500 mg 11/05/19 10:00 11/07/19 09:14 Valtrex - PO 500 mg DAILY [facility] Administration Impression 1. CKD 2. WINSTON 3. hypercalcemia 4. allergic reaction 5. b cell lymphoma 6. htn 7. hld 8. pleural effusions Plan - cont lasix, will give an extra dose - repeat labs in am - renal function stabilizing - monitor lytes - renal ultrasound - discussed with family - avoid nsaids Dr Broussard
[2019-11-07] MEDS ORDERED: FUROSEMIDE 40 MG TABLET (FP) PO ONE (16:59)
[2019-11-07 17:04] VITALS: BMI 25.5
--- NOTE | 2019-11-07 17:20 | PN ---
Progress Note, CUT OUT MARKER - Note Progress Note: Swallowing reassessed while pt OOB in chair. Family has requested thin liquids, and thin liquids noted at bedside. Diet order is reg diet/thickened liquid and staff has provided her with prescibed diet. Selected Entries 11/05/19 11/05/19 11/05/19 01:19 06:03 09:52 Breakfast 50% Lunch Supper Temperature 98.1 F 97.4 F L 11/05/19 11/05/19 11/05/19 10:00 13:06 14:49 Breakfast Lunch 25% Supper Temperature 97.7 F 97.8 F 11/05/19 11/05/19 11/05/19 17:07 17:49 21:00 Breakfast Lunch Supper Temperature 97.6 F 97.8 F 98.0 F 11/05/19 11/06/19 11/06/19 22:46 01:00 05:00 Breakfast Lunch Supper 0 Temperature 98.5 F 98.2 F 11/06/19 11/06/19 11/06/19 07:55 08:33 13:49 Breakfast 50% Lunch 50% Supper 0 Temperature 98 F 97.4 F L 11/06/19 11/06/19 11/07/19 18:00 22:00 06:00 Breakfast Lunch Supper 75% Temperature 97.9 F 97.9 F 97.6 F 11/07/19 11/07/19 11/07/19 08:50 10:21 15:07 Breakfast 50% Lunch Supper Temperature 97 F L 97.4 F L Laboratory Tests 11/05/19 11/06/19 11/07/19 06:45 06:45 06:30 WBC 13.5 H 12.6 H 10.6 H Pt verbal, slow to respond, unaware of thickened diet ordered, in front of her on tray. Overtly, pt seems to tolerate single,careful sips of thin liquid, while seated fully upright to 90 degrees. I spoke with pt's HCP, Razia, who was chao and appreciated the call. She was made aware of trial of thin liquids and she is in agreement. Suggest trial of thin liquids. Single sips at a time, seated fully upright. Avoid continuous drinking and straw drinking. Monitor tolerance.
[2019-11-07] MEDS ORDERED: PT OWN MED DRAWER 7, Y5N ONE (20:46)
[2019-11-07] MEDS: ALBUTEROL SO4 0.083% IH SOL 2.5 MG/3 ML VIAL.NEB. NEB PRN (21:15)
[2019-11-07] MEDS: MIRTAZAPINE 15 MG TABLET (FP) PO SCH (21:48)
[2019-11-07] MEDS: TBO-FILGRASTIM 300 MCG/0.5 ML DISP.SYRINGE SQ SCH (21:53)
[2019-11-08] MEDS: HEPARIN NA (PORCINE) 5,000 UNITS/ML 1ML VIAL SQ SCH ×2 (05:34→13:39)
[2019-11-08] MEDS: LEVOTHYROXINE NA 25 MCG TABLET (FP) PO SCH (06:06)
[2019-11-08 07:46] LABS: BASO % 0.3 % (0-2.0); EOS % 0.1 % (0-4.5); HEMATOCRIT 28.8 % (32.4-45.2); HEMOGLOBIN 9.3 GM/dL (10.7-15.3); LYMPH % 1.7 % (8-40); MCH 29.8 pg (25.7-33.7); MCHC 32.3 g/dl (32.0-36.0); MEAN CELL VOLUME 92.4 fl (80-96); MEAN PLT VOLUME 8.1 fl (7.5-11.1); MONO % 3.2 % (3.8-10.2); NEUT % 94.7 % (42.8-82.8); PLATELET COUNT 174 K/MM3 (134-434); RBC 3.12 M/mm3 (3.60-5.2); RDW 21.3 % (11.6-15.6); WHITE BLOOD COUNT 21.8 K/mm3 (4.0-10.0)
[2019-11-08] MEDS: FERROUS SO4 325 MG TABLET (FP) PO SCH ×2 (08:06→17:26)
[2019-11-08 08:09] LABS: ALBUMIN 2.3 g/dl (3.4-5.0); BILIRUBIN,TOTAL 0.6 mg/dL (0.2-1); BLOOD UREA NITROGEN 50.6 mg/dL (7-18); CALCIUM 7.7 mg/dL (8.5-10.1); CREATININE 1.6 mg/dL (0.55-1.3); POTASSIUM 4.4 mmol/L (3.5-5.1); TOT PROT 5.4 g/dl (6.4-8.2)
[2019-11-08] MEDS ORDERED: predniSONE 10 MG TABLET (UD) PO SCH (10:00)
[2019-11-08] MEDS: FLUCONAZOLE 100 MG TABLET (UD) PO SCH (10:08)
[2019-11-08] MEDS: metoPROLOL SUCCINATE 25 MG TAB.SR.24H (FP) PO SCH (10:08)
[2019-11-08] MEDS: FUROSEMIDE 40 MG TABLET (FP) PO SCH (10:08)
[2019-11-08] MEDS: ALLOPURINOL 300 MG TABLET (FP) PO SCH (10:08)
[2019-11-08] MEDS: PANTOPRAZOLE 40 MG TABLET PO SCH (10:08)
[2019-11-08] MEDS: valACYclovir HCL 500 MG TABLET (FP) PO SCH (10:08)
--- NOTE | 2019-11-08 10:23 | PN ---
Progress Note (short form) - Note Progress Note: 88 year-old female known case of lymphoma,hypercalcemia, hypertension, hypertensive cardiovascular disease, history of left ventricular systolic and diastolic dysfunction, history of congestive heart failure. Aortic valvular disease with aortic regurgitation probably severe. History of iatrogenic hypothyroidism.History of anemia and severe anxiety disorder and possibly depression. Out of bed in chair, no SOB or chest reported. Has pedal edema, no PND or orthpnea.Discharge is being planned. 2 Last Vital Signs Temp Pulse Resp BP Pulse Ox 97.9 F 111 H 18 123/69 100 11/08/19 15:39 11/08/19 15:39 11/08/19 15:39 11/08/19 15:39 11/08/19 15:41 Neck: Supple, no JVD, slightly positive hepatojugular reflux. carotids were 2+, upstrokes were normal, no bruits were appreciated. Large left submandibular lymphadenopathy. Well-healed anterior surgical scar. Heart: PMI was in the fifth intercostal space, no heaves or thrills, S1 and S2 were normal. Grade 2/6 ejection systolic murmur was heard at the second right intercostal space, a grade 1/6 apical systolic murmur.? Early diastolic murmur along the lower left sternal border in held expiration. No gallops were heard. Lungs: fine bilateral scattered crepitation, more pronounced at the bases. Abdomen: Soft, protuberant and nontender. No hepatosplenomegaly was appreciated no palpable masses were felt. Extremities: No calf tenderness 2+ dependent edema. Impression: 1. Adverse side effect to Rituxan 2. History of left ventricular systolic and diastolic dysfunction. 3. Hypertension, hypertensive cardiovascular disease. 4. Lymphoma. 5. Hypercalcemia. 6. Pedal edema, multifactorial. 7. Aortic valvular disease with aortic regurgitation. 8. Sinus tachycardia appears to be multifocal in etiology. 9. History of anxiety disorder/depression. 10. Chronic kidney disease. Recommendations: 1. Continue current meds. 2. Outpatient follow-up. 3. Patient is aware of her dietary, including salt restriction Chun Lundberg MD
[2019-11-08] MEDS: POLYETHYLENE GLYCOL 3350 119 GM BTL PO SCH (10:33)
[2019-11-08] MEDS: ASCORBIC ACID 250 MG TABLET (FP) PO SCH (10:54)
[2019-11-08] MEDS: TBO-FILGRASTIM 300 MCG/0.5 ML DISP.SYRINGE SQ SCH (11:19)
--- NOTE | 2019-11-08 12:02 | PN ---
Progress Note, DATABASE MANAGER - Note Progress Note: Selected Entries 11/07/19 11/07/19 11/07/19 06:00 08:50 10:21 Breakfast 50% Lunch Supper Temperature 97.6 F 97 F L 11/07/19 11/07/19 11/07/19 15:07 18:00 22:00 Breakfast Lunch 0 Supper 25% Temperature 97.4 F L 97.9 F 97.7 F 11/08/19 11/08/19 11/08/19 01:59 06:00 08:53 Breakfast Lunch Supper Temperature 97.4 F L 97.5 F L 97.6 F 11/08/19 09:16 Breakfast 50% Lunch Supper Temperature Laboratory Tests 11/08/19 07:03 Total Protein 5.4 L upgraded to thin liquid Coughed on pill this am. Seems to be tolerating thin liquid so far. Crush medication according to head waiter/waitress's guidelines Aspiration precautions. f/u by Speech pathology at [facility].
[2019-11-08 12:05] LABS: URIC ACID 4.2 mg/dL (2.6-7.2)
[2019-11-08 13:23] LABS: ANISOCYTOSIS 2+; MACROCYTOSIS 0; PLATELET ESTIMATE NORMAL
--- NOTE | 2019-11-08 14:57 | DS ---
Physical Exam: SUBJECTIVE: Patient seen and examined at bedside today. No acute events overnight. Satting 97% on R.A. OBJECTIVE: Vital Signs Period Temp Pulse Resp BP Sys/Castelan Pulse Ox Last 24 Hr 97.4 F-97.9 F 91-99 18-20 121-152/62-84 95-100 PHYSICAL EXAM GENERAL: The patient is awake, alert, and fully oriented, in no acute distress. Neck- left side neck mass consistent with previously LUNGS: Breath sounds equal, clear to auscultation bilaterally. HEART: Regular rate and rhythm, S1, S2 without murmur, rub or gallop. ABDOMEN: Soft, nontender, nondistended, no guarding, no rebound. EXTREMITIES: 2+ pulses, warm, well-perfused, no edema. SKIN: Warm, dry, no rashes or lesions noted. LABS Laboratory Results - last 24 hr 11/08/19 11/08/19 07:03 07:03 WBC 21.8 H RBC 3.12 L Hgb 9.3 L Hct 28.8 L MCV 92.4 MCH 29.8 MCHC 32.3 RDW 21.3 H Plt Count 174 MPV 8.1 Absolute Neuts (auto) 20.7 H Neutrophils % 94.7 H Neutrophils % (Manual) 99.0 H Band Neutrophils % 0.0 Lymphocytes % 1.7 L D Lymphocytes % (Manual) 0.0 L Monocytes % 3.2 L Monocytes % (Manual) 1 L Eosinophils % 0.1 D Eosinophils % (Manual) 0.0 Basophils % 0.3 Basophils % (Manual) 0.0 Myelocytes % (Man) 0 Promyelocytes % (Man) 0 Blast Cells % (Manual) 0 Nucleated RBC % 0 Metamyelocytes 0 Hypochromia 0 Platelet Estimate Normal Polychromasia 0 Poikilocytosis 0 Basophilic Stippling 1+ Anisocytosis 2+ Microcytosis 2+ Macrocytosis 0 Sodium 143 Potassium 4.4 Chloride 114 H Carbon Dioxide 23 Anion Gap 7 L BUN 50.6 H Creatinine 1.6 H Est GFR (CKD-EPI)AfAm 33.00 Est GFR (CKD-EPI)NonAf 28.47 Random Glucose 74 Uric Acid 4.2 Calcium 7.7 L Total Bilirubin 0.6 AST 26 ALT 38 Alkaline Phosphatase 339 H Total Protein 5.4 L Albumin 2.3 L HOSPITAL COURSE: Date of Admission:11/01/19 Images: - Echo - EF 55%, LVH, 11 x 8cm fluid collection behind atria - found to likely be lymphoma on chest CT - CT Chest: moderate R pl effusion, lower lobe atelectasis. small L pl effusion & basilar atelectasis. Mediastinal mass post to R atrum likely lymphadenopathy. additional upper abdominal adenopathy & hepatosplenomegaly This patient was admitted for hypercalcemia and for port placement to undergo chemotherapy. Pt developed a reaction to the rituxin requring steroids and benadryl and ICU Placement. 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 She was treated with fluids which was touch and go for her because of her poor cardiac function leading to pulmonary edema, especially when combined with the fluids contained in the chemo. She is on a 3wk cycle of chemo, next dose is on 11/27. She has been given 40 Lasix daily PO and PRN. She was evaluated by cardio () renal (aníbal). She was on steroids 40mg here as part of the chemo regimen per onc, but was d/c'd and started on mepron and valtrex. She has a questionable lymphoma on CT which she will follow up with onc for. She is scheduled to follow up with her PCP, Onc, Cardio. She will follow up with them closely. Her next chemo regimen will be administered here as well. Date of Discharge: 11/08/19 Minutes to complete discharge: 35 Discharge Summary Problems reviewed: Yes Reason For Visit: LOWER UTI,LYMPHOMA,HYPERCALCEMIA Current Active Problems CKD (chronic kidney disease) (Chronic) DLBCL (diffuse large B cell lymphoma) (Chronic) Condition: Improved - Instructions Diet, Activity, Other Instructions: You were admitted for port placement to administer chemotherapy as well as to treat your high blood level of calcium. Since you have been admitted your calcium has normalized and you have received the chemo port. You were administered chemotherapy and will continue to receive chemotherapy every 3 weeks as per oncology (Dr. Ramos). Your next chemo cycle is november 27. You are now stable enough medically to be discharged to a senior care facility. Medication to continue after here: Steroid taper- Prednisone 10mg by mouth once daily. You will take 10 mg every day for 10 more days and then you can stop it. Lasix 40mg by mouth once daily Medication to discontinue: At[place]and given your recent renal function being abnormal. Please follow up with your primary care physician in 3-5 days after leaving here to optimize your medical therapy further. At this time you should have repeat lab work to monitor your kidney function and calcium levels. On imaging we found a nodule on your right kidney. This may not be anything but it may require a follow up imaging study. Please follow up with your oncologist for repeat imaging. You should also make an appointment with the criminal analyst to monitor your kidney functions. Continue your other home medications as prescribed. Please return to the emergency room if you have any worsening of your current symptoms or: chest pain, shortness of breath, bowel or bladder complaints. Referrals: Shivam [place] MD [Primary Care Provider] - Talha Ramos MD [Staff Physician] - 1 Week Tere Broussard MD [Staff Physician] - Steven Luciano MD [Staff Physician] - 1 Week Chun Lundberg MD [Staff Physician] - Disposition: [facility] - Home Medications Comprehensive Discharge Medication List: Ambulatory Orders Alprazolam [Xanax] 0.25 mg PO PRN 10/06/18 Levothyroxine [Synthroid -] 25 mcg PO DAILY 10/06/18 Mirtazapine 15 mg PO HS 09/28/19 Metoprolol Succinate [Toprol XL -] 25 mg PO DAILY 10/13/19 Allopurinol 300 mg PO DAILY 11/01/19 Pantoprazole Sodium [Protonix] 40 mg PO DAILY 11/01/19 Furosemide [Lasix] 40 mg PO DAILY #30 tablet 11/08/19 Prednisone 10 mg PO DAILY #10 tablet 11/08/19 This patient is new to me today: No Emergency Visit: Yes ED Registration Date: 11/01/19 Care time: The patient presented to the Emergency Department on the above date and was hospitalized for further evaluation of their emergent condition. Critical Care patient: No - Discharge Referral Referred to [facility] Med P.C.: No ATTENDING PHYSICIAN STATEMENT I saw and evaluated the patient. I reviewed the resident's note and discussed the case with the resident. I agree with the resident's findings and plan as documented. SUBJECTIVE: OBJECTIVE: ASSESSMENT AND PLAN:
[2019-11-08 15:41] VITALS: BP 123/69; PULSE 111; TEMP 97.9
--- NOTE | 2019-11-08 17:55 | PN ---
Progress Note (short form) - Note Progress Note: Patient seen and examined Discussed with family at bedside S/P Mini CHOP - S/P reaction to Rituxin Last Vital Signs Temp Pulse Resp BP Pulse Ox 97.9 F 111 H 18 123/69 100 11/08/19 15:39 11/08/19 15:39 11/08/19 15:39 11/08/19 15:39 11/08/19 15:41 HEENT: STEPHEN, EOM Intact Oropharynx: No thrush, No mucositis Neck: Supple Nodes: adenopathy--SC left cervial Breasts: Without masses Cor: RSR, No murmurs, No gallops Lungs: scattered rhonchi Abd: Soft, Normal bowel sounds, No organomegaly Ext:LE edema Skin: No rashes, Integument intact CBC, BMP 11/08/19 07:03 11/08/19 07:03 Current Medications Generic Name Dose Route Start Last Admin Trade Name Freq PRN Reason Stop Dose Admin Albuterol Sulfate 1 amp 11/04/19 14:22 11/07/19 21:15 Ventolin 0.083% Nebulizer Soln - NEB 1 amp Q4H PRN Administration SHORT OF BREATH/WHEEZING Allopurinol 300 mg 11/05/19 10:00 11/08/19 10:08 Zyloprim - PO 300 mg DAILY ELIZABETH Administration Alprazolam 0.25 mg 11/05/19 09:53 11/06/19 21:10 Xanax - PO 0.25 mg BID PRN Administration ANXIETY Ascorbic Acid 250 mg 11/05/19 10:00 11/08/19 10:54 Vitamin C - PO 250 mg DAILY ELIZABETH Administration Ferrous Sulfate 325 mg 11/04/19 17:30 11/08/19 17:26 Feosol - PO 325 mg BIDWM ELIZABETH Administration Fluconazole 100 mg 11/05/19 10:00 11/08/19 10:08 Diflucan - PO 100 mg DAILY ELIZABETH Administration Furosemide 40 mg 11/06/19 10:04 11/08/19 10:08 Lasix - PO 40 mg DAILY ELIZABETH Administration Guaifenesin 10 ml 11/05/19 11:43 11/06/19 21:10 Robitussin - PO 10 ml HS PRN Administration COUGH Heparin Sodium (Porcine) 5,000 unit 11/05/19 10:00 11/08/19 13:39 Heparin - SQ 5,000 unit TID ELIZABETH Administration IV Flush 10 ml 11/04/19 14:22 11/06/19 06:49 Alexx-Cath Flush IVPUSH 10 ml PRN PRN Administration Protocol Levothyroxine Sodium 25 mcg 11/05/19 07:00 11/08/19 06:06 Synthroid - PO 25 mcg DAILY@0700 ELIZABETH Administration Metoprolol Succinate 25 mg 11/05/19 10:00 11/08/19 10:08 Toprol Xl - PO 25 mg DAILY ELIZABETH Administration Mirtazapine 15 mg 11/05/19 22:00 11/07/19 21:48 Remeron - PO 15 mg HS ELIZABETH Administration Pantoprazole Sodium 40 mg 11/05/19 10:00 11/08/19 10:08 Protonix - PO 40 mg DAILY ELIZABETH Administration Polyethylene Glycol 17 gm 11/05/19 10:00 11/08/19 10:33 Miralax (For Daily Use) - PO Not Given DAILY ELIZABETH Prednisone 10 mg 11/08/19 10:00 11/08/19 10:54 Deltasone - PO 11/11/19 09:59 10 mg DAILY ELIZABETH Administration Tbo-Filgrastim 300 mcg 11/07/19 22:00 11/08/19 11:19 Granix - SQ 300 mcg DAILY ELIZABETH Administration Valacyclovir HCl 500 mg 11/05/19 10:00 11/08/19 10:08 Valtrex - PO 500 mg DAILY ELIZABETH Administration Transformed lymphoma S/P Mini- R-CHOP Reaction to Rituxin ASHD CHF For outpatient follow up.
[2019-11-08] MEDS ORDERED: FUROSEMIDE 40 MG TABLET (FP) PO ONE (18:43)
--- NOTE | 2019-11-08 18:45 | PN ---
Progress Note, Physician History of Present Illness: Pt seen and examined at bedside. SHe is awake and alert. She feels better today than she did yesterday. - Objective Vital Signs: Vital Signs Temperature 97.9 F 11/08/19 15:39 Pulse Rate 111 H 11/08/19 15:39 Respiratory Rate 18 11/08/19 15:39 Blood Pressure 123/69 11/08/19 15:39 O2 Sat by Pulse Oximetry (%) 100 11/08/19 15:41 Constitutional: Yes: Calm Eyes: Yes: Conjunctiva Clear HENT: Yes: Atraumatic Cardiovascular: Yes: S1, S2 Respiratory: Yes: On Nasal O2, Rhonchi Gastrointestinal: Yes: Soft Genitourinary: Yes: WNL Musculoskeletal: Yes: WNL Edema: Yes Edema: LLE: 1+, RLE: 1+ Neurological: Yes: Oriented Psychiatric: Yes: Oriented Labs: CBC, BMP 11/08/19 07:03 11/08/19 07:03 INR, PTT INR 0.89 (0.83-1.09) 11/02/19 08:56 Problem List - Problems (1) CKD (chronic kidney disease) Code(s): N18.9 - CHRONIC KIDNEY DISEASE, UNSPECIFIED (2) DLBCL (diffuse large B cell lymphoma) Code(s): C83.30 - DIFFUSE LARGE B-CELL LYMPHOMA, UNSPECIFIED SITE Qualifiers: Lymphoma site: neck Qualified Code(s): C83.31 - Diffuse large B-cell lymphoma, lymph nodes of head, face, and neck Assessment/Plan Current Medications Generic Name Dose Route Start Last Admin Trade Name Freq PRN Reason Stop Dose Admin Furosemide 40 mg 11/08/19 18:43 Lasix - PO 11/08/19 18:44 ONCE ONE Impression 1. CKD 2. W[place] 3. hypercalcemia 4. allergic reaction 5. b cell lymphoma 6. htn 7. hld 8. pleural effusions Plan - will give an additional dose of lasix - monitor volume status - follow renal ultrasound - discussed with family - avoid nsaids Dr Broussard
== END 2019-11-08 18:23 | DRG 846 ==
LOC: JER 10:28 → JERBED 11:39 → J7W 18:57 → JICU 11-03 17:35 → J7W 11-04 14:05
PROVIDERS: ATTEND Internal Medicine
PROC: 0JH63WZ Insertion of Totally Implantable Vascular Access Device into Chest Subcutaneous Tissue and Fascia, Percutaneous Approach (ICD-10-PCS; principal; 2019-11-03)
PROC: B513ZZA Fluoroscopy of Right Jugular Veins, Guidance (ICD-10-PCS; 2019-11-03)
PROC: 3E03305 Introduction of Other Antineoplastic into Peripheral Vein, Percutaneous Approach (ICD-10-PCS; 2019-11-03)
DX: Z51.11 Encounter for antineoplastic chemotherapy (principal); E88.3 Tumor lysis syndrome; J98.11 Atelectasis; C83.31 Diffuse large B-cell lymphoma, lymph nodes of head, face, and neck; N17.9 Acute kidney failure, unspecified; J90 Pleural effusion, not elsewhere classified; I13.0 Hypertensive heart and chronic kidney disease with heart failure and stage 1 through stage 4 chronic kidney disease, or unspecified chronic kidney disease; I50.40 Unspecified combined systolic (congestive) and diastolic (congestive) heart failure; E83.52 Hypercalcemia; D64.9 Anemia, unspecified; T45.1X5A Adverse effect of antineoplastic and immunosuppressive drugs, initial encounter; I25.10 Atherosclerotic heart disease of native coronary artery without angina pectoris; F41.8 Other specified anxiety disorders; K21.9 Gastro-esophageal reflux disease without esophagitis; E03.9 Hypothyroidism, unspecified; E83.39 Other disorders of phosphorus metabolism; E83.42 Hypomagnesemia; N18.3 Chronic kidney disease, stage 3 (moderate); E78.5 Hyperlipidemia, unspecified; R00.0 Tachycardia, unspecified
CPT/HCPCS: 36415; 36561; 71045-TC-FY; 71250-TC; 76775-TC; 77001-TC-FY; 80048; 80053; 81003; 82306; 82550; 82565; 82607; 82728; 82746; 83540; 83550; 83615; 83735; 83880; 84100; 84300; 84443; 84484; 84550; 85025; 85027; 85044; 85610; 85730; 86850; 86900; 86901; 87040; 87086; 93005; 93010; 93306-TC; 94640; 97116-GP; 97161-GP; 99284-25; C1788; J0131; J1100; J1447; J1644; J3480; J7030; J9070; J9312; J9370

== ENCOUNTER 2019-11-14 09:54 | Inpatient (IN) | payer OTHER, BC ==
[2019-11-14] MEDS ORDERED: ACETAMINOPHEN INJECTION 100 ML IVPB ONE (10:10)
[2019-11-14] MEDS ORDERED: SODIUM CHLORIDE 1,361 ML IV ONE (10:19)
--- NOTE | 2019-11-14 10:49 | PDOC ---
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 Per family pt has been rapidly declining since her last admission. She chokes on food unless she is sitting upright and has abdominal pain specially on palpation. She received antibiotics during her port placement on 11/03/2019. pt was recently discharged from [facility] for hypercalcemia and chemo port placement ( palliative Chemo ); at that time pt received Mini- R-CHOP and had a reaction to Rituxin treated with steroids and benadryl. She denies any SALGADO, dizziness, chest pain,FND, or urinary changes. No sick contact or change in diet. denies smoking , EtOh, illicit drugs. In ED, Tmax of 102F rectally and soft BP of 98/78. Of note, per family no aggressive care should be given to the patient. she is DNR/DNI, no central lines to be placed if she was to continue to have a low BP. PCP: Dr [place] Social Science Manager: Dr. Lundberg Oncologist: Dr. Ramos PE: Gen: uncomfortable and in mild distress HEENT: b/l Eyes with yellow discharge, multiple cervical lymphadenopathy Chest: tenderness around chemo port with very mild erythema, vesicular breath sounds but reduced at the bases Abdomen:+ BS, tender to palpation diffusely extremities: 1+ edema 11/14/19 11:05 Assessment: in the setting of recent chemo, pt being immunocompromised DDX includes: sepsis from c diff vs chemoport site infection vs urine/ PNA ( coughing, fever, and immunocompromised) 11/14/19 11:12 Plan; CBC, CMP with mag and phos, sepsis workup ordered including chemo port blood culture will give vanc, zosyn, polytrim drops tylenol IV once and Normal Saline 11/14/19 11:42 EKG sinus tachy with multiple motion artifacts CBC w/o leukocytosis. Anemic with H&H of 30.5 PT/INR : 11.4/0.97. PTT 28.6 CMP pending 11/14/19 11:51 CXR no acute pathology. unchanged from last admission 11/14/19 11:53 11/14/19 11:54 11/14/19 11:[address] Ramos who agrees with above plan and for port culture to be done by chemo infusion nurses from [facility] 11/14/19 12:46 pt received zosyn. allergy was noted after. pt denies any allergic symptoms no itching, no rash, no wheezing noted. given medrol and monitoring 11/14/19 12:55 CMP came back CMP Sodium 140 mmol/L (136-145) 11/14/19 10:30 Potassium 4.1 mmol/L (3.5-5.1) 11/14/19 10:30 Chloride 110 mmol/L (98-107) H 11/14/19 10:30 Carbon Dioxide 24 mmol/L (21-32) 11/14/19 10:30 Anion Gap 6 MMOL/L (8-16) L 11/14/19 10:30 BUN 31.6 mg/dL (7-18) H 11/14/19 10:30 Creatinine 1.6 mg/dL (0.55-1.3) H 11/14/19 10:30 Est GFR (CKD-EPI)AfAm 33.00 11/14/19 10:30 Est GFR (CKD-EPI)NonAf 28.47 11/14/19 10:30 Random Glucose 80 mg/dL (74-106) 11/14/19 10:30 Lactic Acid 1.2 mmol/L (0.4-2.0) 11/14/19 10:19 Calcium 7.9 mg/dL (8.5-10.1) L 11/14/19 10:30 Phosphorus 1.7 mg/dL (2.5-4.9) L 11/14/19 10:30 Magnesium 1.7 mg/dL (1.8-2.4) L 11/14/19 10:30 Total Bilirubin 1.7 mg/dL (0.2-1) H 11/14/19 10:30 AST 56 U/L (15-37) H 11/14/19 10:30 ALT 60 U/L (13-61) 11/14/19 10:30 Alkaline Phosphatase 514 U/L (45-117) H 11/14/19 10:30 Troponin I < 0.02 ng/ml (0.00-0.05) 11/14/19 10:30 Total Protein 6.4 g/dl (6.4-8.2) 11/14/19 10:30 Albumin 2.6 g/dl (3.4-5.0) L 11/14/19 10:30 will order abdominal US RUQ for abnormal LFTs and add-on lipase from CMP. Cr 1.6 around baseline. renal US 11/01/2019 wit right intracortical nodule of .8 cm w/o hydro noted will replete mag and phos 11/14/19 13:13 will swab for influenza 11/14/19 14:22 RUQ US :Contracted gallbladder with multiple intraluminal stones and without gross wall thickening or pericholecystic free fluid to suggest acute cholecystitis. Hepatomegaly with fatty infiltration versus hepatocellular disease. Please correlate with liver enzymes. Normal-appearing pancreas and right kidney. 11/14/19 will admit to medicine for sepsis management 11/14/19 18:37 Past History - Past Medical History Allergies/Adverse Reactions: Allergies Allergy/AdvReac Type Severity Reaction Status Date / Time Penicillins Allergy Mild Rash Verified 11/01/19 11:03 azithromycin AdvReac Intermediate diarrhea Verified 11/01/19 11:03 [From Zithromax Z-Aung] metronidazole [From Flagyl] AdvReac Intermediate Rash Verified 11/01/19 11:03 Metronidazole HCl AdvReac Intermediate Verified 11/01/19 11:03 [From Flagyl] Home Medications: Ambulatory Orders Alprazolam [Xanax] 0.25 mg PO PRN 10/06/18 Levothyroxine [Synthroid -] 25 mcg PO DAILY 10/06/18 Mirtazapine 15 mg PO HS 09/28/19 Metoprolol Succinate [Toprol XL -] 25 mg PO DAILY 10/13/19 Allopurinol 300 mg PO DAILY 11/01/19 Pantoprazole Sodium [Protonix] 40 mg PO DAILY 01/28/20 Atovaquone [Mepron -] 750 mg PO BID #70 ml 11/08/19 Furosemide [Lasix] 40 mg PO DAILY #30 tablet 11/08/19 Valacyclovir HCl [Valtrex] 500 mg PO DAILY #30 tablet 11/08/19 Anemia: Yes Asthma: No Cancer: Yes (BREAST CA 11/2006, LYMPHOMA 1980 AND 1988) Cardiac Disorders: No CVA: No COPD: No CHF: No Dementia: No Diabetes: No GI Disorders: No Disorders: No HTN: Yes Hypercholesterolemia: Yes Liver Disease: No Psychiatric Problems: Yes (anxiety) Seizures: No Thyroid Disease: Yes (THYROIDECTOMY) - Surgical History Abdominal Surgery: Yes (PERFORATED COLON S/P COLONOSCOPY) Appendectomy: No Cardiac Surgery: No Cholecystectomy: No GI Surgery: Yes (colonoscopy) Lung Surgery: No Neurologic Surgery: No Orthopedic Surgery: No - Immunization History Immunization Up to Date: No - Psycho Social/Smoking Cessation Hx Smoking Status: No Smoking History: Never smoked Have you smoked in the past 12 months: No Number of Cigarettes Smoked Daily: 0 Hx Alcohol Use: No Drug/Substance Use Hx: No Substance Use Type: None Hx Substance Use Treatment: No *Physical Exam - Vital Signs Last Vital Signs Temp Pulse Resp BP Pulse Ox 102 F H 135 H 24 H 119/64 96 11/14/19 10:46 11/14/19 10:46 11/14/19 10:46 11/14/19 10:46 11/14/19 10:46 ED Treatment Course - LABORATORY CBC & Chemistry Diagram: 11/14/19 10:30 11/14/19 10:30 Discharge - Discharge Information Problems reviewed: Yes Clinical Impression/Diagnosis: Sepsis, Systemic inflammatory response syndrome (SIRS) Condition: Stable - Admission Yes - Follow up/Referral - Patient Discharge Instructions - Post Discharge Activity
[2019-11-14] MEDS ORDERED: ACETAMINOPHEN 1000 MG/100 ML VIAL (NON FORMULARY) IVPB ONE (10:51)
[2019-11-14 11:12] LABS: BASO % 1.2 % (0-2.0); EOS % 9.1 % (0-4.5); HEMATOCRIT 30.5 % (32.4-45.2); LYMPH % 7.9 % (8-40); MCH 30.2 pg (25.7-33.7); MCHC 32.7 g/dl (32.0-36.0); MEAN CELL VOLUME 92.2 fl (80-96); MEAN PLT VOLUME 8.4 fl (7.5-11.1); MONO % 4.2 % (3.8-10.2); NEUT % 77.6 % (42.8-82.8); PLATELET COUNT 221 K/MM3 (134-434); RBC 3.31 M/mm3 (3.60-5.2); RDW 20.3 % (11.6-15.6)
[2019-11-14 11:29] LABS: INR 0.97 (0.83-1.09); PROTHROMBIN TIME (PATIENT) 11.4 SEC (9.7-13.0)
[2019-11-14] MEDS ORDERED: VANCOMYCIN 1,000 MG in DEXTROSE 5%-WATER - 250 ML IVPB ONE (11:29)
[2019-11-14] MEDS ORDERED: PIPERACILLIN/TAZOB 3.375 GM 3.375 GM in DEXTROSE 5%-WATER - 50 ML IVPB ONE (11:29)
[2019-11-14] MEDS ORDERED: POLYMYXIN B SULFATE/TMP 10 ML OPHTHALMIC SOLUTION OU ONE (11:30)
[2019-11-14 11:31] LABS: ACTIVATED PTT 28.6 SECONDS (25.2-36.5)
[2019-11-14 11:52] LABS: ALBUMIN 2.6 g/dl (3.4-5.0); BILIRUBIN,TOTAL 1.7 mg/dL (0.2-1); BLOOD UREA NITROGEN 31.6 mg/dL (7-18); CALCIUM 7.9 mg/dL (8.5-10.1); CREATININE 1.6 mg/dL (0.55-1.3); MAGNESIUM 1.7 mg/dL (1.8-2.4); PHOSPHOROUS 1.7 mg/dL (2.5-4.9); POTASSIUM 4.1 mmol/L (3.5-5.1); TOT PROT 6.4 g/dl (6.4-8.2)
[2019-11-14] MEDS ORDERED: PIPERACILLIN/TAZOB 3.375 GM 3.375 GM/50 ML BAG IVPB ONE (12:04)
--- NOTE | 2019-11-14 12:20 | PDOC ---
Documentation entered by Master Spaulding SCRIBE, acting as scribe for Aiyana Durand MD. Aiyana Durand MD: This documentation has been prepared by the Jasson martinez Nirvannie, SCRIBE, under my direction and personally reviewed by me in its entirety. I confirm that the documentation accurately reflects all work, treatment, procedures, and medical decision making performed by me. Attending Attestation - Resident Resident Name: WiltonBettie - ED Attending Attestation I have performed the following: I have examined & evaluated the patient, The case was reviewed & discussed with the resident, I agree w/resident's findings & plan, Exceptions are as noted - HPI HPI: 11/14/19 11:17 The patient is a year old female, with a significant past medical history of low grade follicular Lymphoma, large B cell lymphoma, s/p chemo port, HTN, HLD, L breast CA (s/p lumpectomy), CHF, who presents to the emergency department via EMS from [facility] with fever diarrhea. As per family at bedside, patient has been experiencing multiple episodes of nonbloody, yellowish/green in coloration, malodorous feces. Allergies: Penicillins, azithromycin, metronidazole Past surgical history: Perforated colon s/p colonoscopy, s/p lumpectomy, s/p thyroidectomy Primary Care Physician: Stanislav Insurance Risk Surveyor: Dr. Lundberg Oncologist: Dr. Ramos Psychologist: Dr. Sunshine - Physicial Exam PE: GENERAL: Awake, alert, and fully oriented. Ill-appearing HEAD: No signs of trauma EYES: PERRLA, EOMI, sclera anicteric. +Bilateral conjunctival injection with purulent drainage ENT: Auricles normal inspection, hearing grossly normal, nares patent, oropharynx clear without exudates. Dry mucosa NECK: Normal ROM, supple, no lymphadenopathy, JVD, or masses LUNGS: Good air entry B/L, +tachypnea, +rhonchi. Intermittent loose cough. HEART: Tachycardic with regular rhythm, normal S1 and S2, no murmurs, rubs or gallops ABDOMEN: Soft, protuberant, nontender, normoactive bowel sounds. No guarding, no rebound. No masses EXTREMITIES: Normal range of motion, no edema. No clubbing or cyanosis. No cords, erythema, or tenderness NEUROLOGICAL: Cranial nerves II through XII grossly intact. Normal speech. Motor and sensation intact SKIN: Warm, dry, normal turgor, no rashes or lesions noted. - Medical Decision Making Pt with fever, suspected sepsis. History of lymphoma, recent port placement. Case d/w Dr. Ramos, who recommended culture from the port. Will treat the conjunctivitis, will give broad spectrum IV abx as well. Will ghotra culture. Admit.
[2019-11-14] MEDS ORDERED: methylPREDNISolone NA SUCC 125 MG/2 ML VIAL IVPUSH ONE (12:45)
[2019-11-14] MEDS ORDERED: MAGNESIUM SULF 50% (8.12 MEQ/2 ML-1 GM VIAL) IVPB ONE ×2 (12:57→18:34)
[2019-11-14] MEDS ORDERED: POTASSIUM PHOSPHATE 15 MM in SODIUM CHLORIDE 250 ML IVPB ONE (12:58)
[2019-11-14] MEDS ORDERED: VANCOMYCIN 1 GRAM (PRE-DOCKED) 1,000 MG/250 ML BAG IVPB ONE (14:14)
[2019-11-14] MEDS ORDERED: methylPREDNISolone NA SUCC 125 MG/2 ML VIAL ONE (14:14)
[2019-11-14] MEDS ORDERED: MAGNESIUM 1GM/D5W - 1 GM/100 ML IVPB IVPB ONE (14:15)
--- NOTE | 2019-11-14 14:57 | EKG ---
Test Reason : Blood Pressure : / mmHG Vent. Rate : 134 BPM Atrial Rate : 134 BPM P-R Int : 116 ms QRS Dur : 108 ms QT Int : 326 ms P-R-T Axes : 034 -59 051 degrees QTc Int : 486 ms POOR DATA QUALITY, INTERPRETATION MAY BE ADVERSELY AFFECTED SINUS TACHYCARDIA (RBBB AND LEFT ANTERIOR FASCICULAR BLOCK) ABNORMAL ECG WHEN COMPARED WITH ECG OF 02-NOV-2019 10:17, PREMATURE VENTRICULAR COMPLEXES ARE NO LONGER PRESENT Confirmed by Umesh Dorsey ([id number]) on 11/14/2019 2:57:15 PM Referred By: Confirmed By:Umesh Dorsey
[2019-11-14] MEDS ORDERED: morphine CARPU-JECT 2 MG/1 ML DISP.SYRIN IVPUSH ONE (15:00)
[2019-11-14] MEDS ORDERED: SODIUM CHLORIDE 1,000 ML IV SCH ×2 (16:15→21:30)
[2019-11-14] MEDS ORDERED: MORPHINE SULFATE 2 MG/ML VIAL ONE (17:08)
--- NOTE | 2019-11-14 17:39 | PN ---
Teaching Attending Note Name of Resident: Vilma Pal ATTENDING PHYSICIAN STATEMENT I saw and evaluated the patient. I reviewed the resident's note and discussed the case with the resident. I agree with the resident's findings and plan as documented. SUBJECTIVE: CC: fever , cough, diarrhea, and fatigue. 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 She was dc to [facility] on . She presented to ER with fever , cough , fatigue and and diarrhea 3 days ago, she started feeling unwell with diarrhea, and abd pain. she started having fever last night. she has non productive cough, which is not new, and started last admission and did not change. she denies any urinary sx but did not urinate since last night . No N/V. NO CP . At presentation to ER she was SOB and tachypnic, and hypotensive. she was given Abx and IVF and now she feels 80% better and has no SOB. daughter concur that Mom looks much better and her breathing is slower. of note she was noted to be so fatigued at OR but did not have AMS. OBJECTIVE: NAD, awake, alert, cooperative, and pleasant. dry MM. normal oropharynx . Neck with large mass on L side which is hard, fixed on deep structures, with a smaller mass in L supraclavicular area. CV: RRR, no MRG , No JVD Lungs: bibasilar fine crackles. otherwise clear Ext : 1+ edema on both legs . DP 2+ . no fungal infection . No edema o n upper extremities. skin: no rash Abd: soft, distended, tender to palpation in all quadrants. no rebound tenderness. tympanic. percussed bladder a little above mid point between pupis and umbilicus. Neuro: EOMI, round equal pupils, reactive to light. tongue at mid line. strength 5/5 in upper and lower extremities proximally and distally 1+ knee jerk b/l. 2+ biceps b/l Lymphatic system: L neck masses as above. R axillar tenderness but no masses or nodes. R groin Lymph node 1.5 cm in diameter, tender . 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 She was dc to [facility] on 11/08. She presented to ER with fever , cough , fatigue and and diarrhea 1- SIRS with suspected sepsis: source is unclear yet. Recent port and chemo indicates need to r/o bacteremia. also r/o c diff in setting of recent hospitalization. distended abd after diarrhea, need to r/o ileus, toxic megacolon. - check c diff - obtain CT scan of ABd/pelvis w/o IV contrast - follow blood cx - insert subramanian - obtain UA - I doubt PNA . coough is chronci and did not change - give IVF carefully as she required diuresis last admission - start Abx. vanco and ? zosyn. has h/o allergy ( " I blow up with PCN") , but received zosyn and benadryl in ER with no reaction. will consult with ID 2- Large B cell lymphoma: chemo started last admission but had reaction to Rituxan. - cont prednisone .was d/c on prednione 10 mg x 10 days . will decrease dose to 5 mg for now and stop in few days - cont valcyclovir and mpron - heme consult 3- H/o HTn: BP on lower side. hold toprol and lasis. consider stopping the fluids tomorrow if appropriate 4- H/o diastolic heart failure: stable now . monitor carefully on IVF. might need to stop soon 5- CKD: Cr at base line DVT Px: heparin sq
[2019-11-14] MEDS ORDERED: PIPERACILLIN/TAZOB 3.375 GM 3.375 GM in DEXTROSE 5%-WATER - 50 ML IVPB SCH (18:00)
--- NOTE | 2019-11-14 18:12 | CONSULT ---
Consult - text type - Consultation Consultation Note: 88 year old female with history of HTN, CHF, aortic regurgitation, iatrogenic hypothyroidism, 25 year history of low grade follicular Lymphoma s/p RTx s/p Rituxin progressed to High-grade Large B cell Lymphoma, History of Breast Ca a/ p lumpectomy s/p RTx/Hormonal Rx, IBD, Hx Colon perforation s/p repair presenting to ED from [facility] for fever, wet cough, SOB and multiple episodes of diarrhea for the past 3 days. Per family pt has been rapidly declining since her last admission. She chokes on food unless she is sitting upright and has abdominal pain specially on palpation. pt was recently discharged from [facility] for hypercalcemia and chemo port placement (palliative Chemo ); at that time pt received Mini- R-CHOP and had a reaction to Rituxin treated with steroids and benadryl. Of note, per family no aggressive care should be given to the patient. she is DNR/DNI, no central lines to be placed if she was to continue to have a low BP. Last Vital Signs Temp Pulse Resp BP Pulse Ox 102 F H 135 H 24 H 119/64 96 11/14/19 10:46 11/14/19 10:46 11/14/19 10:46 11/14/19 10:46 11/14/19 10:46 Gen: uncomfortable and in mild distress HEENT: b/l Eyes with yellow discharge, multiple cervical lymphadenopathy Chest: tenderness around chemo port with very mild erythema, vesicular breath sounds but reduced at the bases Abdomen:+ BS, tender to palpation diffusely extremities: 1+ edema Abnormal Lab Results 11/14/19 11/14/19 10:30 10:30 RBC 3.31 L Hgb 10.0 L Hct 30.5 L RDW 20.3 H Lymphocytes % 7.9 L D Eosinophils % 9.1 H D Chloride 110 H Anion Gap 6 L BUN 31.6 H Creatinine 1.6 H Calcium 7.9 L Phosphorus 1.7 L Magnesium 1.7 L Total Bilirubin 1.7 H AST 56 H Alkaline Phosphatase 514 H Albumin 2.6 L Lipase 55 L 11/14/19 14:22 RUQ US :Contracted gallbladder with multiple intraluminal stones and without gross wall thickening or pericholecystic free fluid to suggest acute cholecystitis. Hepatomegaly with fatty infiltration versus hepatocellular disease. Please correlate with liver enzymes. Normal-appearing pancreas and right kidney. - Past Medical History Allergies/Adverse Reactions: Allergies Allergy/AdvReac Type Severity Reaction Status Date / Time Penicillins Allergy Mild Rash Verified 11/01/19 11:03 azithromycin AdvReac Intermediate diarrhea Verified 11/01/19 11:03 [From Zithromax Z-Aung] metronidazole [From Flagyl] AdvReac Intermediate Rash Verified 11/01/19 11:03 Metronidazole HCl AdvReac Intermediate Verified 11/01/19 11:03 [From Flagyl] Home Medications: Ambulatory Orders Alprazolam [Xanax] 0.25 mg PO PRN 10/06/18 Levothyroxine [Synthroid -] 25 mcg PO DAILY 10/06/18 Mirtazapine 15 mg PO HS 09/28/19 Metoprolol Succinate [Toprol XL -] 25 mg PO DAILY 10/13/19 Allopurinol 300 mg PO DAILY 11/01/19 Pantoprazole Sodium [Protonix] 40 mg PO DAILY 11/01/19 Atovaquone [Mepron -] 750 mg PO BID #70 ml 11/08/19 Furosemide [Lasix] 40 mg PO DAILY #30 tablet 11/08/19 Valacyclovir HCl [Valtrex] 500 mg PO DAILY #30 tablet 11/08/19 Anemia: Yes Cancer: Yes (BREAST CA 11/2006, LYMPHOMA 1980 AND 1988) HTN: Yes Hypercholesterolemia: Yes Psychiatric Problems: Yes (anxiety) Thyroid Disease: Yes (THYROIDECTOMY) - Surgical History Abdominal Surgery: Yes (PERFORATED COLON S/P COLONOSCOPY) GI Surgery: Yes (colonoscopy) A/P 88 y/old lady with a h/o 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 She was dc to [facility] on 11/08. She presented to ER with fever , cough , fatigue and and diarrhea WBC 5000 On broad spectrum antibiotics Hydration Monitor CBC/CMP Poor overall prognosis. DNR/DNI discussed with family in greast detail will request pllitive care consult
[2019-11-14] MEDS ORDERED: ALPRAZolam 0.25 MG TABLET PO SCH (20:00)
--- NOTE | 2019-11-14 20:21 | CONSULT ---
Consult Consult Specialty:: Nephrology Reason for Consultation:: WINSTON - History of Present Illness Chief Complaint: diarrhea History of Present Illness: Pt is an 88 year old female with pmhx of htn, chf, aortic regurg, hypothyroidism , ckd, [place], pleural effusion, folicular lymphoma who presents to the ER complaining of diarrhea. She was recently discharged from the hospital. She has had poor PO intake. She had fevers and was sent in for evaluation. She had a reaction to rituximab on her last admission. - History Source History Provided By: Patient - Past Medical History Cardio/Vascular: Yes: HTN, Hyperlipdemia Gastrointestinal: Yes: Diverticulosis, Irritable Bowel Disease, Other ( nonbleeding asc colon and cecal avms on prior colon) Endocrine: Yes: Other (thyroid nodule) - Past Surgical History Past Surgical History: Yes: Colonoscopy, Colostomy, Mastectomy, Upper Endoscopy - Alcohol/Substance Use Hx Alcohol Use: No History of Substance Use: reports: None - Smoking History Smoking history: Never smoked Have you smoked in the past 12 months: No Aproximately how many cigarettes per day: 0 - Social History ADL: Independent History of Recent Travel: No Home Medications - Allergies Allergies/Adverse Reactions: Allergies Allergy/AdvReac Type Severity Reaction Status Date / Time Penicillins Allergy Mild Rash Verified 11/01/19 11:03 azithromycin AdvReac Intermediate diarrhea Verified 11/01/19 11:03 [From Zithromax Z-Aung] metronidazole [From Flagyl] AdvReac Intermediate Rash Verified 11/01/19 11:03 Metronidazole HCl AdvReac Intermediate Verified 11/01/19 11:03 [From Flagyl] - Home Medications Home Medications: Ambulatory Orders Alprazolam [Xanax] 0.25 mg PO PRN 10/06/18 Levothyroxine [Synthroid -] 25 mcg PO DAILY 10/06/18 Mirtazapine 15 mg PO HS 09/28/19 Metoprolol Succinate [Toprol XL -] 25 mg PO DAILY 10/13/19 Allopurinol 300 mg PO DAILY 11/01/19 Pantoprazole Sodium [Protonix] 40 mg PO DAILY 11/01/19 Atovaquone [Mepron -] 750 mg PO BID #70 ml 11/08/19 Furosemide [Lasix] 40 mg PO DAILY #30 tablet 11/08/19 Valacyclovir HCl [Valtrex] 500 mg PO DAILY #30 tablet 11/08/19 Family Medical History Family History: Denies Review of Systems - Review of Systems Constitutional: reports: Malaise Eyes: reports: No Symptoms HENT: reports: No Symptoms Neck: reports: No Symptoms Cardiovascular: reports: Edema Respiratory: reports: No Symptoms Gastrointestinal: reports: Abdominal Pain, Bloating, Diarrhea Musculoskeletal: reports: No Symptoms Neurological: reports: No Symptoms Endocrine: reports: No Symptoms Physical Exam Vital Signs: Vital Signs Temperature 102 F H 11/14/19 10:46 Pulse Rate 135 H 11/14/19 10:46 Respiratory Rate 24 H 11/14/19 10:46 Blood Pressure 119/64 11/14/19 10:46 O2 Sat by Pulse Oximetry (%) 96 11/14/19 10:46 Constitutional: Yes: Calm Eyes: Yes: Conjunctiva Clear HENT: Yes: Atraumatic Neck: Yes: Other (neck mass) Cardiovascular: Yes: S1, S2 Respiratory: Yes: On Nasal O2 Gastrointestinal: Yes: Soft Renal/: Yes: Other (pt has not urinated all day) Edema: Yes Edema: LLE: 1+, RLE: 1+ Neurological: Yes: Oriented Psychiatric: Yes: Oriented Labs: CBC, BMP 11/14/19 10:30 11/14/19 10:30 Imaging - Results Cat Scan: Report Reviewed Assessment/Plan Current Medications Generic Name Dose Route Start Last Admin Trade Name Freq PRN Reason Stop Dose Admin Acetaminophen 650 mg 11/14/19 16:13 Tylenol - PO Q6H PRN FEVER Allopurinol 300 mg 11/15/19 10:00 Zyloprim - PO DAILY ELIZABETH Alprazolam 0.25 mg 11/14/19 18:04 Xanax - PO Q8H PRN ANXIETY Atovaquone 750 mg 11/14/19 22:00 Mepron - PO BIDWM ELIZABETH Heparin Sodium (Porcine) 5,000 unit 11/14/19 22:00 Heparin - SQ TID ELIZABETH Sodium Chloride 1,000 mls @ 75 mls/hr 11/14/19 16:15 11/14/19 17:36 Normal Saline - IV 75 mls/hr ASDIR ELIZABETH Administration Piperacillin Sod/Tazobactam 50 mls @ 100 mls/hr 11/14/19 18:00 Sod 3.375 gm/ Dextrose IVPB Q8H-IV ELIZABETH Protocol Vancomycin HCl 750 mg/ 150 mls @ 150 mls/hr 11/15/19 14:00 Dextrose IVPB Q48H ELIZABETH Protocol Vancomycin HCl 750 mg/ 250 mls @ 166.667 mls/hr 11/15/19 14:00 Dextrose IVPB 11/15/19 15:29 ONCE ONE Protocol Meropenem 500 mg/ Dextrose 100 mls @ 200 mls/hr 11/14/19 22:00 IVPB BID ELIZABETH Meropenem 500 mg/ Dextrose 100 mls @ 200 mls/hr 11/14/19 22:00 IVPB 11/15/19 21:59 BID ELIZABETH Levothyroxine Sodium 25 mcg 11/15/19 07:00 Synthroid - PO DAILY@0700 ELIZABETH Prednisone 5 mg 11/15/19 10:00 Deltasone - PO DAILY ELIZABETH Valacyclovir HCl 500 mg 11/15/19 10:00 Valtrex - PO DAILY ELIZABETH Impression 1. CKD 2. WINSTON 3. diarrhea 4. fever 5. b cell lymphoma 6. htn 7. hld 8. pleural effusions Plan - agree with fluids - monitor volume status closely - can place subramanian - panculture - discuss GOC with family - oncology eval - discussed with medical team
--- NOTE | 2019-11-14 20:32 | HP ---
CHIEF COMPLAINT: fevers, cough, diarrhea, shortness of breath PCP: Dr. [place] HISTORY OF PRESENT ILLNESS: Patient is an 88 year old female with past medical history of HTN, CHF, AR, hypothyroidism, 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 Of note, patient was recently discharged from [facility] on 11/08, for port placement for chemotherapy, to which she was started on during that previous admission. At that time pt received Mini- R-CHOP and had a reaction to Rituxin treated with steroids and benadryl. Patient was subsequently discharged to [facility]. Yesterday, patient was noted to have 3 episodes of loose, watery, foul smelling, nonbloody stools. Patient also reports abdominal discomfort that has been present for months. Today, she was found to be febrile with shortness of breath and was subsequently brought to the ED. Patient denies any headache, dizziness, chest pain, nausea, vomiting, urinary symptoms No episodes of diarrhea today. ER course was notable for: (1)Temp 102F, HR 135, RR 30s, BP 95/59 (2)BUN/Cr 31.6/1.6, AST 56 ALT 60 ALP 514, Total bili 1.7, Phos 1.7, Mg 1.7 (3)RUQ US - no acute pathology Recent Travel:denies PAST MEDICAL HISTORY: HTN CHF AR hypothyroidism low grade follicular lymphoma s/p RTx s/p Rituxin, progressed to high grade large B cell lymphoma hx of breast Ca s/p tx IBD PAST SURGICAL HISTORY: L breast lumpectomy Colostomy (s/p tear during polypectomy) s/p Colostomy revision Social History: Smoking:denies Alcohol:denies Drugs: denies Allergies Penicillins Allergy (Mild, Verified 11/01/19 11:03) Rash azithromycin [From Zithromax Z-Aung] Adverse Reaction (Intermediate, Verified 11:03) diarrhea RASH ALSO metronidazole [From Flagyl] Adverse Reaction (Intermediate, Verified 11/01/19 11 :03) Rash diarrhea Metronidazole HCl [From Flagyl] Adverse Reaction (Intermediate, Verified 11:03) diarrhea HOME MEDICATIONS: Home Medications Medication Instructions Recorded Alprazolam [Xanax] 0.25 mg PO PRN 10/06/18 Levothyroxine [Synthroid -] 25 mcg PO DAILY 10/06/18 Mirtazapine 15 mg PO HS 09/28/19 Metoprolol Succinate [Toprol XL -] 25 mg PO DAILY 10/13/19 Allopurinol 300 mg PO DAILY 11/01/19 Pantoprazole Sodium [Protonix] 40 mg PO DAILY 11/01/19 Atovaquone [Mepron -] 750 mg PO BID #70 ml 11/08/19 Furosemide [Lasix] 40 mg PO DAILY #30 tablet 11/08/19 Valacyclovir HCl [Valtrex] 500 mg PO DAILY #30 tablet 11/08/19 REVIEW OF SYSTEMS CONSTITUTIONAL: fever Absent: chills, diaphoresis, generalized weakness, malaise, loss of appetite, weight change HEENT: Absent: rhinorrhea, nasal congestion, throat pain, throat swelling, difficulty swallowing, mouth swelling, ear pain, eye pain, visual changes CARDIOVASCULAR: Absent: chest pain, syncope, palpitations, irregular heart rate, lightheadedness , peripheral edema RESPIRATORY: shortness of breath Absent: cough, dyspnea with exertion, orthopnea, wheezing, stridor, hemoptysis GASTROINTESTINAL: abdominal pain, diarrhea Absent:abdominal distension, nausea, vomiting, constipation, melena, hematochezia GENITOURINARY: Absent: dysuria, frequency, urgency, hesitancy, hematuria, flank pain, genital pain MUSCULOSKELETAL: Absent: myalgia, arthralgia, joint swelling, back pain, neck pain SKIN: Absent: rash, itching, pallor HEMATOLOGIC/IMMUNOLOGIC: Absent: easy bleeding, easy bruising, lymphadenopathy, frequent infections ENDOCRINE: Absent: unexplained weight gain, unexplained weight loss, heat intolerance, cold intolerance NEUROLOGIC: Absent: headache, focal weakness or paresthesias, dizziness, unsteady gait, seizure, mental status changes, bladder or bowel incontinence PSYCHIATRIC: Absent: anxiety, depression, suicidal or homicidal ideation, hallucinations. PHYSICAL EXAMINATION Vital Signs - 24 hr 11/14/19 11/14/19 11/14/19 10:03 10:19 10:46 Temperature 102 F H 102 F H 102 F H Pulse Rate 135 H 135 H Pulse Rate [ 135 H Left Radial] Respiratory 16 24 H Rate Blood Pressure 98/78 Blood Pressure 119/64 [Right Arm] O2 Sat by Pulse 96 96 96 Oximetry (%) GENERAL: Awake, alert, and fully oriented, On 3L Nc HEAD: Normal with no signs of trauma. EYES:PERRLA, EOMI, sclera anicteric, +conjunctiva injection bilateral. EARS, NOSE, THROAT: Ears normal, nares patent, oropharynx clear. Dry mucous membranes. NECK: Normal range of motion, +cervical/supraclavicular LAD CHEST: +tenderness around chemo port with surrounding erythema LUNGS: Decreased breath sounds on bilateral bases HEART: Regular rate and rhythm, normal S1 and S2 without murmur, rub or gallop. ABDOMEN: Soft, distended, diffusely tender to palpation, NABS MUSCULOSKELETAL: Normal range of motion at all joints. No bony deformities or tenderness. No CVA tenderness. LOWER EXTREMITIES: 2+ pulses, warm, well-perfused. +1 peripheral edema NEUROLOGICAL: Cranial nerves II-XII grossly intact. Normal speech. PSYCHIATRIC: Cooperative. Good eye contact. Appropriate mood and affect. SKIN: Warm, dry, normal turgor. Laboratory Results - last 24 hr 11/14/19 11/14/19 11/14/19 10:19 10:30 10:30 WBC RBC Hgb Hct MCV MCH MCHC RDW Plt Count MPV Absolute Neuts (auto) Neutrophils % Lymphocytes % Monocytes % Eosinophils % Basophils % Nucleated RBC % PT with INR 11.40 INR 0.97 PTT (Actin FS) 28.6 Sodium Potassium Chloride Carbon Dioxide Anion Gap BUN Creatinine Est GFR (CKD-EPI)AfAm Est GFR (CKD-EPI)NonAf Random Glucose Lactic Acid 1.2 Calcium Phosphorus Magnesium Total Bilirubin AST ALT Alkaline Phosphatase Troponin I < 0.02 Total Protein Albumin Lipase Influenza A (Rapid) Influenza B (Rapid) 11/14/19 11/14/19 11/14/19 10:30 10:30 14:21 WBC 5.0 RBC 3.31 L Hgb 10.0 L Hct 30.5 L MCV 92.2 MCH 30.2 MCHC 32.7 RDW 20.3 H Plt Count 221 D MPV 8.4 Absolute Neuts (auto) 3.9 Neutrophils % 77.6 Lymphocytes % 7.9 L D Monocytes % 4.2 Eosinophils % 9.1 H D Basophils % 1.2 D Nucleated RBC % 0 PT with INR INR PTT (Actin FS) Sodium 140 Potassium 4.1 Chloride 110 H Carbon Dioxide 24 Anion Gap 6 L BUN 31.6 H Creatinine 1.6 H Est GFR (CKD-EPI)AfAm 33.00 Est GFR (CKD-EPI)NonAf 28.47 Random Glucose 80 Lactic Acid Calcium 7.9 L Phosphorus 1.7 L Magnesium 1.7 L Total Bilirubin 1.7 H AST 56 H ALT 60 Alkaline Phosphatase 514 H Troponin I Total Protein 6.4 Albumin 2.6 L Lipase 55 L Influenza A (Rapid) Negative Influenza B (Rapid) Negative ASSESSMENT/PLAN: Patient is an 88 year old female with past medical history of HTN, CHF, AR, hypothyroidism, 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 #Sepsis, unclear etiology at this time -possibly 2/2 to chemo port vs C. diff infection in setting of diarrhea and recent hospitalization vs abdominal pathology -Blood cultures done, cx from port done -UA, Ucx -C.diff cx pending -CT of abdomen and pelvis without contrast to further evaluate diarrhea and abdominal distention -IV NS @75cc/hr for now -Will continue Vancomycin and Zosyn, no reaction to initial dose of Zosyn ( although was given with Benadyl -ID (Dr. Singh) consulted. #Large B cell lymphoma -started on R-CHOP regimen on previous admission, but had reaction to Rituxin -Discharged on Prednisone 10mg -Heme-Onc (Dr. Chavez) consulted. -Will continue Prednisone 5 mg for now -Continue Valtrex and Mepron #Elevated Tbili -RUQ US unremarkable -may be 2/2 ?chemotx -CTAP ordered -will continue to monitor #CKD -BUN/Cr at baseline -Hoang cath for accurate I&O -Nephrology (Dr. Broussard) consulted. #HTN -Hypotensive episodes likely due to sepsis -hold BP meds #Hypothyroidism -continue Synthroid 25mcg daily #Anxiety -Xanax PRN #FEN -IV NS @ 75cc/hr -hypoPhos/hypoMg, repleted, continue to monitor -Regular diet #Prophylaxis -Heparin 5000unit sq tid #Disposition -DNR/DNI -admit to med surg Visit type - Emergency Visit Emergency Visit: Yes ED Registration Date: 11/14/19 Care time: The patient presented to the Emergency Department on the above date and was hospitalized for further evaluation of their emergent condition. - New Patient This patient is new to me today: Yes Date on this admission: 11/14/19 - Critical Care Critical Care patient: No ATTENDING PHYSICIAN STATEMENT I saw and evaluated the patient. I reviewed the resident's note and discussed the case with the resident. I agree with the resident's findings and plan as documented. SUBJECTIVE: OBJECTIVE: ASSESSMENT AND PLAN:
[2019-11-14] MEDS ORDERED: MAGNESIUM SULF 50% (8.12 MEQ/2 ML-1 GM VIAL) ONE (20:59)
[2019-11-14] MEDS ORDERED: MEROPENEM 500 MG in DEXTROSE 5%-WATER 100 ML IVPB SCH (22:00)
[2019-11-14 22:05] LABS: EPI CELLS 13.9 /HPF (0-5/HPF); HYALINE CASTS 42 /lpf (0-8); URINE APPEARANCE TURBID; URINE BILIRUBIN 1+ (NEGATIVE); URINE COLOR DK YELLOW; URINE GLUCOSE (UA) NEGATIVE (NEGATIVE); URINE KETONE NEGATIVE (NEGATIVE); URINE LEUK ESTERASE NEGATIVE (NEGATIVE); URINE NITRITE NEGATIVE (NEGATIVE); URINE PROTEIN 2+ (NEGATIVE); URINE RBC 2 /hpf (0-4)
[2019-11-14] MEDS: HEPARIN NA (PORCINE) 5,000 UNITS/ML 1ML VIAL SQ SCH (22:52)
[2019-11-14] MEDS: ALPRAZolam 0.25 MG TABLET PO PRN (22:53)
[2019-11-14] MEDS: ATOVAQUONE 750 MG/5 ML (UNIT-DOSE PACKAGING) PO SCH (23:04)
[2019-11-14 23:27] LABS: URINE WBC 18.1 /hpf (0-5)
[2019-11-15] MEDS ORDERED: DEXTROSE 5%-WATER 100 ML IVPB ONE ×2 (01:11→08:56)
[2019-11-15] MEDS ORDERED: MEROPENEM 500 MG VIAL (RESTRICTED TO ID) IVPB ONE ×2 (01:11→08:56)
[2019-11-15] MEDS: MEROPENEM 500 MG in DEXTROSE 5%-WATER 100 ML IVPB SCH ×3 (01:15→17:10)
[2019-11-15] MEDS: HEPARIN NA (PORCINE) 5,000 UNITS/ML 1ML VIAL SQ SCH ×3 (06:12→22:31)
[2019-11-15] MEDS: LEVOTHYROXINE NA 25 MCG TABLET (FP) PO SCH (06:13)
[2019-11-15 07:37] LABS: BASO % 0.6 % (0-2.0); HEMATOCRIT 25.4 % (32.4-45.2); HEMOGLOBIN 8.4 GM/dL (10.7-15.3); LYMPH % 6.9 % (8-40); MCH 30.4 pg (25.7-33.7); MEAN CELL VOLUME 92.4 fl (80-96); MONO % 3.7 % (3.8-10.2); NEUT % 88.8 % (42.8-82.8); RBC 2.76 M/mm3 (3.60-5.2); RDW 20.7 % (11.6-15.6); WHITE BLOOD COUNT 3.7 K/mm3 (4.0-10.0)
[2019-11-15 08:04] LABS: ALBUMIN 2.2 g/dl (3.4-5.0); BILIRUBIN,TOTAL 0.9 mg/dL (0.2-1); BLOOD UREA NITROGEN 32.8 mg/dL (7-18); CREATININE 1.7 mg/dL (0.55-1.3); MAGNESIUM 2.3 mg/dL (1.8-2.4); PHOSPHOROUS 3.2 mg/dL (2.5-4.9); POTASSIUM 4.2 mmol/L (3.5-5.1); TOT PROT 5.4 g/dl (6.4-8.2)
[2019-11-15 08:08] LABS: CALCIUM 6.8 mg/dL (8.5-10.1)
[2019-11-15] MEDS ORDERED: PT OWN MED DRAWER 7, Y5N ONE (09:40)
[2019-11-15] MEDS: ALLOPURINOL 300 MG TABLET (FP) PO SCH (09:42)
[2019-11-15] MEDS: predniSONE 5 MG TABLET (UD) PO SCH (09:42)
[2019-11-15] MEDS: valACYclovir HCL 500 MG TABLET (FP) PO SCH (09:42)
[2019-11-15] MEDS: ATOVAQUONE 750 MG/5 ML (UNIT-DOSE PACKAGING) PO SCH ×2 (09:43→17:15)
--- NOTE | 2019-11-15 10:02 | PN ---
Physical Exam: SUBJECTIVE: Patient seen and examined at bedside. States she has not had BM but admits to passing gas yesterday. She has no complaints. OBJECTIVE: Vital Signs Period Temp Pulse Resp BP Sys/Castelan Pulse Ox Last 24 Hr 97.3 F-102 F 93-135 16-26 98-119/60-78 96-96 HEENT: STEPHEN, EOM Intact Oropharynx: No thrush, No mucositis on tongue Nodes: extensive adenopathy, left cervical region Heart: Normal sinus rythym No murmurs, No gallops Lungs:scattered rhonchi b/l worse at bases Abd: Soft, Normal bowel sounds, No organomegaly Ext:No significant edema Laboratory Results - last 24 hr 11/14/19 11/14/19 11/14/19 10:19 10:30 10:30 WBC RBC Hgb Hct MCV MCH MCHC RDW Plt Count MPV Absolute Neuts (auto) Neutrophils % Lymphocytes % Monocytes % Eosinophils % Basophils % Nucleated RBC % PT with INR 11.40 INR 0.97 PTT (Actin FS) 28.6 Sodium Potassium Chloride Carbon Dioxide Anion Gap BUN Creatinine Est GFR (CKD-EPI)AfAm Est GFR (CKD-EPI)NonAf Random Glucose Lactic Acid 1.2 Calcium Phosphorus Magnesium Total Bilirubin AST ALT Alkaline Phosphatase Troponin I < 0.02 Total Protein Albumin Lipase Urine Color Urine Appearance Urine pH Ur Specific [place] Urine Protein Urine Glucose (UA) Urine Ketones Urine Blood Urine Nitrite Urine Bilirubin Urine Urobilinogen Ur Leukocyte Esterase Urine WBC (Auto) Urine RBC (Auto) Urine Casts (Auto) U Pathogenic Cast Auto U Epithel Cells (Auto) Urine Bacteria (Auto) Random Vancomycin Influenza A (Rapid) Influenza B (Rapid) 11/14/19 11/14/19 11/14/19 10:30 10:30 14:21 WBC 5.0 RBC 3.31 L Hgb 10.0 L Hct 30.5 L MCV 92.2 MCH 30.2 MCHC 32.7 RDW 20.3 H Plt Count 221 D MPV 8.4 Absolute Neuts (auto) 3.9 Neutrophils % 77.6 Lymphocytes % 7.9 L D Monocytes % 4.2 Eosinophils % 9.1 H D Basophils % 1.2 D Nucleated RBC % 0 PT with INR INR PTT (Actin FS) Sodium 140 Potassium 4.1 Chloride 110 H Carbon Dioxide 24 Anion Gap 6 L BUN 31.6 H Creatinine 1.6 H Est GFR (CKD-EPI)AfAm 33.00 Est GFR (CKD-EPI)NonAf 28.47 Random Glucose 80 Lactic Acid Calcium 7.9 L Phosphorus 1.7 L Magnesium 1.7 L Total Bilirubin 1.7 H AST 56 H ALT 60 Alkaline Phosphatase 514 H Troponin I Total Protein 6.4 Albumin 2.6 L Lipase 55 L Urine Color Urine Appearance Urine pH Ur Specific [place] Urine Protein Urine Glucose (UA) Urine Ketones Urine Blood Urine Nitrite Urine Bilirubin Urine Urobilinogen Ur Leukocyte Esterase Urine WBC (Auto) Urine RBC (Auto) Urine Casts (Auto) U Pathogenic Cast Auto U Epithel Cells (Auto) Urine Bacteria (Auto) Random Vancomycin Influenza A (Rapid) Negative Influenza B (Rapid) Negative 11/14/19 11/15/19 11/15/19 21:29 06:46 06:46 WBC 3.7 L RBC 2.76 L Hgb 8.4 L Hct 25.4 L D MCV 92.4 MCH 30.4 MCHC 33.0 RDW 20.7 H Plt Count 183 MPV 8.6 Absolute Neuts (auto) 3.3 Neutrophils % 88.8 H Lymphocytes % 6.9 L Monocytes % 3.7 L Eosinophils % 0.0 D Basophils % 0.6 Nucleated RBC % 0 PT with INR INR PTT (Actin FS) Sodium Potassium Chloride Carbon Dioxide Anion Gap BUN Creatinine Est GFR (CKD-EPI)AfAm Est GFR (CKD-EPI)NonAf Random Glucose Lactic Acid Calcium Phosphorus Magnesium Total Bilirubin AST ALT Alkaline Phosphatase Troponin I Total Protein Albumin Lipase Urine Color Dk yellow Urine Appearance Turbid Urine pH 5.0 Ur Specific [place] 1.022 Urine Protein 2+ H Urine Glucose (UA) Negative Urine Ketones Negative Urine Blood Negative Urine Nitrite Negative Urine Bilirubin 1+ H Urine Urobilinogen 1.0 Ur Leukocyte Esterase Negative Urine WBC (Auto) 18.1 Urine RBC (Auto) 2 Urine Casts (Auto) 42 U Pathogenic Cast Auto None U Epithel Cells (Auto) 13.9 Urine Bacteria (Auto) 22.0 Random Vancomycin 9.5 L Influenza A (Rapid) Influenza B (Rapid) 11/15/19 06:46 WBC RBC Hgb Hct MCV MCH MCHC RDW Plt Count MPV Absolute Neuts (auto) Neutrophils % Lymphocytes % Monocytes % Eosinophils % Basophils % Nucleated RBC % PT with INR INR PTT (Actin FS) Sodium 141 Potassium 4.2 Chloride 113 H Carbon Dioxide 21 Anion Gap 6 L BUN 32.8 H Creatinine 1.7 H Est GFR (CKD-EPI)AfAm 30.67 Est GFR (CKD-EPI)NonAf 26.46 Random Glucose 139 H Lactic Acid Calcium 6.8 L* Phosphorus 3.2 Magnesium 2.3 Total Bilirubin 0.9 AST 32 ALT 44 Alkaline Phosphatase 384 H Troponin I Total Protein 5.4 L Albumin 2.2 L Lipase Urine Color Urine Appearance Urine pH Ur Specific [place] Urine Protein Urine Glucose (UA) Urine Ketones Urine Blood Urine Nitrite Urine Bilirubin Urine Urobilinogen Ur Leukocyte Esterase Urine WBC (Auto) Urine RBC (Auto) Urine Casts (Auto) U Pathogenic Cast Auto U Epithel Cells (Auto) Urine Bacteria (Auto) Random Vancomycin Influenza A (Rapid) Influenza B (Rapid) Active Medications Generic Name Dose Route Start Last Admin Trade Name Freq PRN Reason Stop Dose Admin Acetaminophen 650 mg 11/14/19 16:13 Tylenol - PO Q6H PRN FEVER Allopurinol 300 mg 11/15/19 10:00 11/15/19 09:42 Zyloprim - PO 300 mg DAILY ELIZABETH Administration Alprazolam 0.25 mg 11/14/19 18:04 11/14/19 22:53 Xanax - PO 0.25 mg Q8H PRN Administration ANXIETY Atovaquone 750 mg 11/14/19 22:00 11/15/19 09:43 Mepron - PO 750 mg BIDWM ELIZABETH Administration Heparin Sodium (Porcine) 5,000 unit 11/14/19 22:00 11/15/19 06:12 Heparin - SQ 5,000 unit TID ELIZABETH Administration Vancomycin HCl 750 mg/ 250 mls @ 166.667 mls/hr 11/15/19 14:00 Dextrose IVPB 11/15/19 15:29 ONCE ONE Protocol Meropenem 500 mg/ Dextrose 100 mls @ 200 mls/hr 11/15/19 02:00 11/15/19 09:44 IVPB 200 mls/hr Q8H-IV ELIZABETH Administration Sodium Chloride 1,000 mls @ 50 mls/hr 11/14/19 21:30 11/14/19 22:53 Normal Saline - IV 50 mls/hr ASDIR ELIZABETH Administration Levothyroxine Sodium 25 mcg 11/15/19 07:00 11/15/19 06:13 Synthroid - PO 25 mcg DAILY@0700 ELIZABETH Administration Prednisone 5 mg 11/15/19 10:00 11/15/19 09:42 Deltasone - PO 5 mg DAILY ELIZABETH Administration Valacyclovir HCl 500 mg 11/15/19 10:00 11/15/19 09:42 Valtrex - PO 500 mg DAILY ELIZABETH Administration ASSESSMENT/PLAN: Patient is an 88 year old female with past medical history of HTN, CHF, AR, hypothyroidism, 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 #Fever, unclear etiology at this time -possibly 2/2 to chemo port vs C. diff infection in setting of diarrhea and recent hospitalization vs abdominal pathology -Blood cultures done, cx from port done -UA, Ucx -C.diff cx pending -CT of abdomen and pelvis without contrast showing ? ileus, fluid in colon ( diarrhea), and resolved b/l Pleural effusions, b/l [place] subQ edema, cardiomegaly, small amt of pelvic fluid, mild hepatomeg, mild bowel dilation, cholelithiasis, diverticulosis, and surgical anastomosis along rt colon. - RUQ US- fatty liver, contracted gb no acute cholecystitis -IV NS @75cc/hr for now -Will continue Vancomycin and jhonatan s/p zosyn in ED. -ID (Dr. Singh) consulted. #High Grade Large B cell lymphoma -started on R-CHOP regimen on previous admission, but had reaction to Rituxin -Discharged on Prednisone 10mg -Heme-Onc (Dr. Ramos) consulted believes 102 temp could be related to B symptoms from lymphoma vs infectious process -Will continue Prednisone 5 mg for now -Continue Valtrex and Mepron #Elevated Tbili -RUQ US unremarkable -may be 2/2 ?chemotx -CTAP ordered -will continue to monitor #CKD -BUN/Cr at baseline -Hoang cath for accurate I&O -Nephrology (Dr. Broussard) consulted. #Normocytic Anemia - likely multifactorial - sec to chronic disease/malignancy/ Iron deficiency. Iron supplementation ongoing. B12/Folate levels wnl. Further management as per Hematology. #CKD 3 - Creat Stable. Nephrology following. On Lasix chronically. Further management as per Nephrology. #11 x 8 cm fluid filled collection posterior to atria on Echo - found to be mediastinal mass consistent with lymphadenopathy on CT Chest. Further management as per Oncology. #Bibasal effusions sec to Iv hydration on last admission - appears to have resolved on current chest imaging. #Prior R intracortical nodule not seen on current Renal US - radiology recommends [address] follow up. #HTN -Hypotensive episodes likely due to sepsis -hold BP meds #Hypothyroidism -continue Synthroid 25mcg daily #Anxiety -Xanax PRN, mirtazapine #FEN -IV NS @ 75cc/hr -hypoPhos/hypoMg, repleted, continue to monitor -Regular diet #Prophylaxis -Heparin 5000unit sq tid GERD- PPI #Disposition -DNR/DNI -admit to med surg Visit type - Emergency Visit Emergency Visit: Yes ED Registration Date: 11/14/19 Care time: The patient presented to the Emergency Department on the above date and was hospitalized for further evaluation of their emergent condition. - New Patient This patient is new to me today: Yes Date on this admission: 11/15/19 - Critical Care Critical Care patient: No - Discharge Referral Referred to [facility] Med P.C.: No ATTENDING PHYSICIAN STATEMENT I saw and evaluated the patient. I reviewed the resident's note and discussed the case with the resident. I agree with the resident's findings and plan as documented. SUBJECTIVE: OBJECTIVE: ASSESSMENT AND PLAN:
[2019-11-15 10:27] LABS: ANISOCYTOSIS 1+; MACROCYTOSIS 0; OVALOCYTE 1+; TEAR DROP CELLS 1+
[2019-11-15 11:09] LABS: PLATELET ESTIMATE CANNOT ENUMERATE
[2019-11-15] MEDS ORDERED: VANCOMYCIN 750 MG in DEXTROSE 5%-WATER - 250 ML IVPB ONE (14:00)
[2019-11-15] MEDS ORDERED: VANCOMYCIN 750 MG in DEXTROSE 5%-WATER - 150 ML IVPB SCH (14:00)
--- NOTE | 2019-11-15 15:20 | PN ---
Progress Note (short form) - Note Progress Note: ID consult dictated imp/reccd 88 yo female admitted from [place] with temp of 102 history of lymphoma, s/p recent chemo recdnt port placement just discharged to [facility] on 11/08 also with moist cough, ?choking this am fever- not neutropenic, s/p chemo ?aspiration ?bacteremia multiple allergies f/u cultures +history of CKD- vanco by levels continue vanco/meropenem stool cdiff if she has diarrhea swallowing evaluation r/o aspiration
--- NOTE | 2019-11-15 15:30 | PN ---
Progress Note, Physician History of Present Illness: Pt seen and examined at bedside. She is awake and alert. She feels a little better today. - Current Medication List Current Medications: Active Medications Acetaminophen (Tylenol -) 650 mg PO Q6H PRN PRN Reason: FEVER Allopurinol (Zyloprim -) 300 mg PO DAILY [facility] Last Admin: 11/15/19 09:42 Dose: 300 mg Alprazolam (Xanax -) 0.25 mg PO Q8H PRN PRN Reason: ANXIETY Last Admin: 11/14/19 22:53 Dose: 0.25 mg Atovaquone (Mepron -) 750 mg PO BIDWM [facility] Last Admin: 11/15/19 09:43 Dose: 750 mg Heparin Sodium (Porcine) (Heparin -) 5,000 unit SQ TID [facility] Last Admin: 11/15/19 14:40 Dose: 5,000 unit Vancomycin HCl 750 mg/ (Dextrose) 250 mls @ 166.667 mls/hr IVPB ONCE ONE; Protocol Stop: 11/15/19 15:29 Last Admin: 11/15/19 14:40 Dose: 166.667 mls/hr Meropenem 500 mg/ Dextrose 100 mls @ 200 mls/hr IVPB Q8H-IV [facility] Last Admin: 11/15/19 09:44 Dose: 200 mls/hr Sodium Chloride (Normal Saline -) 1,000 mls @ 50 mls/hr IV ASDIR [facility] Last Admin: 11/14/19 22:53 Dose: 50 mls/hr Levothyroxine Sodium (Synthroid -) 25 mcg PO DAILY@0700 [facility] Last Admin: 11/15/19 06:13 Dose: 25 mcg Prednisone (Deltasone -) 5 mg PO DAILY [facility] Last Admin: 11/15/19 09:42 Dose: 5 mg Valacyclovir HCl (Valtrex -) 500 mg PO DAILY [facility] Last Admin: 11/15/19 09:42 Dose: 500 mg - Objective Vital Signs: Vital Signs Temperature 97.9 F 11/15/19 14:01 Pulse Rate 101 H 11/15/19 14:01 Respiratory Rate 20 11/15/19 14:01 Blood Pressure 100/66 11/15/19 14:01 O2 Sat by Pulse Oximetry (%) 100 11/15/19 09:00 Constitutional: Yes: Calm Eyes: Yes: Conjunctiva Clear HENT: Yes: Atraumatic Cardiovascular: Yes: S1, S2 Respiratory: Yes: On Nasal O2 Gastrointestinal: Yes: Soft Genitourinary: Yes: Subramanian Present Musculoskeletal: Yes: WNL Edema: Yes Edema: LLE: 1+, RLE: 1+ Neurological: Yes: Oriented Psychiatric: Yes: Oriented Labs: CBC, BMP 11/15/19 06:46 11/15/19 06:46 INR, PTT INR 0.97 (0.83-1.09) 11/14/19 10:30 Problem List - Problems (1) CKD (chronic kidney disease) Code(s): N18.9 - CHRONIC KIDNEY DISEASE, UNSPECIFIED Assessment/Plan Current Medications Generic Name Dose Route Start Last Admin Trade Name Freq PRN Reason Stop Dose Admin Acetaminophen 650 mg 11/14/19 16:13 Tylenol - PO Q6H PRN FEVER Allopurinol 300 mg 11/15/19 10:00 11/15/19 09:42 Zyloprim - PO 300 mg DAILY ELIZABETH Administration Alprazolam 0.25 mg 11/14/19 18:04 11/14/19 22:53 Xanax - PO 0.25 mg Q8H PRN Administration ANXIETY Atovaquone 750 mg 11/14/19 22:00 11/15/19 09:43 Mepron - PO 750 mg BIDWM ELIZABETH Administration Heparin Sodium (Porcine) 5,000 unit 11/14/19 22:00 11/15/19 14:40 Heparin - SQ 5,000 unit TID ELIZABETH Administration Vancomycin HCl 750 mg/ 250 mls @ 166.667 mls/hr 11/15/19 14:00 11/15/19 14:40 Dextrose IVPB 11/15/19 15:29 166.667 mls/hr ONCE ONE Administration Protocol Meropenem 500 mg/ Dextrose 100 mls @ 200 mls/hr 11/15/19 02:00 11/15/19 09:44 IVPB 200 mls/hr Q8H-IV ELIZABETH Administration Sodium Chloride 1,000 mls @ 50 mls/hr 11/14/19 21:30 11/14/19 22:53 Normal Saline - IV 50 mls/hr ASDIR ELIZABETH Administration Levothyroxine Sodium 25 mcg 11/15/19 07:00 11/15/19 06:13 Synthroid - PO 25 mcg DAILY@0700 ELIZABETH Administration Prednisone 5 mg 11/15/19 10:00 11/15/19 09:42 Deltasone - PO 5 mg DAILY ELIZABETH Administration Valacyclovir HCl 500 mg 11/15/19 10:00 11/15/19 09:42 Valtrex - PO 500 mg DAILY ELIZABETH Administration Impression 1. CKD 2. [place] 3. diarrhea 4. fever 5. b cell lymphoma 6. htn 7. hld 8. pleural effusions Plan - monitor renal function - subramanian in place, pt making urine - caution with fluids - follow cultures - discuss GOC with family
--- NOTE | 2019-11-15 15:43 | CONSULT ---
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) Heme/Onc: Yes: Cancer (breast cancer and Non-Hodgkins lymphyoma) Endocrine: Yes: Other (thyroid nodule) - Past Surgical History Past Surgical History: Yes: Colonoscopy, Colostomy, Mastectomy, Upper Endoscopy - Smoking History Smoking history: Never smoked Have you smoked in the past 12 months: No Aproximately how many cigarettes per day: 0 - Alcohol/Substance Use Hx Alcohol Use: No History of Substance Use: reports: None - Social History ADL: Independent History of Recent Travel: No History - Admission Reason For Visit: SEPSIS - Hearing Hearing: Impaired Hearing Aide: Yes With Patient: No Speech Evaluation - Communication Primary Language: JAPANESE Communication: Yes: Within Normal Limits, Simple Responses Oral Expression Ability: Yes: No Impairment - Speech Production Apraxia: No Able to Make Needs Known: Yes: WNL Intelligibility: Yes: WNL - Speech Characteristics Voice Loudness: Normal Voice Pitch: Yes: Normal Voice Phonatory-based Quality: Yes: Normal Speech Pattern: Normal Nasal Resonance: Normal Rate of Speech: Intact Voice Comment: Vocal quality is WFL with adequate pitch and volume. - Language/Auditory Comprehension Follows: Yes: 1 Stage Simple Commands (WFL), 2 Stage Simple Commands (WFL) Observation: Able to respond to yes/no queries: Yes, Yes/No Confusion: No, Comprehends Conversational Speech: Yes, Benefits from Slow Speech: Yes, Benefits from Repetiton: No, Benefits from Increased Volume of Speech: No (HI) - Language/Verbal Expression Able to Respond to Simple Queries: Yes: WNL Able to Communicate Wants and Needs: Yes: WNL Functional Communication Status: Yes: WNL Aware of Errors: Yes Attempts to Correct Errors: Yes Use of Gestures: No Written Expression: not examined Oral Expression: WFL Reading Comprehension: not examined Calculations: not examined - 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/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 Memory: Yes: WNL Short Term Memory: Yes: WNL - Swallow Evaluation/Bedside Assessment Current Nutritional Intake: NPO (pending swallow eval) Oral Secretions: Yes: WFL Tracheostomy Present: No Patient on Ventilator: No Dentition: Yes: Dental Appliance Upper, Dental Appliance Lower, Dental Fit Adequate Facial Symmetry at Rest: Symmetrical Facial Symmetry on Retraction: Symmetrical Facial Movement: Controlled Sensation: Normal Facial Comment: WFL for speech and swallowing purposes Jaw Position: Closed at Rest Against Resistance Opening: Normal Against Resistance Closing: Normal Pucker Lips: Normal Smile: Normal Lips, Comment: WFL for speech and swallowing purposes Lingual Movement: Normal Lingual Speed of Movement: Normal Lingual Movement Strgth Against Opposition: Normal Lingual Movement Characteristics: Normal Lingual Comment: WFL for speech and swallowing purposes Soft Palate Description: Normal Color Hard Palate Description: Normal Color Gag Reflex: Strong Bite Reflex: Present Velopharyngeal Movement: Normal Laryngeal Elevation: WFL Laryngeal Movement: Able to Palpate Needs Assistance: Yes Rate of Intake: WFL Bolus Size: WFL Labial Seal: WFL A-P Transit: WFL Timing of Swallow: WFL Coughing/Throat Clear: Yes (related to congestion. ) Change in Voice: No Other Findings/Remarks: 88 yo female seen at bedside for swallow eval to r/o dysphagia. Pt is verbal, A &Ox2, cooperative. Admitted to [facility] for Fever and cough (chest congestion). PMHX includes WINSTON, CHF HTN, HLD. Recent CXR pleural effusion? Vocal quality is functional for the environment with speech parameters WNL. Volitional airway protection (without bolus) and swallow is WNL. Hypothyroid elevation was present/strong to palpation of the anterior neck. Dental status is WFL (dental appliance???). Cough observed while speaking. Current diet:NPO Pt given PO trials of pureed, regular cut to bite sized pieces with total assistance revealed, adequate bolus formation and A P transport with a timely pharyngeal swallow (1-2 second average). No cough change in voicing or respiration after the swallow. Pt given PO trials of ice chips via spoon, thin liquids via cup and straw with total assistance revealed good acceptance, adequate labial containment / bolus control and, A P transport with a timely pharyngeal swallow (1-2 second average). No cough or change in voicing or respiration after the swallow. Recommendations - Speech Evaluation, Impression/Plan Impression: 88 yo female presents with minimal s/s of aspiration. Cough does occur without food and possibly related to chest congestion not food related. The oral and pharyngeal swallow is adequate for po intake of regular solids and thin liquids. Labial containment, mastication, bolus transport, and initiation of swallow were WNL. No coughing or changes in voicing to suggest penetration / aspiration at bedside at this time. 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 Short Term Goals: Tolerate purees and regular solids and thin liquid consistencies without s/s of penetration / aspiration. Recommended Frequency for Therapy: Follow Up PRN - Disposition Discharge to: To be Determined - Dysphagia Impressions/Plan Dysphagia Impressions: Minimal Impairment, Risk of Aspiration *Silent aspiration: cannot be R/O at bedside Dysphagia Treatment Plan: Small Bites, Safe Rate, 1/2 tsp. at a time, Elevate HOB during feed, Other (oral care) Dysphagia Evaluation Summary: continue po intake of soft regular solids and thin liquids at tolerated. Observe standard aspiration precautions. Verbal prompts and / or reminders to completed compensatory strategy for thorough chewing, no talking and slow pace. Provide oral care before and after meal meals. Results given verbally to set up and charger and PCP via chart. JANITOR CLEANER to follow up for diet tolerance. - Recommendations Diet Consistency: Regular, 1 - 2 Soft Items Medication Administration: Crushed with applesauce Liquids: Thin Liquids
--- NOTE | 2019-11-15 16:07 | CONS ---
DATE OF CONSULTATION: DATE OF DICTATION: 11/15/2019 INFECTIOUS DISEASE CONSULTATION HISTORY OF PRESENT ILLNESS: This is an 88-year-old woman recently hospitalized from November 01 until November 08. During that admission, she was admitted for hypercalcemia and port placement to undergo chemotherapy. She was treated with Rituxan and developed a reaction requiring steroids and Benadryl and ICU evaluation. She was treated with fluids and is next scheduled to have chemotherapy on November 27. She was transferred to the long-term for rehabilitation. While at the long-term, the family reports she had multiple daily watery stools. She developed a fever of 102 and was transferred to the hospital. She has had a chronic cough that has been present since the prior admission. She presented with a fever of 102 from the long-term. She had been given a dose of Imodium and has not had any further diarrhea. PAST MEDICAL HISTORY: Notable for hypertension, CHF, aortic regurgitation, hypothyroidism, a 25-year history of low-grade follicular lymphoma status post RT that progressed to high-grade large B-cell lymphoma. She has a history of breast cancer status post lumpectomy, radiation and hormonal treatment, IBD, colon perforation status post repair. She has a history as well of colostomy and colostomy revision. SOCIAL HISTORY: No history of cigarette, alcohol, or substance use. She has 4 daughters who are actively involved in her care. ALLERGIES: Include PENICILLIN, which is a rash; AZITHROMYCIN, which is a rash; METRONIDAZOLE, rash. Her medications at the long-term include alprazolam, Synthroid, mirtazapine, Toprol XL, allopurinol, Protonix, , furosemide, and valacyclovir. REVIEW OF SYSTEMS: She had no chills. She was noted to have fever on transfer. Her T-max was 100.2. She denies any chest pain, and she denies currently any abdominal pain, and her diarrhea has stopped. PHYSICAL EXAMINATION: Vital Signs: Her current T-max was 102, current temperature was 97.9, pulse of 101, blood pressure 100/66, respiratory rate 20. HEENT: Normocephalic. Eyes are anicteric. Neck: She has large bulky adenopathy on the left side of her neck. She has no erythema or tenderness of the port site. Chest: She has decreased breath sounds at the bases . Abdomen: Soft, it is totally nontender. Extremities: Trace edema. LABORATORY: Notable for a white count of 3.7 with an ANC of 3.3, hemoglobin is 8.4, BUN and creatinine are 32 and 1.7, and she has some chronic CKD at this level, and her LFTs are notable for an alkaline phosphatase of 384. Her urinalysis is negative for leukocyte esterase and random vancomycin level this morning was 9.5, influenza screen is pending. She had imaging studies of her abdomen and pelvis done that are notable for adenopathy, cholelithiasis, cardiomegaly, adenopathy, mild splenomegaly, cholelithiasis, colonic diverticulosis, and surgical anastomosis of the right colon. IMPRESSION: In summary, this is an 88-year-old woman with multiple antibiotic allergies admitted with fever of 102 in the setting of recent chemotherapy and lymphoma. She has had a recent port placed for chemotherapy. I do not detect any signs of erythema at the port site. She was started on vancomycin and meropenem, which she is tolerating well. Currently 1 of 4 blood cultures is positive. From the port for gram-positive cocci with clusters and blood cultures are all pending. Imaging studies are as stated. She had a chest x-ray as well. She has a large heart and chronic atelectasis. Her influenza screen is negative. So at this time would continue the vancomycin and meropenem, pending further cultures. I will discuss the case further with oncology. SOLANGE SAENZ M.D. [id number]
--- NOTE | 2019-11-15 17:06 | PN ---
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 --> (11/05/19) Presents now with fevers and diarrhea Last Vital Signs Temp Pulse Resp BP Pulse Ox 97.9 F 101 H 20 100/66 100 11/15/19 14:01 11/15/19 14:01 11/15/19 14:01 11/15/19 14:01 11/15/19 09:00 HEENT: STEPHEN, EOM Intact Oropharynx: No thrush, No mucositis,coated tongue Nodes: extensive adenopathy, left cervical, supraclavicular, infraclavicular Breasts: Without masses, s/p surgery on left , no recurrence Cor: RSR, No murmurs, No gallops Lungs:scattered rhonchi Abd: Soft, Normal bowel sounds, No organomegaly Ext:No significant edema Skin: No rashes, Integument intact large soft tissue mass right buttock CBC, BMP 11/15/19 06:46 11/15/19 06:46 Microbiology 11/14/19 14:36 Blood - Alexx Cath Blood Culture - Preliminary NO GROWTH OBTAINED AFTER 24 HOURS, INCUBATION TO CONTINUE FOR 4 DAYS. 11/14/19 14:36 Blood - Alexx Cath Blood Culture - Preliminary Pending Organism 11/14/19 10:30 Blood - Peripheral Venous Blood Culture - Preliminary NO GROWTH OBTAINED AFTER 24 HOURS, INCUBATION TO CONTINUE FOR 4 DAYS. 11/14/19 10:30 Blood - Peripheral Venous Blood Culture - Preliminary NO GROWTH OBTAINED AFTER 24 HOURS, INCUBATION TO CONTINUE FOR 4 DAYS. Current Medications Generic Name Dose Route Start Last Admin Trade Name Freq PRN Reason Stop Dose Admin Acetaminophen 650 mg 11/14/19 16:13 Tylenol - PO Q6H PRN FEVER Allopurinol 300 mg 11/15/19 10:00 11/15/19 09:42 Zyloprim - PO 300 mg DAILY ELIZABETH Administration Alprazolam 0.25 mg 11/14/19 18:04 11/14/19 22:53 Xanax - PO 0.25 mg Q8H PRN Administration ANXIETY Atovaquone 750 mg 11/14/19 22:00 11/15/19 09:43 Mepron - PO 750 mg BIDWM ELIZABETH Administration Heparin Sodium (Porcine) 5,000 unit 11/14/19 22:00 11/15/19 14:40 Heparin - SQ 5,000 unit TID ELIZABETH Administration Meropenem 500 mg/ Dextrose 100 mls @ 200 mls/hr 11/15/19 02:00 11/15/19 09:44 IVPB 200 mls/hr Q8H-IV ELIZABETH Administration Levothyroxine Sodium 25 mcg 11/15/19 07:00 11/15/19 06:13 Synthroid - PO 25 mcg DAILY@0700 [facility]ETH Administration Prednisone 5 mg 11/15/19 10:00 11/15/19 09:42 Deltasone - PO 5 mg DAILY ELIZABETH Administration Valacyclovir HCl 500 mg 11/15/19 10:00 11/15/19 09:42 Valtrex - PO 500 mg DAILY ELIZABETH Administration Impression: 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 injection related + blood culture - via port - note cultures were done done shortly after antibiotics were instituted H/O breast ca Tachycardia Note patient had fevers secondary to her "B" symptoms from lymphoma - need to be certain of infectious vs. neoplastic fever Diarrhea- stool only recently cultured Port cuture - await organism- culture obtained shortly after antibiotics institued - currently on Ab per ID Chemistries CBC being monitored
--- NOTE | 2019-11-15 20:18 | PN ---
Teaching Attending Note Name of Resident: Helio Luciano ATTENDING PHYSICIAN STATEMENT I saw and evaluated the patient. I reviewed the resident's note and discussed the case with the resident. I agree with the resident's findings and plan as documented. SUBJECTIVE: Feeling okay. complains of cough. No sputum/hemoptysis. No CP/ palpitations. No abdominal pain. No further diarrhea since admission. OBJECTIVE: Fever resolved. Hemodynamically Stable. AAO x 3. Last Vital Signs Temp Pulse Resp BP Pulse Ox 97.7 F 58 L 20 101/61 100 11/15/19 19:06 11/15/19 19:06 11/15/19 19:06 11/15/19 19:06 11/15/19 09:00 HEENT - Atraumatic, Normocephalic. Large left neck mass Heart - S1, S2, soft SM Lungs - decreased air entry at bases. R portacath. Abdomen - Mild distension, soft, non-tender. Bowel Sounds normal. Extremities - edema +, no calf tenderness. Laboratory Results - last 24 hr 11/14/19 11/15/19 11/15/19 21:29 06:46 06:46 WBC 3.7 L RBC 2.76 L Hgb 8.4 L Hct 25.4 L D MCV 92.4 MCH 30.4 MCHC 33.0 RDW 20.7 H Plt Count Optical Engineering Manager MPV Optical Engineering Manager Absolute Neuts (auto) 3.3 Neutrophils % 88.8 H Lymphocytes % 6.9 L Monocytes % 3.7 L Eosinophils % 0.0 D Basophils % 0.6 Nucleated RBC % 0 Hypochromia 1+ Platelet Estimate Cannot enumerate Platelet Comment Mod plt clumping Polychromasia 1+ Poikilocytosis 1+ Anisocytosis 1+ Microcytosis 1+ Macrocytosis 0 Tear Drop Cells 1+ Ovalocytes 1+ Sodium Potassium Chloride Carbon Dioxide Anion Gap BUN Creatinine Est GFR (CKD-EPI)AfAm Est GFR (CKD-EPI)NonAf Random Glucose Calcium Phosphorus Magnesium Total Bilirubin AST ALT Alkaline Phosphatase Total Protein Albumin Urine Color Dk yellow Urine Appearance Turbid Urine pH 5.0 Ur Specific [place] 1.022 Urine Protein 2+ H Urine Glucose (UA) Negative Urine Ketones Negative Urine Blood Negative Urine Nitrite Negative Urine Bilirubin 1+ H Urine Urobilinogen 1.0 Ur Leukocyte Esterase Negative Urine WBC (Auto) 18.1 Urine RBC (Auto) 2 Urine Casts (Auto) 42 U Pathogenic Cast Auto None U Epithel Cells (Auto) 13.9 Urine Bacteria (Auto) 22.0 Random Vancomycin 9.5 L 11/15/19 06:46 WBC RBC Hgb Hct MCV MCH MCHC RDW Plt Count MPV Absolute Neuts (auto) Neutrophils % Lymphocytes % Monocytes % Eosinophils % Basophils % Nucleated RBC % Hypochromia Platelet Estimate Platelet Comment Polychromasia Poikilocytosis Anisocytosis Microcytosis Macrocytosis Tear Drop Cells Ovalocytes Sodium 141 Potassium 4.2 Chloride 113 H Carbon Dioxide 21 Anion Gap 6 L BUN 32.8 H Creatinine 1.7 H Est GFR (CKD-EPI)AfAm 30.67 Est GFR (CKD-EPI)NonAf 26.46 Random Glucose 139 H Calcium 6.8 L* Phosphorus 3.2 Magnesium 2.3 Total Bilirubin 0.9 AST 32 ALT 44 Alkaline Phosphatase 384 H Total Protein 5.4 L Albumin 2.2 L Urine Color Urine Appearance Urine pH Ur Specific [place] Urine Protein Urine Glucose (UA) Urine Ketones Urine Blood Urine Nitrite Urine Bilirubin Urine Urobilinogen Ur Leukocyte Esterase Urine WBC (Auto) Urine RBC (Auto) Urine Casts (Auto) U Pathogenic Cast Auto U Epithel Cells (Auto) Urine Bacteria (Auto) Random Vancomycin Current Medications Generic Name Dose Route Start Last Admin Trade Name Freq PRN Reason Stop Dose Admin Acetaminophen 650 mg 11/14/19 16:13 Tylenol - PO Q6H PRN FEVER Allopurinol 300 mg 11/15/19 10:00 11/15/19 09:42 Zyloprim - PO 300 mg DAILY ELIZABETH Administration Alprazolam 0.25 mg 11/14/19 18:04 11/14/19 22:53 Xanax - PO 0.25 mg Q8H PRN Administration ANXIETY Atovaquone 750 mg 11/14/19 22:00 11/15/19 17:15 Mepron - PO 750 mg BIDWM ELIZABETH Administration Heparin Sodium (Porcine) 5,000 unit 11/14/19 22:00 11/15/19 14:40 Heparin - SQ 5,000 unit TID ELIZABETH Administration Meropenem 500 mg/ Dextrose 100 mls @ 200 mls/hr 11/15/19 02:00 11/15/19 17:10 IVPB 200 mls/hr Q8H-IV ELIZABETH Administration Levothyroxine Sodium 25 mcg 11/15/19 07:00 11/15/19 06:13 Synthroid - PO 25 mcg DAILY@0700 EL[facility]ABETH Administration Prednisone 5 mg 11/15/19 10:00 11/15/19 09:42 Deltasone - PO 5 mg DAILY ELIZABETH Administration Valacyclovir HCl 500 mg 11/15/19 10:00 11/15/19 09:42 Valtrex - PO 500 mg DAILY ELIZABETH Administration Home Medications Medication Instructions Recorded Alprazolam [Xanax] 0.25 mg PO PRN 10/06/18 Levothyroxine [Synthroid -] 25 mcg PO DAILY 10/06/18 Mirtazapine 15 mg PO HS 09/28/19 Metoprolol Succinate [Toprol XL -] 25 mg PO DAILY 10/13/19 Allopurinol 300 mg PO DAILY 11/01/19 Pantoprazole Sodium [Protonix] 40 mg PO DAILY 11/01/19 Atovaquone [Mepron -] 750 mg PO BID #70 ml 11/08/19 Furosemide [Lasix] 40 mg PO DAILY #30 tablet 11/08/19 Valacyclovir HCl [Valtrex] 500 mg PO DAILY #30 tablet 11/08/19 ASSESSMENT AND PLAN: 88 year old female with history of HTN, 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 1. Fever, etiology unclear ?related to B symptoms vs occult infection. CXR - no Pneumonia Urine Cx pending. Cdiff pending. Blood Cx - 1 bottle pos for gram pos cocci in clusters. Likely contaminant. Remaining Blood Cx pending Empirically treated with Meropenem and Vancomycin (PCN allergic) ID following. 2. 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 s/p Rituximab infusion reaction requiring Dexa, Benadryl, Nebs. Currently hemodynamically Stable, solumedrol discontinued. s/p modified CHOP 11/05. Remains on Prednisone - taper as per Oncology Oncology following - further chemo as per Onc. Valtrex and Mepron Px. 3. Hypercalcemia - resolved IV hydration/chemotherapy. If any worsening of Ca level, will consider bisphosphonates. Nephrology following. 4. HTN - continue Metoprolol. ARB held. 5. Anxiety - Continue Mirtazapine and Xanax PRN. 6. Hypothyroidism - Continue Levothyroxine. 7. GERD - continue PPI. 8. Normocytic Anemia - likely multifactorial - sec to chronic disease/malignancy /Iron deficiency. Iron supplementation ongoing. B12/Folate levels wnl. Further management as per Hematology. 9. CKD 3 - Creat Stable. Nephrology following. On Lasix chronically. Further management as per Nephrology. 10. 11 x 8 cm fluid filled collection posterior to atria on Echo - found to be mediastinal mass consistent with lymphadenopathy on CT Chest. Further management as per Oncology. 11. Bibasal effusions sec to Iv hydration on last admission - appears to have resolved on current chest imaging. 12. Prior R intracortical nodule not seen on current Renal US - radiology recommends [address] follow up. DVT Px - Heparin SQ Code Status - DNR/DNI
[2019-11-15] MEDS: ALPRAZolam 0.25 MG TABLET PO PRN (20:37)
[2019-11-15] MEDS: MIRTAZAPINE 15 MG TABLET (FP) PO SCH (22:32)
[2019-11-15] MEDS: PANTOPRAZOLE 40 MG TABLET PO SCH (22:32)
[2019-11-16] MEDS ORDERED: DEXTROSE 5%-WATER 100 ML IVPB ONE ×2 (02:35→10:15)
[2019-11-16] MEDS ORDERED: MEROPENEM 500 MG VIAL (RESTRICTED TO ID) IVPB ONE ×2 (02:35→10:15)
[2019-11-16] MEDS: MEROPENEM 500 MG in DEXTROSE 5%-WATER 100 ML IVPB SCH ×2 (02:41→10:20)
[2019-11-16] MEDS: LEVOTHYROXINE NA 25 MCG TABLET (FP) PO SCH (06:19)
[2019-11-16] MEDS: HEPARIN NA (PORCINE) 5,000 UNITS/ML 1ML VIAL SQ SCH ×3 (06:19→21:07)
[2019-11-16 07:33] LABS: BASO % 0.3 % (0-2.0); EOS % 2.9 % (0-4.5); HEMATOCRIT 25.5 % (32.4-45.2); HEMOGLOBIN 8.5 GM/dL (10.7-15.3); LYMPH % 6.2 % (8-40); MCH 30.6 pg (25.7-33.7); MCHC 33.2 g/dl (32.0-36.0); MEAN CELL VOLUME 92.3 fl (80-96); MEAN PLT VOLUME 8.2 fl (7.5-11.1); MONO % 6.3 % (3.8-10.2); NEUT % 84.3 % (42.8-82.8); PLATELET COUNT 194 K/MM3 (134-434); RBC 2.77 M/mm3 (3.60-5.2); RDW 21.1 % (11.6-15.6); WHITE BLOOD COUNT 3.4 K/mm3 (4.0-10.0)
[2019-11-16 08:07] LABS: ALBUMIN 2.2 g/dl (3.4-5.0); BILIRUBIN,TOTAL 1.2 mg/dL (0.2-1); BLOOD UREA NITROGEN 33.7 mg/dL (7-18); CREATININE 1.7 mg/dL (0.55-1.3); MAGNESIUM 2.2 mg/dL (1.8-2.4); PHOSPHOROUS 2.8 mg/dL (2.5-4.9); POTASSIUM 3.9 mmol/L (3.5-5.1); TOT PROT 5.4 g/dl (6.4-8.2); URIC ACID 3.5 mg/dL (2.6-7.2)
[2019-11-16] MEDS ORDERED: VANCOMYCIN 500 MG in DEXTROSE 5%-WATER 100 ML IVPB SCH (09:00)
[2019-11-16] MEDS ORDERED: PT OWN MED DRAWER 7, Y5N ONE ×3 (10:16→17:29)
[2019-11-16] MEDS: valACYclovir HCL 500 MG TABLET (FP) PO SCH (10:18)
[2019-11-16] MEDS: PANTOPRAZOLE 40 MG TABLET PO SCH (10:18)
[2019-11-16] MEDS: predniSONE 5 MG TABLET (UD) PO SCH (10:18)
[2019-11-16] MEDS: ALLOPURINOL 300 MG TABLET (FP) PO SCH (10:18)
[2019-11-16] MEDS: metoPROLOL SUCCINATE 25 MG TAB.SR.24H (FP) PO SCH (10:18)
[2019-11-16] MEDS: ATOVAQUONE 750 MG/5 ML (UNIT-DOSE PACKAGING) PO SCH ×2 (10:20→17:31)
--- NOTE | 2019-11-16 13:15 | PN ---
Progress Note, Physician History of Present Illness: Pt seen and examined at bedside. She is awake and alert. She denies shortness of breath. - Current Medication List Current Medications: Active Medications Acetaminophen (Tylenol -) 650 mg PO Q6H PRN PRN Reason: FEVER Allopurinol (Zyloprim -) 300 mg PO DAILY [facility] Last Admin: 11/16/19 10:18 Dose: 300 mg Alprazolam (Xanax -) 0.25 mg PO Q8H PRN PRN Reason: ANXIETY Last Admin: 11/15/19 20:37 Dose: 0.25 mg Atovaquone (Mepron -) 750 mg PO BIDWM [facility] Last Admin: 11/16/19 10:20 Dose: Not Given Furosemide (Lasix -) 40 mg PO DAILY [facility] Heparin Sodium (Porcine) (Heparin -) 5,000 unit SQ TID [facility] Last Admin: 11/16/19 06:19 Dose: 5,000 unit Meropenem 500 mg/ Dextrose 100 mls @ 200 mls/hr IVPB Q8H-IV [facility]ETH Last Admin: 11/16/19 10:20 Dose: 200 mls/hr Vancomycin HCl 500 mg/ (Dextrose) 100 mls @ 100 mls/hr IVPB Q24H [facility]; Protocol Last Admin: 11/16/19 10:20 Dose: 100 mls/hr Levothyroxine Sodium (Synthroid -) 25 mcg PO DAILY@0700 [facility] Last Admin: 11/16/19 06:19 Dose: 25 mcg Metoprolol Succinate (Toprol Xl -) 25 mg PO DAILY [facility] Last Admin: 11/16/19 10:18 Dose: 25 mg Mirtazapine (Remeron -) 15 mg PO HS [facility] Last Admin: 11/15/19 22:32 Dose: 15 mg Pantoprazole Sodium (Protonix -) 40 mg PO DAILY [facility] Last Admin: 11/16/19 10:18 Dose: 40 mg Prednisone (Deltasone -) 5 mg PO DAILY [facility] Last Admin: 11/16/19 10:18 Dose: 5 mg Valacyclovir HCl (Valtrex -) 500 mg PO DAILY [facility] Last Admin: 11/16/19 10:18 Dose: 500 mg - Objective Vital Signs: Vital Signs Temperature 97.9 F 11/16/19 11:16 Pulse Rate 74 11/16/19 11:16 Respiratory Rate 18 11/16/19 11:16 Blood Pressure 147/75 11/16/19 11:16 O2 Sat by Pulse Oximetry (%) 100 11/15/19 09:00 Constitutional: Yes: Calm Eyes: Yes: Conjunctiva Clear HENT: Yes: Atraumatic Cardiovascular: Yes: S1, S2 Respiratory: Yes: On Nasal O2 Gastrointestinal: Yes: Soft Musculoskeletal: Yes: WNL Edema: Yes Edema: LLE: 1+, RLE: 1+ Neurological: Yes: Oriented Psychiatric: Yes: Oriented Labs: CBC, BMP 11/16/19 06:35 11/16/19 06:35 INR, PTT INR 0.97 (0.83-1.09) 11/14/19 10:30 Problem List - Problems (1) CKD (chronic kidney disease) Code(s): N18.9 - CHRONIC KIDNEY DISEASE, UNSPECIFIED Assessment/Plan Current Medications Generic Name Dose Route Start Last Admin Trade Name Freq PRN Reason Stop Dose Admin Acetaminophen 650 mg 11/14/19 16:13 Tylenol - PO Q6H PRN FEVER Allopurinol 300 mg 11/15/19 10:00 11/16/19 10:18 Zyloprim - PO 300 mg DAILY [facility]ETH Administration Alprazolam 0.25 mg 11/14/19 18:04 11/15/19 20:37 Xanax - PO 0.25 mg Q8H PRN Administration ANXIETY Atovaquone 750 mg 11/14/19 22:00 11/16/19 10:20 Mepron - PO Not Given BIDWM ELIZABETH Furosemide 40 mg 11/17/19 10:00 Lasix - PO DAILY [facility] Heparin Sodium (Porcine) 5,000 unit 11/14/19 22:00 11/16/19 06:19 Heparin - SQ 5,000 unit TID [facility] Administration Meropenem 500 mg/ Dextrose 100 mls @ 200 mls/hr 11/15/19 02:00 11/16/19 10:20 IVPB 200 mls/hr Q8H-IV [facility] Administration Vancomycin HCl 500 mg/ 100 mls @ 100 mls/hr 11/16/19 09:00 11/16/19 10:20 Dextrose IVPB 100 mls/hr Q24H [facility] Administration Protocol Levothyroxine Sodium 25 mcg 11/15/19 07:00 11/16/19 06:19 Synthroid - PO 25 mcg DAILY@0700 [facility] Administration Metoprolol Succinate 25 mg 11/16/19 10:00 11/16/19 10:18 Toprol Xl - PO 25 mg DAILY [facility] Administration Mirtazapine 15 mg 11/15/19 22:00 11/15/19 22:32 Remeron - PO 15 mg HS [facility]ETH Administration Pantoprazole Sodium 40 mg 11/15/19 20:30 11/16/19 10:18 Protonix - PO 40 mg DAILY [facility] Administration Prednisone 5 mg 11/15/19 10:00 11/16/19 10:18 Deltasone - PO 5 mg DAILY [facility]ETH Administration Valacyclovir HCl 500 mg 11/15/19 10:00 11/16/19 10:18 Valtrex - PO 500 mg DAILY [facility]ETH Administration Impression 1. CKD 2. WINSTON 3. diarrhea 4. fever 5. b cell lymphoma 6. htn 7. hld 8. pleural effusions Plan - d/c fluids - monitor renal function - ct technician stable - pt tolerating po intake - diarrhea improving - follow cultures
--- NOTE | 2019-11-16 15:01 | PN ---
Progress Note (short form) - Note Progress Note: HAD DIARRHEA LAST NIGHT no abdominal pain cough improved swallowing evaluation- no aspiration Vital Signs Period Temp Pulse Resp BP Sys/Castelan Pulse Ox Last 24 Hr 97.4 F-97.9 F 58-97 18-20 101-147/60-75 cor-rrr lungs decreased bs at bases abd soft,nt ext no edema no sacral skin breakdown port site no erythema CBC, BMP 11/16/19 06:35 11/16/19 06:35 Microbiology 11/14/19 10:30 Blood - Peripheral Venous Blood Culture - Preliminary NO GROWTH OBTAINED AFTER 48 HOURS, INCUBATION TO CONTINUE FOR 3 DAYS. 11/14/19 10:30 Blood - Peripheral Venous Blood Culture - Preliminary NO GROWTH OBTAINED AFTER 48 HOURS, INCUBATION TO CONTINUE FOR 3 DAYS. 11/15/19 18:30 Stool Clostridioides difficile Antigen - Final-positive 11/15/19 18:30 Stool Clostridioides difficile Toxin Assay - Final-negative 11/15/19 13:17 Urine - Urine Hoang Urine Culture - Final NO GROWTH OBTAINED 11/14/19 14:36 Blood - Alexx Cath Blood Culture - Preliminary Staphylococcus Coagulase Neg 11/14/19 14:36 Blood - Alxex Cath Blood Culture - Preliminary NO GROWTH OBTAINED AFTER 24 HOURS, INCUBATION TO CONTINUE FOR 4 DAYS. a/p fevers resolved- 1/4 blood cultures from port positive-consistent with contaminant- doubt port infection, will d/c iv vancomycin and observe off iv antibioitcs at this time diarrhea with positive cdiff antigen lymphoma s/p chemo ckd would start po vancomycin for cdiff antigen positive with diarrhea, pcr has been ordered but will take several days to come back d/c meropenem
--- NOTE | 2019-11-16 16:40 | PN ---
Progress Note, FINISH MENDER - Note Progress Note: 88 yo male seen at bedside for follow up to swallow eval with recommendations for regular solids with thin liquids. Chart review indicate pt is consuming 50- 75% of meals without s/s of aspiration-like behaviors. terra cotta setter reports good intake at this time. Re: continue current diet as tolerate with standard aspiration precautions. Provide oral care after meals. Medication can be given whole in applesauce. Results given verbally to pharmacist in charge owner and to PCP via chart
[2019-11-16 16:47] VITALS: BMI 24.2
--- NOTE | 2019-11-16 18:29 | PN ---
Teaching Attending Note Name of Resident: Helio Luciano ATTENDING PHYSICIAN STATEMENT I saw and evaluated the patient. I reviewed the resident's note and discussed the case with the resident. I agree with the resident's findings and plan as documented. SUBJECTIVE: Feels well, some loose stool overnight. No sputum/hemoptysis. No CP/ palpitations. No abdominal pain. OBJECTIVE: Fever resolved. Hemodynamically Stable. AAO x 3. Last Vital Signs Temp Pulse Resp BP Pulse Ox 97.9 F 74 18 147/75 100 11/16/19 11:16 11/16/19 11:16 11/16/19 11:16 11/16/19 11:16 11/15/19 09:00 HEENT - Atraumatic, Normocephalic. Large left neck mass Heart - S1, S2, soft SM Lungs - decreased air entry at bases. R portacath. Abdomen - Mild distension, soft, non-tender. Bowel Sounds normal. Extremities - edema +, no calf tenderness. Laboratory Results - last 24 hr 11/16/19 11/16/19 11/16/19 06:35 06:35 06:35 WBC 3.4 L RBC 2.77 L Hgb 8.5 L Hct 25.5 L MCV 92.3 MCH 30.6 MCHC 33.2 RDW 21.1 H Plt Count 194 MPV 8.2 Absolute Neuts (auto) 2.9 Neutrophils % 84.3 H Lymphocytes % 6.2 L Monocytes % 6.3 Eosinophils % 2.9 D Basophils % 0.3 Nucleated RBC % 0 Sodium 141 Potassium 3.9 Chloride 113 H Carbon Dioxide 21 Anion Gap 7 L BUN 33.7 H Creatinine 1.7 H Est GFR (CKD-EPI)AfAm 30.67 Est GFR (CKD-EPI)NonAf 26.46 Random Glucose 100 Uric Acid 3.5 Calcium 7.0 L Phosphorus 2.8 Magnesium 2.2 Total Bilirubin 1.2 H AST 27 ALT 39 Alkaline Phosphatase 362 H LD Total 456 H Total Protein 5.4 L Albumin 2.2 L Random Vancomycin 13.4 L Current Medications Generic Name Dose Route Start Last Admin Trade Name Freq PRN Reason Stop Dose Admin Acetaminophen 650 mg 11/14/19 16:13 Tylenol - PO Q6H PRN FEVER Allopurinol 300 mg 11/15/19 10:00 11/16/19 10:18 Zyloprim - PO 300 mg DAILY [facility] Administration Alprazolam 0.25 mg 11/14/19 18:04 11/15/19 20:37 Xanax - PO 0.25 mg Q8H PRN Administration ANXIETY Atovaquone 750 mg 11/14/19 22:00 11/16/19 17:31 Mepron - PO 750 mg BIDWM [facility] Administration Furosemide 40 mg 11/17/19 10:00 Lasix - PO DAILY [facility] Heparin Sodium (Porcine) 5,000 unit 11/14/19 22:00 11/16/19 15:31 Heparin - SQ 5,000 unit TID [facility] Administration Levothyroxine Sodium 25 mcg 11/15/19 07:00 11/16/19 06:19 Synthroid - PO 25 mcg DAILY@0700 [facility] Administration Metoprolol Succinate 25 mg 11/16/19 10:00 11/16/19 10:18 Toprol Xl - PO 25 mg DAILY [facility] Administration Mirtazapine 15 mg 11/15/19 22:00 11/15/19 22:32 Remeron - PO 15 mg HS [facility] Administration Pantoprazole Sodium 40 mg 11/15/19 20:30 11/16/19 10:18 Protonix - PO 40 mg DAILY [facility] Administration Prednisone 5 mg 11/15/19 10:00 11/16/19 10:18 Deltasone - PO 5 mg DAILY [facility] Administration Valacyclovir HCl 500 mg 11/15/19 10:00 11/16/19 10:18 Valtrex - PO 500 mg DAILY [facility] Administration Vancomycin HCl 125 mg 11/16/19 18:00 Vancomycin Oral Solution PO Q6HPO [facility] Home Medications Medication Instructions Recorded Alprazolam [Xanax] 0.25 mg PO PRN 10/06/18 Levothyroxine [Synthroid -] 25 mcg PO DAILY 10/06/18 Mirtazapine 15 mg PO HS 09/28/19 Metoprolol Succinate [Toprol XL -] 25 mg PO DAILY 10/13/19 Allopurinol 300 mg PO DAILY 11/01/19 Pantoprazole Sodium [Protonix] 40 mg PO DAILY 11/01/19 Atovaquone [Mepron -] 750 mg PO BID #70 ml 11/08/19 Furosemide [Lasix] 40 mg PO DAILY #30 tablet 11/08/19 Valacyclovir HCl [Valtrex] 500 mg PO DAILY #30 tablet 11/08/19 ASSESSMENT AND PLAN: 88 year old female with history of HTN, 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 1. Sepsis secondary to Cdiff Cdiff Ag positive, ongoing diarrhea CXR - no Pneumonia Urine Cx negative Blood Cx - 1 bottle pos for gram pos cocci in clusters. Likely contaminant. Remaining Blood Cx negative x 3. Meropenem discontinued. Oral Vancomycin started. Cdiff PCR pending. ID following. 2. 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 s/p Rituximab infusion reaction requiring Dexa, Benadryl, Nebs. Currently hemodynamically Stable, solumedrol discontinued. s/p modified CHOP 11/05. Remains on Prednisone - taper as per Oncology Oncology following - further chemo as per Onc. Valtrex and Mepron Px. 3. Hypercalcemia - resolved with IV hydration/chemotherapy. If any worsening of Ca level, will consider bisphosphonates. Nephrology following. 4. HTN - continue Metoprolol. ARB held. 5. Anxiety - Continue Mirtazapine and Xanax PRN. 6. Hypothyroidism - Continue Levothyroxine. 7. GERD - continue PPI. 8. Normocytic Anemia - likely multifactorial - sec to chronic disease/malignancy /Iron deficiency. Iron supplementation ongoing. B12/Folate levels wnl. Further management as per Hematology. 9. CKD 3 - Creat Stable. Nephrology following. On Lasix chronically. Further management as per Nephrology. 10. 11 x 8 cm fluid filled collection posterior to atria on Echo - found to be mediastinal mass consistent with lymphadenopathy on CT Chest. Further management as per Oncology. 11. Prior R intracortical nodule not seen on current Renal US - radiology recommends [address] follow up. 12. Chronic Diastolic CHF - home dose Lasix resumed. DVT Px - Heparin SQ Code Status - DNR/DNI
--- NOTE | 2019-11-16 20:25 | PN ---
Physical Exam: SUBJECTIVE: Patient seen and examined. Pt had diarrhea overnight collected for sampling, afebrile overnight. OBJECTIVE: Vital Signs Period Temp Pulse Resp BP Sys/Castelan Pulse Ox Last 24 Hr 97.3 F-97.9 F 74-97 18-20 101-147/60-75 HEENT: STEPHEN, EOM Intact Oropharynx: No thrush, No mucositis on tongue Nodes: extensive adenopathy, left cervical region Heart: Normal sinus rythym No murmurs, No gallops Lungs:scattered rhonchi b/l worse at bases Abd: Soft, Normal bowel sounds, No organomegaly Ext: 1+ pitting edema Laboratory Results - last 24 hr 11/16/19 11/16/19 11/16/19 06:35 06:35 06:35 WBC 3.4 L RBC 2.77 L Hgb 8.5 L Hct 25.5 L MCV 92.3 MCH 30.6 MCHC 33.2 RDW 21.1 H Plt Count 194 MPV 8.2 Absolute Neuts (auto) 2.9 Neutrophils % 84.3 H Lymphocytes % 6.2 L Monocytes % 6.3 Eosinophils % 2.9 D Basophils % 0.3 Nucleated RBC % 0 Sodium 141 Potassium 3.9 Chloride 113 H Carbon Dioxide 21 Anion Gap 7 L BUN 33.7 H Creatinine 1.7 H Est GFR (CKD-EPI)AfAm 30.67 Est GFR (CKD-EPI)NonAf 26.46 Random Glucose 100 Uric Acid 3.5 Calcium 7.0 L Phosphorus 2.8 Magnesium 2.2 Total Bilirubin 1.2 H AST 27 ALT 39 Alkaline Phosphatase 362 H LD Total 456 H Total Protein 5.4 L Albumin 2.2 L Random Vancomycin 13.4 L Active Medications Generic Name Dose Route Start Last Admin Trade Name Freq PRN Reason Stop Dose Admin Acetaminophen 650 mg 11/14/19 16:13 Tylenol - PO Q6H PRN FEVER Allopurinol 300 mg 11/15/19 10:00 11/16/19 10:18 Zyloprim - PO 300 mg DAILY [facility] Administration Alprazolam 0.25 mg 11/14/19 18:04 11/15/19 20:37 Xanax - PO 0.25 mg Q8H PRN Administration ANXIETY Atovaquone 750 mg 11/14/19 22:00 11/16/19 17:31 Mepron - PO 750 mg BIDWM [facility] Administration Furosemide 40 mg 11/17/19 10:00 Lasix - PO DAILY [facility] Heparin Sodium (Porcine) 5,000 unit 11/14/19 22:00 11/16/19 15:31 Heparin - SQ 5,000 unit TID [facility] Administration Levothyroxine Sodium 25 mcg 11/15/19 07:00 11/16/19 06:19 Synthroid - PO 25 mcg DAILY@0700 [facility] Administration Metoprolol Succinate 25 mg 11/16/19 10:00 11/16/19 10:18 Toprol Xl - PO 25 mg DAILY [facility] Administration Mirtazapine 15 mg 11/15/19 22:00 11/15/19 22:32 Remeron - PO 15 mg HS [facility] Administration Pantoprazole Sodium 40 mg 11/15/19 20:30 11/16/19 10:18 Protonix - PO 40 mg DAILY [facility] Administration Prednisone 5 mg 11/15/19 10:00 11/16/19 10:18 Deltasone - PO 5 mg DAILY [facility] Administration Valacyclovir HCl 500 mg 11/15/19 10:00 11/16/19 10:18 Valtrex - PO 500 mg DAILY [facility] Administration Vancomycin HCl 125 mg 11/16/19 18:00 Vancomycin Oral Solution PO Q6HPO [facility] ASSESSMENT/PLAN: Images: -CT of abdomen and pelvis without contrast showing ? ileus, fluid in colon ( diarrhea), and resolved b/l Pleural effusions, b/l [place] subQ edema, cardiomegaly, small amt of pelvic fluid, mild hepatomeg, mild bowel dilation, cholelithiasis, diverticulosis, and surgical anastomosis along rt colon. 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 #Fever, unclear etiology at this time -possibly 2/2 to chemo port vs C. diff infection in setting of diarrhea and recent hospitalization -Blood cultures done, cx from port 1/4 positive with gram positive staph epi vs saprophyticus likely contaminant but will continue to assess. -UA, Ucx -C.diff toxin negative, Ag positive, PCR ordered -Will discontinue meropenem and start PO 125 q6H Vancomycin per ID. -ID (Dr. Singh) consulted. #High Grade Large B cell lymphoma -started on R-CHOP regimen on previous admission, but had reaction to Rituxin -Discharged on Prednisone 10mg -Heme-Onc (Dr. Ramos) consulted believes 102 temp could be related to B symptoms from lymphoma vs infectious process -Will continue Prednisone 5 mg for now -Continue Valtrex and Mepron #Elevated Tbili -RUQ US unremarkable -may be 2/2 ?chemotx -CTAP ordered -will continue to monitor #CKD -BUN/Cr at baseline -Hoang cath for accurate I&O -Nephrology (Dr. Broussard) consulted. #Normocytic Anemia - likely multifactorial - sec to chronic disease/malignancy/ Iron deficiency. Iron supplementation ongoing. B12/Folate levels wnl. Further management as per Hematology. #CKD 3 - Creat Stable. Nephrology following. On Lasix chronically, started PO 40 lasix daily home dose Further management as per Nephrology. #11 x 8 cm fluid filled collection posterior to atria on Echo - found to be mediastinal mass consistent with lymphadenopathy on CT Chest. Further management as per Oncology. #Bibasal effusions sec to Iv hydration on last admission - appears to have resolved on current chest imaging. #Prior R intracortical nodule not seen on current Renal US - radiology recommends [address] follow up. #HTN -Hypotensive episodes likely due to sepsis -hold BP meds #Hypothyroidism -continue Synthroid 25mcg daily #Anxiety -Xanax PRN, mirtazapine #FEN -d/c'd fluids as sepsis resolving -hypoPhos/hypoMg, repleted, continue to monitor -Regular diet #Prophylaxis -Heparin 5000unit sq tid GERD- PPI #Disposition -DNR/DNI -admit to med surg Visit type - Emergency Visit Emergency Visit: Yes ED Registration Date: 11/14/19 Care time: The patient presented to the Emergency Department on the above date and was hospitalized for further evaluation of their emergent condition. - New Patient This patient is new to me today: No - Critical Care Critical Care patient: No - Discharge Referral Referred to [facility] Med P.C[facility] No ATTENDING PHYSICIAN STATEMENT I saw and evaluated the patient. I reviewed the resident's note and discussed the case with the resident. I agree with the resident's findings and plan as documented. SUBJECTIVE: OBJECTIVE: ASSESSMENT AND PLAN:
--- NOTE | 2019-11-16 20:31 | PN ---
Progress Note (short form) - Note Progress Note: Patient seen and examined Diarrhea improved Temp down 10/08 positive blood cultures -staph coag negative Last Vital Signs Temp Pulse Resp BP Pulse Ox 97.3 F L 76 18 108/60 100 11/16/19 18:00 11/16/19 18:00 11/16/19 18:00 11/16/19 18:00 11/15/19 09:00 HEENT: STEPHEN, EOM Intact Nodes: left neck adenopathy Cor: RSR, No murmurs, No gallops Lungs: scattered rales Abd: Soft, Normal bowel sounds, No organomegaly,mild distension Ext:No significant edema Skin: No rashes, Integument intact CBC, BMP 11/16/19 06:35 11/16/19 06:35 Current Medications Generic Name Dose Route Start Last Admin Trade Name Freq PRN Reason Stop Dose Admin Acetaminophen 650 mg 11/14/19 16:13 Tylenol - PO Q6H PRN FEVER Allopurinol 300 mg 11/15/19 10:00 11/16/19 10:18 Zyloprim - PO 300 mg DAILY [facility] Administration Alprazolam 0.25 mg 11/14/19 18:04 11/15/19 20:37 Xanax - PO 0.25 mg Q8H PRN Administration ANXIETY Atovaquone 750 mg 11/14/19 22:00 11/16/19 17:31 Mepron - PO 750 mg BIDWM [facility] Administration Furosemide 40 mg 11/17/19 10:00 Lasix - PO DAILY [facility] Heparin Sodium (Porcine) 5,000 unit 11/14/19 22:00 11/16/19 15:31 Heparin - SQ 5,000 unit TID [facility] Administration Levothyroxine Sodium 25 mcg 11/15/19 07:00 11/16/19 06:19 Synthroid - PO 25 mcg DAILY@0700 [facility] Administration Metoprolol Succinate 25 mg 11/16/19 10:00 11/16/19 10:18 Toprol Xl - PO 25 mg DAILY [facility] Administration Mirtazapine 15 mg 11/15/19 22:00 11/15/19 22:32 Remeron - PO 15 mg HS [facility] Administration Pantoprazole Sodium 40 mg 11/15/19 20:30 11/16/19 10:18 Protonix - PO 40 mg DAILY [facility] Administration Prednisone 5 mg 11/15/19 10:00 11/16/19 10:18 Deltasone - PO 5 mg DAILY [facility] Administration Valacyclovir HCl 500 mg 11/15/19 10:00 11/16/19 10:18 Valtrex - PO 500 mg DAILY [facility] Administration Vancomycin HCl 125 mg 11/16/19 18:00 Vancomycin Oral Solution PO Q6HPO [facility] Microbiology 11/14/19 14:36 Blood - Alexx Cath Blood Culture - Preliminary NO GROWTH OBTAINED AFTER 48 HOURS, INCUBATION TO CONTINUE FOR 3 DAYS. 11/14/19 10:30 Blood - Peripheral Venous Blood Culture - Preliminary NO GROWTH OBTAINED AFTER 48 HOURS, INCUBATION TO CONTINUE FOR 3 DAYS. 11/14/19 10:30 Blood - Peripheral Venous Blood Culture - Preliminary NO GROWTH OBTAINED AFTER 48 HOURS, INCUBATION TO CONTINUE FOR 3 DAYS. 11/15/19 18:30 Stool Clostridioides difficile Antigen - Final 11/15/19 18:30 Stool Clostridioides difficile Toxin Assay - Final 11/15/19 13:17 Urine - Urine Hoang Urine Culture - Final NO GROWTH OBTAINED 11/14/19 14:36 Blood - Alexx Cath Blood Culture - Preliminary Staphylococcus Coagulase Neg Impression: Transformed lymphoma Anemia Fevers 1/4 port culture - staph coag neg c.diff -ag-positive Per ID - off ab IV rx of diarrhea and c. diff. monitor
[2019-11-16] MEDS: VANCOMYCIN 250 MG/5 ML ORAL SOLUTION PO SCH (21:05)
[2019-11-16] MEDS: MIRTAZAPINE 15 MG TABLET (FP) PO SCH (21:07)
[2019-11-16] MEDS: ALPRAZolam 0.25 MG TABLET PO PRN (21:07)
[2019-11-17] MEDS: VANCOMYCIN 250 MG/5 ML ORAL SOLUTION PO SCH ×5 (00:51→23:59)
[2019-11-17] MEDS: HEPARIN NA (PORCINE) 5,000 UNITS/ML 1ML VIAL SQ SCH ×3 (06:10→21:31)
[2019-11-17] MEDS: LEVOTHYROXINE NA 25 MCG TABLET (FP) PO SCH (06:18)
[2019-11-17 07:58] LABS: BASO % 2.2 % (0-2.0); EOS % 16.5 % (0-4.5); HEMATOCRIT 27.6 % (32.4-45.2); HEMOGLOBIN 9.2 GM/dL (10.7-15.3); LYMPH % 7.5 % (8-40); MCH 30.4 pg (25.7-33.7); MCHC 33.2 g/dl (32.0-36.0); MEAN CELL VOLUME 91.7 fl (80-96); MEAN PLT VOLUME 8.1 fl (7.5-11.1); MONO % 11.5 % (3.8-10.2); NEUT % 62.3 % (42.8-82.8); PLATELET COUNT 170 K/MM3 (134-434); RBC 3.01 M/mm3 (3.60-5.2); RDW 20.9 % (11.6-15.6); WHITE BLOOD COUNT 2.6 K/mm3 (4.0-10.0)
[2019-11-17 08:36] LABS: ALBUMIN 2.3 g/dl (3.4-5.0); BILIRUBIN,TOTAL 0.9 mg/dL (0.2-1); BLOOD UREA NITROGEN 32.1 mg/dL (7-18); CALCIUM 7.2 mg/dL (8.5-10.1); CREATININE 1.6 mg/dL (0.55-1.3); POTASSIUM 4.2 mmol/L (3.5-5.1); TOT PROT 5.5 g/dl (6.4-8.2)
[2019-11-17] MEDS: predniSONE 5 MG TABLET (UD) PO SCH (09:09)
[2019-11-17] MEDS: FUROSEMIDE 40 MG TABLET (FP) PO SCH (09:09)
[2019-11-17] MEDS: metoPROLOL SUCCINATE 25 MG TAB.SR.24H (FP) PO SCH (09:09)
[2019-11-17] MEDS: ATOVAQUONE 750 MG/5 ML (UNIT-DOSE PACKAGING) PO SCH ×2 (09:09→17:42)
[2019-11-17] MEDS: valACYclovir HCL 500 MG TABLET (FP) PO SCH (09:09)
[2019-11-17] MEDS: ALLOPURINOL 300 MG TABLET (FP) PO SCH (09:09)
[2019-11-17] MEDS: PANTOPRAZOLE 40 MG TABLET PO SCH (09:09)
[2019-11-17] MEDS: ALPRAZolam 0.25 MG TABLET PO PRN ×2 (09:31→21:31)
[2019-11-17 12:17] LABS: ANISOCYTOSIS 1+; MACROCYTOSIS 0; OVALOCYTE 1+; PLATELET ESTIMATE NORMAL; TEAR DROP CELLS 1+
--- NOTE | 2019-11-17 14:14 | PN ---
Progress Note, Physician History of Present Illness: Pt seen and examined at bedside. She is awake and appears comfortable. She denies shortness of breath at rest. - Current Medication List Current Medications: Active Medications Acetaminophen (Tylenol -) 650 mg PO Q6H PRN PRN Reason: FEVER Allopurinol (Zyloprim -) 300 mg PO DAILY [facility] Last Admin: 11/17/19 09:09 Dose: 300 mg Alprazolam (Xanax -) 0.25 mg PO Q8H PRN PRN Reason: ANXIETY Last Admin: 11/17/19 09:31 Dose: 0.25 mg Atovaquone (Mepron -) 750 mg PO BIDWM [facility] Last Admin: 11/17/19 09:09 Dose: 750 mg Furosemide (Lasix -) 40 mg PO DAILY [facility] Last Admin: 11/17/19 09:09 Dose: 40 mg Heparin Sodium (Porcine) (Heparin -) 5,000 unit SQ TID [facility] Last Admin: 11/17/19 06:10 Dose: 5,000 unit Levothyroxine Sodium (Synthroid -) 25 mcg PO DAILY@0700 [facility] Last Admin: 11/17/19 06:18 Dose: 25 mcg Metoprolol Succinate (Toprol Xl -) 25 mg PO DAILY [facility] Last Admin: 11/17/19 09:09 Dose: 25 mg Mirtazapine (Remeron -) 15 mg PO HS [facility] Last Admin: 11/16/19 21:07 Dose: 15 mg Pantoprazole Sodium (Protonix -) 40 mg PO DAILY [facility] Last Admin: 11/17/19 09:09 Dose: 40 mg Prednisone (Deltasone -) 5 mg PO DAILY [facility] Last Admin: 11/17/19 09:09 Dose: 5 mg Valacyclovir HCl (Valtrex -) 500 mg PO DAILY [facility] Last Admin: 11/17/19 09:09 Dose: 500 mg Vancomycin HCl (Vancomycin Oral Solution) 125 mg PO Q6HPO [facility] Last Admin: 11/17/19 12:08 Dose: 125 mg - Objective Vital Signs: Vital Signs Temperature 97.1 F L 11/17/19 10:00 Pulse Rate 108 H 11/17/19 11:01 Respiratory Rate 22 H 11/17/19 11:01 Blood Pressure 107/76 11/17/19 10:00 O2 Sat by Pulse Oximetry (%) 97 11/17/19 09:00 Constitutional: Yes: Calm Eyes: Yes: Conjunctiva Clear HENT: Yes: Atraumatic Cardiovascular: Yes: S1, S2 Respiratory: Yes: On Nasal O2 Gastrointestinal: Yes: Soft Genitourinary: Yes: WNL Edema: Yes Edema: LLE: 1+, RLE: 1+ Neurological: Yes: Oriented Psychiatric: Yes: Oriented Labs: CBC, BMP 11/17/19 06:20 11/17/19 06:20 INR, PTT INR 0.97 (0.83-1.09) 11/14/19 10:30 Problem List - Problems (1) CKD (chronic kidney disease) Code(s): N18.9 - CHRONIC KIDNEY DISEASE, UNSPECIFIED Assessment/Plan Current Medications Generic Name Dose Route Start Last Admin Trade Name Freq PRN Reason Stop Dose Admin Acetaminophen 650 mg 11/14/19 16:13 Tylenol - PO Q6H PRN FEVER Allopurinol 300 mg 11/15/19 10:00 11/17/19 09:09 Zyloprim - PO 300 mg DAILY [facility] Administration Alprazolam 0.25 mg 11/14/19 18:04 11/17/19 09:31 Xanax - PO 0.25 mg Q8H PRN Administration ANXIETY Atovaquone 750 mg 11/14/19 22:00 11/17/19 09:09 Mepron - PO 750 mg BIDWM [facility] Administration Furosemide 40 mg 11/17/19 10:00 11/17/19 09:09 Lasix - PO 40 mg DAILY [facility] Administration Heparin Sodium (Porcine) 5,000 unit 11/14/19 22:00 11/17/19 06:10 Heparin - SQ 5,000 unit TID [facility] Administration Levothyroxine Sodium 25 mcg 11/15/19 07:00 11/17/19 06:18 Synthroid - PO 25 mcg DAILY@0700 [facility] Administration Metoprolol Succinate 25 mg 11/16/19 10:00 11/17/19 09:09 Toprol Xl - PO 25 mg DAILY [facility] Administration Mirtazapine 15 mg 11/15/19 22:00 11/16/19 21:07 Remeron - PO 15 mg HS [facility] Administration Pantoprazole Sodium 40 mg 11/15/19 20:30 11/17/19 09:09 Protonix - PO 40 mg DAILY [facility] Administration Prednisone 5 mg 11/15/19 10:00 11/17/19 09:09 Deltasone - PO 5 mg DAILY [facility] Administration Valacyclovir HCl 500 mg 11/15/19 10:00 11/17/19 09:09 Valtrex - PO 500 mg DAILY [facility] Administration Vancomycin HCl 125 mg 11/16/19 18:00 11/17/19 12:08 Vancomycin Oral Solution PO 125 mg Q6HPO [facility] Administration Impression 1. CKD 2. [place] 3. diarrhea 4. fever 5. b cell lymphoma 6. htn 7. hld 8. pleural effusions Plan - renal function stable - pt tolerating diet - monitor volume status - diarrhea improving - follow cultures
--- NOTE | 2019-11-17 14:25 | PN ---
Physical Exam: SUBJECTIVE: Patient found to be SOB per the team this AM. No fevers overnight. Pt satting 97% on 2L of O2 with tachycardia. OBJECTIVE: Vital Signs Period Temp Pulse Resp BP Sys/Castelan Pulse Ox Last 24 Hr 97.1 F-97.7 F 76-134 18-22 107-149/60-76 97 General: awake, sob, alert and oriented. Pt on contact still. Rt portacath present Nodes: extensive adenopathy, left cervical region Heart: Normal sinus rythym, tachycardic, no murmurs, No gallops Lungs:scattered rhonchi b/l worse at bases Abd: Soft, Normal bowel sounds, No organomegaly Ext: 1+ pitting edema Laboratory Results - last 24 hr 11/17/19 11/17/19 11/17/19 06:20 06:20 08:35 WBC 2.6 L RBC 3.01 L Hgb 9.2 L Hct 27.6 L MCV 91.7 MCH 30.4 MCHC 33.2 RDW 20.9 H Plt Count 170 MPV 8.1 Absolute Neuts (auto) 1.6 Neutrophils % 62.3 D Neutrophils % (Manual) 52.4 Band Neutrophils % 4.8 Lymphocytes % 7.5 L D Lymphocytes % (Manual) 9.5 D Monocytes % 11.5 H D Monocytes % (Manual) 7 D Eosinophils % 16.5 H D Eosinophils % (Manual) 22.9 H D Basophils % 2.2 H D Basophils % (Manual) 0.9 D Myelocytes % (Man) 0 Promyelocytes % (Man) 0 Blast Cells % (Manual) 0 Nucleated RBC % 0 Metamyelocytes 0 Hypochromia 0 Platelet Estimate Normal Polychromasia 1+ Poikilocytosis 1+ Basophilic Stippling 1+ Anisocytosis 1+ Microcytosis 1+ Macrocytosis 0 Spherocytes 1+ Tear Drop Cells 1+ Ovalocytes 1+ Fragmented RBCs 1+ Sodium 142 Potassium 4.2 Chloride 115 H Carbon Dioxide 22 Anion Gap 5 L BUN 32.1 H Creatinine 1.6 H Est GFR (CKD-EPI)AfAm 33.00 Est GFR (CKD-EPI)NonAf 28.47 Random Glucose 71 L Lactic Acid 1.6 Calcium 7.2 L Total Bilirubin 0.9 AST 53 H ALT 50 Alkaline Phosphatase 544 H Total Protein 5.5 L Albumin 2.3 L Active Medications Generic Name Dose Route Start Last Admin Trade Name Freq PRN Reason Stop Dose Admin Acetaminophen 650 mg 11/14/19 16:13 Tylenol - PO Q6H PRN FEVER Allopurinol 300 mg 11/15/19 10:00 11/17/19 09:09 Zyloprim - PO 300 mg DAILY ELIZABETH Administration Alprazolam 0.25 mg 11/14/19 18:04 11/17/19 09:31 Xanax - PO 0.25 mg Q8H PRN Administration ANXIETY Atovaquone 750 mg 11/14/19 22:00 11/17/19 09:09 Mepron - PO 750 mg BIDWM ELIZABETH Administration Furosemide 40 mg 11/17/19 10:00 11/17/19 09:09 Lasix - PO 40 mg DAILY ELIZABETH Administration Heparin Sodium (Porcine) 5,000 unit 11/14/19 22:00 11/17/19 06:10 Heparin - SQ 5,000 unit TID ELIZABETH Administration Levothyroxine Sodium 25 mcg 11/15/19 07:00 11/17/19 06:18 Synthroid - PO 25 mcg DAILY@0700 ELIZABETH Administration Metoprolol Succinate 25 mg 11/16/19 10:00 11/17/19 09:09 Toprol Xl - PO 25 mg DAILY ELIZABETH Administration Mirtazapine 15 mg 11/15/19 22:00 11/16/19 21:07 Remeron - PO 15 mg HS ELIZABETH Administration Pantoprazole Sodium 40 mg 11/15/19 20:30 11/17/19 09:09 Protonix - PO 40 mg DAILY ELIZABETH Administration Prednisone 5 mg 11/15/19 10:00 11/17/19 09:09 Deltasone - PO 5 mg DAILY ELIZABETH Administration Valacyclovir HCl 500 mg 11/15/19 10:00 11/17/19 09:09 Valtrex - PO 500 mg DAILY ELIZABETH Administration Vancomycin HCl 125 mg 11/16/19 18:00 11/17/19 12:08 Vancomycin Oral Solution PO 125 mg Q6HPO ELIZABETH Administration ASSESSMENT/PLAN: Images: -CT of abdomen and pelvis without contrast showing ? ileus, fluid in colon ( diarrhea), and resolved b/l Pleural effusions, b/l [place] subQ edema, cardiomegaly, small amt of pelvic fluid, mild hepatomeg, mild bowel dilation, cholelithiasis, diverticulosis, and surgical anastomosis along rt colon. 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 #Fever, unclear etiology at this time -possibly 2/2 to chemo port vs C. diff infection in setting of diarrhea and recent hospitalization -Blood cultures done, cx from port 1/4 positive with gram positive staph epi vs saprophyticus likely contaminant but will continue to assess. -UA, Ucx -C.diff toxin negative, Ag positive, PCR ordered - discontinued meropenem yesterday - c/w PO 125 q6H Vancomycin day 2 per ID. -ID (Dr. Singh) consulted. #High Grade Large B cell lymphoma -started on R-CHOP regimen on previous admission, but had reaction to Rituxin -Discharged on Prednisone 10mg -Heme-Onc (Dr. Ramos) consulted believes 102 temp could be related to B symptoms from lymphoma vs infectious process -Will continue Prednisone 5 mg for now -Continue Valtrex and Mepron - acute SOB likely due to progression of the cervical mass interfering with her breathing vs anxiety #Elevated Tbili -RUQ US unremarkable -may be 2/2 ?chemotx -CTAP ordered -will continue to monitor #CKD -BUN/Cr at baseline -Nephrology (Dr. Broussard) consulted. - avoid nephrotoxic agents #Normocytic Anemia - likely multifactorial - sec to chronic disease/malignancy/Iron deficiency. - Iron supplementation ongoing. - B12/Folate levels wnl. Further management as per Hematology. #CKD 3 - Creat Stable. Nephrology following. On Lasix chronically, started PO 40 lasix daily home dose Further management as per Nephrology. #11 x 8 cm fluid filled collection posterior to atria on Echo - found to be mediastinal mass consistent with lymphadenopathy on CT Chest. Further management as per Oncology. #Bibasal effusions sec to Iv hydration on last admission - appears to have resolved on current chest imaging. - CXR done today for the SOB and tachycardia not showing any acute changes. #Prior R intracortical nodule not seen on current Renal US - radiology recommends [address] follow up. #HTN -Hypotensive episodes likely due to sepsis -c/w metoprolol 25 daily #Hypothyroidism -continue Synthroid 25mcg daily #Anxiety -Xanax PRN, will discontinue mirtazapine given prolonged QTc on EKG done for tachycardia today. #FEN -d/c'd fluids as sepsis resolving -hypoPhos/hypoMg, repleted, continue to monitor -Regular diet #Prophylaxis -Heparin 5000unit sq tid GERD- PPI #Disposition -DNR/DNI -admit to med surg Visit type - Emergency Visit Emergency Visit: Yes ED Registration Date: 11/14/19 Care time: The patient presented to the Emergency Department on the above date and was hospitalized for further evaluation of their emergent condition. - New Patient This patient is new to me today: No - Critical Care Critical Care patient: No - Discharge Referral Referred to [facility] Med P.C.: No ATTENDING PHYSICIAN STATEMENT I saw and evaluated the patient. I reviewed the resident's note and discussed the case with the resident. I agree with the resident's findings and plan as documented. SUBJECTIVE: OBJECTIVE: ASSESSMENT AND PLAN:
--- NOTE | 2019-11-17 15:13 | EKG ---
Test Reason : Blood Pressure : / mmHG Vent. Rate : 108 BPM Atrial Rate : 108 BPM P-R Int : 120 ms QRS Dur : 118 ms QT Int : 376 ms P-R-T Axes : 041 -56 035 degrees QTc Int : 503 ms SINUS TACHYCARDIA WITH PREMATURE ATRIAL COMPLEXES LEFT AXIS DEVIATION RIGHT BUNDLE BRANCH BLOCK ABNORMAL ECG WHEN COMPARED WITH ECG OF 14-NOV-2019 10:22, PREMATURE ATRIAL COMPLEXES ARE NOW PRESENT CRITERIA FOR SEPTAL INFARCT ARE NO LONGER PRESENT Confirmed by RAMÓN LAMBERT MD ([id number]) on 11/17/2019 3:13:48 PM Referred By: Confirmed By:RAMÓN LAMBERT MD
--- NOTE | 2019-11-17 17:57 | PN ---
Teaching Attending Note Name of Resident: Helio Luciano ATTENDING PHYSICIAN STATEMENT I saw and evaluated the patient. I reviewed the resident's note and discussed the case with the resident. I agree with the resident's findings and plan as documented. SUBJECTIVE: Feels well, loose stool improving. No sputum/hemoptysis. Some Dyspnea. No CP/palpitations. No abdominal pain. OBJECTIVE: Fever resolved. Hemodynamically Stable. AAO x 3. Last Vital Signs Temp Pulse Resp BP Pulse Ox 97.3 F L 113 H 21 H 102/65 97 11/17/19 14:30 11/17/19 14:30 11/17/19 14:30 11/17/19 14:30 11/17/19 09:00 HEENT - Atraumatic, Normocephalic. Large left neck mass Heart - S1, S2, soft SM, Tachy Lungs - decreased air entry at bases. R portacath. Abdomen - Mild distension, soft, non-tender. Bowel Sounds normal. Extremities - edema +, no calf tenderness. Laboratory Results - last 24 hr 11/17/19 11/17/19 11/17/19 06:20 06:20 08:35 WBC 2.6 L RBC 3.01 L Hgb 9.2 L Hct 27.6 L MCV 91.7 MCH 30.4 MCHC 33.2 RDW 20.9 H Plt Count 170 MPV 8.1 Absolute Neuts (auto) 1.6 Neutrophils % 62.3 D Neutrophils % (Manual) 52.4 Band Neutrophils % 4.8 Lymphocytes % 7.5 L D Lymphocytes % (Manual) 9.5 D Monocytes % 11.5 H D Monocytes % (Manual) 7 D Eosinophils % 16.5 H D Eosinophils % (Manual) 22.9 H D Basophils % 2.2 H D Basophils % (Manual) 0.9 D Myelocytes % (Man) 0 Promyelocytes % (Man) 0 Blast Cells % (Manual) 0 Nucleated RBC % 0 Metamyelocytes 0 Hypochromia 0 Platelet Estimate Normal Polychromasia 1+ Poikilocytosis 1+ Basophilic Stippling 1+ Anisocytosis 1+ Microcytosis 1+ Macrocytosis 0 Spherocytes 1+ Tear Drop Cells 1+ Ovalocytes 1+ Fragmented RBCs 1+ Sodium 142 Potassium 4.2 Chloride 115 H Carbon Dioxide 22 Anion Gap 5 L BUN 32.1 H Creatinine 1.6 H Est GFR (CKD-EPI)AfAm 33.00 Est GFR (CKD-EPI)NonAf 28.47 Random Glucose 71 L Lactic Acid 1.6 Calcium 7.2 L Total Bilirubin 0.9 AST 53 H ALT 50 Alkaline Phosphatase 544 H Total Protein 5.5 L Albumin 2.3 L Current Medications Generic Name Dose Route Start Last Admin Trade Name Freq PRN Reason Stop Dose Admin Acetaminophen 650 mg 11/14/19 16:13 Tylenol - PO Q6H PRN FEVER Allopurinol 300 mg 11/15/19 10:00 11/17/19 09:09 Zyloprim - PO 300 mg DAILY ELIZABETH Administration Alprazolam 0.25 mg 11/14/19 18:04 11/17/19 09:31 Xanax - PO 0.25 mg Q8H PRN Administration ANXIETY Atovaquone 750 mg 11/14/19 22:00 11/17/19 17:42 Mepron - PO 750 mg BIDWM ELIZABETH Administration Furosemide 40 mg 11/17/19 10:00 11/17/19 09:09 Lasix - PO 40 mg DAILY ELIZABETH Administration Heparin Sodium (Porcine) 5,000 unit 11/14/19 22:00 11/17/19 14:58 Heparin - SQ 5,000 unit TID ELIZABETH Administration Levothyroxine Sodium 25 mcg 11/15/19 07:00 11/17/19 06:18 Synthroid - PO 25 mcg DAILY@0700 ELIZABETH Administration Metoprolol Succinate 25 mg 11/16/19 10:00 11/17/19 09:09 Toprol Xl - PO 25 mg DAILY ELIZABETH Administration Pantoprazole Sodium 40 mg 11/15/19 20:30 11/17/19 09:09 Protonix - PO 40 mg DAILY ELIZABETH Administration Prednisone 5 mg 11/15/19 10:00 11/17/19 09:09 Deltasone - PO 5 mg DAILY ELIZABETH Administration Valacyclovir HCl 500 mg 11/15/19 10:00 11/17/19 09:09 Valtrex - PO 500 mg DAILY ELIZABETH Administration Vancomycin HCl 125 mg 11/16/19 18:00 11/17/19 17:42 Vancomycin Oral Solution PO 125 mg Q6HPO ELIZABETH Administration Home Medications Medication Instructions Recorded Alprazolam [Xanax] 0.25 mg PO PRN 10/06/18 Levothyroxine [Synthroid -] 25 mcg PO DAILY 10/06/18 Mirtazapine 15 mg PO HS 09/28/19 Metoprolol Succinate [Toprol XL -] 25 mg PO DAILY 10/13/19 Allopurinol 300 mg PO DAILY 11/01/19 Pantoprazole Sodium [Protonix] 40 mg PO DAILY 11/01/19 Atovaquone [Mepron -] 750 mg PO BID #70 ml 11/08/19 Furosemide [Lasix] 40 mg PO DAILY #30 tablet 11/08/19 Valacyclovir HCl [Valtrex] 500 mg PO DAILY #30 tablet 11/08/19 ASSESSMENT AND PLAN: 88 year old female with history of HTN, 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 1. Sepsis secondary to Cdiff +/- infected portacath Cdiff Ag positive, ongoing diarrhea CXR - no Pneumonia Urine Cx negative Blood Cx from Portacath - Staph hominis. Remaining Blood Cx negative x 3. Oral Vancomycin with Cdiff Ag positive. Cdiff PCR pending. To discuss with ID re: positive Blood Cx from Portacath and need for ?Abx ( Meropenem/Vanco given initially empirically, now discontinued) 2. 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 s/p Rituximab infusion reaction requiring Dexa, Benadryl, Nebs. Currently hemodynamically Stable, solumedrol discontinued. s/p modified CHOP 11/05. Remains on Prednisone - taper as per Oncology Oncology following - further chemo as per Onc. Valtrex and Mepron Px. WBC trending down s/p chemotherapy - will monitor. 3. Hypercalcemia - resolved with IV hydration/chemotherapy. If any worsening of Ca level, will consider bisphosphonates. Nephrology following. 4. HTN - continue Metoprolol. ARB held. 5. Anxiety - Continue Xanax PRN. QTc prolonged will hold Mirtazapine. 6. Hypothyroidism - Continue Levothyroxine. 7. GERD - continue PPI. 8. Normocytic Anemia - likely multifactorial - sec to chronic disease/malignancy /Iron deficiency. Iron supplementation ongoing. B12/Folate levels wnl. Further management as per Hematology. 9. CKD 3 - Creat Stable. Nephrology following. On Lasix chronically. Further management as per Nephrology. 10. 11 x 8 cm fluid filled collection posterior to atria on Echo - found to be mediastinal mass consistent with lymphadenopathy on CT Chest. Further management as per Oncology. 11. Prior R intracortical nodule not seen on current Renal US - radiology recommends [address] follow up. 12. Chronic Diastolic CHF - no evidence of decompensation but LE edema present - home dose Lasix resumed. DVT Px - Heparin SQ Code Status - DNR/DNI
[2019-11-17] MEDS: ACETAMINOPHEN 325 MG TABLET (FP) PO PRN (21:32)
--- NOTE | 2019-11-18 05:51 | PN ---
Progress Note (short form) - Note Progress Note: Patient seen and examined Feels weak/tired Last Vital Signs Temp Pulse Resp BP Pulse Ox 97.5 F L 104 H 20 107/68 97 11/17/19 20:46 11/17/19 20:46 11/17/19 20:46 11/17/19 20:46 11/17/19 21:00 Cor: RSR, No murmurs, No gallops Lungs: Clear to P&A Abd: Soft, Normal bowel sounds, No organomegaly Ext:No significant edema Labs/Meds reviewed A/P Transformed lymphoma Anemia Fevers 1/ port culture - staph coag neg c.diff -ag-positive Per ID - off ab IV rx of diarrhea and c. diff. monitor discussed with patient at bed side
[2019-11-18] MEDS: VANCOMYCIN 250 MG/5 ML ORAL SOLUTION PO SCH ×4 (06:23→23:21)
[2019-11-18] MEDS: LEVOTHYROXINE NA 25 MCG TABLET (FP) PO SCH (06:23)
[2019-11-18] MEDS: HEPARIN NA (PORCINE) 5,000 UNITS/ML 1ML VIAL SQ SCH ×3 (06:23→21:46)
[2019-11-18] MEDS ORDERED: FUROSEMIDE 40 MG/4 ML INJECTABLE VIAL IVPUSH ONE (07:27)
[2019-11-18 07:40] LABS: BASO % 2.4 % (0-2.0); EOS % 14.3 % (0-4.5); HEMATOCRIT 30.4 % (32.4-45.2); HEMOGLOBIN 9.7 GM/dL (10.7-15.3); LYMPH % 8.4 % (8-40); MCH 30.1 pg (25.7-33.7); MCHC 31.9 g/dl (32.0-36.0); MEAN CELL VOLUME 94.3 fl (80-96); MEAN PLT VOLUME 7.9 fl (7.5-11.1); MONO % 11.5 % (3.8-10.2); NEUT % 63.4 % (42.8-82.8); RBC 3.22 M/mm3 (3.60-5.2); RDW 21.8 % (11.6-15.6); WHITE BLOOD COUNT 3.4 K/mm3 (4.0-10.0)
[2019-11-18 07:59] LABS: ALBUMIN 2.2 g/dl (3.4-5.0); BILIRUBIN,TOTAL 0.8 mg/dL (0.2-1); BLOOD UREA NITROGEN 30.9 mg/dL (7-18); CALCIUM 7.2 mg/dL (8.5-10.1); CREATININE 1.7 mg/dL (0.55-1.3); POTASSIUM 4.5 mmol/L (3.5-5.1); TOT PROT 5.4 g/dl (6.4-8.2)
[2019-11-18] MEDS ORDERED: PT OWN MED DRAWER 7, Y5N ONE (08:52)
[2019-11-18 08:57] LABS: ANISOCYTOSIS 1+; MACROCYTOSIS 0; OVALOCYTE 1+; PLATELET ESTIMATE DECREASED; TEAR DROP CELLS 1+; TOXIC GRANULATION 2+
[2019-11-18] MEDS: ATOVAQUONE 750 MG/5 ML (UNIT-DOSE PACKAGING) PO SCH ×2 (09:14→18:51)
[2019-11-18] MEDS: valACYclovir HCL 500 MG TABLET (FP) PO SCH (09:15)
[2019-11-18] MEDS: predniSONE 5 MG TABLET (UD) PO SCH (09:15)
[2019-11-18] MEDS: PANTOPRAZOLE 40 MG TABLET PO SCH (09:15)
[2019-11-18] MEDS: ALLOPURINOL 300 MG TABLET (FP) PO SCH (09:15)
[2019-11-18] MEDS: metoPROLOL SUCCINATE 25 MG TAB.SR.24H (FP) PO SCH (09:31)
[2019-11-18] MEDS ORDERED: PORTA CATH FLUSH 10 ML IVPUSH ONE (09:54)
[2019-11-18 11:13] LABS: PLATELET COUNT 86 K/MM3 (134-434)
--- NOTE | 2019-11-18 13:53 | PN ---
Progress Note (short form) - Note Progress Note: Patient seen and examined Family at bedside and discussed issues Patient wants to be treated and if her performance status improves she will be able to be treated Treatment is due on -next cycle Diarrhea improved Stools now soft Last Vital Signs Temp Pulse Resp BP Pulse Ox 97.3 F L 100 H 20 116/79 97 11/18/19 06:00 11/18/19 06:00 11/18/19 06:00 11/18/19 06:00 11/17/19 21:00 HEENT: STEPHEN, EOM Intact Oropharynx: No thrush, No mucositis Nodes: extensive adenopathy-neck and left SC and pre and post auricular area Cor: tachycardia No murmurs, No gallops Lungs: diffuse rhonchi Abd: Soft, Normal bowel sounds, No organomegaly, distended Ext:LE edema Skin: sacrum with dermapatch CBC, BMP 11/18/19 06:20 11/18/19 06:20 Current Medications Generic Name Dose Route Start Last Admin Trade Name Freq PRN Reason Stop Dose Admin Acetaminophen 650 mg 11/14/19 16:13 11/17/19 21:32 Tylenol - PO 650 mg Q6H PRN Administration FEVER Allopurinol 300 mg 11/15/19 10:00 11/18/19 09:15 Zyloprim - PO 300 mg DAILY ELIZABETH Administration Alprazolam 0.25 mg 11/14/19 18:04 11/17/19 21:31 Xanax - PO 0.25 mg Q8H PRN Administration ANXIETY Atovaquone 750 mg 11/14/19 22:00 11/18/19 09:14 Mepron - PO 750 mg BIDWM ELIZABETH Administration Furosemide 40 mg 11/17/19 10:00 11/17/19 09:09 Lasix - PO 40 mg DAILY ELIZABETH Administration Heparin Sodium (Porcine) 5,000 unit 11/14/19 22:00 11/18/19 06:23 Heparin - SQ 5,000 unit TID ELIZABETH Administration Levothyroxine Sodium 25 mcg 11/15/19 07:00 11/18/19 06:23 Synthroid - PO 25 mcg DAILY@0700 ELIZABETH Administration Metoprolol Succinate 25 mg 11/16/19 10:00 11/18/19 09:31 Toprol Xl - PO 25 mg DAILY ELIZABETH Administration Pantoprazole Sodium 40 mg 11/15/19 20:30 11/18/19 09:15 Protonix - PO 40 mg DAILY ELIZABETH Administration Prednisone 5 mg 11/15/19 10:00 11/18/19 09:15 Deltasone - PO 5 mg DAILY ELIZABETH Administration Valacyclovir HCl 500 mg 11/15/19 10:00 11/18/19 09:15 Valtrex - PO 500 mg DAILY ELIZABETH Administration Vancomycin HCl 125 mg 11/16/19 18:00 11/18/19 06:23 Vancomycin Oral Solution PO 125 mg Q6HPO ELIZABETH Administration Impression: Transformed lymphoma Anemia Leukopenia Thrombocytopenia C.diff AG positive - toxin - negative Plan: Monitor CBC-- significant decline in platelets Cardiology f/u--dyspnea, tacycardia, LE edema Continue with vancomycin
--- NOTE | 2019-11-18 15:08 | PN ---
Physical Exam: SUBJECTIVE: Patient seen and examined. SOB improved. She has poor po intake. OBJECTIVE: Vital Signs Period Temp Pulse Resp BP Sys/Castelan Pulse Ox Last 24 Hr 97.2 F-97.5 F 100-114 20-20 102-116/50-79 97 General: awake, sob, alert and oriented. Pt on contact still. Rt portacath present Nodes: extensive adenopathy, left cervical region Heart: Normal sinus rythym, tachycardic, no murmurs, No gallops Lungs: scattered crackles, b/l worse at bases Abd: Soft, Normal bowel sounds, No organomegaly Ext: 2+ pitting edema b/l Laboratory Results - last 24 hr 11/18/19 11/18/19 06:20 06:20 WBC 3.4 L RBC 3.22 L Hgb 9.7 L Hct 30.4 L MCV 94.3 MCH 30.1 MCHC 31.9 L RDW 21.8 H Plt Count 86 L D MPV 7.9 Absolute Neuts (auto) 2.1 Neutrophils % 63.4 Neutrophils % (Manual) 53.6 Band Neutrophils % 8.1 Lymphocytes % 8.4 Lymphocytes % (Manual) 12.1 D Monocytes % 11.5 H Monocytes % (Manual) 3 L Eosinophils % 14.3 H Eosinophils % (Manual) 19.2 H Basophils % 2.4 H Basophils % (Manual) 1.0 Myelocytes % (Man) 1 D Promyelocytes % (Man) 0 Blast Cells % (Manual) 0 Nucleated RBC % 2 H Metamyelocytes 1 D Hypochromia 0 Toxic Granulation 2+ Platelet Estimate Decreased Platelet Comment Present Polychromasia 1+ Poikilocytosis 1+ Anisocytosis 1+ Microcytosis 1+ Macrocytosis 0 Spherocytes 1+ Tear Drop Cells 1+ Ovalocytes 1+ Riri Cells 1+ Acanthocytes (Spur) 1+ Sodium 143 Potassium 4.5 Chloride 117 H Carbon Dioxide 18 L Anion Gap 8 BUN 30.9 H Creatinine 1.7 H Est GFR (CKD-EPI)AfAm 30.67 Est GFR (CKD-EPI)NonAf 26.46 Random Glucose 86 Calcium 7.2 L Total Bilirubin 0.8 AST 55 H ALT 52 Alkaline Phosphatase 537 H Total Protein 5.4 L Albumin 2.2 L Active Medications Generic Name Dose Route Start Last Admin Trade Name Freq PRN Reason Stop Dose Admin Acetaminophen 650 mg 11/14/19 16:13 11/17/19 21:32 Tylenol - PO 650 mg Q6H PRN Administration FEVER Allopurinol 300 mg 11/15/19 10:00 11/18/19 09:15 Zyloprim - PO 300 mg DAILY ELIZABETH Administration Alprazolam 0.25 mg 11/14/19 18:04 11/17/19 21:31 Xanax - PO 0.25 mg Q8H PRN Administration ANXIETY Atovaquone 750 mg 11/14/19 22:00 11/18/19 09:14 Mepron - PO 750 mg BIDWM ELIZABETH Administration Furosemide 40 mg 11/17/19 10:00 11/17/19 09:09 Lasix - PO 40 mg DAILY ELIZABETH Administration Heparin Sodium (Porcine) 5,000 unit 11/14/19 22:00 11/18/19 14:19 Heparin - SQ 5,000 unit TID ELIZABETH Administration Levothyroxine Sodium 25 mcg 11/15/19 07:00 11/18/19 06:23 Synthroid - PO 25 mcg DAILY@0700 ELIZABETH Administration Metoprolol Succinate 25 mg 11/16/19 10:00 11/18/19 09:31 Toprol Xl - PO 25 mg DAILY ELIZABETH Administration Pantoprazole Sodium 40 mg 11/15/19 20:30 11/18/19 09:15 Protonix - PO 40 mg DAILY ELIZABETH Administration Valacyclovir HCl 500 mg 11/15/19 10:00 11/18/19 09:15 Valtrex - PO 500 mg DAILY ELIZABETH Administration Vancomycin HCl 125 mg 11/16/19 18:00 11/18/19 14:19 Vancomycin Oral Solution PO 125 mg Q6HPO ELIZABETH Administration ASSESSMENT/PLAN: Images: - CT of abdomen and pelvis without contrast showing ? ileus, fluid in colon ( diarrhea), and resolved b/l Pleural effusions, b/l [place] subQ edema, cardiomegaly, small amt of pelvic fluid, mild hepatomeg, mild bowel dilation, cholelithiasis, diverticulosis, and surgical anastomosis along rt colon. 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 #Fever, unclear etiology at this time -possibly 2/2 to chemo port vs C. diff infection in setting of diarrhea and recent hospitalization -Blood cultures done, cx from port 1/4 positive with gram positive staph epi vs saprophyticus likely contaminant but will continue to assess. -UA, Ucx -C.diff toxin negative, Ag positive, PCR ordered - c/w PO 125 q6H Vancomycin day 2 per ID. -ID (Dr. Singh) consulted. #High Grade Large B cell lymphoma -started on R-CHOP regimen on previous admission, but had reaction to Rituxin -Heme-Onc (Dr. Ramos) -Will continue Prednisone 5 mg for now, will discuss with onc for taper. -Continue Valtrex and Mepron - acute SOB resolved likely due to progression of the cervical mass interfering with her breathing vs anxiety #Elevated Tbili -RUQ US unremarkable -may be 2/2 ?chemotx -CTAP ordered -will continue to monitor #CKD -BUN/Cr at baseline -Nephrology (Dr. Broussard) consulted. - avoid nephrotoxic agents #Normocytic Anemia - likely multifactorial - sec to chronic disease/malignancy/Iron deficiency. - Iron supplementation ongoing. - B12/Folate levels wnl. Further management as per Hematology. #CKD 3 - Creat Stable. Nephrology following. On Lasix chronically, started PO 40 lasix daily home dose Further management as per Nephrology. #11 x 8 cm fluid filled collection posterior to atria on Echo - found to be mediastinal mass consistent with lymphadenopathy on CT Chest. Further management as per Oncology. #Bibasal effusions sec to Iv hydration on last admission - appears to have resolved on current chest imaging. - CXR done today for the SOB and tachycardia not showing any acute changes. - gave IV Push 40mg one time dose given her volume status acutely worsened. #Prior R intracortical nodule not seen on current Renal US - radiology recommends [address] follow up. #HTN -Hypotensive episodes likely due to sepsis -c/w metoprolol 25 daily #Hypothyroidism -continue Synthroid 25mcg daily #Anxiety -Xanax PRN, will discontinue mirtazapine given prolonged QTc on EKG done for tachycardia today. #FEN -d/c'd fluids as sepsis resolving -hypoPhos/hypoMg, repleted, continue to monitor -Regular diet #Prophylaxis -Heparin 5000unit sq tid GERD- PPI #Disposition -DNR/DNI Visit type - Emergency Visit Emergency Visit: Yes ED Registration Date: 11/14/19 Care time: The patient presented to the Emergency Department on the above date and was hospitalized for further evaluation of their emergent condition. - New Patient This patient is new to me today: No - Critical Care Critical Care patient: No - Discharge Referral Referred to [facility] Med P.C.: No ATTENDING PHYSICIAN STATEMENT I saw and evaluated the patient. I reviewed the resident's note and discussed the case with the resident. I agree with the resident's findings and plan as documented. SUBJECTIVE: OBJECTIVE: ASSESSMENT AND PLAN:
--- NOTE | 2019-11-18 16:13 | PN ---
Progress Note, Physician History of Present Illness: Pt seen and examined at bedside. She is awake and alert. She has poor PO intake. - Current Medication List Current Medications: Active Medications Acetaminophen (Tylenol -) 650 mg PO Q6H PRN PRN Reason: FEVER Last Admin: 11/17/19 21:32 Dose: 650 mg Allopurinol (Zyloprim -) 300 mg PO DAILY [facility] Last Admin: 11/18/19 09:15 Dose: 300 mg Alprazolam (Xanax -) 0.25 mg PO Q8H PRN PRN Reason: ANXIETY Last Admin: 11/17/19 21:31 Dose: 0.25 mg Atovaquone (Mepron -) 750 mg PO BIDWM [facility] Last Admin: 11/18/19 09:14 Dose: 750 mg Furosemide (Lasix -) 40 mg PO DAILY [facility] Last Admin: 11/17/19 09:09 Dose: 40 mg Heparin Sodium (Porcine) (Heparin -) 5,000 unit SQ TID [facility] Last Admin: 11/18/19 14:19 Dose: 5,000 unit Levothyroxine Sodium (Synthroid -) 25 mcg PO DAILY@0700 [facility] Last Admin: 11/18/19 06:23 Dose: 25 mcg Metoprolol Succinate (Toprol Xl -) 25 mg PO DAILY [facility] Last Admin: 11/18/19 09:31 Dose: 25 mg Pantoprazole Sodium (Protonix -) 40 mg PO DAILY [facility] Last Admin: 11/18/19 09:15 Dose: 40 mg Valacyclovir HCl (Valtrex -) 500 mg PO DAILY [facility] Last Admin: 11/18/19 09:15 Dose: 500 mg Vancomycin HCl (Vancomycin Oral Solution) 125 mg PO Q6HPO [facility] Last Admin: 11/18/19 14:19 Dose: 125 mg - Objective Vital Signs: Vital Signs Temperature 97.2 F L 11/18/19 13:46 Pulse Rate 114 H 11/18/19 13:46 Respiratory Rate 20 11/18/19 13:46 Blood Pressure 102/50 L 11/18/19 13:46 O2 Sat by Pulse Oximetry (%) 97 11/17/19 21:00 Constitutional: Yes: Calm Eyes: Yes: Conjunctiva Clear HENT: Yes: Atraumatic Neck: Yes: Supple Cardiovascular: Yes: S1, S2 Respiratory: Yes: CTA Bilaterally Gastrointestinal: Yes: Soft Genitourinary: Yes: WNL Musculoskeletal: Yes: WNL Edema: No Neurological: Yes: Oriented Psychiatric: Yes: Oriented Labs: CBC, BMP 11/18/19 06:20 11/18/19 06:20 INR, PTT INR 0.97 (0.83-1.09) 11/14/19 10:30 Problem List - Problems (1) CKD (chronic kidney disease) Code(s): N18.9 - CHRONIC KIDNEY DISEASE, UNSPECIFIED Assessment/Plan Current Medications Generic Name Dose Route Start Last Admin Trade Name Freq PRN Reason Stop Dose Admin Acetaminophen 650 mg 11/14/19 16:13 11/17/19 21:32 Tylenol - PO 650 mg Q6H PRN Administration FEVER Allopurinol 300 mg 11/15/19 10:00 11/18/19 09:15 Zyloprim - PO 300 mg DAILY [facility] Administration Alprazolam 0.25 mg 11/14/19 18:04 11/17/19 21:31 Xanax - PO 0.25 mg Q8H PRN Administration ANXIETY Atovaquone 750 mg 11/14/19 22:00 11/18/19 09:14 Mepron - PO 750 mg BIDWM [facility] Administration Furosemide 40 mg 11/17/19 10:00 11/17/19 09:09 Lasix - PO 40 mg DAILY [facility] Administration Heparin Sodium (Porcine) 5,000 unit 11/14/19 22:00 11/18/19 14:19 Heparin - SQ 5,000 unit TID [facility] Administration Levothyroxine Sodium 25 mcg 11/15/19 07:00 11/18/19 06:23 Synthroid - PO 25 mcg DAILY@0700 [facility] Administration Metoprolol Succinate 25 mg 11/16/19 10:00 11/18/19 09:31 Toprol Xl - PO 25 mg DAILY [facility] Administration Pantoprazole Sodium 40 mg 11/15/19 20:30 11/18/19 09:15 Protonix - PO 40 mg DAILY [facility] Administration Valacyclovir HCl 500 mg 11/15/19 10:00 11/18/19 09:15 Valtrex - PO 500 mg DAILY [facility] Administration Vancomycin HCl 125 mg 11/16/19 18:00 11/18/19 14:19 Vancomycin Oral Solution PO 125 mg Q6HPO [facility] Administration Impression 1. CKD 2. WINSTON 3. diarrhea 4. fever 5. b cell lymphoma 6. htn 7. hld 8. pleural effusions Plan - monitor renal function - cont lasix - encourage po intake - monitor volume status - diarrhea improved
--- NOTE | 2019-11-18 17:31 | PN ---
Teaching Attending Note Name of Resident: Helio Luciano ATTENDING PHYSICIAN STATEMENT I saw and evaluated the patient. I reviewed the resident's note and discussed the case with the resident. I agree with the resident's findings and plan as documented. SUBJECTIVE: Feels well, stool more formed. No sputum/hemoptysis. Reports some Dyspnea. No CP/palpitations. No abdominal pain. OBJECTIVE: Fever resolved. Hemodynamically Stable. Lethargic but rousable. Last Vital Signs Temp Pulse Resp BP Pulse Ox 97.2 F L 114 H 20 102/50 L 97 11/18/19 13:46 11/18/19 13:46 11/18/19 13:46 11/18/19 13:46 11/18/19 09:00 HEENT - Atraumatic, Normocephalic. Large left neck mass. No stridor. Heart - S1, S2, soft SM, Tachy Lungs - decreased air entry at bases. R portacath. Abdomen - Mild distension, soft, non-tender. Bowel Sounds normal. Extremities - edema +, no calf tenderness. Laboratory Results - last 24 hr 11/18/19 11/18/19 06:20 06:20 WBC 3.4 L RBC 3.22 L Hgb 9.7 L Hct 30.4 L MCV 94.3 MCH 30.1 MCHC 31.9 L RDW 21.8 H Plt Count 86 L D MPV 7.9 Absolute Neuts (auto) 2.1 Neutrophils % 63.4 Neutrophils % (Manual) 53.6 Band Neutrophils % 8.1 Lymphocytes % 8.4 Lymphocytes % (Manual) 12.1 D Monocytes % 11.5 H Monocytes % (Manual) 3 L Eosinophils % 14.3 H Eosinophils % (Manual) 19.2 H Basophils % 2.4 H Basophils % (Manual) 1.0 Myelocytes % (Man) 1 D Promyelocytes % (Man) 0 Blast Cells % (Manual) 0 Nucleated RBC % 2 H Metamyelocytes 1 D Hypochromia 0 Toxic Granulation 2+ Platelet Estimate Decreased Platelet Comment Present Polychromasia 1+ Poikilocytosis 1+ Anisocytosis 1+ Microcytosis 1+ Macrocytosis 0 Spherocytes 1+ Tear Drop Cells 1+ Ovalocytes 1+ Riri Cells 1+ Acanthocytes (Spur) 1+ Sodium 143 Potassium 4.5 Chloride 117 H Carbon Dioxide 18 L Anion Gap 8 BUN 30.9 H Creatinine 1.7 H Est GFR (CKD-EPI)AfAm 30.67 Est GFR (CKD-EPI)NonAf 26.46 Random Glucose 86 Calcium 7.2 L Total Bilirubin 0.8 AST 55 H ALT 52 Alkaline Phosphatase 537 H Total Protein 5.4 L Albumin 2.2 L Current Medications Generic Name Dose Route Start Last Admin Trade Name Freq PRN Reason Stop Dose Admin Acetaminophen 650 mg 11/14/19 16:13 11/17/19 21:32 Tylenol - PO 650 mg Q6H PRN Administration FEVER Allopurinol 300 mg 11/15/19 10:00 11/18/19 09:15 Zyloprim - PO 300 mg DAILY [facility] Administration Alprazolam 0.25 mg 11/14/19 18:04 11/17/19 21:31 Xanax - PO 0.25 mg Q8H PRN Administration ANXIETY Atovaquone 750 mg 11/14/19 22:00 11/18/19 09:14 Mepron - PO 750 mg BIDWM [facility] Administration Furosemide 40 mg 11/17/19 10:00 11/17/19 09:09 Lasix - PO 40 mg DAILY [facility] Administration Heparin Sodium (Porcine) 5,000 unit 11/14/19 22:00 11/18/19 14:19 Heparin - SQ 5,000 unit TID [facility] Administration Levothyroxine Sodium 25 mcg 11/15/19 07:00 11/18/19 06:23 Synthroid - PO 25 mcg DAILY@0700 [facility] Administration Metoprolol Succinate 25 mg 11/16/19 10:00 11/18/19 09:31 Toprol Xl - PO 25 mg DAILY [facility] Administration Pantoprazole Sodium 40 mg 11/15/19 20:30 11/18/19 09:15 Protonix - PO 40 mg DAILY [facility] Administration Valacyclovir HCl 500 mg 11/15/19 10:00 11/18/19 09:15 Valtrex - PO 500 mg DAILY [facility] Administration Vancomycin HCl 125 mg 11/16/19 18:00 11/18/19 14:19 Vancomycin Oral Solution PO 125 mg Q6HPO [facility] Administration Home Medications Medication Instructions Recorded Alprazolam [Xanax] 0.25 mg PO PRN 10/06/18 Levothyroxine [Synthroid -] 25 mcg PO DAILY 10/06/18 Mirtazapine 15 mg PO HS 09/28/19 Metoprolol Succinate [Toprol XL -] 25 mg PO DAILY 10/13/19 Allopurinol 300 mg PO DAILY 11/01/19 Pantoprazole Sodium [Protonix] 40 mg PO DAILY 11/01/19 Atovaquone [Mepron -] 750 mg PO BID #70 ml 11/08/19 Furosemide [Lasix] 40 mg PO DAILY #30 tablet 11/08/19 Valacyclovir HCl [Valtrex] 500 mg PO DAILY #30 tablet 11/08/19 ASSESSMENT AND PLAN: 88 year old female with history of HTN, 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 1. Sepsis secondary to Cdiff +/- infected portacath - sepsis resolved. Cdiff Ag positive, diarrhea improving. CXR - no Pneumonia Urine Cx negative Blood Cx from Portacath - Staph hominis - felt to be a contaminant by ID. Remaining Blood Cx negative x 3. Oral Vancomycin empiricaly due to Cdiff Ag positive. Cdiff PCR cancelled for unclear reason. No need for further IV abx as per ID. 2. 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 s/p Rituximab infusion reaction requiring Dexa, Benadryl, Nebs. Currently hemodynamically Stable, solumedrol discontinued. s/p modified CHOP 11/05. Remains on Prednisone - taper as per Oncology Oncology following - further chemo as per Onc. Valtrex and Mepron Px. WBC/Platelets trending down s/p chemotherapy - will monitor. 3. Hypercalcemia - resolved with IV hydration/chemotherapy. Nephrology following. 4. HTN - continue Metoprolol. ARB held. 5. Anxiety - Continue Xanax PRN. QTc prolonged - will hold Mirtazapine. 6. Hypothyroidism - Continue Levothyroxine. 7. GERD - continue PPI. 8. Normocytic Anemia - likely multifactorial - sec to chronic disease/malignancy /Iron deficiency. Iron supplementation ongoing. B12/Folate levels wnl. Further management as per Hematology. 9. CKD 3 - Creat Stable. Nephrology following. On Lasix chronically. Further management as per Nephrology. 10. 11 x 8 cm fluid filled collection posterior to atria on Echo - found to be mediastinal mass consistent with lymphadenopathy on CT Chest. Further management as per Oncology. 11. Prior R intracortical nodule not seen on current Renal US - radiology recommends [address] follow up. 12. Chronic Diastolic CHF - no evidence of decompensation but LE edema present - home dose Lasix resumed. DVT Px - Heparin SQ Code Status - DNR/DNI
[2019-11-18] MEDS: ALPRAZolam 0.25 MG TABLET PO PRN (21:46)
[2019-11-19] MEDS: LEVOTHYROXINE NA 25 MCG TABLET (FP) PO SCH (06:15)
[2019-11-19] MEDS: HEPARIN NA (PORCINE) 5,000 UNITS/ML 1ML VIAL SQ SCH ×2 (06:15→13:37)
[2019-11-19] MEDS: VANCOMYCIN 250 MG/5 ML ORAL SOLUTION PO SCH ×4 (06:16→23:09)
[2019-11-19 07:41] LABS: BASO % 2.3 % (0-2.0); EOS % 12.9 % (0-4.5); HEMATOCRIT 25.3 % (32.4-45.2); HEMOGLOBIN 8.5 GM/dL (10.7-15.3); LYMPH % 7.3 % (8-40); MCH 30.8 pg (25.7-33.7); MCHC 33.5 g/dl (32.0-36.0); MEAN CELL VOLUME 91.7 fl (80-96); MEAN PLT VOLUME 7.5 fl (7.5-11.1); MONO % 12.1 % (3.8-10.2); NEUT % 65.4 % (42.8-82.8); PLATELET COUNT 146 K/MM3 (134-434); RBC 2.76 M/mm3 (3.60-5.2); RDW 20.7 % (11.6-15.6); WHITE BLOOD COUNT 4.2 K/mm3 (4.0-10.0)
[2019-11-19 08:12] LABS: ALBUMIN 2.1 g/dl (3.4-5.0); BLOOD UREA NITROGEN 30.3 mg/dL (7-18); CALCIUM 7.5 mg/dL (8.5-10.1); CREATININE 1.4 mg/dL (0.55-1.3); MAGNESIUM 1.5 mg/dL (1.8-2.4); TOT PROT 5.1 g/dl (6.4-8.2)
[2019-11-19] MEDS ORDERED: PT OWN MED DRAWER 7, Y5N ONE (08:39)
[2019-11-19] MEDS ORDERED: MAGNESIUM SULF 50% (8.12 MEQ/2 ML-1 GM VIAL) IVPB ONE (08:42)
[2019-11-19] MEDS: ATOVAQUONE 750 MG/5 ML (UNIT-DOSE PACKAGING) PO SCH ×2 (09:12→17:41)
[2019-11-19] MEDS: valACYclovir HCL 500 MG TABLET (FP) PO SCH (09:13)
[2019-11-19] MEDS: metoPROLOL SUCCINATE 25 MG TAB.SR.24H (FP) PO SCH (09:13)
[2019-11-19] MEDS: ALLOPURINOL 300 MG TABLET (FP) PO SCH (09:13)
[2019-11-19] MEDS: PANTOPRAZOLE 40 MG TABLET PO SCH (09:13)
[2019-11-19] MEDS: FUROSEMIDE 40 MG TABLET (FP) PO SCH (09:13)
--- NOTE | 2019-11-19 10:24 | PN ---
Progress Note (short form) - Note Progress Note: RENAL Pt is awake and alert denies complaints she is tachycardic and tachypneic however daughter is present Last Vital Signs Temp Pulse Resp BP Pulse Ox 97.6 F 99 H 20 114/64 98 11/19/19 05:58 11/19/19 05:58 11/19/19 05:58 11/19/19 05:58 11/18/19 21:00 lungs essentially clear chest- has a port on right side of chest cvs s1s2 rr abd soft ext +edema neuro a+o CBC, BMP 11/19/19 07:12 11/19/19 07:12 Current Medications Generic Name Dose Route Start Last Admin Trade Name Freq PRN Reason Stop Dose Admin Acetaminophen 650 mg 11/14/19 16:13 11/17/19 21:32 Tylenol - PO 650 mg Q6H PRN Administration FEVER Allopurinol 300 mg 11/15/19 10:00 11/19/19 09:13 Zyloprim - PO 300 mg DAILY [facility] Administration Alprazolam 0.25 mg 11/14/19 18:04 11/18/19 21:46 Xanax - PO 0.25 mg Q8H PRN Administration ANXIETY Atovaquone 750 mg 11/14/19 22:00 11/19/19 09:12 Mepron - PO 750 mg BIDWM [facility] Administration Furosemide 40 mg 11/17/19 10:00 11/19/19 09:13 Lasix - PO 40 mg DAILY [facility] Administration Heparin Sodium (Porcine) 5,000 unit 11/14/19 22:00 11/19/19 06:15 Heparin - SQ 5,000 unit TID [facility] Administration Levothyroxine Sodium 25 mcg 11/15/19 07:00 11/19/19 06:15 Synthroid - PO 25 mcg DAILY@0700 [facility] Administration Metoprolol Succinate 25 mg 11/16/19 10:00 11/19/19 09:13 Toprol Xl - PO 25 mg DAILY [facility] Administration Pantoprazole Sodium 40 mg 11/15/19 20:30 11/19/19 09:13 Protonix - PO 40 mg DAILY [facility] Administration Valacyclovir HCl 500 mg 11/15/19 10:00 11/19/19 09:13 Valtrex - PO 500 mg DAILY [facility] Administration Vancomycin HCl 125 mg 11/16/19 18:00 11/19/19 06:16 Vancomycin Oral Solution PO 125 mg Q6HPO [facility] Administration Impression 1. CKD 2. WINSTON 3. diarrhea 4. fever 5. b cell lymphoma 6. htn 7. hld 8. pleural effusions Plan continue current management since she has improved she does have edema and should possibly increase lasix but would do this if creat remains stable her lungs are clear and she had a recent chest xray, so no need to repeat If not done would check dopplers to rule out dvt MV
[2019-11-19 10:43] LABS: ANISOCYTOSIS 1+; MACROCYTOSIS 0; OVALOCYTE 1+; PLATELET ESTIMATE DECREASED; TEAR DROP CELLS 1+; TOXIC GRANULATION 2+
--- NOTE | 2019-11-19 13:52 | PN ---
Physical Exam: SUBJECTIVE: Patient seen and examined at bedside. No acute complaints. States she would like to eat her breakfast. OBJECTIVE: Vital Signs Period Temp Pulse Resp BP Sys/Castelan Pulse Ox Last 24 Hr 97.3 F-99.7 F 99-111 20- 104-114/62-69 98 General: awake, sob, alert and oriented. Pt on contact still. Rt portacath present Nodes: extensive adenopathy, left cervical region Heart: Normal sinus rythym, tachycardic, no murmurs, No gallops Lungs: scattered crackles, b/l worse at bases Abd: Soft, Normal bowel sounds, No organomegaly Ext: 2+ pitting edema b/l Laboratory Results - last 24 hr 11/19/19 11/19/19 07:12 07:12 WBC 4.2 RBC 2.76 L Hgb 8.5 L Hct 25.3 L D MCV 91.7 MCH 30.8 MCHC 33.5 RDW 20.7 H Plt Count 146 D MPV 7.5 Absolute Neuts (auto) 2.7 Neutrophils % 65.4 Neutrophils % (Manual) 69.0 Band Neutrophils % 12.0 Lymphocytes % 7.3 L Lymphocytes % (Manual) 2.0 L D Monocytes % 12.1 H Monocytes % (Manual) 2 L Eosinophils % 12.9 H Eosinophils % (Manual) 7.0 H Basophils % 2.3 H Basophils % (Manual) 1.0 Myelocytes % (Man) 1 Promyelocytes % (Man) 0 Blast Cells % (Manual) 0 Nucleated RBC % 0 Metamyelocytes 0 D Hypochromia 0 Toxic Granulation 2+ Platelet Estimate Decreased Platelet Comment Present Polychromasia 0 Poikilocytosis 1+ Basophilic Stippling 2+ Anisocytosis 1+ Microcytosis 1+ Macrocytosis 0 Tear Drop Cells 1+ Ovalocytes 1+ Stomatocytes 1+ [place] Cells 1+ Sodium 144 Potassium 4.0 Chloride 115 H Carbon Dioxide 25 Anion Gap 4 L BUN 30.3 H Creatinine 1.4 H Est GFR (CKD-EPI)AfAm 38.78 Est GFR (CKD-EPI)NonAf 33.46 Random Glucose 75 Calcium 7.5 L Magnesium 1.5 L Total Bilirubin 1.0 AST 43 H ALT 47 Alkaline Phosphatase 522 H Total Protein 5.1 L Albumin 2.1 L Active Medications Generic Name Dose Route Start Last Admin Trade Name Freq PRN Reason Stop Dose Admin Acetaminophen 650 mg 11/14/19 16:13 11/17/19 21:32 Tylenol - PO 650 mg Q6H PRN Administration FEVER Allopurinol 300 mg 11/15/19 10:00 11/19/19 09:13 Zyloprim - PO 300 mg DAILY [facility] Administration Alprazolam 0.25 mg 11/14/19 18:04 11/18/19 21:46 Xanax - PO 0.25 mg Q8H PRN Administration ANXIETY Apixaban 10 mg 11/19/19 22:00 Eliquis - PO 11/26/19 13:51 BID [facility] Atovaquone 750 mg 11/14/19 22:00 11/19/19 09:12 Mepron - PO 750 mg BIDWM [facility] Administration Furosemide 40 mg 11/17/19 10:00 11/19/19 09:13 Lasix - PO 40 mg DAILY [facility] Administration Levothyroxine Sodium 25 mcg 11/15/19 07:00 11/19/19 06:15 Synthroid - PO 25 mcg DAILY@0700 [facility] Administration Metoprolol Succinate 25 mg 11/16/19 10:00 11/19/19 09:13 Toprol Xl - PO 25 mg DAILY [facility] Administration Pantoprazole Sodium 40 mg 11/15/19 20:30 11/19/19 09:13 Protonix - PO 40 mg DAILY [facility] Administration Valacyclovir HCl 500 mg 11/15/19 10:00 11/19/19 09:13 Valtrex - PO 500 mg DAILY [facility] Administration Vancomycin HCl 125 mg 11/16/19 18:00 11/19/19 13:37 Vancomycin Oral Solution PO 125 mg Q6HPO [facility] Administration ASSESSMENT/PLAN: Images: - CT of abdomen and pelvis without contrast showing ? ileus, fluid in colon ( diarrhea), and resolved b/l Pleural effusions, b/l [place] subQ edema, cardiomegaly, small amt of pelvic fluid, mild hepatomeg, mild bowel dilation, cholelithiasis, diverticulosis, and surgical anastomosis along rt colon. 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 #Fever, unclear etiology at this time -possibly 2/2 to chemo port vs C. diff infection in setting of diarrhea and recent hospitalization -Blood cultures done, cx from port 1/4 positive with gram positive staph epi vs saprophyticus likely contaminant but will continue to assess. -UA, Ucx -C.diff toxin negative, Ag positive, PCR ordered - c/w PO 125 q6H Vancomycin day 3 per ID. -ID (Dr. Singh) consulted. #New DVT - On eliquis 10 bid X 7 days then 2.5 BID after pt is discharged. - duplex showing DVT in posterior iliacs. #High Grade Large B cell lymphoma -started on R-CHOP regimen on previous admission, but had reaction to Rituxin -Heme-Onc (Dr. Raoms) -Will continue Prednisone 5 mg for now, will discuss with onc for taper. -Continue Valtrex and Mepron - acute SOB resolved likely due to progression of the cervical mass interfering with her breathing vs anxiety #Elevated Tbili -RUQ US unremarkable -may be 2/2 ?chemotx -CTAP ordered -will continue to monitor #CKD -BUN/Cr at baseline -Nephrology (Dr. Broussard) consulted. - avoid nephrotoxic agents #Normocytic Anemia - likely multifactorial - sec to chronic disease/malignancy/Iron deficiency. - Iron supplementation ongoing. - B12/Folate levels wnl. Further management as per Hematology. #CKD 3 - Creat Stable. Nephrology following. On Lasix chronically, c/w PO 40 lasix daily Further management as per Nephrology. #11 x 8 cm fluid filled collection posterior to atria on Echo - found mediastinal mass consistent with lymphadenopathy on CT Chest. Further management as per Oncology. #Bibasal effusions sec to Iv hydration on last admission - appears to have resolved on current chest imaging. - coughing but not SOB no crackles appreciated #Prior R intracortical nodule not seen on current Renal US - radiology recommends [address] follow up. #HTN -Hypotensive episodes likely due to sepsis -c/w metoprolol 25 daily #Hypothyroidism -continue Synthroid 25mcg daily #Anxiety -Xanax PRN, - off mirtazapine given prolonged QTc on EKG done for tachycardia today. #FEN -off fluids -hypoPhos/hypoMg, repleted, continue to monitor -Regular diet #Prophylaxis -eliquis 10 BID X 7 days for dvt Rx GERD- PPI #Disposition -DNR/DNI Visit type - Emergency Visit Emergency Visit: Yes ED Registration Date: 11/14/19 Care time: The patient presented to the Emergency Department on the above date and was hospitalized for further evaluation of their emergent condition. - New Patient This patient is new to me today: No - Critical Care Critical Care patient: No - Discharge Referral Referred to [facility] Med P.C[facility] No ATTENDING PHYSICIAN STATEMENT I saw and evaluated the patient. I reviewed the resident's note and discussed the case with the resident. I agree with the resident's findings and plan as documented. SUBJECTIVE: OBJECTIVE: ASSESSMENT AND PLAN:
--- NOTE | 2019-11-19 14:50 | PN ---
Progress Note (short form) - Note Progress Note: Seen in follow up. Patient drowsy but rousable. As per family members no new complaints. Bilateral distal DVTs diagnosed this morning. Inpatient meds reviewed: Current Medications Acetaminophen (Tylenol -) 650 mg PO Q6H PRN PRN Reason: FEVER Last Admin: 11/17/19 21:32 Dose: 650 mg Allopurinol (Zyloprim -) 300 mg PO DAILY [facility] Last Admin: 11/19/19 09:13 Dose: 300 mg Alprazolam (Xanax -) 0.25 mg PO Q8H PRN PRN Reason: ANXIETY Last Admin: 11/18/19 21:46 Dose: 0.25 mg Apixaban (Eliquis -) 10 mg PO BID [facility] Stop: 11/26/19 13:51 Apixaban (Eliquis -) 2.5 mg PO BID [facility] Atovaquone (Mepron -) 750 mg PO BIDWM [facility] Last Admin: 11/19/19 09:12 Dose: 750 mg Furosemide (Lasix -) 40 mg PO DAILY [facility] Last Admin: 11/19/19 09:13 Dose: 40 mg Levothyroxine Sodium (Synthroid -) 25 mcg PO DAILY@0700 [facility] Last Admin: 11/19/19 06:15 Dose: 25 mcg Metoprolol Succinate (Toprol Xl -) 25 mg PO DAILY [facility] Last Admin: 11/19/19 09:13 Dose: 25 mg Pantoprazole Sodium (Protonix -) 40 mg PO DAILY [facility] Last Admin: 11/19/19 09:13 Dose: 40 mg Valacyclovir HCl (Valtrex -) 500 mg PO DAILY [facility] Last Admin: 11/19/19 09:13 Dose: 500 mg Vancomycin HCl (Vancomycin Oral Solution) 125 mg PO Q6HPO [facility] Last Admin: 11/19/19 13:37 Dose: 125 mg On Examination: Last Vital Signs Temp Pulse Resp BP Pulse Ox 97.6 F 99 H 20 114/64 98 11/19/19 05:58 11/19/19 05:58 11/19/19 05:58 11/19/19 05:58 11/18/19 21:00 General: In no acute distress, supine in bed. Extremities: No pallor or icterus. Chest: breathing comfortably Abdomen: non-distended Neuro: drowsy Labs: CBC, BMP 11/19/19 07:12 11/19/19 07:12 Assessment. 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 Admitted last October for R-CHOP, but had severe reaction to Rituxan, requiring of infusion and admission to ICU. Received modified CHOP yesterday, without complication, and discharged to [place]. Readmitted with fever, wet cough, SOB and multiple episodes of diarrhea. Receiving empiric broad spectrum Abics, and treatment for C, diff. Continue case as above. Appreciate input ID. Counts are satisfactory - continue to monitor. Family's and patient's questions addressed. Not on steroids presently - significant steroids exposure last several weeks. Newly diagnosed distal DVTs, - anticoagulation with a DOAC instituted. Performance status poor presently - not a candidate for further chemotherapy in present condition, but hoping for significant recovery over ensuing days.
--- NOTE | 2019-11-19 16:27 | PN ---
Teaching Attending Note Name of Resident: Helio Luciano ATTENDING PHYSICIAN STATEMENT I saw and evaluated the patient. I reviewed the resident's note and discussed the case with the resident. I agree with the resident's findings and plan as documented. SUBJECTIVE: Feels well, Reports some Dyspnea. No CP/palpitations. No sputum/ hemoptysis. No abdominal pain. Stool more formed. OBJECTIVE: Fever resolved. Hemodynamically Stable. Lethargic but rousable to Orientation x 2. Last Vital Signs Temp Pulse Resp BP Pulse Ox 97.4 F L 114 H 20 109/64 98 11/19/19 14:59 11/19/19 14:59 11/19/19 14:59 11/19/19 14:59 11/19/19 09:00 HEENT - Atraumatic, Normocephalic. Large left neck mass. No stridor. Heart - S1, S2, soft SM, Tachy Lungs - decreased air entry at bases. R portacath. Abdomen - Mild distension, soft, non-tender. Bowel Sounds normal. Extremities - edema ++, no calf tenderness. Laboratory Results - last 24 hr 11/19/19 11/19/19 07:12 07:12 WBC 4.2 RBC 2.76 L Hgb 8.5 L Hct 25.3 L D MCV 91.7 MCH 30.8 MCHC 33.5 RDW 20.7 H Plt Count 146 D MPV 7.5 Absolute Neuts (auto) 2.7 Neutrophils % 65.4 Neutrophils % (Manual) 69.0 Band Neutrophils % 12.0 Lymphocytes % 7.3 L Lymphocytes % (Manual) 2.0 L D Monocytes % 12.1 H Monocytes % (Manual) 2 L Eosinophils % 12.9 H Eosinophils % (Manual) 7.0 H Basophils % 2.3 H Basophils % (Manual) 1.0 Myelocytes % (Man) 1 Promyelocytes % (Man) 0 Blast Cells % (Manual) 0 Nucleated RBC % 0 Metamyelocytes 0 D Hypochromia 0 Toxic Granulation 2+ Platelet Estimate Decreased Platelet Comment Present Polychromasia 0 Poikilocytosis 1+ Basophilic Stippling 2+ Anisocytosis 1+ Microcytosis 1+ Macrocytosis 0 Tear Drop Cells 1+ Ovalocytes 1+ Stomatocytes 1+ Riri Cells 1+ Sodium 144 Potassium 4.0 Chloride 115 H Carbon Dioxide 25 Anion Gap 4 L BUN 30.3 H Creatinine 1.4 H Est GFR (CKD-EPI)AfAm 38.78 Est GFR (CKD-EPI)NonAf 33.46 Random Glucose 75 Calcium 7.5 L Magnesium 1.5 L Total Bilirubin 1.0 AST 43 H ALT 47 Alkaline Phosphatase 522 H Total Protein 5.1 L Albumin 2.1 L Current Medications Generic Name Dose Route Start Last Admin Trade Name Freq PRN Reason Stop Dose Admin Acetaminophen 650 mg 11/14/19 16:13 11/17/19 21:32 Tylenol - PO 650 mg Q6H PRN Administration FEVER Allopurinol 300 mg 11/15/19 10:00 11/19/19 09:13 Zyloprim - PO 300 mg DAILY ELIZABETH Administration Alprazolam 0.25 mg 11/14/19 18:04 11/18/19 21:46 Xanax - PO 0.25 mg Q8H PRN Administration ANXIETY Apixaban 10 mg 11/19/19 22:00 Eliquis - PO 11/26/19 13:51 BID ELIZABETH Apixaban 2.5 mg 11/26/19 22:00 Eliquis - PO BID ELIZABETH Atovaquone 750 mg 11/14/19 22:00 11/19/19 09:12 Mepron - PO 750 mg BIDWM ELIZABETH Administration Furosemide 40 mg 11/17/19 10:00 11/19/19 09:13 Lasix - PO 40 mg DAILY ELIZABETH Administration Levothyroxine Sodium 25 mcg 11/15/19 07:00 11/19/19 06:15 Synthroid - PO 25 mcg DAILY@0700 EL[facility]ETH Administration Metoprolol Succinate 25 mg 11/16/19 10:00 11/19/19 09:13 Toprol Xl - PO 25 mg DAILY ELIZABETH Administration Pantoprazole Sodium 40 mg 11/15/19 20:30 11/19/19 09:13 Protonix - PO 40 mg DAILY ELIZ[facility]ETH Administration Valacyclovir HCl 500 mg 11/15/19 10:00 11/19/19 09:13 Valtrex - PO 500 mg DAILY ELIZABETH Administration Vancomycin HCl 125 mg 11/16/19 18:00 11/19/19 13:37 Vancomycin Oral Solution PO 125 mg Q6HPO ELIZABETH Administration Home Medications Medication Instructions Recorded Alprazolam [Xanax] 0.25 mg PO PRN 10/06/18 Levothyroxine [Synthroid -] 25 mcg PO DAILY 10/06/18 Mirtazapine 15 mg PO HS 09/28/19 Metoprolol Succinate [Toprol XL -] 25 mg PO DAILY 10/13/19 Allopurinol 300 mg PO DAILY 11/01/19 Pantoprazole Sodium [Protonix] 40 mg PO DAILY 11/01/19 Atovaquone [Mepron -] 750 mg PO BID #70 ml 11/08/19 Furosemide [Lasix] 40 mg PO DAILY #30 tablet 11/08/19 Valacyclovir HCl [Valtrex] 500 mg PO DAILY #30 tablet 11/08/19 ASSESSMENT AND PLAN: 88 year old female with history of HTN, 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 1. Sepsis secondary to Cdiff - sepsis resolved. Cdiff Ag positive, diarrhea improving. CXR - no Pneumonia Urine Cx negative Blood Cx from Portacath - Staph hominis - felt to be a contaminant by ID. Remaining Blood Cx negative x 3. Oral Vancomycin empiricaly due to Cdiff Ag positive. Cdiff PCR cancelled for unclear reason. No need for further IV abx as per ID. 2. 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 s/p Rituximab infusion reaction requiring Dexa, Benadryl, Nebs. Currently hemodynamically Stable, solumedrol discontinued. s/p modified CHOP 11/05. Completed Prednisone taper. Oncology following - poor functional status currently - further chemo as per Onc. Valtrex and Mepron Px. WBC/Platelets trending down s/p chemotherapy - will monitor. 3. Bilateral LE DVT secondary to pro-thrombotic oncological state and poor mobility. Will treat with Eliquis. 4. HTN - continue Metoprolol. ARB held. 5. Anxiety - Continue Xanax PRN. QTc prolonged - Mirtazapine held. 6. Hypothyroidism - Continue Levothyroxine. 7. GERD - continue PPI. 8. Normocytic Anemia - likely multifactorial - sec to chronic disease/malignancy /Iron deficiency. Iron supplementation ongoing. B12/Folate levels wnl. Further management as per Hematology. 9. CKD 3 - Creat Stable. Nephrology following. On Lasix chronically. Further management as per Nephrology. 10. 11 x 8 cm fluid filled collection posterior to atria on Echo - found to be mediastinal mass consistent with lymphadenopathy on CT Chest. Further management as per Oncology. 11. Prior R intracortical nodule not seen on current Renal US - radiology recommends [address] follow up. 12. Chronic Diastolic CHF - no evidence of decompensation but LE edema present - home dose Lasix resumed. 13. Hypercalcemia - resolved with IV hydration/chemotherapy. Nephrology following. 14. Hypomagnesemia - repleted. DVT Px - Heparin SQ Code Status - DNR/DNI
[2019-11-19] MEDS: ALPRAZolam 0.25 MG TABLET PO PRN (21:21)
[2019-11-19] MEDS: APIXABAN 5 MG TABLET PO SCH (21:21)
[2019-11-20] MEDS: LEVOTHYROXINE NA 25 MCG TABLET (FP) PO SCH (06:01)
[2019-11-20] MEDS: VANCOMYCIN 250 MG/5 ML ORAL SOLUTION PO SCH ×4 (06:01→23:49)
[2019-11-20 07:33] LABS: BASO % 2.8 % (0-2.0); EOS % 9.7 % (0-4.5); HEMATOCRIT 24.9 % (32.4-45.2); HEMOGLOBIN 8.3 GM/dL (10.7-15.3); LYMPH % 7.4 % (8-40); MCH 30.6 pg (25.7-33.7); MCHC 33.4 g/dl (32.0-36.0); MEAN CELL VOLUME 91.7 fl (80-96); NEUT % 66.1 % (42.8-82.8); PLATELET COUNT 149 K/MM3 (134-434); RBC 2.72 M/mm3 (3.60-5.2); RDW 21.1 % (11.6-15.6); WHITE BLOOD COUNT 4.9 K/mm3 (4.0-10.0)
[2019-11-20 08:07] LABS: ALBUMIN 2.1 g/dl (3.4-5.0); BILIRUBIN,TOTAL 1.5 mg/dL (0.2-1); BLOOD UREA NITROGEN 28.9 mg/dL (7-18); CALCIUM 7.6 mg/dL (8.5-10.1); CREATININE 1.5 mg/dL (0.55-1.3); MAGNESIUM 1.9 mg/dL (1.8-2.4); TOT PROT 5.1 g/dl (6.4-8.2)
[2019-11-20] MEDS ORDERED: PT OWN MED DRAWER 7, Y5N ONE (08:49)
[2019-11-20 09:31] LABS: ANISOCYTOSIS 1+; MACROCYTOSIS 0; PLATELET ESTIMATE NORMAL
[2019-11-20] MEDS: valACYclovir HCL 500 MG TABLET (FP) PO SCH (10:07)
[2019-11-20] MEDS: FUROSEMIDE 40 MG TABLET (FP) PO SCH (10:07)
[2019-11-20] MEDS: ATOVAQUONE 750 MG/5 ML (UNIT-DOSE PACKAGING) PO SCH ×2 (10:07→17:22)
[2019-11-20] MEDS: APIXABAN 5 MG TABLET PO SCH ×2 (10:09→21:25)
[2019-11-20] MEDS: metoPROLOL SUCCINATE 25 MG TAB.SR.24H (FP) PO SCH (10:09)
[2019-11-20] MEDS: PANTOPRAZOLE 40 MG TABLET PO SCH (10:12)
[2019-11-20] MEDS: ALLOPURINOL 300 MG TABLET (FP) PO SCH (10:12)
--- NOTE | 2019-11-20 10:51 | PN ---
Progress Note (short form) - Note Progress Note: RENAL Pt is awake and alert denies complaint daughter is present who states pts buttocks are hurting Last Vital Signs Temp Pulse Resp BP Pulse Ox 97.4 F L 104 H 20 114/57 L 98 11/20/19 06:00 11/20/19 06:00 11/20/19 06:00 11/20/19 06:00 11/19/19 21:00 heent lump in left parotid area lungs essentially clear chest- has a port on right side of chest cvs s1s2 rr abd soft ext +edema neuro a+o CBC, BMP 11/20/19 06:40 11/20/19 06:40 Current Medications Generic Name Dose Route Start Last Admin Trade Name Freq PRN Reason Stop Dose Admin Acetaminophen 650 mg 11/14/19 16:13 11/17/19 21:32 Tylenol - PO 650 mg Q6H PRN Administration FEVER Allopurinol 300 mg 11/15/19 10:00 11/20/19 10:12 Zyloprim - PO 300 mg DAILY ELIZABETH Administration Apixaban 10 mg 11/19/19 22:00 11/20/19 10:09 Eliquis - PO 11/26/19 13:51 10 mg BID ELIZABETH Administration Apixaban 2.5 mg 11/26/19 22:00 Eliquis - PO BID ELIZABETH Atovaquone 750 mg 11/14/19 22:00 11/20/19 10:07 Mepron - PO 750 mg BIDWM ELIZABETH Administration Furosemide 40 mg 11/17/19 10:00 11/20/19 10:07 Lasix - PO 40 mg DAILY ELIZABETH Administration Levothyroxine Sodium 25 mcg 11/15/19 07:00 11/20/19 06:01 Synthroid - PO 25 mcg DAILY@0700 EL[facility]ETH Administration Lidocaine HCl 1 applic 11/20/19 10:35 Xylocaine 5% Top. Ointment TP DAILY PRN PAIN Metoprolol Succinate 25 mg 11/16/19 10:00 11/20/19 10:09 Toprol Xl - PO 25 mg DAILY ELIZABETH Administration Pantoprazole Sodium 40 mg 11/15/19 20:30 11/20/19 10:12 Protonix - PO 40 mg DAILY ELIZABETH Administration Valacyclovir HCl 500 mg 11/15/19 10:00 11/20/19 10:07 Valtrex - PO 500 mg DAILY ELIZABETH Administration Vancomycin HCl 125 mg 11/16/19 18:00 11/20/19 06:01 Vancomycin Oral Solution PO 125 mg Q6HPO ELIZABETH Administration Impression 1. CKD 2. [place]INST[place] 3. diarrhea 4. fever 5. b cell lymphoma 6. htn 7. hld 8. pleural effusions 9. dvt Plan agree with current management continue anticoagulation cautious diuresis would be conservative PT for ambulation MV
--- NOTE | 2019-11-20 13:16 | PN ---
Progress Note (short form) - Note Progress Note: Seen in follow up. Patient awake and interactive - ate today. As per family members no new complaints. Inpatient meds reviewed: Current Medications Acetaminophen (Tylenol -) 650 mg PO Q6H PRN PRN Reason: FEVER Last Admin: 11/17/19 21:32 Dose: 650 mg Allopurinol (Zyloprim -) 300 mg PO DAILY [facility] Last Admin: 11/20/19 10:12 Dose: 300 mg Apixaban (Eliquis -) 10 mg PO BID [facility] Stop: 11/26/19 13:51 Last Admin: 11/20/19 10:09 Dose: 10 mg Apixaban (Eliquis -) 2.5 mg PO BID [facility] Atovaquone (Mepron -) 750 mg PO BIDWM [facility] Last Admin: 11/20/19 10:07 Dose: 750 mg Furosemide (Lasix -) 40 mg PO DAILY [facility] Last Admin: 11/20/19 10:07 Dose: 40 mg Levothyroxine Sodium (Synthroid -) 25 mcg PO DAILY@0700 [facility] Last Admin: 11/20/19 06:01 Dose: 25 mcg Lidocaine HCl (Xylocaine 5% Top. Ointment) 1 applic TP DAILY PRN PRN Reason: PAIN Metoprolol Succinate (Toprol Xl -) 25 mg PO DAILY [facility] Last Admin: 11/20/19 10:09 Dose: 25 mg Pantoprazole Sodium (Protonix -) 40 mg PO DAILY [facility] Last Admin: 11/20/19 10:12 Dose: 40 mg Valacyclovir HCl (Valtrex -) 500 mg PO DAILY [facility] Last Admin: 11/20/19 10:07 Dose: 500 mg Vancomycin HCl (Vancomycin Oral Solution) 125 mg PO Q6HPO [facility] Last Admin: 11/20/19 06:01 Dose: 125 mg On Examination: Last Vital Signs Temp Pulse Resp BP Pulse Ox 97.4 F L 104 H 20 114/57 L 98 11/20/19 06:00 11/20/19 06:00 11/20/19 06:00 11/20/19 06:00 11/19/19 21:00 General: In no acute distress, supine in bed. Extremities: No pallor or icterus. Chest: slightly tachypenic on O2, lungs clear. Abdomen: non-distended, soft, normal BSs Neuro: alert and appropriately interactive, non-focal. Labs: CBC, BMP 11/19/19 07:12 11/19/19 07:12 Assessment. 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 Admitted last October for R-CHOP, but had severe reaction to Rituxan, requiring of infusion and admission to ICU. Received modified CHOP yesterday, without complication, and discharged to [place]. Readmitted with fever, wet cough, SOB and multiple episodes of diarrhea. Receiving empiric broad spectrum Abics, and treatment for C, diff. Continue case as above. Appreciate input ID. Counts are satisfactory - continue to monitor. Family's and patient's questions addressed. Not on steroids presently - significant steroids exposure last several weeks. Newly diagnosed distal DVTs, - anticoagulation with a DOAC instituted. Performance status poor presently - not a candidate for further chemotherapy in present condition, but hoping for significant recovery over ensuing days.
[2019-11-20] MEDS: LIDOCAINE HCL 5% TOP OINTMENT 50 GM TUBE TP PRN (13:54)
[2019-11-20] MEDS: ACETAMINOPHEN 325 MG TABLET (FP) PO PRN (17:23)
--- NOTE | 2019-11-20 18:52 | PN ---
Progress Note (short form) - Note Progress Note: SUBJECTIVE: Feels okay. No complaints except for some buttock discomfort. No CP/ palpitations. No sputum/hemoptysis. No abdominal pain. No further diarrhea. OBJECTIVE: Fever resolved. Hemodynamically Stable. AAO x 2 Last Vital Signs Temp Pulse Resp BP Pulse Ox 97 F L 97 H 20 103/57 L 98 11/20/19 17:45 11/20/19 17:45 11/20/19 17:45 11/20/19 17:45 11/20/19 09:00 HEENT - Atraumatic, Normocephalic. Large left neck mass. No stridor. Heart - S1, S2, soft SM, Tachy Lungs - decreased air entry at bases. R portacath. Abdomen - Mild distension, soft, non-tender. Bowel Sounds normal. Extremities - edema ++ MS: Stage 1-2 ulcer R buttock. Laboratory Results - last 24 hr 11/20/19 11/20/19 06:40 06:40 WBC 4.9 RBC 2.72 L Hgb 8.3 L Hct 24.9 L MCV 91.7 MCH 30.6 MCHC 33.4 RDW 21.1 H Plt Count 149 MPV 8.0 Absolute Neuts (auto) 3.2 Neutrophils % 66.1 Neutrophils % (Manual) 78.6 Band Neutrophils % 0.0 Lymphocytes % 7.4 L Lymphocytes % (Manual) 3.1 L D Monocytes % 14.0 H Monocytes % (Manual) 6 D Eosinophils % 9.7 H Eosinophils % (Manual) 10.2 H Basophils % 2.8 H Basophils % (Manual) 0.0 Myelocytes % (Man) 0 D Promyelocytes % (Man) 0 Blast Cells % (Manual) 0 Nucleated RBC % 0 Metamyelocytes 0 Hypochromia 0 Platelet Estimate Normal Polychromasia 1+ Poikilocytosis 1+ Anisocytosis 1+ Microcytosis 1+ Macrocytosis 0 Sodium 141 Potassium 4.0 Chloride 112 H Carbon Dioxide 24 Anion Gap 5 L BUN 28.9 H Creatinine 1.5 H Est GFR (CKD-EPI)AfAm 35.68 Est GFR (CKD-EPI)NonAf 30.78 Random Glucose 90 Calcium 7.6 L Magnesium 1.9 Total Bilirubin 1.5 H AST 43 H ALT 42 Alkaline Phosphatase 532 H Total Protein 5.1 L Albumin 2.1 L Current Medications Generic Name Dose Route Start Last Admin Trade Name Freq PRN Reason Stop Dose Admin Acetaminophen 650 mg 11/14/19 16:13 11/20/19 17:23 Tylenol - PO 650 mg Q6H PRN Administration FEVER Allopurinol 300 mg 11/15/19 10:00 11/20/19 10:12 Zyloprim - PO 300 mg DAILY ELIZABETH Administration Apixaban 10 mg 11/19/19 22:00 11/20/19 10:09 Eliquis - PO 11/26/19 13:51 10 mg BID ELIZABETH Administration Apixaban 2.5 mg 11/26/19 22:00 Eliquis - PO BID ELIZABETH Atovaquone 750 mg 11/14/19 22:00 11/20/19 17:22 Mepron - PO 750 mg BIDWM ELIZABETH Administration Furosemide 40 mg 11/17/19 10:00 11/20/19 10:07 Lasix - PO 40 mg DAILY ELIZABETH Administration Hydrocortisone 1 applic 11/20/19 22:00 Anusol 2.5% Hc Cream - ND HS ELIZABETH Levothyroxine Sodium 25 mcg 11/15/19 07:00 11/20/19 06:01 Synthroid - PO 25 mcg DAILY@0700 [facility] Administration Lidocaine HCl 1 applic 11/20/19 10:35 11/20/19 13:54 Xylocaine 5% Top. Ointment TP 1 applic DAILY PRN Administration PAIN Metoprolol Succinate 25 mg 11/16/19 10:00 11/20/19 10:09 Toprol Xl - PO 25 mg DAILY ELIZABETH Administration Pantoprazole Sodium 40 mg 11/15/19 20:30 11/20/19 10:12 Protonix - PO 40 mg DAILY EILZABETH Administration Valacyclovir HCl 500 mg 11/15/19 10:00 11/20/19 10:07 Valtrex - PO 500 mg DAILY ELIZABETH Administration Vancomycin HCl 125 mg 11/16/19 18:00 11/20/19 17:22 Vancomycin Oral Solution PO 125 mg Q6HPO ELIZABETH Administration Home Medications Medication Instructions Recorded Alprazolam [Xanax] 0.25 mg PO PRN 10/06/18 Levothyroxine [Synthroid -] 25 mcg PO DAILY 10/06/18 Mirtazapine 15 mg PO HS 09/28/19 Metoprolol Succinate [Toprol XL -] 25 mg PO DAILY 10/13/19 Allopurinol 300 mg PO DAILY 11/01/19 Pantoprazole Sodium [Protonix] 40 mg PO DAILY 11/01/19 Atovaquone [Mepron -] 750 mg PO BID #70 ml 11/08/19 Furosemide [Lasix] 40 mg PO DAILY #30 tablet 11/08/19 Valacyclovir HCl [Valtrex] 500 mg PO DAILY #30 tablet 11/08/19 ASSESSMENT AND PLAN: 88 year old female with history of HTN, 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 1. Sepsis secondary to Cdiff - sepsis resolved. Cdiff Ag positive, diarrhea improving. CXR - no Pneumonia Urine Cx negative Blood Cx from Portacath - Staph hominis - felt to be a contaminant by ID. Remaining Blood Cx negative x 3. Oral Vancomycin empirically due to Cdiff Ag positive. Cdiff PCR cancelled for unclear reason. Diarrhea resolved. No need for further IV abx as per ID. 2. 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 s/p Rituximab infusion reaction requiring Dexa, Benadryl, Nebs. Currently hemodynamically Stable, solumedrol discontinued. s/p modified CHOP 11/05. Completed Prednisone taper. Oncology following - poor functional status currently - further chemo as per Onc. Valtrex and Mepron Px. WBC/Platelets trending down s/p chemotherapy - will monitor. 3. Bilateral LE DVT secondary to pro-thrombotic oncological state and poor mobility. Eliquis started. 4. HTN - continue Metoprolol. ARB held. 5. Anxiety - Continue Xanax PRN. QTc prolonged - Mirtazapine held. 6. Hypothyroidism - Continue Levothyroxine. 7. GERD - continue PPI. 8. Normocytic Anemia - likely multifactorial - sec to chronic disease/malignancy /Iron deficiency. Iron supplementation ongoing. B12/Folate levels wnl. Further management as per Hematology. 9. CKD 3 - Creat Stable. Nephrology following. On Lasix chronically. Further management as per Nephrology. 10. 11 x 8 cm fluid filled collection posterior to atria on Echo - found to be mediastinal mass consistent with lymphadenopathy on CT Chest. Further management as per Oncology. 11. Prior R intracortical nodule not seen on current Renal US - radiology recommends [address] follow up. 12. Chronic Diastolic CHF - no evidence of decompensation but LE edema present - home dose Lasix resumed. 13. Hypercalcemia - resolved with IV hydration/chemotherapy. Nephrology following. 14. Hypomagnesemia - repleted. Patient expressed that she would like to stay in-patient at [facility] until her next scheduled Chemotherapy on 11/28 (unclear whether Oncology plans to treat on this date or not). DVT Px - Heparin SQ Code Status - DNR/DNI Visit type - Emergency Visit Emergency Visit: Yes ED Registration Date: 11/14/19 Care time: The patient presented to the Emergency Department on the above date and was hospitalized for further evaluation of their emergent condition. - New Patient This patient is new to me today: No - Critical Care Critical Care patient: No - Discharge Referral Referred to [facility] Med P.C.: No
[2019-11-20] MEDS: ALPRAZolam 0.25 MG TABLET PO PRN (20:18)
[2019-11-20] MEDS: HYDROCORTISONE 2.5% TOPICAL CREAM 30 GM TUBE PR SCH (21:25)
[2019-11-21] MEDS: VANCOMYCIN 250 MG/5 ML ORAL SOLUTION PO SCH ×4 (06:02→23:25)
[2019-11-21] MEDS: LEVOTHYROXINE NA 25 MCG TABLET (FP) PO SCH (06:03)
[2019-11-21] MEDS: PORTA CATH FLUSH 10 ML IVPUSH PRN (06:09)
[2019-11-21 07:27] LABS: HEMATOCRIT 25.7 % (32.4-45.2); HEMOGLOBIN 8.6 GM/dL (10.7-15.3); RBC 2.78 M/mm3 (3.60-5.2); WHITE BLOOD COUNT 5.3 K/mm3 (4.0-10.0)
[2019-11-21 07:28] LABS: BASO % 1.9 % (0-2.0); EOS % 6.4 % (0-4.5); LYMPH % 3.7 % (8-40); MCH 30.8 pg (25.7-33.7); MCHC 33.4 g/dl (32.0-36.0); MEAN CELL VOLUME 92.3 fl (80-96); MEAN PLT VOLUME 7.7 fl (7.5-11.1); MONO % 15.4 % (3.8-10.2); NEUT % 72.6 % (42.8-82.8); PLATELET COUNT 140 K/MM3 (134-434); RDW 21.1 % (11.6-15.6)
[2019-11-21 07:49] LABS: ALBUMIN 2.1 g/dl (3.4-5.0); BILIRUBIN,TOTAL 1.1 mg/dL (0.2-1); BLOOD UREA NITROGEN 28.4 mg/dL (7-18); CALCIUM 7.4 mg/dL (8.5-10.1); CREATININE 1.7 mg/dL (0.55-1.3); POTASSIUM 3.9 mmol/L (3.5-5.1); TOT PROT 4.9 g/dl (6.4-8.2)
[2019-11-21] MEDS: ATOVAQUONE 750 MG/5 ML (UNIT-DOSE PACKAGING) PO SCH ×2 (09:24→18:55)
[2019-11-21] MEDS: metoPROLOL SUCCINATE 25 MG TAB.SR.24H (FP) PO SCH (10:26)
[2019-11-21] MEDS: FUROSEMIDE 40 MG TABLET (FP) PO SCH (10:26)
[2019-11-21] MEDS: PANTOPRAZOLE 40 MG TABLET PO SCH (10:45)
[2019-11-21] MEDS: APIXABAN 5 MG TABLET PO SCH ×2 (10:49→21:32)
[2019-11-21] MEDS: ALLOPURINOL 300 MG TABLET (FP) PO SCH (10:50)
[2019-11-21] MEDS: valACYclovir HCL 500 MG TABLET (FP) PO SCH (10:50)
--- NOTE | 2019-11-21 11:01 | PN ---
Progress Note (short form) - Note Progress Note: Patient seen and examined Having night sweats Having bowel movels - with accidents in bed. Not incontinent, aware of having to have a bowel movement , but unable to get to bathroom in timely manner Continues to be virtually 100% bed ridden bed ridden Last Vital Signs Temp Pulse Resp BP Pulse Ox 97.3 F L 94 H 20 102/64 98 11/21/19 05:58 11/21/19 05:58 11/21/19 05:58 11/21/19 05:58 11/20/19 21:00 HEENT: STEPHEN, EOM Intact Oropharynx: No thrush, No mucositis Nodes: adenopathy Breasts: Without masses, s/p lumpectomy Cor: RSR, No murmurs, No gallops Lungs: scattered rhonchi Abd: Soft, Normal bowel sounds, No organomegaly, distended Ext: edema, distal extremities - cool Able to find good D.P pulse on right ; unable to appreciate left D.P pulse Skin: No rashes, Integument intact CBC, BMP 11/21/19 06:14 11/21/19 06:00 Microbiology 11/14/19 14:36 Blood - Alexx Cath Blood Culture - Final NO GROWTH AFTER 5 DAYS INCUBATION 11/14/19 10:30 Blood - Peripheral Venous Blood Culture - Final NO GROWTH AFTER 5 DAYS INCUBATION 11/14/19 10:30 Blood - Peripheral Venous Blood Culture - Final NO GROWTH AFTER 5 DAYS INCUBATION 11/14/19 14:36 Blood - Alexx Cath Blood Culture - Final Staph Hominis Sub Sp Hominis 11/15/19 18:30 Stool Clostridioides difficile Antigen - Final 11/15/19 18:30 Stool Clostridioides difficile Toxin Assay - Final 11/15/19 13:17 Urine - Urine Hoang Urine Culture - Final NO GROWTH OBTAINED Current Medications Generic Name Dose Route Start Last Admin Trade Name Freq PRN Reason Stop Dose Admin Acetaminophen 650 mg 11/14/19 16:13 11/20/19 17:23 Tylenol - PO 650 mg Q6H PRN Administration FEVER Allopurinol 300 mg 11/15/19 10:00 11/21/19 10:50 Zyloprim - PO 300 mg DAILY ELIZABETH Administration Alprazolam 0.25 mg 11/20/19 19:01 02/16/20 20:18 Xanax - PO 0.25 mg DAILY PRN Administration ANXIETY Apixaban 10 mg 11/19/19 22:00 11/21/19 10:49 Eliquis - PO 11/26/19 13:51 10 mg BID ELIZABETH Administration Apixaban 2.5 mg 11/26/19 22:00 Eliquis - PO BID ELIZABETH Atovaquone 750 mg 11/14/19 22:00 11/21/19 09:24 Mepron - PO Not Given BIDWM ELIZABETH Furosemide 40 mg 11/17/19 10:00 11/21/19 10:26 Lasix - PO Not Given DAILY ELIZABETH Hydrocortisone 1 applic 11/20/19 22:00 11/20/19 21:25 Anusol 2.5% Hc Cream - NV 1 applic HS ELIZABETH Administration IV Flush 10 ml 11/20/19 23:43 11/21/19 06:09 Alexx-Cath Flush IVPUSH 10 ml PRN PRN Administration protocol, maintain patency Levothyroxine Sodium 25 mcg 11/15/19 07:00 11/21/19 06:03 Synthroid - PO 25 mcg DAILY@0700 [facility] Administration Lidocaine HCl 1 applic 11/20/19 10:35 11/20/19 13:54 Xylocaine 5% Top. Ointment TP 1 applic DAILY PRN Administration PAIN Metoprolol Succinate 25 mg 11/16/19 10:00 11/21/19 10:26 Toprol Xl - PO Not Given DAILY ELIZABETH Pantoprazole Sodium 40 mg 11/15/19 20:30 11/21/19 10:45 Protonix - PO Not Given DAILY ELIZABETH Valacyclovir HCl 500 mg 11/15/19 10:00 11/21/19 10:50 Valtrex - PO 500 mg DAILY ELIZABETH Administration Vancomycin HCl 125 mg 11/16/19 18:00 11/21/19 06:02 Vancomycin Oral Solution PO 125 mg Q6HPO ELIZABETH Administration Impression: Transformed lymphoma Anemia Cool distal LE's C. Difficile Ag+, toxin- negative iliac DVT's Plan Vascular follow up for cool LE's Cardiology follow up for dosing of eliquis Poor performance status --?? ability to re- resume chemotherapy in future.
--- NOTE | 2019-11-21 13:12 | PN ---
Physical Exam: SUBJECTIVE: Patient seen and examined at bedside. Pt's family present at bedside. Pt appears to be in no acute distress, complains of some mild abd pain. Per nurse, no acute events overnight. OBJECTIVE: Vital Signs Temperature 97.6 F 11/21/19 14:45 Pulse Rate 112 H 11/21/19 14:45 Respiratory Rate 11/21/19 14:45 Blood Pressure 97/57 L 11/21/19 14:45 O2 Sat by Pulse Oximetry (%) 98 11/20/19 21:00 General: Awake and alert. No visible distress. Resting comfortably in bed. Nodes: Extensive adenopathy, left cervical region Heart: Normal sinus rhythm, tachycardic, no murmurs, No gallops Lungs: Decreased b/l air entry. R portacath in place Abd: Soft, Normal bowel sounds, No organomegaly Ext: 2+ pitting edema b/l CBC, BMP 11/21/19 06:14 11/21/19 06:00 Active Medications Acetaminophen (Tylenol -) 650 mg PO Q6H PRN PRN Reason: FEVER Last Admin: 11/20/19 17:23 Dose: 650 mg Allopurinol (Zyloprim -) 300 mg PO DAILY [facility] Last Admin: 11/21/19 10:50 Dose: 300 mg Alprazolam (Xanax -) 0.25 mg PO DAILY PRN PRN Reason: ANXIETY Last Admin: 11/20/19 20:18 Dose: 0.25 mg Apixaban (Eliquis -) 10 mg PO BID [facility] Stop: 11/26/19 13:51 Last Admin: 11/21/19 10:49 Dose: 10 mg Apixaban (Eliquis -) 2.5 mg PO BID [facility] Atovaquone (Mepron -) 750 mg PO BIDWM [facility] Last Admin: 11/21/19 09:24 Dose: Not Given Furosemide (Lasix -) 40 mg PO DAILY [facility] Last Admin: 11/21/19 10:26 Dose: Not Given Hydrocortisone (Anusol 2.5% Hc Cream -) 1 applic [place] HS [facility]ETH Last Admin: 11/20/19 21:25 Dose: 1 applic IV Flush (Alexx-Cath Flush) 10 ml IVPUSH PRN PRN PRN Reason: protocol, maintain patency Last Admin: 11/21/19 06:09 Dose: 10 ml Levothyroxine Sodium (Synthroid -) 25 mcg PO DAILY@0700 [facility] Last Admin: 11/21/19 06:03 Dose: 25 mcg Lidocaine HCl (Xylocaine 5% Top. Ointment) 1 applic TP DAILY PRN PRN Reason: PAIN Last Admin: 11/20/19 13:54 Dose: 1 applic Metoprolol Succinate (Toprol Xl -) 25 mg PO DAILY [facility] Last Admin: 11/21/19 10:26 Dose: Not Given Pantoprazole Sodium (Protonix -) 40 mg PO DAILY [facility] Last Admin: 11/21/19 10:45 Dose: Not Given Valacyclovir HCl (Valtrex -) 500 mg PO DAILY [facility] Last Admin: 11/21/19 10:50 Dose: 500 mg Vancomycin HCl (Vancomycin Oral Solution) 125 mg PO Q6HPO [facility] Last Admin: 11/21/19 14:30 Dose: 125 mg IMAGING * CT of abdomen and pelvis without contrast showing ? ileus, fluid in colon ( diarrhea), and resolved b/l Pleural effusions, b/l [place] subQ edema, cardiomegaly, small amt of pelvic fluid, mild hepatomeg, mild bowel dilation, cholelithiasis, diverticulosis, and surgical anastomosis along rt colon. * RUQ US- fatty liver, contracted gb no acute cholecystitis ASSESSMENT/PLAN: 88F with past medical history of HTN, CHF, AR, hypothyroidism, 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 #Sepsis 2/2 Cdiff -1 out of 4 blood cultures +Staph hominis. rest of the bottles neg. Discussed with ID, likely contaminant. -UCx neg -CXR neg for pna -C.diff toxin negative, Ag positive. Cdiff PCR cancelled for unknown reason. -Cont w/ Vancomycin 125 Q6H PO #B/l LE DVT; in setting of malignancy and prolonged immobility -On eliquis 10 bid X 7 days then 2.5 BID after pt is discharged -LE duplex showing DVT in posterior iliacs #B/l cool feet; both feet discolored with reduced dorsalis pedis pulses. -Vasc surg consulted; await recs #High Grade Large B cell lymphoma -started on R-CHOP regimen on previous admission, but had reaction to Rituxin requiring steroids, Benadryl, nebs. Pt has since been hemodynamically stable -Heme-Onc (Dr. Ramos); poor functional status, questionable if patient is able to tolerate future chemo treatments. Ongoing discussions regarding goals of care. -Completed Prednisone taper -Continue Valtrex and Mepron #Mild Abd Distension and Tenderness -KUB neg for obstruction -Serial abd exams; cont to monitor #CKD 3; 1.7 today -Cont Lasix 40 PO QD -Nephrology (Dr. Broussard) consulted -Avoid nephrotoxic agents #Normocytic Anemia; likely multifactorial - sec to chronic disease/malignancy/ Iron deficiency. -Iron supplementation ongoing. -B12/Folate levels wnl. Further management as per Hematology. #11 x 8 cm fluid filled collection posterior to atria on Echo - found mediastinal mass consistent with lymphadenopathy on CT Chest. Further management as per Oncology. #Bibasal effusions sec to Iv hydration on last admission - appears to have resolved on current chest imaging. - coughing but not SOB no crackles appreciated #Prior R intracortical nodule not seen on current Renal US; 6 month follow up for repeat imaging. #HTN; Cont home med: Metoprolol 25 QD; hold ARB in setting of WINSTON #Hypothyroidism; Cont home med: Synthroid 25mcg daily #Anxiety; Cont Xanax PRN. Off Mirtazapine given prolonged QTc on EKG done for tachycardia #FEN -off IVf -hypoPhos/hypoMg, repleted, continue to monitor -Regular diet #Prophylaxis DVT: Eliquis 10 BID X 7 days for dvt Rx GI: Protonix 40 PO #Disposition -DNR/DNI -Cont to monitor on med-surg Visit type - Emergency Visit Emergency Visit: Yes ED Registration Date: 11/14/19 Care time: The patient presented to the Emergency Department on the above date and was hospitalized for further evaluation of their emergent condition. - New Patient This patient is new to me today: No - Critical Care Critical Care patient: No ATTENDING PHYSICIAN STATEMENT I saw and evaluated the patient. I reviewed the resident's note and discussed the case with the resident. I agree with the resident's findings and plan as documented. SUBJECTIVE: OBJECTIVE: ASSESSMENT AND PLAN:
[2019-11-21 13:33] LABS: ANISOCYTOSIS 1+; MACROCYTOSIS 0; PLATELET ESTIMATE DECREASED
--- NOTE | 2019-11-21 14:51 | PN ---
Teaching Attending Note Name of Resident: Manuela Britton ATTENDING PHYSICIAN STATEMENT I saw and evaluated the patient. I reviewed the resident's note and discussed the case with the resident. I agree with the resident's findings and plan as documented. SUBJECTIVE: Feels well today, no complaints. No CP/palpitations. No sputum/ hemoptysis. No abdominal pain. No further diarrhea. OBJECTIVE: Fever resolved. Bp borderline. AAO x 2 Last Vital Signs Temp Pulse Resp BP Pulse Ox 97.6 F 112 H 20 97/57 L 98 11/21/19 14:45 11/21/19 14:45 11/21/19 14:45 11/21/19 14:45 11/20/19 21:00 HEENT - Atraumatic, Normocephalic. Large left neck mass. No stridor. Heart - S1, S2, soft SM, Tachy Lungs - decreased air entry at bases. R portacath. Abdomen - Mild distension, soft, mild generalized tenderness. Bowel Sounds normal. Extremities - edema ++. Bilateral foot coolness, discoloration, reduced pulses. MS: Stage 1-2 ulcer R buttock. Laboratory Results - last 24 hr 11/21/19 11/21/19 06:00 06:14 WBC 5.3 RBC 2.78 L Hgb 8.6 L Hct 25.7 L MCV 92.3 MCH 30.8 MCHC 33.4 RDW 21.1 H Plt Count 140 MPV 7.7 Absolute Neuts (auto) 3.9 Neutrophils % 72.6 Neutrophils % (Manual) 60.6 Band Neutrophils % 22.2 Lymphocytes % 3.7 L D Lymphocytes % (Manual) 0.0 L Monocytes % 15.4 H Monocytes % (Manual) 3 L Eosinophils % 6.4 H Eosinophils % (Manual) 9.1 H Basophils % 1.9 Basophils % (Manual) 0.0 Myelocytes % (Man) 3 H D Promyelocytes % (Man) 0 Blast Cells % (Manual) 0 Nucleated RBC % 0 Metamyelocytes 1 D Hypochromia 0 Platelet Estimate Decreased Polychromasia 0 Poikilocytosis 0 Anisocytosis 1+ Microcytosis 1+ Macrocytosis 0 Sodium 143 Potassium 3.9 Chloride 112 H Carbon Dioxide 24 Anion Gap 7 L BUN 28.4 H Creatinine 1.7 H Est GFR (CKD-EPI)AfAm 30.67 Est GFR (CKD-EPI)NonAf 26.46 Random Glucose 85 Calcium 7.4 L Total Bilirubin 1.1 H AST 36 ALT 37 Alkaline Phosphatase 511 H Total Protein 4.9 L Albumin 2.1 L Current Medications Generic Name Dose Route Start Last Admin Trade Name Freq PRN Reason Stop Dose Admin Acetaminophen 650 mg 11/14/19 16:13 11/20/19 17:23 Tylenol - PO 650 mg Q6H PRN Administration FEVER Allopurinol 300 mg 11/15/19 10:00 11/21/19 10:50 Zyloprim - PO 300 mg DAILY [facility]ABETH Administration Alprazolam 0.25 mg 11/20/19 19:01 11/20/19 20:18 Xanax - PO 0.25 mg DAILY PRN Administration ANXIETY Apixaban 10 mg 11/19/19 22:00 11/21/19 10:49 Eliquis - PO 11/26/19 13:51 10 mg BID [facility]ETH Administration Apixaban 2.5 mg 11/26/19 22:00 Eliquis - PO BID [facility]ETH Atovaquone 750 mg 11/14/19 22:00 11/21/19 09:24 Mepron - PO Not Given BIDWM ELIZABETH Furosemide 40 mg 11/17/19 10:00 11/21/19 10:26 Lasix - PO Not Given DAILY [facility]ETH Hydrocortisone 1 applic 11/20/19 22:00 11/20/19 21:25 Anusol 2.5% Hc Cream - MO 1 applic HS [facility]ETH Administration IV Flush 10 ml 11/20/19 23:43 11/21/19 06:09 Alexx-Cath Flush IVPUSH 10 ml PRN PRN Administration protocol, maintain patency Levothyroxine Sodium 25 mcg 11/15/19 07:00 11/21/19 06:03 Synthroid - PO 25 mcg DAILY@0700 [facility] Administration Lidocaine HCl 1 applic 11/20/19 10:35 11/20/19 13:54 Xylocaine 5% Top. Ointment TP 1 applic DAILY PRN Administration PAIN Metoprolol Succinate 25 mg 11/16/19 10:00 11/21/19 10:26 Toprol Xl - PO Not Given DAILY [facility]ETH Pantoprazole Sodium 40 mg 11/15/19 20:30 11/21/19 10:45 Protonix - PO Not Given DAILY [facility]ETH Valacyclovir HCl 500 mg 11/15/19 10:00 11/21/19 10:50 Valtrex - PO 500 mg DAILY [facility]ETH Administration Vancomycin HCl 125 mg 11/16/19 18:00 11/21/19 14:30 Vancomycin Oral Solution PO 125 mg Q6HPO [facility]ETH Administration Home Medications Medication Instructions Recorded Alprazolam [Xanax] 0.25 mg PO PRN 10/06/18 Levothyroxine [Synthroid -] 25 mcg PO DAILY 10/06/18 Mirtazapine 15 mg PO HS 09/28/19 Metoprolol Succinate [Toprol XL -] 25 mg PO DAILY 10/13/19 Allopurinol 300 mg PO DAILY 11/01/19 Pantoprazole Sodium [Protonix] 40 mg PO DAILY 11/01/19 Atovaquone [Mepron -] 750 mg PO BID #70 ml 11/08/19 Furosemide [Lasix] 40 mg PO DAILY #30 tablet 11/08/19 Valacyclovir HCl [Valtrex] 500 mg PO DAILY #30 tablet 11/08/19 ASSESSMENT AND PLAN: 88 year old female with history of HTN, 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 1. Sepsis secondary to Cdiff - sepsis resolved. BP borderline. Cdiff Ag positive, diarrhea improved CXR - no Pneumonia Urine Cx negative Blood Cx from Portacath - Staph hominis - felt to be a contaminant by ID. Remaining Blood Cx negative x 3. Oral Vancomycin empirically due to Cdiff Ag positive. Cdiff PCR cancelled for unclear reason. Diarrhea resolved. No need for further IV abx as per ID. 2. 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 s/p Rituximab infusion reaction requiring Dexa, Benadryl, Nebs. Currently hemodynamically Stable, solumedrol discontinued. s/p modified CHOP 11/05. Completed Prednisone taper. Oncology following - poor functional status currently - unclear plan for further chemo as patient may not be fit - will defer to Oncology. Valtrex and Mepron Px. 3. Bilateral LE DVT secondary to pro-thrombotic oncological state and poor mobility. Eliquis started. 4. Cool, discolored LEs/feet - Vascular Surgery consulted, awaiting evaluation 5. HTN - continue Metoprolol. ARB held. 6. Anxiety - Continue Xanax PRN. QTc prolonged - Mirtazapine held. 7. Hypothyroidism - Continue Levothyroxine. 8. Mild abdominal distension and tenderness. No nausea/vomiting. Diarrhea resolved. KUB to exclude obstruction. 9. Normocytic Anemia - likely multifactorial - sec to chronic disease/malignancy /Iron deficiency. Iron supplementation ongoing. B12/Folate levels wnl. Further management as per Hematology. 10. CKD 3 - Creat Stable at 1.7. Nephrology following. On Lasix chronically. Further management as per Nephrology. 11. 11 x 8 cm fluid filled collection posterior to atria on Echo - found to be mediastinal mass consistent with lymphadenopathy on CT Chest. Further management as per Oncology. 12. Prior R intracortical nodule not seen on current Renal US - radiology recommends [address] follow up. 13. Chronic Diastolic CHF - no evidence of decompensation but LE edema present - home dose Lasix resumed. 14. Hypercalcemia - resolved with IV hydration/chemotherapy. Nephrology following. 15. GERD - continue PPI. Patient expressed that she would like to stay in-patient at [facility] until her next scheduled Chemotherapy on 11/28 (unclear whether Oncology plans to treat on this date or not). Has been accepted to [facility] - patient/family not currently in agreement to transfer. DVT Px - Eliquis Code Status - DNR/DNI
--- NOTE | 2019-11-21 16:39 | PN ---
Progress Note, Physician History of Present Illness: Pt seen and examined at bedside. She is tolerating diet. She does get shortness of breath with minimal activity. - Current Medication List Current Medications: Active Medications Acetaminophen (Tylenol -) 650 mg PO Q6H PRN PRN Reason: FEVER Last Admin: 11/20/19 17:23 Dose: 650 mg Allopurinol (Zyloprim -) 300 mg PO DAILY [facility] [place] Last Admin: 11/21/19 10:50 Dose: 300 mg Alprazolam (Xanax -) 0.25 mg PO DAILY PRN PRN Reason: ANXIETY Last Admin: 11/20/19 20:18 Dose: 0.25 mg Apixaban (Eliquis -) 10 mg PO BID [facility] Stop: 11/26/19 13:51 Last Admin: 11/21/19 10:49 Dose: 10 mg Apixaban (Eliquis -) 2.5 mg PO BID [facility]ETH Atovaquone (Mepron -) 750 mg PO BIDWM [facility]ETH Last Admin: 11/21/19 09:24 Dose: Not Given Furosemide (Lasix -) 40 mg PO DAILY [facility] Last Admin: 11/21/19 10:26 Dose: Not Given Hydrocortisone (Anusol 2.5% Hc Cream -) 1 applic [place] HS [facility]ETH Last Admin: 11/20/19 21:25 Dose: 1 applic IV Flush (Alexx-Cath Flush) 10 ml IVPUSH PRN PRN PRN Reason: protocol, maintain patency Last Admin: 11/21/19 06:09 Dose: 10 ml Levothyroxine Sodium (Synthroid -) 25 mcg PO DAILY@0700 [facility] [place] Last Admin: 11/21/19 06:03 Dose: 25 mcg Lidocaine HCl (Xylocaine 5% Top. Ointment) 1 applic TP DAILY PRN PRN Reason: PAIN Last Admin: 11/20/19 13:54 Dose: 1 applic Metoprolol Succinate (Toprol Xl -) 25 mg PO DAILY [facility] Last Admin: 11/21/19 10:26 Dose: Not Given Pantoprazole Sodium (Protonix -) 40 mg PO DAILY [facility] Last Admin: 11/21/19 10:45 Dose: Not Given Valacyclovir HCl (Valtrex -) 500 mg PO DAILY [facility] Last Admin: 11/21/19 10:50 Dose: 500 mg Vancomycin HCl (Vancomycin Oral Solution) 125 mg PO Q6HPO [facility] [place] Last Admin: 11/21/19 14:30 Dose: 125 mg - Objective Vital Signs: Vital Signs Temperature 97.6 F 11/21/19 14:45 Pulse Rate 112 H 11/21/19 14:45 Respiratory Rate 11/21/19 14:45 Blood Pressure 97/57 L 11/21/19 14:45 O2 Sat by Pulse Oximetry (%) 98 11/20/19 21:00 Constitutional: Yes: Calm Eyes: Yes: Conjunctiva Clear HENT: Yes: Atraumatic Neck: Yes: Supple Cardiovascular: Yes: S1, S2 Respiratory: Yes: On Nasal O2 Gastrointestinal: Yes: Soft Genitourinary: Yes: WNL Musculoskeletal: Yes: WNL Edema: No Neurological: Yes: Oriented Psychiatric: Yes: Oriented Labs: CBC, BMP 11/21/19 06:14 11/21/19 06:00 INR, PTT INR 0.97 (0.83-1.09) 11/14/19 10:30 Problem List - Problems (1) CKD (chronic kidney disease) Code(s): N18.9 - CHRONIC KIDNEY DISEASE, UNSPECIFIED Assessment/Plan Current Medications Generic Name Dose Route Start Last Admin Trade Name Freq PRN Reason Stop Dose Admin Acetaminophen 650 mg 11/14/19 16:13 11/20/19 17:23 Tylenol - PO 650 mg Q6H PRN Administration FEVER Allopurinol 300 mg 11/15/19 10:00 11/21/19 10:50 Zyloprim - PO 300 mg DAILY [facility]ETH Administration Alprazolam 0.25 mg 11/20/19 19:01 11/20/19 20:18 Xanax - PO 0.25 mg DAILY PRN Administration ANXIETY Apixaban 10 mg 11/19/19 22:00 11/21/19 10:49 Eliquis - PO 11/26/19 13:51 10 mg BID [facility]ETH Administration Apixaban 2.5 mg 11/26/19 22:00 Eliquis - PO BID [facility]ETH Atovaquone 750 mg 11/14/19 22:00 11/21/19 09:24 Mepron - PO Not Given BIDWM ELIZABETH Furosemide 40 mg 11/17/19 10:00 11/21/19 10:26 Lasix - PO Not Given DAILY [facility]ETH Hydrocortisone 1 applic 11/20/19 22:00 11/20/19 21:25 Anusol 2.5% Hc Cream - HI 1 applic HS ELIZABETH Administration IV Flush 10 ml 11/20/19 23:43 11/21/19 06:09 Alexx-Cath Flush IVPUSH 10 ml PRN PRN Administration protocol, maintain patency Levothyroxine Sodium 25 mcg 11/15/19 07:00 11/21/19 06:03 Synthroid - PO 25 mcg DAILY@0700 [facility] Administration Lidocaine HCl 1 applic 11/20/19 10:35 11/20/19 13:54 Xylocaine 5% Top. Ointment TP 1 applic DAILY PRN Administration PAIN Metoprolol Succinate 25 mg 11/16/19 10:00 11/21/19 10:26 Toprol Xl - PO Not Given DAILY [facility]ETH Pantoprazole Sodium 40 mg 11/15/19 20:30 11/21/19 10:45 Protonix - PO Not Given DAILY EL[facility]ETH Valacyclovir HCl 500 mg 11/15/19 10:00 11/21/19 10:50 Valtrex - PO 500 mg DAILY [facility]ETH Administration Vancomycin HCl 125 mg 11/16/19 18:00 11/21/19 14:30 Vancomycin Oral Solution PO 125 mg Q6HPO ELIZABETH Administration Impression 1. CKD 2. WINSTON 3. diarrhea 4. fever 5. b cell lymphoma 6. htn 7. hld 8. pleural effusions Plan - agree with holding dose of lasix - monitor lytes - will need to clarify GOC - monitor volume status - diarrhea improved
--- NOTE | 2019-11-21 16:52 | PN ---
Progress Note (short form) - Note Progress Note: Vascular Surgery pt seen and examined. Bl lower ext DVT, pt on eliquis. Pt seen with family at bedside. Called to evaluate for cool feet. Bilateral lower ext are cool, but pink. Pt has palpable PT pulses bl. No mottling or discoloration. Cont medical management. No need for any vascular intervention at this time. Fredy Winn dO
[2019-11-21] MEDS ORDERED: PT OWN MED DRAWER 7, Y5N ONE ×2 (18:46→19:01)
[2019-11-21] MEDS: NYSTATIN 500,000 UNITS/5 ML SUSPENSION PO SCH ×2 (18:55→23:25)
[2019-11-21] MEDS: ALPRAZolam 0.25 MG TABLET PO PRN (20:35)
[2019-11-21] MEDS: HYDROCORTISONE 2.5% TOPICAL CREAM 30 GM TUBE PR SCH (21:31)
[2019-11-22] MEDS: LEVOTHYROXINE NA 25 MCG TABLET (FP) PO SCH (06:07)
[2019-11-22] MEDS: NYSTATIN 500,000 UNITS/5 ML SUSPENSION PO SCH ×3 (06:07→18:03)
[2019-11-22] MEDS: VANCOMYCIN 250 MG/5 ML ORAL SOLUTION PO SCH ×3 (06:07→18:04)
[2019-11-22 07:58] LABS: BASO % 1.4 % (0-2.0); EOS % 3.5 % (0-4.5); HEMATOCRIT 24.7 % (32.4-45.2); HEMOGLOBIN 8.3 GM/dL (10.7-15.3); LYMPH % 5.2 % (8-40); MCH 30.8 pg (25.7-33.7); MCHC 33.7 g/dl (32.0-36.0); MEAN CELL VOLUME 91.2 fl (80-96); MEAN PLT VOLUME 8.6 fl (7.5-11.1); MONO % 15.6 % (3.8-10.2); NEUT % 74.3 % (42.8-82.8); PLATELET COUNT 168 K/MM3 (134-434); RDW 21.3 % (11.6-15.6); WHITE BLOOD COUNT 6.5 K/mm3 (4.0-10.0)
[2019-11-22] MEDS: ATOVAQUONE 750 MG/5 ML (UNIT-DOSE PACKAGING) PO SCH ×2 (08:14→18:04)
[2019-11-22 08:43] LABS: ALBUMIN 2.1 g/dl (3.4-5.0); BILIRUBIN,TOTAL 0.8 mg/dL (0.2-1); BLOOD UREA NITROGEN 30.9 mg/dL (7-18); CALCIUM 7.3 mg/dL (8.5-10.1); CREATININE 1.9 mg/dL (0.55-1.3); MAGNESIUM 1.9 mg/dL (1.8-2.4)
[2019-11-22] MEDS: FUROSEMIDE 40 MG TABLET (FP) PO SCH (09:23)
[2019-11-22] MEDS: metoPROLOL SUCCINATE 25 MG TAB.SR.24H (FP) PO SCH (09:23)
[2019-11-22] MEDS: APIXABAN 5 MG TABLET PO SCH (09:23)
[2019-11-22] MEDS: PANTOPRAZOLE 40 MG TABLET PO SCH (09:24)
[2019-11-22] MEDS: valACYclovir HCL 500 MG TABLET (FP) PO SCH (09:24)
[2019-11-22] MEDS: ALLOPURINOL 300 MG TABLET (FP) PO SCH (09:24)
[2019-11-22 12:09] LABS: ANISOCYTOSIS 1+; MACROCYTOSIS 1+; PLATELET ESTIMATE NORMAL
--- NOTE | 2019-11-22 13:26 | PN ---
Teaching Attending Note Name of Resident: Helio Luciano ATTENDING PHYSICIAN STATEMENT I saw and evaluated the patient. I reviewed the resident's note and discussed the case with the resident. I agree with the resident's findings and plan as documented. Seen and examined; please see resident note for further historical information. I personally verified all couch historical information and exam findings. Personally interpreted all imaging and diagnostics and reviewed appropriate consults. I reviewed all labs and vital signs as per resident note and EMR as documented. I agree with the above assessment and plan unless supplemented by myself in the following. Slightly improved today. Recommendations regarding ultimate C. difficile testing noted. Slightly tachycardic and increasing the metoprolol succinate from 25 mg daily to 50 mg daily. Family meeting will be scheduled for tomorrow. Social work will be contacted to help delineate discharge. Vascular surgery saw the patient and recommended outpatient follow-up. They were tolerating the Eliquis further bilateral lower extremity DVTs, they were not started on Lovenox even though they do have a underlying malignancy secondary to their marked CKD. The blood culture is felt to be a contaminant. This is her last day of antibiotics. 10 item review of systems completed and is negative aside from as discussed in the subjective data in my own/the resident documentation. VS, labs, imaging reviewed NAD, AAOx2, resting comfortably in bed. RRR s1/2 no mgr Normal muscle tone, moves all 5 extremities with normal apparent strength Neck is supple, trachea midline, no [place] LN Lungs CTAB with sym expansion NT ND +BS no [place] organomegaly CN2-12 wnl; no FND NC AT EOMI PERRLA Normal mood, appropriate behavior, euthymic affect No skin breakdown or rashes noted; lower extremity changes consistent with prior descriptors and positive pulses noted in the posterior tibialis bilaterally. -Microbiology results are noted -Lower extremity Doppler of the arteries done bilaterally, shows no hemodynamically significant stenosis or occlusion with bilateral DVTs in the right and left posterior tibial veins again noted -Yesterday's abdominal x-ray noted, reveal scoliosis with degenerative changes vascular calcifications and costal cartilage calcifications and retained stool but no signs of ileus or obstruction no signs of fecal impaction or gross constipation -Admission EKG noted with sinus tachycardia with premature atrial complexes, left axis deviation, right bundle branch block Assessment and plan: Patient with history of high-grade diffuse large B-cell lymphoma presents with C. difficile infection completing antibiotics. Infectious diseases monitoring. We are titrating up her metoprolol, continuing her on Eliquis, and monitoring on the medicine service. Speaking with social work help delineate discharge which hopefully is in the next 24 to 36 hours. Her main issue will be if we are going to be continuing the patient on chemotherapy or not. Per Dr. Ramos's last note it appears that the patient may not be physically strong enough to continue with chemotherapy which would also be consistent with her underlying medical diagnoses however this is the patient's overall decision to make with her oncologist. Problems include: -Sepsis, resolved -C. difficile infection, oral vancomycin empirically given due to C. difficile antigen positive, infectious disease canceled C. difficile PCR. Patient's diarrhea has resolved, -High-grade diffuse large B-cell lymphoma, status post CHOP with completed prednisone taper. Poor overall functional status with unclear ability to tolerate further chemotherapy. Valtrex and Mepron prophylaxis. -Bilateral lower extremity DVT, cannot use Lovenox due to underlying chronic kidney disease, on Eliquis with hematology oncology dosing -Lower extremity skin changes secondary to venous stasis, no arterial flow issues on the arterial Dopplers obtained today. -Anxiety, PRN Xanax can be continued. Used to be on mirtazapine but this was held due to the prolonged QTC, -Prolonged QT interval -CKD 3 Hypothyroidism, continue levothyroxine -Mild abdominal tenderness, improved, negative abdominal x-ray yesterday, continue to monitor. -Mediastinal mass, 11 x 8 cm fluid-filled collection posterior to the atria on echocardiogram with further delineation as dictated on the CT chest repeat. Oncology is aware management per their service no need for stat cardiothoracic surgery consult etc. etc. -Hypercalcemia, resolved with hydration, monitor electrolytes -GERD, continue PPI The patient's next chemotherapy is session is scheduled on 28 November and she has been accepted to [facility]. We will discuss the further plans with oncology and if there is no plans for chemotherapy given her current functional status we will plan to discharge tomorrow DNR/DNI
[2019-11-22] MEDS ORDERED: PT OWN MED DRAWER 7, Y5N ONE (13:28)
[2019-11-22] MEDS ORDERED: guaiFENesin 200 MG/10 ML 10 ML UNIT-DOSE CUPS PO PRN (13:38)
[2019-11-22] MEDS: PORTA CATH FLUSH 10 ML IVPUSH PRN (14:17)
--- NOTE | 2019-11-22 15:17 | PN ---
Physical Exam: SUBJECTIVE: Patient seen and examined at bedside this AM. Pt still on contact precuations. Nurse states no diarrhea overnight. Afebrile. No acute complaints except for cough. OBJECTIVE: Vital Signs Period Temp Pulse Resp BP Sys/Castelan Pulse Ox Last 24 Hr 97.8 F-98.3 F 99-107 - 101-112/59-71 97-97 General: awake, sob, alert and oriented. Pt on contact still. Rt portacath present Nodes: extensive adenopathy, left cervical region Heart: Normal sinus rhythm, tachycardic, no murmurs, No gallops Lungs: scattered crackles, b/l worse at bases Abd: Soft, Normal bowel sounds, No organomegaly Ext: 2+ pitting edema b/l Laboratory Results - last 24 hr 11/22/19 11/22/19 06:00 06:00 WBC 6.5 RBC 2.70 L Hgb 8.3 L Hct 24.7 L MCV 91.2 MCH 30.8 MCHC 33.7 RDW 21.3 H Plt Count 168 MPV 8.6 D Absolute Neuts (auto) 4.8 Neutrophils % 74.3 Neutrophils % (Manual) 84.3 H Band Neutrophils % 0.0 Lymphocytes % 5.2 L D Lymphocytes % (Manual) 2.0 L D Monocytes % 15.6 H Monocytes % (Manual) 3 L Eosinophils % 3.5 Eosinophils % (Manual) 4.9 H Basophils % 1.4 Basophils % (Manual) 1.9 D Myelocytes % (Man) 2 D Promyelocytes % (Man) 0 Blast Cells % (Manual) 0 Nucleated RBC % 0 Metamyelocytes 1 Hypochromia 1+ Platelet Estimate Normal Polychromasia 0 Poikilocytosis 1+ Basophilic Stippling 1+ Anisocytosis 1+ Microcytosis 0 Macrocytosis 1+ Sodium 141 Potassium 4.0 Chloride 111 H Carbon Dioxide 24 Anion Gap 6 L BUN 30.9 H Creatinine 1.9 H Est GFR (CKD-EPI)AfAm 26.81 Est GFR (CKD-EPI)NonAf 23.13 Random Glucose 113 H Calcium 7.3 L Magnesium 1.9 Total Bilirubin 0.8 AST 37 ALT 33 Alkaline Phosphatase 521 H Total Protein 5.0 L Albumin 2.1 L Active Medications Generic Name Dose Route Start Last Admin Trade Name Freq PRN Reason Stop Dose Admin Acetaminophen 650 mg 11/14/19 16:13 11/20/19 17:23 Tylenol - PO 650 mg Q6H PRN Administration FEVER Allopurinol 300 mg 11/15/19 10:00 11/22/19 09:24 Zyloprim - PO 300 mg DAILY ELIZABETH Administration Alprazolam 0.25 mg 11/20/19 19:01 11/21/19 20:35 Xanax - PO 0.25 mg DAILY PRN Administration ANXIETY Apixaban 10 mg 11/19/19 22:00 11/22/19 09:23 Eliquis - PO 11/26/19 13:51 10 mg BID EL[facility]ABETH Administration Apixaban 2.5 mg 11/26/19 22:00 Eliquis - PO BID ELIZABETH Atovaquone 750 mg 11/14/19 22:00 11/22/19 08:14 Mepron - PO 750 mg BIDWM EL[facility]ABETH Administration Furosemide 40 mg 11/17/19 10:00 11/22/19 09:23 Lasix - PO 40 mg DAILY EL[facility]ETH Administration Guaifenesin 10 ml 11/22/19 13:38 11/22/19 14:16 Robitussin - PO 10 ml Q4H PRN Administration COUGH Hydrocortisone 1 applic 11/20/19 22:00 11/21/19 21:31 Anusol 2.5% Hc Cream - [place] 1 applic HS ELIZABETH Administration IV Flush 10 ml 11/20/19 23:43 11/22/19 14:17 Alexx-Cath Flush IVPUSH 10 ml PRN PRN Administration protocol, maintain patency Levothyroxine Sodium 25 mcg 11/15/19 07:00 11/22/19 06:07 Synthroid - PO 25 mcg DAILY@0700 [facility] Administration Lidocaine HCl 1 applic 11/20/19 10:35 11/20/19 13:54 Xylocaine 5% Top. Ointment TP 1 applic DAILY PRN Administration PAIN Metoprolol Succinate 25 mg 11/16/19 10:00 11/22/19 09:23 Toprol Xl - PO 25 mg DAILY [facility]ETH Administration Nystatin 500,000 units 11/21/19 18:00 11/22/19 11:24 Nystatin Oral Suspension - PO 500,000 units Q6HPO [facility]ETH Administration Pantoprazole Sodium 40 mg 11/15/19 20:30 11/22/19 09:24 Protonix - PO 40 mg DAILY EL[facility]ETH Administration Valacyclovir HCl 500 mg 11/15/19 10:00 11/22/19 09:24 Valtrex - PO 500 mg DAILY EL[facility]ETH Administration Vancomycin HCl 125 mg 11/16/19 18:00 11/22/19 12:30 Vancomycin Oral Solution PO 125 mg Q6HPO EL[facility]ETH Administration ASSESSMENT/PLAN: 88F with past medical history of HTN, CHF, AR, hypothyroidism, 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 #Sepsis 2/2 Cdiff -1 out of 4 blood cultures +Staph hominis. rest of the bottles neg. Discussed with ID, likely contaminant. -UCx neg -CXR neg for pna -C.diff toxin negative, Ag positive. -touch base w/ ID regarding length of Rx with Vancomycin 125 Q6H PO, up for renewal, mgmt is 10 days given first episode #B/l LE DVT; in setting of malignancy and prolonged immobility -On eliquis 10 bid X 7 days then 2.5 BID after pt is discharged -LE duplex showing DVT in posterior iliacs #B/l cool feet; both feet discolored with reduced dorsalis pedis pulses. -Vasc surg consulted (Dr. Winn) who does not wish to intervene surgically, c/w pharmacologic mgmt. - Lower extremity Doppler of the arteries done bilaterally, shows no hemodynamically significant stenosis or occlusion with bilateral DVTs in the right and left posterior tibial veins again noted #High Grade Large B cell lymphoma -started on R-CHOP regimen on previous admission, but had reaction to Rituxin requiring steroids, Benadryl, nebs. Pt has since been hemodynamically stable -Heme-Onc (Dr. Ramos); poor functional status, questionable if patient is able to tolerate future chemo treatments. Ongoing discussions regarding goals of care. -Completed Prednisone taper -Continue Valtrex and Mepron #Mild Abd Distension and Tenderness -KUB neg for obstruction, Yesterday's abdominal x-ray noted, reveal scoliosis with degenerative changes vascular calcifications and costal cartilage calcifications and retained stool but no signs of ileus or obstruction no signs of fecal impaction or gross constipation -Serial abd exams; cont to monitor #CKD 3; 1.9 today -Cont Lasix 40 PO QD -Nephrology (Dr. Broussard) consulted -Avoid nephrotoxic agents #Normocytic Anemia; likely multifactorial - sec to chronic disease/malignancy/ Iron deficiency. -Iron supplementation ongoing. -B12/Folate levels wnl. Further management as per Hematology. #11 x 8 cm fluid filled collection posterior to atria on Echo - found mediastinal mass consistent with lymphadenopathy on CT Chest. Further management as per Oncology. #Bibasal effusions sec to Iv hydration on last admission - appears to have resolved on current chest imaging. - coughing but not SOB no crackles appreciated #Prior R intracortical nodule not seen on current Renal US; 6 month follow up for repeat imaging. #HTN; Cont home med: Metoprolol 25 QD; hold ARB in setting of WINSTON #Hypothyroidism; Cont home med: Synthroid 25mcg daily #Anxiety; Cont Xanax PRN. Off Mirtazapine given prolonged QTc on EKG done for tachycardia #FEN -off IVf -lytes, continue to monitor -Regular diet #Prophylaxis DVT: Eliquis 10 BID X 7 days for dvt Rx GI: Protonix 40 PO #Disposition -DNR/DNI -Chemoherapy session is scheduled on 11/28. She has been accepted to [facility]. We will discuss the further plans with oncology and if there is no plans for chemotherapy given her current functional status we will plan to discharge tomorrow. Visit type - Emergency Visit Emergency Visit: Yes ED Registration Date: 11/14/19 Care time: The patient presented to the Emergency Department on the above date and was hospitalized for further evaluation of their emergent condition. - New Patient This patient is new to me today: No - Critical Care Critical Care patient: No - Discharge Referral Referred to [facility] Med P.C.: No ATTENDING PHYSICIAN STATEMENT I saw and evaluated the patient. I reviewed the resident's note and discussed the case with the resident. I agree with the resident's findings and plan as documented. SUBJECTIVE: OBJECTIVE: ASSESSMENT AND PLAN:
--- NOTE | 2019-11-22 16:54 | PN ---
Progress Note, Physician History of Present Illness: Pt seen and examined at bedside. She is out of bed to chair. She has poor PO intake. - Current Medication List Current Medications: Active Medications Acetaminophen (Tylenol -) 650 mg PO Q6H PRN PRN Reason: FEVER Last Admin: 11/20/19 17:23 Dose: 650 mg Allopurinol (Zyloprim -) 300 mg PO DAILY [facility] Last Admin: 11/22/19 09:24 Dose: 300 mg Alprazolam (Xanax -) 0.25 mg PO DAILY PRN PRN Reason: ANXIETY Last Admin: 11/21/19 20:35 Dose: 0.25 mg Apixaban (Eliquis -) 10 mg PO BID [facility] Stop: 11/26/19 13:51 Last Admin: 11/22/19 09:23 Dose: 10 mg Apixaban (Eliquis -) 2.5 mg PO BID ELIZABETH Atovaquone (Mepron -) 750 mg PO BIDWM [facility] Last Admin: 11/22/19 08:14 Dose: 750 mg Furosemide (Lasix -) 40 mg PO DAILY [facility] Last Admin: 11/22/19 09:23 Dose: 40 mg Guaifenesin (Robitussin -) 10 ml PO Q4H PRN PRN Reason: COUGH Last Admin: 11/22/19 14:16 Dose: 10 ml Hydrocortisone (Anusol 2.5% Hc Cream -) [address] HS [facility]IZABETH Last Admin: 11/21/19 21:31 Dose: 1 applic IV Flush (Alexx-Cath Flush) 10 ml IVPUSH PRN PRN PRN Reason: protocol, maintain patency Last Admin: 11/22/19 14:17 Dose: 10 ml Levothyroxine Sodium (Synthroid -) 25 mcg PO DAILY@0700 [facility] Last Admin: 11/22/19 06:07 Dose: 25 mcg Lidocaine HCl (Xylocaine 5% Top. Ointment) 1 applic TP DAILY PRN PRN Reason: PAIN Last Admin: 11/20/19 13:54 Dose: 1 applic Metoprolol Succinate (Toprol Xl -) 25 mg PO DAILY [facility] Last Admin: 11/22/19 09:23 Dose: 25 mg Nystatin (Nystatin Oral Suspension -) 500,000 units PO Q6HPO ELIZABETH Last Admin: 11/22/19 11:24 Dose: 500,000 units Pantoprazole Sodium (Protonix -) 40 mg PO DAILY [facility] Last Admin: 11/22/19 09:24 Dose: 40 mg Valacyclovir HCl (Valtrex -) 500 mg PO DAILY [facility] Last Admin: 11/22/19 09:24 Dose: 500 mg Vancomycin HCl (Vancomycin Oral Solution) 125 mg PO Q6HPO [facility] Last Admin: 11/22/19 12:30 Dose: 125 mg - Objective Vital Signs: Vital Signs Temperature 97.7 F 11/22/19 15:23 Pulse Rate 104 H 11/22/19 15:23 Respiratory Rate 11/22/19 15:23 Blood Pressure 104/62 11/22/19 15:23 O2 Sat by Pulse Oximetry (%) 97 11/22/19 09:00 Constitutional: Yes: Calm Eyes: Yes: Conjunctiva Clear HENT: Yes: Atraumatic Cardiovascular: Yes: S1, S2 Respiratory: Yes: CTA Bilaterally Gastrointestinal: Yes: Distention Genitourinary: Yes: WNL Musculoskeletal: Yes: WNL Edema: Yes Edema: LLE: 1+, RLE: 1+ Neurological: Yes: Oriented Psychiatric: Yes: Oriented Labs: CBC, BMP 11/22/19 06:00 11/22/19 06:00 INR, PTT INR 0.97 (0.83-1.09) 11/14/19 10:30 Problem List - Problems (1) CKD (chronic kidney disease) Code(s): N18.9 - CHRONIC KIDNEY DISEASE, UNSPECIFIED Assessment/Plan Current Medications Generic Name Dose Route Start Last Admin Trade Name Freq PRN Reason Stop Dose Admin Acetaminophen 650 mg 11/14/19 16:13 11/20/19 17:23 Tylenol - PO 650 mg Q6H PRN Administration FEVER Allopurinol 300 mg 11/15/19 10:00 11/22/19 09:24 Zyloprim - PO 300 mg DAILY ELIZABETH Administration Alprazolam 0.25 mg 11/20/19 19:01 11/21/19 20:35 Xanax - PO 0.25 mg DAILY PRN Administration ANXIETY Apixaban 10 mg 11/19/19 22:00 11/22/19 09:23 Eliquis - PO 11/26/19 13:51 10 mg BID ELIZABETH Administration Apixaban 2.5 mg 11/26/19 22:00 Eliquis - PO BID ELIZABETH Atovaquone 750 mg 11/14/19 22:00 11/22/19 08:14 Mepron - PO 750 mg BIDWM ELIZABETH Administration Furosemide 40 mg 11/17/19 10:00 11/22/19 09:23 Lasix - PO 40 mg DAILY ELIZABETH Administration Guaifenesin 10 ml 11/22/19 13:38 11/22/19 14:16 Robitussin - PO 10 ml Q4H PRN Administration COUGH Hydrocortisone 1 applic 11/20/19 22:00 11/21/19 21:31 Anusol 2.5% Hc Cream - CT 1 applic HS ELIZABETH Administration IV Flush 10 ml 11/20/19 23:43 11/22/19 14:17 Alexx-Cath Flush IVPUSH 10 ml PRN PRN Administration protocol, maintain patency Levothyroxine Sodium 25 mcg 11/15/19 07:00 11/22/19 06:07 Synthroid - PO 25 mcg DAILY@0700 EL[facility]ABETH Administration Lidocaine HCl 1 applic 11/20/19 10:35 11/20/19 13:54 Xylocaine 5% Top. Ointment TP 1 applic DAILY PRN Administration PAIN Metoprolol Succinate 25 mg 11/16/19 10:00 11/22/19 09:23 Toprol Xl - PO 25 mg DAILY ELIZABETH Administration Nystatin 500,000 units 11/21/19 18:00 11/22/19 11:24 Nystatin Oral Suspension - PO 500,000 units Q6HPO ELIZABETH Administration Pantoprazole Sodium 40 mg 11/15/19 20:30 11/22/19 09:24 Protonix - PO 40 mg DAILY ELIZABETH Administration Valacyclovir HCl 500 mg 11/15/19 10:00 11/22/19 09:24 Valtrex - PO 500 mg DAILY ELIZABETH Administration Vancomycin HCl 125 mg 11/16/19 18:00 11/22/19 12:30 Vancomycin Oral Solution PO 125 mg Q6HPO ELIZABETH Administration Impression 1. CKD 2. WINSTON 3. diarrhea 4. fever 5. b cell lymphoma 6. htn 7. hld 8. pleural effusions Plan - monitor renal function - cont lasix - encourage po intake - monitor volume status - diarrhea improved
--- NOTE | 2019-11-22 18:17 | PN ---
Progress Note (short form) - Note Progress Note: Patient seen and examined Clinically improved Still with diarrhea Still performance status --ECOG--3-4 Last Vital Signs Temp Pulse Resp BP Pulse Ox 97.7 F 104 H 20 104/62 97 11/22/19 15:23 11/22/19 15:23 11/22/19 15:23 11/22/19 15:23 11/22/19 09:00 HEENT: STEPHEN, EOM Intact Oropharynx: No thrush, No mucositis Neck: Supple Nodes: adenopathy extensive left neck and cervical and sc area Cor: RSR, No murmurs, No gallops Lungs: scattered rhonchi Abd: Soft, Normal bowel sounds, No organomegaly, distended Ext:LE edema Skin: No rashes, Integument intact CBC, BMP 11/22/19 06:00 11/22/19 06:00 Current Medications Generic Name Dose Route Start Last Admin Trade Name Freq PRN Reason Stop Dose Admin Acetaminophen 650 mg 11/14/19 16:13 11/20/19 17:23 Tylenol - PO 650 mg Q6H PRN Administration FEVER Allopurinol 300 mg 11/15/19 10:00 11/22/19 09:24 Zyloprim - PO 300 mg DAILY ELIZABETH Administration Alprazolam 0.25 mg 11/20/19 19:01 11/21/19 20:35 Xanax - PO 0.25 mg DAILY PRN Administration ANXIETY Apixaban 10 mg 11/19/19 22:00 11/22/19 09:23 Eliquis - PO 11/26/19 13:51 10 mg BID ELIZABETH Administration Apixaban 2.5 mg 11/26/19 22:00 Eliquis - PO BID ELIZABETH Atovaquone 750 mg 11/14/19 22:00 11/22/19 18:04 Mepron - PO 750 mg BIDWM ELIZABETH Administration Furosemide 40 mg 11/17/19 10:00 11/22/19 09:23 Lasix - PO 40 mg DAILY ELIZABETH Administration Guaifenesin 10 ml 11/22/19 13:38 11/22/19 14:16 Robitussin - PO 10 ml Q4H PRN Administration COUGH Hydrocortisone 1 applic 11/20/19 22:00 11/21/19 21:31 Anusol 2.5% Hc Cream - [place] 1 applic HS ELIZABETH Administration IV Flush 10 ml 11/20/19 23:43 11/22/19 14:17 Alexx-Cath Flush IVPUSH 10 ml PRN PRN Administration protocol, maintain patency Levothyroxine Sodium 25 mcg 11/15/19 07:00 11/22/19 06:07 Synthroid - PO 25 mcg DAILY@0700 EL[facility]ABETH Administration Lidocaine HCl 1 applic 11/20/19 10:35 11/20/19 13:54 Xylocaine 5% Top. Ointment TP 1 applic DAILY PRN Administration PAIN Metoprolol Succinate 25 mg 11/16/19 10:00 11/22/19 09:23 Toprol Xl - PO 25 mg DAILY ELIZABETH Administration Nystatin 500,000 units 11/21/19 18:00 11/22/19 18:03 Nystatin Oral Suspension - PO 500,000 units Q6HPO EL[facility]ABETH Administration Pantoprazole Sodium 40 mg 11/15/19 20:30 11/22/19 09:24 Protonix - PO 40 mg DAILY EL[facility]ABETH Administration Valacyclovir HCl 500 mg 11/15/19 10:00 11/22/19 09:24 Valtrex - PO 500 mg DAILY EL[facility]ABETH Administration Vancomycin HCl 125 mg 11/16/19 18:00 11/22/19 18:04 Vancomycin Oral Solution PO 125 mg Q6HPO ELIZABETH Administration Impression Transformed lymphoma Diarrhea- c.difficle AG+ , toxin negative Bilateral popliteal DVT-- on eliquis Poor performance status Fevers- neoplastic vs infectious- improved Anemia Decision about future chemotherapy based upon clinical status.
[2019-11-22] MEDS: HYDROCORTISONE 2.5% TOPICAL CREAM 30 GM TUBE PR SCH (21:55)
[2019-11-22] MEDS: ALPRAZolam 0.25 MG TABLET PO PRN (21:55)
[2019-11-23] MEDS: APIXABAN 5 MG TABLET PO SCH (00:48)
[2019-11-23] MEDS: NYSTATIN 500,000 UNITS/5 ML SUSPENSION PO SCH ×5 (00:48→23:58)
[2019-11-23] MEDS: VANCOMYCIN 250 MG/5 ML ORAL SOLUTION PO SCH ×5 (00:48→23:58)
[2019-11-23] MEDS: LEVOTHYROXINE NA 25 MCG TABLET (FP) PO SCH (06:02)
[2019-11-23 07:13] LABS: BASO % 1.9 % (0-2.0); EOS % 7.5 % (0-4.5); HEMATOCRIT 26.3 % (32.4-45.2); HEMOGLOBIN 8.7 GM/dL (10.7-15.3); LYMPH % 4.8 % (8-40); MCHC 33.3 g/dl (32.0-36.0); MEAN PLT VOLUME 8.1 fl (7.5-11.1); MONO % 22.2 % (3.8-10.2); NEUT % 63.6 % (42.8-82.8); PLATELET COUNT 171 K/MM3 (134-434); RBC 2.82 M/mm3 (3.60-5.2); WHITE BLOOD COUNT 7.7 K/mm3 (4.0-10.0)
[2019-11-23 07:43] LABS: ALBUMIN 2.1 g/dl (3.4-5.0); CALCIUM 7.7 mg/dL (8.5-10.1); MAGNESIUM 1.7 mg/dL (1.8-2.4); PHOSPHOROUS 2.3 mg/dL (2.5-4.9); POTASSIUM 3.9 mmol/L (3.5-5.1)
--- NOTE | 2019-11-23 07:47 | PN ---
Physical Exam: SUBJECTIVE: Patient seen and examined. Tachycardic somnolent. Pt given bolus LR 500 cc for hypotension. Pt given OBJECTIVE: Vital Signs Period Temp Pulse Resp BP Sys/Castelan Pulse Ox Last 24 Hr 97.7 F-98.2 F 95-105 20-20 99-121/59-68 97-97 General: awake, somnolent, alert and oriented. Pt on contact still. Rt portacath present Nodes: extensive adenopathy, left cervical region Heart: Normal sinus rhythm, tachycardic, no murmurs, No gallops Lungs: scattered crackles, b/l worse at bases Abd: Soft, Normal bowel sounds, No organomegaly Ext: 2+ pitting edema b/l, cooler extremities than yesterday, pulses present and marked b/l. Laboratory Results - last 24 hr 11/22/19 11/22/19 11/23/19 06:00 06:00 06:00 WBC 6.5 RBC 2.70 L Hgb 8.3 L Hct 24.7 L MCV 91.2 MCH 30.8 MCHC 33.7 RDW 21.3 H Plt Count 168 MPV 8.6 D Absolute Neuts (auto) 4.8 Neutrophils % 74.3 Neutrophils % (Manual) 84.3 H Band Neutrophils % 0.0 Lymphocytes % 5.2 L D Lymphocytes % (Manual) 2.0 L D Monocytes % 15.6 H Monocytes % (Manual) 3 L Eosinophils % 3.5 Eosinophils % (Manual) 4.9 H Basophils % 1.4 Basophils % (Manual) 1.9 D Myelocytes % (Man) 2 D Promyelocytes % (Man) 0 Blast Cells % (Manual) 0 Nucleated RBC % 0 Metamyelocytes 1 Hypochromia 1+ Platelet Estimate Normal Polychromasia 0 Poikilocytosis 1+ Basophilic Stippling 1+ Anisocytosis 1+ Microcytosis 0 Macrocytosis 1+ Sodium 141 143 Potassium 4.0 3.9 Chloride 111 H 114 H Carbon Dioxide 24 24 Anion Gap 6 L 5 L BUN 30.9 H 33.0 H Creatinine 1.9 H 2.0 H Est GFR (CKD-EPI)AfAm 26.81 25.20 Est GFR (CKD-EPI)NonAf 23.13 21.74 Random Glucose 113 H 79 Calcium 7.3 L 7.7 L Phosphorus 2.3 L Magnesium 1.9 1.7 L Total Bilirubin 0.8 1.0 AST 37 44 H ALT 33 40 Alkaline Phosphatase 521 H 590 H Total Protein 5.0 L 5.0 L Albumin 2.1 L 2.1 L Active Medications Generic Name Dose Route Start Last Admin Trade Name Freq PRN Reason Stop Dose Admin Acetaminophen 650 mg 11/14/19 16:13 11/20/19 17:23 Tylenol - PO 650 mg Q6H PRN Administration FEVER Allopurinol 300 mg 11/15/19 10:00 11/22/19 09:24 Zyloprim - PO 300 mg DAILY ELIZABETH Administration Alprazolam 0.25 mg 11/20/19 19:01 11/22/19 21:55 Xanax - PO 0.25 mg DAILY PRN Administration ANXIETY Apixaban 10 mg 11/19/19 22:00 11/23/19 00:48 Eliquis - PO 11/26/19 13:51 10 mg BID ELIZABETH Administration Apixaban 2.5 mg 11/26/19 22:00 Eliquis - PO BID ELIZABETH Atovaquone 750 mg 11/14/19 22:00 11/22/19 18:04 Mepron - PO 750 mg BIDWM ELIZABETH Administration Furosemide 40 mg 11/17/19 10:00 11/22/19 09:23 Lasix - PO 40 mg DAILY EL[facility]ABETH Administration Guaifenesin 10 ml 11/22/19 13:38 11/22/19 14:16 Robitussin - PO 10 ml Q4H PRN Administration COUGH Hydrocortisone 1 applic 11/20/19 22:00 11/22/19 21:55 Anusol 2.5% Hc Cream - [place] 1 applic HS ELIZABETH Administration IV Flush 10 ml 11/20/19 23:43 11/22/19 14:17 Alexx-Cath Flush IVPUSH 10 ml PRN PRN Administration protocol, maintain patency Levothyroxine Sodium 25 mcg 11/15/19 07:00 11/23/19 06:02 Synthroid - PO 25 mcg DAILY@0700 [facility]ETH Administration Lidocaine HCl 1 applic 11/20/19 10:35 11/20/19 13:54 Xylocaine 5% Top. Ointment TP 1 applic DAILY PRN Administration PAIN Metoprolol Succinate 25 mg 11/16/19 10:00 11/22/19 09:23 Toprol Xl - PO 25 mg DAILY ELIZABETH Administration Nystatin 500,000 units 11/21/19 18:00 11/23/19 06:03 Nystatin Oral Suspension - PO 500,000 units Q6HPO EL[facility]ABETH Administration Pantoprazole Sodium 40 mg 11/15/19 20:30 11/22/19 09:24 Protonix - PO 40 mg DAILY EL[facility]ETH Administration Valacyclovir HCl 500 mg 11/15/19 10:00 11/22/19 09:24 Valtrex - PO 500 mg DAILY [facility]ETH Administration Vancomycin HCl 125 mg 11/16/19 18:00 11/23/19 06:03 Vancomycin Oral Solution PO 125 mg Q6HPO ELIZABETH Administration ASSESSMENT/PLAN: 88F with past medical history of HTN, CHF, AR, hypothyroidism, 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 #Sepsis 2/2 Cdiff -1 out of 4 blood cultures +Staph hominis. rest of the bottles neg. Discussed with ID, likely contaminant. -UCx neg -CXR neg for pna -C.diff toxin negative, Ag positive. -spoke with Dr. Mortensen who would like to continue 3 more days of PO Vancomycin 125 Q6H PO, to finish 10 day course. #B/l LE DVT; in setting of malignancy and prolonged immobility -On eliquis 10 bid X 7 days then 2.5 BID after pt is discharged -LE duplex showing DVT in posterior iliacs #B/l cool feet; both feet discolored with reduced dorsalis pedis pulses. -Vasc surg consulted (Dr. Winn) who does not wish to intervene surgically, c/w pharmacologic mgmt. - Lower extremity Doppler of the arteries done bilaterally, shows no hemodynamically significant stenosis or occlusion with bilateral DVTs in the right and left posterior tibial veins again noted #High Grade Large B cell lymphoma -started on R-CHOP regimen on previous admission, but had reaction to Rituxin requiring steroids, Benadryl, nebs. Pt has since been hemodynamically stable -Heme-Onc (Dr. Ramos); poor functional status, questionable if patient is able to tolerate future chemo treatments. Ongoing discussions regarding goals of care. -Completed Prednisone taper -Continue Valtrex and Mepron #Mild Abd Distension and Tenderness -KUB neg for obstruction, Yesterday's abdominal x-ray noted, reveal scoliosis with degenerative changes vascular calcifications and costal cartilage calcifications and retained stool but no signs of ileus or obstruction no signs of fecal impaction or gross constipation -Serial abd exams; cont to monitor #CKD 3; 1.9 today -Cont Lasix 40 PO QD -Nephrology (Dr. Broussard) consulted -Avoid nephrotoxic agents #Normocytic Anemia; likely multifactorial - sec to chronic disease/malignancy/ Iron deficiency. -Iron supplementation ongoing. -B12/Folate levels wnl. Further management as per Hematology. #11 x 8 cm fluid filled collection posterior to atria on Echo - found mediastinal mass consistent with lymphadenopathy on CT Chest. Further management as per Oncology. #Bibasal effusions sec to Iv hydration on last admission - appears to have resolved on current chest imaging. - coughing but not SOB no crackles appreciated - CXR done today no acute changes #Prior R intracortical nodule not seen on current Renal US; 6 month follow up for repeat imaging. #HTN; Cont home med: Metoprolol 25 QD; hold ARB in setting of WINSTON #Hypothyroidism; Cont home med: Synthroid 25mcg daily #Anxiety; Cont Xanax PRN. Off Mirtazapine given prolonged QTc on EKG done for tachycardia #FEN -off IVf -lytes, continue to monitor -Regular diet #Prophylaxis DVT: Eliquis 10 BID X 7 days for dvt Rx GI: Protonix 40 PO #Disposition -DNR/DNI -Chemotherapy session is scheduled on 11/28. She has been accepted to [facility]. Will await onc's recommendations regarding pts ability to undergo chemo. Chemo is likely contraindicated per Onc's ECOG of 3-4. Family meeting to discuss hospice will address in AM. Visit type - Emergency Visit Emergency Visit: Yes ED Registration Date: 11/14/19 Care time: The patient presented to the Emergency Department on the above date and was hospitalized for further evaluation of their emergent condition. - New Patient This patient is new to me today: No - Critical Care Critical Care patient: No - Discharge Referral Referred to [facility] Med P.C.: No ATTENDING PHYSICIAN STATEMENT I saw and evaluated the patient. I reviewed the resident's note and discussed the case with the resident. I agree with the resident's findings and plan as documented. SUBJECTIVE: OBJECTIVE: ASSESSMENT AND PLAN:
[2019-11-23] MEDS: ATOVAQUONE 750 MG/5 ML (UNIT-DOSE PACKAGING) PO SCH ×3 (08:58→18:16)
[2019-11-23] MEDS: valACYclovir HCL 500 MG TABLET (FP) PO SCH ×2 (09:00→10:44)
[2019-11-23] MEDS: metoPROLOL SUCCINATE 25 MG TAB.SR.24H (FP) PO SCH ×2 (09:00→10:44)
[2019-11-23] MEDS: PANTOPRAZOLE 40 MG TABLET PO SCH ×2 (09:00→10:44)
[2019-11-23] MEDS: ALLOPURINOL 300 MG TABLET (FP) PO SCH ×2 (09:00→10:44)
[2019-11-23] MEDS ORDERED: PT OWN MED DRAWER 7, Y5N ONE (09:02)
[2019-11-23] MEDS: FUROSEMIDE 40 MG TABLET (FP) PO SCH ×2 (09:07→10:43)
[2019-11-23] MEDS ORDERED: APIXABAN 2.5 MG TABLET PO SCH (09:36)
[2019-11-23] MEDS ORDERED: LACTATED RINGERS SOLUTION 1000 ML INFUS.BAG IV ONE (11:06)
--- NOTE | 2019-11-23 11:07 | PN ---
Teaching Attending Note Name of Resident: Helio Luciano ATTENDING PHYSICIAN STATEMENT I saw and evaluated the patient. I reviewed the resident's note and discussed the case with the resident. I agree with the resident's findings and plan as documented. Seen and examined; please see resident note for further historical information. I personally verified all couch historical information and exam findings. Personally interpreted all imaging and diagnostics and reviewed appropriate consults. I reviewed all labs and vital signs as per resident note and EMR as documented. I agree with the above assessment and plan unless supplemented by myself in the following. Slightly improved today. Recommendations regarding ultimate C. difficile testing noted. Slightly tachycardic and increasing the metoprolol succinate from 25 mg daily to 50 mg daily. Family meeting will be scheduled for tomorrow. Social work will be contacted to help delineate discharge. Vascular surgery saw the patient and recommended outpatient follow-up. They were tolerating the Eliquis further bilateral lower extremity DVTs, they were not started on Lovenox even though they do have a underlying malignancy secondary to their marked CKD. The blood culture is felt to be a contaminant. This is her last day of antibiotics. Overall with same status today. Had episode iof BRBPR at shift change today. Discussed with resident. Rechecking CBC and will discuss goals of care/ XF with family and heme onc. VS, labs, imaging reviewed NAD, AAOx2, resting comfortably in bed. RRR s1/2 no mgr Normal muscle tone, moves all 5 extremities with normal apparent strength Neck is supple, trachea midline, no [place] LN Lungs CTAB with sym expansion NT ND +BS no [place] organomegaly CN2-12 wnl; no FND NC AT EOMI PERRLA Normal mood, appropriate behavior, euthymic affect No skin breakdown or rashes noted; lower extremity changes consistent with prior descriptors and positive pulses noted in the posterior tibialis bilaterally. -Microbiology results are noted -Lower extremity Doppler of the arteries done bilaterally, shows no hemodynamically significant stenosis or occlusion with bilateral DVTs in the right and left posterior tibial veins again noted -Yesterday's abdominal x-ray noted, reveal scoliosis with degenerative changes vascular calcifications and costal cartilage calcifications and retained stool but no signs of ileus or obstruction no signs of fecal impaction or gross constipation -Admission EKG noted with sinus tachycardia with premature atrial complexes, left axis deviation, right bundle branch block Assessment and plan: Patient with history of high-grade diffuse large B-cell lymphoma presents with C. difficile infection completing antibiotics. Infectious diseases monitoring. We are titrating up her metoprolol, continuing her on Eliquis, and monitoring on the medicine service. Speaking with social work help delineate discharge which hopefully is in the next 24 to 36 hours. Her main issue will be if we are going to be continuing the patient on chemotherapy or not. Per Dr. Ramos's last note it appears that the patient may not be physically strong enough to continue with chemotherapy which would also be consistent with her underlying medical diagnoses however this is the patient's overall decision to make with her oncologist. Problems include: -Sepsis, resolved -C. difficile infection, oral vancomycin empirically given due to C. difficile antigen positive, infectious disease canceled C. difficile PCR. Patient's diarrhea has resolved, -High-grade diffuse large B-cell lymphoma, status post CHOP with completed prednisone taper. Poor overall functional status with unclear ability to tolerate further chemotherapy. Valtrex and Mepron prophylaxis. -Bilateral lower extremity DVT, cannot use Lovenox due to underlying chronic kidney disease, on Eliquis with hematology oncology dosing -Lower extremity skin changes secondary to venous stasis, no arterial flow issues on the arterial Dopplers obtained today. -Anxiety, PRN Xanax can be continued. Used to be on mirtazapine but this was held due to the prolonged QTC, -Prolonged QT interval -CKD 3 Hypothyroidism, continue levothyroxine -Mild abdominal tenderness, improved, negative abdominal x-ray yesterday, continue to monitor. -Mediastinal mass, 11 x 8 cm fluid-filled collection posterior to the atria on echocardiogram with further delineation as dictated on the CT chest repeat. Oncology is aware management per their service no need for stat cardiothoracic surgery consult etc. etc. -Hypercalcemia, resolved with hydration, monitor electrolytes -GERD, continue PPI The patient's next chemotherapy is session is scheduled on 28 November and she has been accepted to [facility]. We will discuss the further plans with oncology and if there is no plans for chemotherapy given her current functional status we will plan to discharge tomorrow DNR/DNI
[2019-11-23 11:46] LABS: ANISOCYTOSIS 1+; MACROCYTOSIS 0; OVALOCYTE 1+; PLATELET ESTIMATE NORMAL; TEAR DROP CELLS 1+
[2019-11-23] MEDS: ACETAMINOPHEN 325 MG TABLET (FP) PO PRN (17:20)
--- NOTE | 2019-11-23 17:36 | PN ---
Progress Note, Physician History of Present Illness: Pt seen and examined at bedside. She is awake and alert. SHe has poor po intake. She denies dysuria. - Current Medication List Current Medications: Active Medications Acetaminophen (Tylenol -) 650 mg PO Q6H PRN PRN Reason: FEVER Last Admin: 11/23/19 17:20 Dose: 650 mg Allopurinol (Zyloprim -) 300 mg PO DAILY [facility] Last Admin: 11/23/19 10:44 Dose: Not Given Apixaban (Eliquis -) 2.5 mg PO BID [facility] Apixaban (Eliquis -) 10 mg PO BID [facility] Stop: 11/26/19 13:51 Last Admin: 11/23/19 10:35 Dose: Not Given Atovaquone (Mepron -) 750 mg PO BIDWM [facility] Last Admin: 11/23/19 10:43 Dose: Not Given Furosemide (Lasix -) 40 mg PO DAILY [facility] Last Admin: 11/23/19 10:43 Dose: Not Given Guaifenesin (Robitussin -) 10 ml PO Q4H PRN PRN Reason: COUGH Last Admin: 11/22/19 14:16 Dose: 10 ml Hydrocortisone (Anusol 2.5% Hc Cream -) 1 applic VA HS [facility] Last Admin: 11/22/19 21:55 Dose: 1 applic IV Flush (Alexx-Cath Flush) 10 ml IVPUSH PRN PRN PRN Reason: protocol, maintain patency Last Admin: 11/22/19 14:17 Dose: 10 ml Levothyroxine Sodium (Synthroid -) 25 mcg PO DAILY@0700 [facility] Last Admin: 11/23/19 06:02 Dose: 25 mcg Lidocaine HCl (Xylocaine 5% Top. Ointment) 1 applic TP DAILY PRN PRN Reason: PAIN Last Admin: 11/20/19 13:54 Dose: 1 applic Lorazepam (Ativan Injection -) 0.25 mg IVPUSH HS PRN PRN Reason: ANXIETY Metoprolol Succinate (Toprol Xl -) 25 mg PO DAILY [facility] Last Admin: 11/23/19 10:44 Dose: Not Given Nystatin (Nystatin Oral Suspension -) 500,000 units PO Q6HPO [facility] Last Admin: 11/23/19 13:47 Dose: Not Given Pantoprazole Sodium (Protonix -) 40 mg PO DAILY [facility] Last Admin: 11/23/19 10:44 Dose: Not Given Valacyclovir HCl (Valtrex -) 500 mg PO DAILY [facility] Last Admin: 11/23/19 10:44 Dose: Not Given Vancomycin HCl (Vancomycin Oral Solution) 125 mg PO Q6HPO [facility] Last Admin: 11/23/19 13:49 Dose: Not Given - Objective Vital Signs: Vital Signs Temperature 99.2 F 11/23/19 15:49 Pulse Rate 129 H 11/23/19 15:49 Respiratory Rate 22 H 11/23/19 15:49 Blood Pressure 114/66 11/23/19 15:49 O2 Sat by Pulse Oximetry (%) 92 L 11/23/19 13:45 Constitutional: Yes: Calm Eyes: Yes: Conjunctiva Clear HENT: Yes: Atraumatic Neck: Yes: Supple Cardiovascular: Yes: S1, S2 Respiratory: Yes: On Nasal O2 Gastrointestinal: Yes: Soft Genitourinary: Yes: WNL Musculoskeletal: Yes: WNL Edema: Yes Edema: LLE: 1+, RLE: 1+ Neurological: Yes: Oriented Psychiatric: Yes: Oriented Labs: CBC, BMP 11/23/19 06:00 11/23/19 06:00 INR, PTT INR 0.97 (0.83-1.09) 11/14/19 10:30 Problem List - Problems (1) CKD (chronic kidney disease) Code(s): N18.9 - CHRONIC KIDNEY DISEASE, UNSPECIFIED Assessment/Plan Current Medications Generic Name Dose Route Start Last Admin Trade Name Freq PRN Reason Stop Dose Admin Acetaminophen 650 mg 11/14/19 16:13 11/23/19 17:20 Tylenol - PO 650 mg Q6H PRN Administration FEVER Allopurinol 300 mg 11/15/19 10:00 11/23/19 10:44 Zyloprim - PO Not Given DAILY [facility] Apixaban 2.5 mg 11/26/19 22:00 Eliquis - PO BID [facility] Apixaban 10 mg 11/23/19 09:36 11/23/19 10:35 Eliquis - PO 11/26/19 13:51 Not Given BID [facility] Atovaquone 750 mg 11/14/19 22:00 11/23/19 10:43 Mepron - PO Not Given BIDWM [facility] Furosemide 40 mg 11/17/19 10:00 11/23/19 10:43 Lasix - PO Not Given DAILY [facility] Guaifenesin 10 ml 11/22/19 13:38 11/22/19 14:16 Robitussin - PO 10 ml Q4H PRN Administration COUGH Hydrocortisone 1 applic 11/20/19 22:00 11/22/19 21:55 Anusol 2.5% Hc Cream - VA 1 applic HS [facility] Administration IV Flush 10 ml 11/20/19 23:43 11/22/19 14:17 Alexx-Cath Flush IVPUSH 10 ml PRN PRN Administration protocol, maintain patency Levothyroxine Sodium 25 mcg 11/15/19 07:00 11/23/19 06:02 Synthroid - PO 25 mcg DAILY@0700 [facility] Administration Lidocaine HCl 1 applic 11/20/19 10:35 11/20/19 13:54 Xylocaine 5% Top. Ointment TP 1 applic DAILY PRN Administration PAIN Lorazepam 0.25 mg 11/23/19 11:08 Ativan Injection - IVPUSH HS PRN ANXIETY Metoprolol Succinate 25 mg 11/16/19 10:00 11/23/19 10:44 Toprol Xl - PO Not Given DAILY [facility] Nystatin 500,000 units 11/21/19 18:00 11/23/19 13:47 Nystatin Oral Suspension - PO Not Given Q6HPO [facility] Pantoprazole Sodium 40 mg 11/15/19 20:30 11/23/19 10:44 Protonix - PO Not Given DAILY [facility] Valacyclovir HCl 500 mg 11/15/19 10:00 11/23/19 10:44 Valtrex - PO Not Given DAILY [facility] Vancomycin HCl 125 mg 11/16/19 18:00 11/23/19 13:49 Vancomycin Oral Solution PO Not Given Q6HPO [facility] Impression 1. CKD 2. WINSTON 3. diarrhea 4. fever 5. b cell lymphoma 6. htn 7. hld 8. pleural effusions Plan - agree with holding lasix today - cxr reviewed - photographic technician is rising - monitor volume status - diarrhea improved
[2019-11-23] MEDS: PORTA CATH FLUSH 10 ML IVPUSH PRN (18:56)
[2019-11-23] MEDS: LIDOCAINE HCL 5% TOP OINTMENT 50 GM TUBE TP PRN (18:57)
[2019-11-23 19:27] LABS: BASO % 1.4 % (0-2.0); EOS % 6.1 % (0-4.5); HEMATOCRIT 24.3 % (32.4-45.2); HEMOGLOBIN 7.9 GM/dL (10.7-15.3); LYMPH % 7.4 % (8-40); MCH 30.5 pg (25.7-33.7); MCHC 32.3 g/dl (32.0-36.0); MEAN CELL VOLUME 94.3 fl (80-96); MEAN PLT VOLUME 8.2 fl (7.5-11.1); MONO % 22.4 % (3.8-10.2); NEUT % 62.7 % (42.8-82.8); PLATELET COUNT 153 K/MM3 (134-434); RBC 2.58 M/mm3 (3.60-5.2); WHITE BLOOD COUNT 7.7 K/mm3 (4.0-10.0)
[2019-11-23] MEDS ORDERED: ACETAMINOPHEN 500 MG TABLET (FP) PO PRN (19:31)
[2019-11-23] MEDS ORDERED: ACETAMINOPHEN 500 MG TABLET (FP) PO ONE (19:33)
[2019-11-23] MEDS ORDERED: METOPROLOL TARTRATE 5 MG/5 ML VIAL IVPB ONE (19:46)
--- NOTE | 2019-11-23 20:25 | PN ---
Progress Note (short form) - Note Progress Note: patient and family seem to be accepting of [place] after discussion with palliative care and Leonor Periods of lucidity and occasional confusion Drenching sweats Episode of blood per rectum Last Vital Signs Temp Pulse Resp BP Pulse Ox 99.7 F H 119 H 20 111/54 L 92 L 11/23/19 16:40 11/23/19 20:04 11/23/19 16:40 11/23/19 20:04 11/23/19 13:45 HEENT: STEPHEN, EOM Intact Oropharynx: No thrush, No mucositis Neck: Supple Nodes: neck adenopathy Breasts: Without masses,s/p lumpectomy Cor: RSR, No murmurs, No gallops Lungs: rhonchi, bases and diffusely Abd: Soft, Normal bowel sounds, No organomegaly, distended Ext:LE edema Skin: No rashes, Integument intact CBC, BMP 11/23/19 18:30 11/23/19 06:00 Current Medications Generic Name Dose Route Start Last Admin Trade Name Freq PRN Reason Stop Dose Admin Acetaminophen 1,000 mg 11/23/19 19:31 Tylenol - PO Q8H PRN FEVER Allopurinol 300 mg 11/15/19 10:00 11/23/19 10:44 Zyloprim - PO Not Given DAILY [facility] Apixaban 2.5 mg 11/26/19 22:00 Eliquis - PO BID [facility] Apixaban 10 mg 11/23/19 09:36 11/23/19 10:35 Eliquis - PO 11/26/19 13:51 Not Given BID [facility] Atovaquone 750 mg 11/14/19 22:00 11/23/19 18:16 Mepron - PO Not Given BIDWM [facility] Furosemide 40 mg 11/17/19 10:00 11/23/19 10:43 Lasix - PO Not Given DAILY [facility] Guaifenesin 10 ml 11/22/19 13:38 11/22/19 14:16 Robitussin - PO 10 ml Q4H PRN Administration COUGH Hydrocortisone 1 applic 11/20/19 22:00 11/22/19 21:55 Anusol 2.5% Hc Cream - SC 1 applic HS [facility] Administration IV Flush 10 ml 11/20/19 23:43 11/23/19 18:56 Alexx-Cath Flush IVPUSH 10 ml PRN PRN Administration protocol, maintain patency Levothyroxine Sodium 25 mcg 11/15/19 07:00 11/23/19 06:02 Synthroid - PO 25 mcg DAILY@0700 [facility] Administration Lidocaine HCl 1 applic 11/20/19 10:35 11/23/19 18:57 Xylocaine 5% Top. Ointment TP 1 applic DAILY PRN Administration PAIN Lorazepam 0.25 mg 11/23/19 11:08 Ativan Injection - IVPUSH HS PRN ANXIETY Metoprolol Succinate 25 mg 11/16/19 10:00 11/23/19 10:44 Toprol Xl - PO Not Given DAILY [facility] Nystatin 500,000 units 11/21/19 18:00 11/23/19 18:17 Nystatin Oral Suspension - PO Not Given Q6HPO [facility] Pantoprazole Sodium 40 mg 11/15/19 20:30 11/23/19 10:44 Protonix - PO Not Given DAILY [facility] Valacyclovir HCl 500 mg 11/15/19 10:00 11/23/19 10:44 Valtrex - PO Not Given DAILY [facility] Vancomycin HCl 125 mg 11/16/19 18:00 11/23/19 18:17 Vancomycin Oral Solution PO Not Given Q6HPO [facility] impression: Transformed lymphoma B symptoms Agitation Anemia Tachycardia Blood per rectum Plan : Morphine prn
[2019-11-23] MEDS ORDERED: MORPHINE SULFATE 2 MG/ML VIAL IVPUSH PRN (20:26)
[2019-11-23 20:34] LABS: ANISOCYTOSIS 2+; OVALOCYTE 1+; PLATELET ESTIMATE DECREASED
[2019-11-23] MEDS: LORazepam 2 MG/ML SDV VIAL IVPUSH PRN (21:23)
[2019-11-23] MEDS: HYDROCORTISONE 2.5% TOPICAL CREAM 30 GM TUBE PR SCH (21:23)
[2019-11-24] MEDS: NYSTATIN 500,000 UNITS/5 ML SUSPENSION PO SCH (06:17)
[2019-11-24] MEDS: VANCOMYCIN 250 MG/5 ML ORAL SOLUTION PO SCH (06:17)
[2019-11-24] MEDS: LEVOTHYROXINE NA 25 MCG TABLET (FP) PO SCH (06:26)
[2019-11-24 07:12] VITALS: TEMP 97.5
[2019-11-24 07:40] LABS: BASO % 1.4 % (0-2.0); EOS % 2.7 % (0-4.5); HEMATOCRIT 27.2 % (32.4-45.2); LYMPH % 2.7 % (8-40); MCH 30.7 pg (25.7-33.7); MEAN PLT VOLUME 8.1 fl (7.5-11.1); MONO % 18.3 % (3.8-10.2); NEUT % 74.9 % (42.8-82.8); PLATELET COUNT 153 K/MM3 (134-434); RBC 2.92 M/mm3 (3.60-5.2); RDW 22.2 % (11.6-15.6); WHITE BLOOD COUNT 8.9 K/mm3 (4.0-10.0)
[2019-11-24 08:13] LABS: ALBUMIN 2.2 g/dl (3.4-5.0); BILIRUBIN,TOTAL 1.5 mg/dL (0.2-1); BLOOD UREA NITROGEN 34.4 mg/dL (7-18); CALCIUM 7.6 mg/dL (8.5-10.1); CREATININE 2.3 mg/dL (0.55-1.3); TOT PROT 5.2 g/dl (6.4-8.2)
[2019-11-24 09:38] LABS: ANISOCYTOSIS 2+; MACROCYTOSIS 2+; PLATELET ESTIMATE NORMAL
[2019-11-24] MEDS: metoPROLOL SUCCINATE 25 MG TAB.SR.24H (FP) PO SCH (10:23)
[2019-11-24] MEDS: PANTOPRAZOLE 40 MG TABLET PO SCH (10:23)
[2019-11-24] MEDS: ATOVAQUONE 750 MG/5 ML (UNIT-DOSE PACKAGING) PO SCH (10:23)
[2019-11-24] MEDS: valACYclovir HCL 500 MG TABLET (FP) PO SCH (10:24)
[2019-11-24] MEDS: ALLOPURINOL 300 MG TABLET (FP) PO SCH (10:24)
[2019-11-24 10:25] VITALS: BP 114/85; PULSE 111
[2019-11-24] MEDS ORDERED: ACETAMINOPHEN 1000 MG/100 ML VIAL (NON FORMULARY) IVPB PRN (11:04)
[2019-11-24] MEDS ORDERED: SCOPOLAMINE HYDROBROMIDE 1 PATCH PATCH.TD72 TD SCH (11:15)
[2019-11-24] MEDS ORDERED: MORPHINE SULFATE/0.9% NACL/PF 100 MG/100 ML BAG IVPB SCH (11:15)
--- NOTE | 2019-11-24 11:16 | PN ---
Teaching Attending Note Name of Resident: Helio Luciano ATTENDING PHYSICIAN STATEMENT I saw and evaluated the patient. I reviewed the resident's note and discussed the case with the resident. I agree with the resident's findings and plan as documented. SUBJECTIVE: Moving to [employer]; discussed with palliative. Starting morphine drip. Discussed goals of care to be comfort. 10 sys ROS done and negative aside from HPI OBJECTIVE: Lethargic, not appearing in pain HR wnl, +s1/2 Cn2-12 wnl, no fnd Not agitated, limited insighrt 2/2 clinical picture ASSESSMENT AND PLAN: Comfort care only Paperwork completed, MSO4 drip, discussed with family and palliative Hours to days
--- NOTE | 2019-11-24 15:47 | PN ---
Progress Note, Physician History of Present Illness: Pt seen and examined at bedside. She is now lethargic. - Current Medication List Current Medications: Active Medications Acetaminophen (Ofirmev Injection -) 1,000 mg IVPB Q6H PRN PRN Reason: FEVER Stop: 11/25/19 11:04 Hydrocortisone (Anusol 2.5% Hc Cream -) 1 applic SD HS [facility] Last Admin: 11/23/19 21:23 Dose: 1 applic Morphine Sulfate (Morphine 100mg/100ml-0.9% Nacl) 100 mg in 100 mls @ 0.5 mls/ hr IVPB TITR [facility]; Protocol Last Admin: 11/24/19 12:16 Dose: 0.5 mls/hr Lidocaine HCl (Xylocaine 5% Top. Ointment) 1 applic TP DAILY PRN PRN Reason: PAIN Last Admin: 11/23/19 18:57 Dose: 1 applic Lorazepam (Ativan Injection -) 0.25 mg IVPUSH HS PRN PRN Reason: ANXIETY Last Admin: 11/23/19 21:23 Dose: 0.25 mg Morphine Sulfate (Morphine Sulfate) 2 mg IVPUSH Q3H PRN PRN Reason: PAIN LEVEL 1 - 3 Last Admin: 11/24/19 09:48 Dose: 2 mg Scopolamine HBr (Transderm-Scop -) 1 patch TD Q72H [facility] Last Admin: 11/24/19 12:38 Dose: 1 patch - Objective Vital Signs: Vital Signs Temperature 97.5 F L 11/24/19 06:00 Pulse Rate 111 H 11/24/19 10:00 Respiratory Rate 18 11/24/19 14:15 Blood Pressure 114/85 11/24/19 10:00 O2 Sat by Pulse Oximetry (%) 94 L 11/24/19 08:51 Constitutional: Yes: No Distress, Calm Eyes: Yes: Conjunctiva Clear Cardiovascular: Yes: S1, S2 Respiratory: Yes: On Nasal O2 Gastrointestinal: Yes: Soft Genitourinary: Yes: Incontinence Edema: Yes Edema: LLE: Trace, RLE: Trace Neurological: Yes: Lethargy Labs: CBC, BMP 11/24/19 06:40 11/24/19 06:40 INR, PTT INR 0.97 (0.83-1.09) 11/14/19 10:30 Problem List - Problems (1) CKD (chronic kidney disease) Code(s): N18.9 - CHRONIC KIDNEY DISEASE, UNSPECIFIED Assessment/Plan Current Medications Generic Name Dose Route Start Last Admin Trade Name Freq PRN Reason Stop Dose Admin Acetaminophen 1,000 mg 11/24/19 11:04 Ofirmev Injection - IVPB 11/25/19 11:04 Q6H PRN FEVER Hydrocortisone 1 applic 11/20/19 22:00 11/23/19 21:23 Anusol 2.5% Hc Cream - SD 1 applic HS [facility] Administration Morphine Sulfate 100 mg in 100 mls @ 0.5 mls/hr 11/24/19 11:15 11/24/19 12:16 Morphine 100mg/100ml-0.9% Nacl IVPB 0.5 mls/hr TITR [facility] Administration Protocol Lidocaine HCl 1 applic 11/20/19 10:35 11/23/19 18:57 Xylocaine 5% Top. Ointment TP 1 applic DAILY PRN Administration PAIN Lorazepam 0.25 mg 11/23/19 11:08 11/23/19 21:23 Ativan Injection - IVPUSH 0.25 mg HS PRN Administration ANXIETY Morphine Sulfate 2 mg 11/23/19 20:26 11/24/19 09:48 Morphine Sulfate IVPUSH 2 mg Q3H PRN Administration PAIN LEVEL 1 - 3 Scopolamine HBr 1 patch 11/24/19 11:15 11/24/19 12:38 Transderm-Scop - TD 1 patch Q72H [facility] Administration Impression 1. CKD 2. WINSTON 3. diarrhea 4. fever 5. b cell lymphoma 6. htn 7. hld 8. pleural effusions Plan - renal function worsening - pt now on a morphine drip - discussed with family at bedside - will follow PRN
--- NOTE | 2019-11-24 17:42 | PN ---
Physical Exam: SUBJECTIVE: Patient seen and examined at bedside. Hemmorhoid bleed under control. Comfort measures only. OBJECTIVE: Vital Signs Period Temp Pulse Resp BP Sys/[place] Pulse Ox Last 24 Hr 97.5 F 109-119 18-22 111-120/54-85 94-94 General: awake, somnolent, alert and oriented. Pt on contact still. Rt portacath present Nodes: extensive adenopathy, left cervical region Heart: Normal sinus rhythm, tachycardic, no murmurs, No gallops Lungs: scattered crackles, b/l worse at bases Abd: Soft, Normal bowel sounds, No organomegaly Ext: 2+ pitting edema b/l, cooler extremities than yesterday, pulses present and marked b/l. Laboratory Results - last 24 hr 11/23/19 11/23/19 11/24/19 18:30 18:30 06:40 WBC 7.7 8.9 RBC 2.58 L 2.92 L Hgb 7.9 L 9.0 L Hct 24.3 L 27.2 L MCV 94.3 93.0 MCH 30.5 30.7 MCHC 32.3 33.0 RDW 22.0 H 22.2 H Plt Count 153 153 MPV 8.2 8.1 Absolute Neuts (auto) 4.8 6.7 Total Counted 100 Neutrophils % 62.7 74.9 Neutrophils % (Manual) 63.0 85.0 H Band Neutrophils % 3.0 1.0 Lymphocytes % 7.4 L D 2.7 L D Lymphocytes % (Manual) 9.0 D 0.0 L Monocytes % 22.4 H 18.3 H Monocytes % (Manual) 15 H D 5 Eosinophils % 6.1 H 2.7 Eosinophils % (Manual) 5.0 H 2.0 Basophils % 1.4 1.4 Basophils % (Manual) 2.0 Myelocytes % (Man) 2 D Promyelocytes % (Man) 0 Blast Cells % (Manual) 0 Nucleated RBC % 0 0 Metamyelocytes 4 H D 1 D Hypochromia 1+ 0 Platelet Estimate Decreased Normal Platelet Comment No clumping noted Polychromasia 1+ 0 Poikilocytosis 0 Anisocytosis 2+ 2+ Microcytosis 1+ 2+ Macrocytosis 2+ Ovalocytes 1+ Sodium Potassium Chloride Carbon Dioxide Anion Gap BUN Creatinine Est GFR (CKD-EPI)AfAm Est GFR (CKD-EPI)NonAf Random Glucose Calcium Total Bilirubin AST ALT Alkaline Phosphatase Total Protein Albumin Blood Type O POSITIVE Antibody Screen Negative 11/24/19 06:40 WBC RBC Hgb Hct MCV MCH MCHC RDW Plt Count MPV Absolute Neuts (auto) Total Counted Neutrophils % Neutrophils % (Manual) Band Neutrophils % Lymphocytes % Lymphocytes % (Manual) Monocytes % Monocytes % (Manual) Eosinophils % Eosinophils % (Manual) Basophils % Basophils % (Manual) Myelocytes % (Man) Promyelocytes % (Man) Blast Cells % (Manual) Nucleated RBC % Metamyelocytes Hypochromia Platelet Estimate Platelet Comment Polychromasia Poikilocytosis Anisocytosis Microcytosis Macrocytosis Ovalocytes Sodium 140 Potassium 4.0 Chloride 114 H Carbon Dioxide 24 Anion Gap 3 L BUN 34.4 H Creatinine 2.3 H Est GFR (CKD-EPI)AfAm 21.28 Est GFR (CKD-EPI)NonAf 18.36 Random Glucose 94 Calcium 7.6 L Total Bilirubin 1.5 H AST 48 H ALT 42 Alkaline Phosphatase 685 H Total Protein 5.2 L Albumin 2.2 L Blood Type Antibody Screen Active Medications Generic Name Dose Route Start Last Admin Trade Name Freq PRN Reason Stop Dose Admin Acetaminophen 1,000 mg 11/24/19 11:04 Ofirmev Injection - IVPB 11/25/19 11:04 Q6H PRN FEVER Hydrocortisone 1 applic 11/20/19 22:00 11/23/19 21:23 Anusol 2.5% Hc Cream - ME 1 applic HS [facility] Administration Morphine Sulfate 100 mg in 100 mls @ 0.5 mls/hr 11/24/19 11:15 11/24/19 12:16 Morphine 100mg/100ml-0.9% Nacl IVPB 0.5 mls/hr TITR [facility] Administration Protocol Lidocaine HCl 1 applic 11/20/19 10:35 11/23/19 18:57 Xylocaine 5% Top. 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 #Sepsis 2/2 Cdiff -1 out of 4 blood cultures +Staph hominis. rest of the bottles neg. Discussed with ID, likely contaminant. -UCx neg -CXR neg for pna -C.diff toxin negative, Ag positive. -spoke with Dr. Mortensen who would like to continue 3 more days of PO Vancomycin 125 Q6H PO, to finish 10 day course. #B/l LE DVT; in setting of malignancy and prolonged immobility -On eliquis 10 bid X 7 days then 2.5 BID after pt is discharged -LE duplex showing DVT in posterior iliacs #B/l cool feet; both feet discolored with reduced dorsalis pedis pulses. -Vasc surg consulted (Dr. Winn) who does not wish to intervene surgically, c/w pharmacologic mgmt. - Lower extremity Doppler of the arteries done bilaterally, shows no hemodynamically significant stenosis or occlusion with bilateral DVTs in the right and left posterior tibial veins again noted #High Grade Large B cell lymphoma -started on R-CHOP regimen on previous admission, but had reaction to Rituxin requiring steroids, Benadryl, nebs. Pt has since been hemodynamically stable -Heme-Onc (Dr. Ramos); poor functional status, questionable if patient is able to tolerate future chemo treatments. Ongoing discussions regarding goals of care. -Completed Prednisone taper -Continue Valtrex and Mepron #Mild Abd Distension and Tenderness -KUB neg for obstruction, Yesterday's abdominal x-ray noted, reveal scoliosis with degenerative changes vascular calcifications and costal cartilage calcifications and retained stool but no signs of ileus or obstruction no signs of fecal impaction or gross constipation -Serial abd exams; cont to monitor #CKD 3; 1.9 today -Cont Lasix 40 PO QD -Nephrology (Dr. Broussard) consulted -Avoid nephrotoxic agents #Normocytic Anemia; likely multifactorial - sec to chronic disease/malignancy/ Iron deficiency. -Iron supplementation ongoing. -B12/Folate levels wnl. Further management as per Hematology. #11 x 8 cm fluid filled collection posterior to atria on Echo - found mediastinal mass consistent with lymphadenopathy on CT Chest. Further management as per Oncology. #Bibasal effusions sec to Iv hydration on last admission - appears to have resolved on current chest imaging. - coughing but not SOB no crackles appreciated - CXR done today no acute changes #Prior R intracortical nodule not seen on current Renal US; 6 month follow up for repeat imaging. #HTN; Cont home med: Metoprolol 25 QD; hold ARB in setting of WINSTON #Hypothyroidism; Cont home med: Synthroid 25mcg daily #Anxiety; Cont Xanax PRN. Off Mirtazapine given prolonged QTc on EKG done for tachycardia #FEN -off IVf -lytes, continue to monitor -Regular diet #Prophylaxis DVT: Eliquis 10 BID X 7 days for dvt Rx GI: Protonix 40 PO #Disposition =- Comfort measures only, in hospital hospice after discussing with Leonor delacruz. Visit type - Emergency Visit Emergency Visit: Yes ED Registration Date: 11/14/19 Care time: The patient presented to the Emergency Department on the above date and was hospitalized for further evaluation of their emergent condition. - New Patient This patient is new to me today: No - Critical Care Critical Care patient: No - Discharge Referral Referred to [facility] No ATTENDING PHYSICIAN STATEMENT I saw and evaluated the patient. I reviewed the resident's note and discussed the case with the resident. I agree with the resident's findings and plan as documented. SUBJECTIVE: OBJECTIVE: ASSESSMENT AND PLAN:
[2019-11-24] MEDS: LORazepam 2 MG/ML SDV VIAL IVPUSH PRN (21:39)
[2019-11-24] MEDS: HYDROCORTISONE 2.5% TOPICAL CREAM 30 GM TUBE PR SCH (23:25)
--- NOTE | 2019-11-25 07:13 | PN ---
Progress Note (short form) - Note Progress Note: Paged by nursing staff that patient had . On arrival, patient unresponsive, even to painful stimuli. Pupils fixed & non- reactive. Patient has no spontaneous breathing, no heart or breath sounds. No carotid or femoral pulses present. Time of pronounced at 7:05 AM. Family notified & present at bedside. Grievance services offered to family. Nursing staff to contact [facility] [place].
[2019-11-26] MEDS ORDERED: APIXABAN 2.5 MG TABLET PO SCH (22:00)
--- NOTE | 2019-11-27 12:49 | DS ---
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 She was treated with PO vanco per ID given Cdiff ag positive s/p recent abx use. She was seen by hematology/oncology while here and was deemed not stable enough to undergo chemotherapy and recommended hospice care. Pt on 11/25. Date of Discharge: 11/25/19 Minutes to complete discharge: 35 Discharge Summary Problems reviewed: Yes Reason For Visit: SEPSIS - Instructions Diet, Activity, Other Instructions: Referrals: Shivam Colorado MD [Primary Care Provider] - Disposition: - Home Medications Comprehensive Discharge Medication List: Ambulatory Orders Alprazolam [Xanax] 0.25 mg PO PRN 10/06/18 Levothyroxine [Synthroid -] 25 mcg PO DAILY 10/06/18 Mirtazapine 15 mg PO HS 09/28/19 Metoprolol Succinate [Toprol XL -] 25 mg PO DAILY 10/13/19 Allopurinol 300 mg PO DAILY 11/01/19 Pantoprazole Sodium [Protonix] 40 mg PO DAILY 11/01/19 Atovaquone [Mepron -] 750 mg PO BID #70 ml 11/08/19 Furosemide [Lasix] 40 mg PO DAILY #30 tablet 11/08/19 Valacyclovir HCl [Valtrex] 500 mg PO DAILY #30 tablet 11/08/19 This patient is new to me today: No Emergency Visit: Yes ED Registration Date: 11/14/19 Care time: The patient presented to the Emergency Department on the above date and was hospitalized for further evaluation of their emergent condition. Critical Care patient: No - Discharge Referral Referred to [facility] No ATTENDING PHYSICIAN STATEMENT I saw and evaluated the patient. I reviewed the resident's note and discussed the case with the resident. I agree with the resident's findings and plan as documented. SUBJECTIVE: OBJECTIVE: ASSESSMENT AND PLAN:
--- NOTE | 2019-12-01 07:23 | PN ---
Teaching Attending Note Name of Resident: Helio Luciano ATTENDING PHYSICIAN STATEMENT I saw and evaluated the patient. I reviewed the resident's note and discussed the case with the resident. I agree with the resident's findings and plan as documented. Patient after being made comfort care; please see prior progress notes for medical progress. summary per resident documentation. Family updated. Palliative care team updated. Body removed prior to exam
== END 2019-11-25 10:26 | disposition expired | DRG 872 ==
LOC: JER 09:54 → JERBED 14:30 → J7W 21:56
PROVIDERS: ADMIT Internal Medicine; ATTEND Internal Medicine
DX: A41.9 Sepsis, unspecified organism (principal); C83.30 Diffuse large B-cell lymphoma, unspecified site; I50.32 Chronic diastolic (congestive) heart failure; N17.9 Acute kidney failure, unspecified; I13.0 Hypertensive heart and chronic kidney disease with heart failure and stage 1 through stage 4 chronic kidney disease, or unspecified chronic kidney disease; A04.72 Enterocolitis due to Clostridium difficile, not specified as recurrent; I82.443 Acute embolism and thrombosis of tibial vein, bilateral; E78.5 Hyperlipidemia, unspecified; Z85.3 Personal history of malignant neoplasm of breast; I11.0 Hypertensive heart disease with heart failure; Z88.0 Allergy status to penicillin; I35.1 Nonrheumatic aortic (valve) insufficiency; Z66 Do not resuscitate; E03.9 Hypothyroidism, unspecified; F41.9 Anxiety disorder, unspecified; E83.39 Other disorders of phosphorus metabolism; E83.42 Hypomagnesemia; D64.9 Anemia, unspecified; E83.52 Hypercalcemia; K21.9 Gastro-esophageal reflux disease without esophagitis; N18.3 Chronic kidney disease, stage 3 (moderate); N18.9 Chronic kidney disease, unspecified; D69.6 Thrombocytopenia, unspecified; K76.0 Fatty (change of) liver, not elsewhere classified
CPT/HCPCS: 36415; 71045-TC-FY; 74018-TC-FY; 74176-TC; 76705-TC; 80053; 81003; 83605; 83615; 83690; 83735; 84100; 84484; 84550; 85025; 85610; 85730; 86850; 86900; 86901; 87040; 87086; 87186; 87324; 87449; 87493; 87804; 93005; 93010; 93925-TC; 93970-TC; 94761; 97116-GP; 97161-GP; 99285-25; G0480; J0131; J1644; J7030